=== PATIENT | male | born 1970 | race African-American/Black ===

== ENCOUNTER 2023-12-12 11:08 | Inpatient (IN) | payer MEDICARE, MEDICAID, SELFPAY ==
[2023-12-12] VITALS (7 sets, daily range): BP systolic 147–177; BP diastolic 71–81; PULSE 83–98; RESP 16–22; TEMP 36.3–36.8; O2SAT 97–100
--- NOTE | ~2023-12-12 | CT_ITS ---
EXAMINATION: CT chest abdomen pelvis w con DATE: 12/12/2023 16:31 INDICATION: Malignancy. Pelvic lymphadenopathy and bone lesions. TECHNIQUE: Computed tomography (CT) of the chest, abdomen, and pelvis was performed with 100 mL Omnip aque 350 intravenous contrast. Automated exposure control and iterative reconstruction technique were employed. The dose-length product was 895.68 mGy-cm. COMPARISON: CT lumbar spine 12/12/23 FINDINGS: CHEST CT: There is no pneumonia or pleural effusion. There is a multinodular goiter extending into the right me diastinum. The heart size is normal. There is a trace pericardial effusion. There is bilateral gyneco mastia. There are no pathologically enlarged lymph nodes. There are numerous scattered sclerotic lesi ons of bone. There is a mixed lytic and sclerotic lesion in T9 vertebral body. There is mild chronic anterior wedging of T8, T10, T11, and T12 vertebral bodies. ABDOMEN/PELVIS CT: The liver and spleen are normal. The gallbladder is distended, likely secondary to fasting. The gallb ladder, adrenal glands, and kidneys are normal. There are no dilated loops of bowel. The appendix is normal. There is left para-aortic, bilateral common iliac, bilateral external iliac, right internal i liac, and perirectal lymphadenopathy. For example, a left external iliac node measures 7.5 x 4.1 cm. There is no free intraperitoneal fluid. There are numerous scattered sclerotic lesions of bone. IMPRESSION: 1. Bone lesions and pelvic and retroperitoneal lymphadenopathy, consistent with metastatic disease ve rsus lymphoma. CT-guided biopsy of a pelvic lymph node is recommended. Reviewed, dictated and finalized at location A. IMPRESSION: 1. Bone lesions and pelvic and retroperitoneal lymphadenopathy, consistent with metastatic disease versus lymphoma. CT-guided biopsy of a pelvic lymph node is recommended.
--- NOTE | ~2023-12-12 | CT_ITS ---
EXAMINATION: CT biopsy lymph node DATE: 12/13/2023 13:37 INDICATION: Pelvic lymphadenopathy TECHNIQUE: The procedure including the risks and benefits was discussed with the patient. Risks discu ssed included bleeding and infection. The patient understood the risks and agreed to proceed. The sk in overlying the left groin was prepped and draped in usual sterile fashion. Anesthetic was administ ered with 1% lidocaine subcutaneously. A 16 gauge outer needle was advanced under CT guidance to the enlarged left external iliac chain lymph node of interest. An 18 gauge core biopsy needle was then a dvanced into the lesion. 9 core biopsy specimens were obtained, 6 placed in RPMI media and 3 in forma axel. The outer needle was removed and the entry site was cleaned and dressed. There were no immediat e complications. The dose-length product was 406.26 mGy-cm. FINDINGS: CT images demonstrate the outer needle tip at the periphery of a 7.8 x 4.5 cm left external iliac chain lymph node. IMPRESSION: 1. Successful CT-guided biopsy of an enlarged left external iliac chain lymph node. Reviewed, dictated and finalized at location A. IMPRESSION: 1. Successful CT-guided biopsy of an enlarged left external iliac chain lymph n ode.
--- NOTE | ~2023-12-12 | MR_ITS ---
MRI of the lumbar spine Clinical History: Back pain radiating to right lower extremity Technique: Axial T2-weighted images, and sagittal T1-weighted, T2-weighted, and and T2 fat-sat images were acquired. Following intravenous administration of 19 cc MultiHance gadolinium, T1-weighted fat- sat imaging was performed in the axial and sagittal planes. Findings: No fracture or subluxation seen in the lumbar spine. There is sclerotic metastatic disease extensively involving the L2 and L3 vertebral bodies. At L1-L2, there is no disc bulge or herniation. There is moderate facet arthropathy. No gianna central canal stenosis or definite neural foraminal narrowing. At L2-L3, there is no disc bulge with advanced facet arthropathy. There is probable moderate to sever e spinal canal stenosis/thecal sac compression. There is mild left neural foraminal narrowing. Right neural foramen preserved. At the L3 level, there is epidural extension of disease, best seen on axial postcontrast sequences an d sagittal T2 sequences. There is severe canal stenosis at the L3 level. At L3-L4, disc bulge and severe facet arthropathy result in severe spinal canal stenosis/thecal sac c ompression. There is severe right neural foraminal narrowing, and moderate left neural foraminal narr owing. At L4-L5, there is minimal disc bulge with severe facet arthropathy. No central canal stenosis. There is severe right neural foraminal narrowing. Left neural foramen preserved. At L5-S1, there is no disc bulge or herniation. No spinal canal stenosis or neural foraminal narrowin g. Paravertebral soft tissues otherwise appear unremarkable. Impression: Suboptimal exam due to extensive motion artifact on axial T2-weighted sequence. Sclerotic metastatic disease extensively involving the L2-L3 vertebral bodies. Epidural extension of metastatic disease into the spinal canal at the L3 level resulting in severe sp inal canal stenosis and thecal sac compression. Severe degenerative spondylosis at L3-L4, as detailed above. Moderate to severe degenerative spondylo sis at L2-L3, as above. Reviewed, dictated and finalized at [facility]. Impression: Suboptimal exam due to extensive motion artifact on axial T2-weighted sequence. Sclerotic metastatic disease extensively involving the L2-L3 vertebral bodies. Epidural extension of metastatic disease into the spinal canal at the L3 level resulting in severe spinal canal stenosis and thecal sac compression. Severe degenerative spondylosis at L3-L4, as detailed above. Moderate to severe degenerative spondylosis at L2-L3, as above.
--- NOTE | ~2023-12-12 | CT_ITS ---
EXAMINATION: CT lumbar spine wo con DATE: 12/12/2023 11:39 INDICATION: Low back pain radiating down the legs TECHNIQUE: Computed tomography (CT) of the lumbar spine was performed without intravenous contrast. A utomated exposure control and iterative reconstruction technique were employed. The dose-length produ ct was 837.46 mGy-cm. COMPARISON: None FINDINGS: 304 mm retrolisthesis L4 on the bilaterally sacralized L5 segment. There are multiple sclerotic bone lesions, the largest involving majority of the L2 and L3 vertebral bodies with smaller lesions involv ing the L1 and T11 vertebral bodies which is concerning for metastatic disease. Vertebral body height s are normal. Mild disc height loss at T10-T11, T11-T12 and L3-L4. There is bulky lymphadenopathy vijay ng the bilateral iliac chains prominent on the left where there is a 5.4 x 3.8 cm mass which is also suspicious for metastatic disease or lymphoma. The following disc levels are specifically discussed: T11-T12: Disc is mildly bulging. There is moderate bilateral facet joint osteoarthritis. There is mil d bilateral neural foraminal stenosis. There is no central canal stenosis. T12-L1: Small left foraminal zone disc protrusion. There is moderate bilateral facet joint osteoarthr itis. There is mild left neural foraminal stenosis. There is no central canal stenosis. L1-L2: Disc is mildly bulging. There is mild bilateral facet joint osteoarthritis. There is no neural foraminal stenosis. There is minimal central canal stenosis. L2-L3: Disc is bulging. There is moderate bilateral facet joint osteoarthritis. There is mild bilater al neural foraminal stenosis. There is moderate central canal stenosis. L3-L4: Disc is bulging. There is severe bilateral facet joint osteoarthritis. There is mild to modera te bilateral neural foraminal stenosis. There is moderate to severe central canal stenosis. L4-L5: Disc is bulging. There is moderate left and moderate to severe right facet joint osteoarthriti s. There is moderate right and mild to moderate left neural foraminal stenosis. There is mild central canal stenosis. L5-S1: The disc does not extend beyond the endplate margin. There is moderate bilateral facet joint o steoarthritis. There is mild bilateral neural foraminal stenosis. There is no central canal stenosis. IMPRESSION: 1. Bulky pelvic lymphadenopathy and several sclerotic bone lesions in the lumbar and lower thoracic s pine consistent with metastatic disease or lymphoma. Would recommend further evaluation with CT of th e chest, abdomen and pelvis to assess for any primary malignancy, extent of metastatic disease and id entified most suitable site for biopsy. 2. Mild lumbar and lower thoracic spondylosis. Reviewed, dictated and finalized at location A. IMPRESSION: 1. Bulky pelvic lymphadenopathy and several sclerotic bone lesions in the lumba r and lower thoracic spine consistent with metastatic disease or lymphoma. Woul d recommend further evaluation with CT of the chest, abdomen and pelvis to asse ss for any primary malignancy, extent of metastatic disease and identified most suitable site for biopsy. 2. Mild lumbar and lower thoracic spondylosis.
--- NOTE | 2023-12-12 11:21 | ED.BACK ---
HPI - Back Pain/Injury General Chief Complaint: Back Pain/Injury Stated Complaint: bilateral leg pain/back pain Time Seen by Provider: 12/12/23 11:21 Focused HPI: This is a 53-year-old male that presents to the emergency department for low back pain. Ongoing over the last several weeks. Pain is worse with movement and relieved with rest. No recent injuries or trauma. Reports the pain radiates into both of his legs. Denies saddle anesthesia, bowel/bladder incontinence. GENERAL: Well-appearing, well-nourished, and in no acute distress. HEAD: Normocephalic, atraumatic. CHEST: Clear to auscultation. ?No respiratory distress. HEART: Regular rate and rhythm.? NEURO: ?Alert and oriented x3. Patient screened in triage and initial orders placed.? ?Additional care and disposition to be based upon?diagnostic testing and treatment. Related Data Home Medications Medication Instructions Recorded Confirmed amlodipine 10 mg tablet 10 mg PO DAILY 12/12/23 12/12/23 cyclobenzaprine 10 mg tablet 10 mg PO Q8H PRN Muscle Pain 12/12/23 12/12/23 naproxen 500 mg tablet 500 mg PO BID 12/12/23 12/12/23 paroxetine HCl 20 mg tablet 20 mg PO DAILY 12/12/23 12/12/23 pregabalin 50 mg capsule 50 mg PO TID 12/12/23 12/12/23 Allergies Allergy/AdvReac Type Severity Reaction Status Date / Time amitriptyline Allergy Intermediate ABNORMAL Verified 12/12/23 19:26 THOUGHTS PMFSH Past Medical History Medical History Drug abuse Lymphadenopathy, abdominal Smoking Surgical History Surgical History (Updated 12/13/23 @ 10:03 by Kamlesh Ferris MD) History of transmetatarsal amputation of left foot Family History Family History (Updated 12/12/23 @ 21:41 by Alis Gary RN) Other Unknown family medical history Social History Social History Years smoked: 14 Smoking status: Current every day smoker Tobacco type: cigarettes Alcohol intake: current Substance use type: marijuana and other Other substance usage details: fentanyl Last use: 12/12/23 Do You Feel Safe in your Home?: Yes Lack of Transportation: No Lack of Food: Never True Current Housing: I Have Housing Concerned About Future Housing: No Difficulty Paying Gas/Electric Bills: No Difficulty Paying for Meds: No Currently Unemployed: No Education: High School Diploma/GED Difficulty w/ Childcare or Family Care: No Spiritual care concerns: No Course Vital Signs Vital signs: Vital Signs Temperature 98.1 F 12/12/23 11:18 Pulse Rate 98 12/12/23 11:18 Respiratory Rate 22 H 12/12/23 11:18 Blood Pressure 177/77 H 12/12/23 11:18 Pulse Oximetry 98 12/12/23 11:18 Temperature 98.9 F 12/14/23 08:00 Pulse Rate 94 12/14/23 12:00 Respiratory Rate 17 12/14/23 08:00 Blood Pressure 167/80 H 12/14/23 08:00 Pulse Oximetry 99 12/14/23 08:00 Oxygen Delivery Room Air 12/14/23 08:00 Fraction of Inspired Oxygen 21 12/13/23 09:09 MDM - Back Pain/Injury Lab Data 12/14/23 04:25 12/14/23 04:25 Labs: Lab Results 12/12/23 Range/Units 15:50 WBC 11.8 H (4.5-10.0) K/mm3 RBC 4.66 (4.6-6.20) M/mm3 Hgb 13.1 L (14.0-18.0) g/dL Hct 40.2 L (42.0-52.0) % MCV 86.3 (80-100) fl MCH 28.1 (26-34) pg MCHC 32.6 (32-36) g/dl RDW 15.7 H (11.5-14.5) % Plt Count 411 H (150-375) k/mm3 MPV 9.9 (7.4-10.4) fl Immature Gran % (Auto) 0.3 (0-0.5) % Neut % (Auto) 78.8 H (45.5-73.1) % Lymph % (Auto) 10.1 L (18.3-44.2) % Ponce % (Auto) 10.4 H (2.6-8.5) % Eos % (Auto) 0.1 (0-4.4) % Baso % (Auto) 0.3 (0.2-1.2) % Lymph # (Auto) 1.19 (0.9-3.2) K/mm3 Ponce # (Auto) 1.2 H (0.1-0.6) K/mm3 Eos # (Auto) 0.0 (0-0.3) K/mm3 Baso # (Auto) 0.0 (0.0-0.1) K/mm3 Abs Immat Gran (auto) 0.03 (0.00-0.031) K/mm3 Absolute Neuts (auto) 9.4 H (1.3-6.7) K/mm3 Absolute Nucleated RBC 0.000 (0.0-0
[2023-12-12] MEDS: KETOROLAC 30 MG/ML VIAL (*BKC) IM (11:28)
[2023-12-12 15:56] LABS: Basophils Percent Auto 0.3 % (0.2-1.2); Eosinophils Percent Auto 0.1 % (0-4.4); Hematocrit 40.2 % (42.0-52.0); Hemoglobin 13.1 g/dL (14.0-18.0); Immature Granulocyte Absolute 0.03 K/mm3 (0.00-0.031); Immature Granulocyte Percent A 0.3 % (0-0.5); Lymphocytes Absolute Auto 1.19 K/mm3 (0.9-3.2); Lymphocytes Percent Auto 10.1 % (18.3-44.2); Mean Corpuscular HGB Conc 32.6 g/dl (32-36); Mean Corpuscular Hemoglobin 28.1 pg (26-34); Mean Corpuscular Volume 86.3 fl (80-100); Mean Platelet Volume 9.9 fl (7.4-10.4); Monocytes Absolute Auto 1.2 K/mm3 (0.1-0.6); Monocytes Percent Auto 10.4 % (2.6-8.5); Neutrophils Absolute Auto 9.4 K/mm3 (1.3-6.7); Neutrophils Percent Auto 78.8 % (45.5-73.1); Platelet Count Result 411 k/mm3 (150-375); Red Blood Count 4.66 M/mm3 (4.6-6.20); Red Cell Distribution Width 15.7 % (11.5-14.5); White Blood Count 11.8 K/mm3 (4.5-10.0)
--- NOTE | 2023-12-12 15:56 | ED.BACK ---
HPI - Back Pain/Injury General Chief Complaint: Back Pain/Injury Stated Complaint: bilateral leg pain/back pain Time Seen by Provider: 12/12/23 11:21 History of Present Illness HPI Narrative: This is a 53-year-old male with a past medical history significant for opiate use disorder, hypertension, previous traumatic transmetatarsal left-sided amputation. Today patient presents to the ED for evaluation of his low back pain and thigh pain. Patient states he was previously seen by another provider at a different emergency department who stated that he likely had a pinched nerve. Patient denies any trauma or recent injuries. He was otherwise in his normal state of health but does report a 70 lb weight loss unintentionally over the past year. He states he gets night sweats occasionally. Incidentally he states that he is also going through fentanyl withdrawal. His last use was sometime yesterday and states that he is feeling anxious, jittery, nauseous, feeling similar to his prior withdrawal. Has never been on buprenorphine or naltrexone therapy. Endorses a half pack per day smoking history for 40 years. Denies any other illicit substances or alcohol use. No history of cancer. Denies any chest pain, shortness a breath, headache, vision changes, neuropathy, weakness, incontinence. Related Data Allergies Allergy/AdvReac Type Severity Reaction Status Date / Time amitriptyline Allergy Intermediate ABNORMAL Verified 12/12/23 11:23 THOUGHTS Review of Systems Review of Systems: As reviewed above in HPI Exam Narrative: GENERAL: Anxious appearing but not in any acute distress HEAD: [Normocephalic, atraumatic.] EYES: [PERRLA and EOMI.] ENT: Nares clear, no rhinorrhea or epistaxis. Mucous membranes moist. NECK: Supple. CHEST: [Clear to auscultation. No respiratory distress.] HEART: [Regular rate and rhythm]. No murmur heard. [Normal peripheral pulses.] ABDOMEN: [Soft, nondistended], [nontender], [No rigidity or guarding] EXTREMITIES: Normal range of motion. [No edema.] Transmetatarsal amputation of the left lower extremity, chronic, no acute injury. No tenderness to the medial compartments of the muscles in his calf or thigh. No tenderness to the C, T, L-spine. Full range of motion ambulating unassisted. SKIN: Warm, dry, no rash. NEURO: [No focal deficits]. Alert and oriented [x3.] PSYCH: Anxious Course Vital Signs Vital signs: Vital Signs Temperature 36.7 C 12/12/23 11:18 Pulse Rate 98 12/12/23 11:18 Respiratory Rate 22 H 12/12/23 11:18 Blood Pressure 177/77 H 12/12/23 11:18 Pulse Oximetry 98 12/12/23 11:18 Temperature 36.7 C 12/12/23 11:18 Pulse Rate 98 12/12/23 11:18 Respiratory Rate 22 H 12/12/23 11:18 Blood Pressure 177/77 H 12/12/23 11:18 Pulse Oximetry 98 12/12/23 11:18 MDM - Back Pain/Injury MDM Narrative Medical decision making narrative: This is a 53-year-old male with a history of opiate use disorder, hypertension. He presents today with concerns of bilateral thigh pain and back pain in his lower lumbar region. He also feels like he is going through fentanyl withdrawal. His last use was over 24 hours prior. Has had withdrawal symptoms before but has not had any treatments with bupropion, Suboxone or naltrexone. Endorses feeling significant anxious, shaky, nauseous with vague abdominal pain. He has no associated neuropathy or any neurological complaints associated with his back pain. There was no trauma and he is able to ambulate unassisted with full neurological strength and sensation. He does endorse a 70 lb weight loss and is a 40 pack-year smoker. Clinically given his weight loss and significant smoking history as well as the vague complaints of back pain without any associated trauma I am suspicious for potential malignancy versus infectious pathology. No suspicion for spinal cord or cord compression come pathology given the lack of neurological complaints
[2023-12-12 16:06] LABS: Alanine Aminotransferase 15 U/L (6-50); Albumin Level 4.6 g/dL (3.5-5.1); Alkaline Phosphatase 94 U/L (38-126); Anion Gap 11 mmol/L (4-12); Aspartate Amino Transferase 24 U/L (17-59); Bilirubin,Total 0.6 mg/dL (0.2-1.3); Blood Urea Nitrogen 12 mg/dL (9-20); Calcium 9.7 mg/dL (8.4-10.2); Carbon Dioxide 29 mmol/L (22-30); Chloride 94 mmol/L (98-107); Estimated CRCL calculation 125 ml/min; Estimated Glomerular Filt Rate > 60; Glucose 118 mg/dL (65-110); Magnesium 2.1 mg/dL (1.6-2.3); Potassium 3.9 mmol/L (3.4-5.0); Sodium 134 mmol/L (137-145)
[2023-12-12] MEDS: LACTATED RINGERS 1,000 ML 999 ML IV CONT (16:12)
[2023-12-12] MEDS: KETOROLAC 30 MG/ML VIAL (*BKC) IV PUSH (16:12)
[2023-12-12] MEDS: BUPRENORPHINE HCL (*CRX) 2 MG SUBLINGUAL TABLET 8 MG PO (16:13)
[2023-12-12 16:15] LABS: Creatine Kinase 99 U/L (55-170)
[2023-12-12 16:19] LABS: Prothrombin Time 14.1 Seconds (11.1-14.7)
[2023-12-12 16:20] LABS: Partial Thromboplastin Time 31.2 Seconds (22.3-36.8)
[2023-12-12] MEDS: HYDROmorphone HCL INJ (*CRX) 1 MG/ML SYR 0.5 MG IV PUSH ×2 (19:12→19:13)
--- NOTE | 2023-12-12 19:40 | PM.IMHP ---
H&P: HPI History of Present Illness Date/Time: 12/12/23 19:40 Chief Complaint: generalized pain Narrative: This is a 53-year-old male with past medical history significant for fentanyl use, traumatic left transmetatarsal amputation. patient presents to the emergency room with generalized muscle aches spasm pins and needles sensation pain. Patient was not able to provide much history due to distress most of the history was obtained from sister who is at bedside and daughter. Preliminary workup was significant for CT of spine chest abdomen and pelvis with metastatic lesions to the bones. Patient is been admitted for further evaluation management and treatment. EXAMINATION: CT lumbar spine wo con DATE: 12/12/2023 11:39 INDICATION: Low back pain radiating down the legs TECHNIQUE: Computed tomography (CT) of the lumbar spine was performed without intravenous contrast. Automated exposure control and iterative reconstruction technique were employed. The dose-length product was 837.46 mGy-cm. COMPARISON: None FINDINGS: 304 mm retrolisthesis L4 on the bilaterally sacralized L5 segment. There are multiple sclerotic bone lesions, the largest involving majority of the L2 and L3 vertebral bodies with smaller lesions involving the L1 and T11 vertebral bodies which is concerning for metastatic disease. Vertebral body heights are normal. Mild disc height loss at T10-T11, T11-T12 and L3-L4. There is bulky lymphadenopathy along the bilateral iliac chains prominent on the left where there is a 5.4 x 3.8 cm mass which is also suspicious for metastatic disease or lymphoma. The following disc levels are specifically discussed: T11-T12: Disc is mildly bulging. There is moderate bilateral facet joint osteoarthritis. There is mild bilateral neural foraminal stenosis. There is no central canal stenosis. T12-L1: Small left foraminal zone disc protrusion. There is moderate bilateral facet joint osteoarthritis. There is mild left neural foraminal stenosis. There is no central canal stenosis. L1-L2: Disc is mildly bulging. There is mild bilateral facet joint osteoarthritis. There is no neural foraminal stenosis. There is minimal central canal stenosis. L2-L3: Disc is bulging. There is moderate bilateral facet joint osteoarthritis. There is mild bilateral neural foraminal stenosis. There is moderate central canal stenosis. L3-L4: Disc is bulging. There is severe bilateral facet joint osteoarthritis. There is mild to moderate bilateral neural foraminal stenosis. There is moderate to severe central canal stenosis. L4-L5: Disc is bulging. There is moderate left and moderate to severe right facet joint osteoarthritis. There is moderate right and mild to moderate left neural foraminal stenosis. There is mild central canal stenosis. L5-S1: The disc does not extend beyond the endplate margin. There is moderate bilateral facet joint osteoarthritis. There is mild bilateral neural foraminal stenosis. There is no central canal stenosis. IMPRESSION: 1. Bulky pelvic lymphadenopathy and several sclerotic bone lesions in the lumbar and lower thoracic spine consistent with metastatic disease or lymphoma. Would recommend further evaluation with CT of the chest, abdomen and pelvis to assess for any primary malignancy, extent of metastatic disease and identified most suitable site for biopsy. 2. Mild lumbar and lower thoracic spondylosis. EXAMINATION: CT chest abdomen pelvis w con DATE: 12/12/2023 16:31 INDICATION: Malignancy. Pelvic lymphadenopathy and bone lesions. TECHNIQUE: Computed tomography (CT) of the chest, abdomen, and pelvis was performed with 100 mL Omnipaque 350 intravenous contrast. Automated exposure control and iterative reconstruction technique were employed. The dose-length product was 895.68 mGy-cm. COMPARISON: CT lumbar spine 12/12/23 FINDINGS: CHEST CT: There is no pneumonia or pleural effusion. There is a multinodular goiter extending into the right medi
[2023-12-12] MEDS: fentaNYL CITRATE INJ (*CRX) 100 MCG/2 ML VIAL 150 MCG IV PUSH (21:12)
--- NOTE | 2023-12-12 21:34 | ADMGEN ---
This patient, Leopoldo Edgar III, was admitted to [address] [place] [address] Room 314-02. Patient/family oriented to hospital policies and general routines including ID bracelet, bed and alarms, visiting hours, pain management, procedures, bathroom and other care routines, personal items, smoking policy, room service/diet, and visiting hours. Information on how to activate the Rapid Response Team has been discussed. Patient/Family are encouraged to report perceived risks to care and to ask questions if they do not understand what they are told or what they should do.
[2023-12-12] MEDS: diphenhydrAMINE HCl INJ 50 MG/ML VIAL IV PUSH (22:44)
[2023-12-12] MEDS: LORazepam INJ (*CRX) 2 MG/ML VIAL IV PUSH (22:44)
[2023-12-13] VITALS (19 sets, daily range): BP systolic 136–200; BP diastolic 70–141; PULSE 74–120; RESP 14–29; TEMP 36.8–36.9; O2SAT 98–100; BMI 30.7
[2023-12-13] MEDS: diphenhydrAMINE HCl INJ 50 MG/ML VIAL IV PUSH (00:39)
[2023-12-13] MEDS: LORazepam INJ (*CRX) 2 MG/ML VIAL IV PUSH (00:40)
[2023-12-13] MEDS: dexmedeTOMIDine 400 MCG/100 ML 400 MCG/100 ML BAG 7.5 MCG IV CONT ×2 (04:08→08:55)
[2023-12-13] MEDS: LABETALOL HCL INJ 100 MG/20 ML VIAL 10 MG IV PUSH (04:12)
--- NOTE | 2023-12-13 04:14 | PC.NURSE ---
Pt transferred to ICU 9 on this date, after a rapid response was called for pt. Report given to MECCA Friedman
--- NOTE | 2023-12-13 06:11 | PC.NURSE ---
This patient, Leopoldo Edgar III, was received from [[id number] ] on 12/13/23 at [id number]. Patient/family oriented to unit policies and routines
[2023-12-13] MEDS: fentaNYL CITRATE INJ (*CRX) 100 MCG/2 ML VIAL 150 MCG IV PUSH (07:26)
[2023-12-13 08:31] LABS: Glucose Point of Care 127 mg/dl (65-105)
[2023-12-13] MEDS: PARoxetine 20 MG TABLET PO (08:35)
[2023-12-13] MEDS: amLODIPine BESYLATE 10 MG TABLET PO (08:35)
[2023-12-13] MEDS: PREGABALIN (*CRX) 50 MG CAPSULE PO ×3 (08:35→17:04)
[2023-12-13] MEDS: oxyCODONE HCL (*CRX) 5 MG TAB IR PO ×6 (09:02→23:48)
--- NOTE | 2023-12-13 09:58 | WPDCNINT ---
Assessment and Plan Assessment and plan (1) Agitation: Code(s): R45.1 - Restlessness and agitation Status: Acute Assessment and Plan: patient was transferred overnight secondary to agitation although patient claims that it was because of his uncontrolled pain and he was not combative or uncooperative with the staff. Patient is currently on Precedex infusion which I will try to wean it off Will adjust and a chest X to provide better pain control. Monitor (2) Back pain: Code(s): M54.9 - Dorsalgia, unspecified Status: Acute Assessment and Plan: CT scan shows bilateral pelvic lymphadenopathy and several sclerotic bone lesions in the lumbar and thoracic spine consistent with metastatic disease which could explain the pain will start p.o. and IV p.r.n. opioids for better blood control will obtain MRI of the back (3) Lymphadenopathy, abdominal: Code(s): R59.0 - Localized enlarged lymph nodes Status: Acute Assessment and Plan: Lumbar Spine CT 12/12/23 12:02 IMPRESSION: 1. Bulky pelvic lymphadenopathy and several sclerotic bone lesions in the lumbar and lower thoracic spine consistent with metastatic disease or lymphoma. Would recommend further evaluation with CT of the chest, abdomen and pelvis to assess for any primary malignancy, extent of metastatic disease and identified most suitable site for biopsy. 2. Mild lumbar and lower thoracic spondylosis. Chest/Abdomen/Pelvis CT 12/12/23 16:35 IMPRESSION: 1. Bone lesions and pelvic and retroperitoneal lymphadenopathy, consistent with metastatic disease versus lymphoma. CT-guided biopsy of a pelvic lymph node is recommended. CT-guided biopsy has been ordered and is pending consult oncology obtain MRI of the back Plan DVT prophylaxis - SCD Nutrition - npo Code Status - Full Code C Software Engineer Consult Note Consult date: 12/13/23 Reason for consult: agitation HPI: Leopoldo Edgar III is a 53 year old male with past medical history significant for drug abuse, smoking and traumatic left transmetatarsal amputation in 2003 presented to ER yesterday with chief complaint of back pain and pain in the legs. patient states that he has been having back pain and pain in his legs for last few months which has been gradually getting worse. He denies any trauma accident fall or injury. He states the pain came on spontaneously over time and has been gradually getting worse. He rated at 10/10 sharp and achy. No radiation no relieving or aggravating factors. . He states he is able to walk without any difficulty and states that he has not lost control of his bowel or bladder. He does not feel weak in his arms or legs. Workup in the ER showed bulky pelvic lymphadenopathy and sclerotic bone lesions suggestive of metastatic his. Patient was admitted to step-down unit for management. Overnight patient became agitated as per nursing staff and was combative. He was transferred to ICU and started on Precedex infusion. This morning patient is drowsy but easily arousable and able to provide some history and states that he was just in pain and his pain was not adequately controlled and staff would not believe that he was having pain 10/10. He did receive several doses of fentanyl which were not helpful. Patient also told ER physician and admitting physician he felt that he was withdrawing from fentanyl. Patient has been buying drugs from the street which he believed to be fentanyl and has been using it for last 6 months. He is not sure whether it was fentanyl but he was told by the person who was selling it. He did not feel any pain relief from the medication which questions whether a it had any fentanyl at all. he states that he started the drug to get high but over time he was not getting any benefit from it. He does smoke 6 cigarettes a day. But denies any drug use. He does smoke marijuana but denies any other drug use like heroin
--- NOTE | 2023-12-13 13:56 | P.CDI_ITS ---
CDI Query Clarification Request BMI 30.7 Nutritional Diagnostic Statement: Please refer to the comprehensive nutrition assessment for further information. If you agree with diagnosis of Moderate Protein Calorie Malnutrition to increased protein needs in the setting of chronic disease as evidenced by poor po intake < 75% for > 7 days/weight loss of 6% (15 ibs) 2 months/moderate subcutaneous fat loss (orbital fat pads). Please specify severity if known: * Mild * Moderate * Severe * Other/Unknown
--- NOTE | 2023-12-13 17:00 | PM.IMPN ---
Progress Note: A&P Assessment and Plan (1) Agitation: Code(s): R45.1 - Restlessness and agitation Status: Acute Assessment and Plan: On 12/12 patient was transferred overnight secondary to agitation although patient claims that it was because of his uncontrolled pain and he was not combative or uncooperative with the staff. Patient received Precedex infusion in ICU . Currently the Precedex has been stopped . Currently patient is calm and awaiting transfer to floor (2) Back pain: Code(s): M54.9 - Dorsalgia, unspecified Status: Acute Assessment and Plan: - CT scan shows bilateral pelvic lymphadenopathy and several sclerotic bone lesions in the lumbar and thoracic spine consistent with metastatic disease which could explain the pain -will start p.o. and IV p.r.n. opioids for better blood control -will obtain MRI of the back - Underwent CT guided biopsy -oncology is consulted (3) Lymphadenopathy, abdominal: Code(s): R59.0 - Localized enlarged lymph nodes Status: Acute Assessment and Plan: Lumbar Spine CT 12/12/23 12:02 IMPRESSION: 1. Bulky pelvic lymphadenopathy and several sclerotic bone lesions in the lumbar and lower thoracic spine consistent with metastatic disease or lymphoma. Would recommend further evaluation with CT of the chest, abdomen and pelvis to assess for any primary malignancy, extent of metastatic disease and identified most suitable site for biopsy. 2. Mild lumbar and lower thoracic spondylosis. Chest/Abdomen/Pelvis CT 12/12/23 16:35 IMPRESSION: 1. Bone lesions and pelvic and retroperitoneal lymphadenopathy, consistent with metastatic disease versus lymphoma. CT-guided biopsy of a pelvic lymph node is recommended. CT-guided biopsy has been ordered and is pending consult oncology obtain MRI of the back Plan DVT prophylaxis - SCD Nutrition - npo Code Status - Full Code Subjective Date/time seen: 12/13/23 17:00 Interval history: Patient is calm collected. Patient reports the pain is better than yesterday. Patient underwent a biopsy. Oncology consult is still pending Review of Systems Review of Systems: generalized pain, muscle spasm All systems reviewed & are unremarkable except as noted in HPI and below ( HPI) Exam Narrative: General: Pt is alert awake and in NAD Lungs/Chest: Trachea central Clear BS B/L, No crackles or wheezing. Cardiac: RRR. Normal S1 S2. No murmurs Circulation: Pedal pulses are intact and symmetrical. Abdomen: Normal bowel sounds.. Soft. NT. ND. Extremities: No clubbing, cyanosis or edema. 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 : Florence in place Neurologic: Follows commands. Moves all 4 extremities AO x3 PERRL Muscle strength 5/5 in all 4 extremities sensation to touch intact Skin: No Rash Const: General: comfortable, well developed, alert, awake, acute distress mild (pain), ill appearing chronically and average body habitus Nutritional Appearance: average body habitus Orientation/consciousness: patient oriented x3 Other: looks older than stated age HENMT: Head: normal to inspection, normocephalic and atraumatic Ears: hearing grossly normal bilaterally Face/Nose/Sinus: normal facial exam Face and sinus: normal facial exam Eyes: General: appearance normal, both eyes and all related structures Pupils: Equal, round and reactive pupils present EOM: EOMs intact bilaterally Neck: Neck: full ROM, no lymphadenopathy and no JVD Thyroid: thyroid normal Lymphatic: no lymphadenopathy noted Resp: Effort & Inspection: normal respiratory effort and able to speak in complete sentences Auscultation: clear to auscultation bilaterally Cardio: Jugular venous distension: no JVD Rate: regular rate Rhythm: regular rhythm Heart sounds: S1 normal heart sound present and S2 normal heart sound present : General: Yes deferred Skin: Rashes:
[2023-12-13] MEDS: HYDROmorphone HCL INJ (*CRX) 1 MG/ML SYR 0.5 MG IV PUSH (21:45)
[2023-12-14] VITALS (8 sets, daily range): BP systolic 143–167; BP diastolic 78–86; PULSE 93–119; RESP 14–22; TEMP 36.2–37.2; O2SAT 98–100
[2023-12-14] MEDS: LORazepam INJ (*CRX) 2 MG/ML VIAL 1 MG IV PUSH ×2 (01:47→08:51)
[2023-12-14] MEDS: oxyCODONE HCL (*CRX) 5 MG TAB IR PO ×7 (01:48→20:42)
--- NOTE | 2023-12-14 03:25 | PC.NURSE ---
Patient extremely restless at this time and c/o right thigh pain. Radha ORTIZ notified with a new order for Librium 50mg x 1 dose.
[2023-12-14] MEDS: chlordiazePOXIDE (*CRX) 25 MG CAPSULE 50 MG PO (03:36)
[2023-12-14 04:39] LABS: Hematocrit 41.6 % (42.0-52.0); Hemoglobin 13.8 g/dL (14.0-18.0); Mean Corpuscular HGB Conc 33.2 g/dl (32-36); Mean Corpuscular Volume 84.6 fl (80-100); Mean Platelet Volume 10.3 fl (7.4-10.4); Platelet Count Result 387 k/mm3 (150-375); Red Blood Count 4.92 M/mm3 (4.6-6.20); Red Cell Distribution Width 15.1 % (11.5-14.5); White Blood Count 10.1 K/mm3 (4.5-10.0)
[2023-12-14 04:55] LABS: Alanine Aminotransferase 14 U/L (6-50); Albumin Level 4.5 g/dL (3.5-5.1); Alkaline Phosphatase 90 U/L (38-126); Anion Gap 11 mmol/L (4-12); Aspartate Amino Transferase 27 U/L (17-59); Bilirubin,Total 0.5 mg/dL (0.2-1.3); Blood Urea Nitrogen 16 mg/dL (9-20); Calcium 9.7 mg/dL (8.4-10.2); Carbon Dioxide 27 mmol/L (22-30); Chloride 98 mmol/L (98-107); Estimated CRCL calculation 144 ml/min; Estimated Glomerular Filt Rate > 60; Glucose 152 mg/dL (65-110); Potassium 3.8 mmol/L (3.4-5.0); Sodium 136 mmol/L (137-145)
[2023-12-14] MEDS: PREGABALIN (*CRX) 50 MG CAPSULE PO ×3 (08:48→16:27)
[2023-12-14] MEDS: amLODIPine BESYLATE 10 MG TABLET PO (08:48)
[2023-12-14] MEDS: PARoxetine 20 MG TABLET PO (08:48)
[2023-12-14] MEDS: ENOXAPARIN 40 MG/0.4 ML SYRINGE SUB-Q (08:49)
[2023-12-14] MEDS: HYDROmorphone HCL INJ (*CRX) 1 MG/ML SYR 0.5 MG IV PUSH ×2 (08:51→11:57)
[2023-12-14] MEDS: CYCLOBENZAPRINE HCL 10 MG TABLET PO (08:52)
[2023-12-14] MEDS: METOPROLOL TARTRATE INJ 5 MG/5 ML VIAL IV PUSH (11:18)
--- NOTE | 2023-12-14 12:21 | PC.NURSE ---
This patient, Leopoldo Edgar III, was transferred to [facility] on 12/14/23 at 1205. Personal belongings sent with patient. Report given to Guillermina WING. Appropriate documentation sent with patient.
--- NOTE | 2023-12-14 13:52 | PC.NURSE ---
This patient, Leopoldo Edgar III, was received from ICU/9 on 12/14/23 at 1215. Patient/family oriented to unit policies and routines.
--- NOTE | 2023-12-14 15:45 | PM.IMPN ---
Progress Note: A&P Assessment and Plan (1) Agitation: Code(s): R45.1 - Restlessness and agitation Status: Acute Assessment and Plan: -On 12/12 patient was transferred overnight secondary to agitation although patient claims that it was because of his uncontrolled pain and he was not combative or uncooperative with the staff. Patient received Precedex infusion in ICU . Currently the Precedex has been stopped . Currently patient is calm and awaiting transfer to floor (2) Back pain: Code(s): M54.9 - Dorsalgia, unspecified Status: Acute Assessment and Plan: - CT scan shows bilateral pelvic lymphadenopathy and several sclerotic bone lesions in the lumbar and thoracic spine consistent with metastatic disease which could explain the pain -will start p.o. and IV p.r.n. opioids for better blood control -will obtain MRI of the back - Underwent CT guided biopsy -oncology is consulted (3) Lymphadenopathy, abdominal: Code(s): R59.0 - Localized enlarged lymph nodes Status: Acute Assessment and Plan: Lumbar Spine CT 12/12/23 12:02 IMPRESSION: 1. Bulky pelvic lymphadenopathy and several sclerotic bone lesions in the lumbar and lower thoracic spine consistent with metastatic disease or lymphoma. Would recommend further evaluation with CT of the chest, abdomen and pelvis to assess for any primary malignancy, extent of metastatic disease and identified most suitable site for biopsy. 2. Mild lumbar and lower thoracic spondylosis. Chest/Abdomen/Pelvis CT 12/12/23 16:35 IMPRESSION: 1. Bone lesions and pelvic and retroperitoneal lymphadenopathy, consistent with metastatic disease versus lymphoma. CT-guided biopsy of a pelvic lymph node is recommended. CT-guided biopsy has been ordered and is pending consult oncology obtain MRI of the back Plan DVT prophylaxis - SCD Nutrition - npo Code Status - Full Code Subjective Date/time seen: 12/14/23 15:45 Interval history: Patient was examined at the bedside. Patient reports of soreness of the muscles. Still awaiting on Oncology recommendations. The biopsy results are pending. Review of Systems Review of Systems: generalized pain, muscle spasm All systems reviewed & are unremarkable except as noted in HPI and below ( HPI) Exam Narrative: General: Pt is alert awake and in NAD Lungs/Chest: Trachea central Clear BS B/L, No crackles or wheezing. Cardiac: RRR. Normal S1 S2. No murmurs Circulation: Pedal pulses are intact and symmetrical. Abdomen: Normal bowel sounds.. Soft. NT. ND. Extremities: No clubbing, cyanosis or edema. 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 : Florence in place Neurologic: Follows commands. Moves all 4 extremities AO x3 PERRL Muscle strength 5/5 in all 4 extremities sensation to touch intact Skin: No Rash Const: General: comfortable, well developed, alert, awake, acute distress mild (pain), ill appearing chronically and average body habitus Nutritional Appearance: average body habitus Orientation/consciousness: patient oriented x3 Other: looks older than stated age HENMT: Head: normal to inspection, normocephalic and atraumatic Ears: hearing grossly normal bilaterally Face/Nose/Sinus: normal facial exam Face and sinus: normal facial exam Eyes: General: appearance normal, both eyes and all related structures Pupils: Equal, round and reactive pupils present EOM: EOMs intact bilaterally Neck: Neck: full ROM, no lymphadenopathy and no JVD Thyroid: thyroid normal Lymphatic: no lymphadenopathy noted Resp: Effort & Inspection: normal respiratory effort and able to speak in complete sentences Auscultation: clear to auscultation bilaterally Cardio: Jugular venous distension: no JVD Rate: regular rate Rhythm: regular rhythm Heart sounds: S1 normal heart sound present and S2 normal heart sound present : General: Yes deferred
--- NOTE | 2023-12-14 18:00 | PDONCCN ---
HPI - Date of Consult Date/Time: 12/14/23 18:00 Requesting Physician: Davian Avalos MD Primary Care Provider: UNKNOWN,DOCTOR - Consult Narrative Reason for consult: Generalized lymphadenopathy Narrative: Leopoldo Edgar III is a 53 year old male without any history of malignancy history of previous fentanyl use and traumatic left transmetatarsal amputation came into the ER with generalized musculoskeletal discomfort specially in the lower extremities. Patient has lost more than 50 lb weight in 1 year duration. He has been some fever chills and night sweats on intermittent basis. CTs chest abdomen and pelvis was performed that showed bulky pelvic lymphadenopathy, sclerotic bone lesions in lumbar and thoracic spine consistent with metastatic disease or lymphoma. Liver and spleen was normal. Patient underwent CT-guided left in lymph node biopsy pending. Labs showed mild anemia and slight leukocytosis and thrombocytosis. Review of Systems - Review of Systems All systems reviewed & are unremarkable except as noted in HPI and [facility] Medical History: Medical History (Last Updated 12/13/23 @ 10:05 by Kamlesh Ferris MD) Drug abuse Lymphadenopathy, abdominal Smoking Surgical History: Surgical History (Last Updated 12/13/23 @ 10:03 by Kamlesh Ferris MD) History of transmetatarsal amputation of left foot Family History: Family History (Last Updated 12/12/23 @ 21:41 by Alis Gary RN) Other Unknown family medical history - Social History Social History: Social History (Last Reviewed 12/12/23 @ 15:59 by Ted Petersen MD) Alcohol Use: Alcohol intake: current Substance Use: Substance use type: marijuana Substance use type: other Other substance usage details: fentanyl Last use: 12/12/23 Others: Spiritual care concerns: No Smoking Status: Smoking status: Current every day smoker Tobacco type: cigarettes Smoking Pack-years: Smoking cigarettes per day: 5 Years smoked: 14 Smoking pack-years: 3.50 Social Determinants of Health: Do You Feel Safe in your Home?: Yes Has the Lack of Transportation Kept You From Medical Appointments or From Getting Medications?: No Within the Past 12 Months, Were You Worried Whether Your Food Would Run Out Before You Got Money to Buy More?: Never True What is Your Housing Situation Today?: I Have Housing Are You Worried That in the Next 2 Months, You May Not Have Your Own Housing to Live In?: No Do You Have Trouble Paying Your Heating Or Electricity Bill?: No Do You Have Trouble Paying For Medicines?: No Are You Currently Unemployed and Looking for Work?: No Highest Level of Education Completed: High School Diploma/GED Do You Have Trouble With Childcare or the Care of a Family Member?: No Exam - Vital Signs Vital Signs - 24 hr 12/13/23 20:00 12/13/23 20:00 12/14/23 00:00 Temperature Pulse Rate 93 107 H Respiratory Rate Blood Pressure Pulse Oximetry 99 Oxygen Delivery Room Air 12/14/23 00:00 12/14/23 04:00 12/14/23 08:00 Temperature Pulse Rate 107 H 103 H 101 H Respiratory Rate 22 H Blood Pressure 163/86 H Pulse Oximetry 98 Oxygen Delivery 12/14/23 08:00 12/14/23 08:00 12/14/23 11:18 Temperature 37.2 C Pulse Rate 101 H 119 H Respiratory Rate 17 Blood Pressure 167/80 H Pulse Oximetry 99 Oxygen Delivery Room Air 12/14/23 12:00 12/14/23 16:00 Temperature 36.2 C L Pulse Rate 94 110 H Respiratory Rate 14 Blood Pressure 157/78 H Pulse Oximetry 100 Oxygen Delivery - Exam HEENT: PERRLA Neck: supple Lungs: clear to auscultation, normal air movement Heart: no murmurs, gallops, or rubs, regular rhythm Abdomen: abdomen soft, non-distended, normal bowel sounds Extremities: normal pulses Integumentary: no abnormalities Psychological: mental status NL, mood NL - Lab Results Lab
[2023-12-15] VITALS (8 sets, daily range): BP systolic 154–164; BP diastolic 90–106; PULSE 95–128; RESP 14–18; TEMP 36.3–36.6; O2SAT 100
[2023-12-15] MEDS: oxyCODONE HCL (*CRX) 5 MG TAB IR PO ×6 (00:30→20:14)
[2023-12-15] MEDS: HYDROmorphone HCL INJ (*CRX) 1 MG/ML SYR 0.5 MG IV PUSH ×4 (04:46→19:20)
[2023-12-15] MEDS: ENOXAPARIN 40 MG/0.4 ML SYRINGE SUB-Q (08:13)
[2023-12-15] MEDS: PREGABALIN (*CRX) 50 MG CAPSULE PO ×3 (08:14→16:53)
[2023-12-15] MEDS: PARoxetine 20 MG TABLET PO (08:14)
[2023-12-15] MEDS: amLODIPine BESYLATE 10 MG TABLET PO (08:14)
[2023-12-15] MEDS: LORazepam INJ (*CRX) 2 MG/ML VIAL 1 MG IV PUSH ×2 (10:44→21:40)
--- NOTE | 2023-12-15 14:42 | PM.IMPN ---
Progress Note: A&P Assessment and Plan (1) Agitation: Code(s): R45.1 - Restlessness and agitation Status: Acute Assessment and Plan: -On 12/12 patient was transferred overnight secondary to agitation although patient claims that it was because of his uncontrolled pain and he was not combative or uncooperative with the staff. Patient received Precedex infusion in ICU . Currently the Precedex has been stopped . Currently patient is calm and in floor (2) Back pain: Code(s): M54.9 - Dorsalgia, unspecified Status: Acute Assessment and Plan: - CT scan shows bilateral pelvic lymphadenopathy and several sclerotic bone lesions in the lumbar and thoracic spine consistent with metastatic disease which could explain the pain -will start p.o. and IV p.r.n. 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 -oncology is consulted (3) Lymphadenopathy, abdominal: Code(s): R59.0 - Localized enlarged lymph nodes Status: Acute Assessment and Plan: Lumbar Spine CT 12/12/23 12:02 IMPRESSION: 1. Bulky pelvic lymphadenopathy and several sclerotic bone lesions in the lumbar and lower thoracic spine consistent with metastatic disease or lymphoma. Would recommend further evaluation with CT of the chest, abdomen and pelvis to assess for any primary malignancy, extent of metastatic disease and identified most suitable site for biopsy. 2. Mild lumbar and lower thoracic spondylosis. Chest/Abdomen/Pelvis CT 12/12/23 16:35 IMPRESSION: 1. Bone lesions and pelvic and retroperitoneal lymphadenopathy, consistent with metastatic disease versus lymphoma. CT-guided biopsy of a pelvic lymph node is recommended. CT-guided biopsy has been ordered and is pending consult oncology obtain MRI of the back Plan DVT prophylaxis - SCD Nutrition - npo Code Status - Full Code Subjective Date/time seen: 12/15/23 14:42 Interval history: Patient was examined at the bedside and currently doing well patient will undergo MRI of the spine today. 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 Review of Systems Review of Systems: generalized pain, muscle spasm All systems reviewed & are unremarkable except as noted in HPI and below ( HPI) Exam Narrative: General: Pt is alert awake and in NAD Lungs/Chest: Trachea central Clear BS B/L, No crackles or wheezing. Cardiac: RRR. Normal S1 S2. No murmurs Circulation: Pedal pulses are intact and symmetrical. Abdomen: Normal bowel sounds.. Soft. NT. ND. Extremities: No clubbing, cyanosis or edema. 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 : [place] in place Neurologic: Follows commands. Moves all 4 extremities AO x3 PERRL Muscle strength 5/5 in all 4 extremities sensation to touch intact Skin: No Rash Const: General: comfortable, well developed, alert, awake, acute distress mild (pain), ill appearing chronically and average body habitus Nutritional Appearance: average body habitus Orientation/consciousness: patient oriented x3 Other: looks older than stated age HENMT: Head: normal to inspection, normocephalic and atraumatic Ears: hearing grossly normal bilaterally Face/Nose/Sinus: normal facial exam Face and sinus: normal facial exam Eyes: General: appearance normal, both eyes and all related structures Pupils: Equal, round and reactive pupils present EOM: EOMs intact bilaterally Neck: Neck: full ROM, no lymphadenopathy and no JVD Thyroid: thyroid normal Lymphatic: no lymphadenopathy noted Resp: Effort & Inspection: normal respiratory effort and able to speak in complete sentences Auscultation: clear to auscultation bilaterally Cardio: Jugular venous distens
[2023-12-15] MEDS: CYCLOBENZAPRINE HCL 10 MG TABLET PO ×2 (14:49→23:04)
[2023-12-15] MEDS: LIDOCAINE 5% PATCH 1 PATCH TRANSDERM (15:31)
[2023-12-15] MEDS: MORPHINE SULFATE (*CRX) 2 MG/ML INJ IV PUSH (20:13)
--- NOTE | 2023-12-15 21:36 | P.PNCROSS_ITS ---
Event Note Event Note Event Note: I received a call from the patient's nurse with concerns that his pain is poorly controlled. Chart was reviewed. Recent CT scan showed bone lesions and pelvic and retroperitoneal lymphadenopathy consistent with metastatic disease and CT- guided biopsy of pelvic lymph node is consistent with metastatic adenocarcinoma, prostatic primary. He has been getting oxycodone 5 mg with hydromorphone for breakthrough pain without much benefit. Over the past 24 hours he has received 70 morphine mg equivalent. These do not seem to be giving him much pain relief. Discontinue IR oxycodone. Start OxyContin extended release 10 mg q.12 hours and fentanyl patch 25 mcg. One time dose dexamethasone ordered to see if that helps as he does have quite a bit of lower back and possible radiculopathy. Dilaudid ordered for breakthrough pain.
[2023-12-15] MEDS: oxyCODONE HCL (*CRX) 10 MG TAB SR 12HR PO (21:40)
[2023-12-15] MEDS: dexAMETHasone SOD PHOS INJ 10 MG/ML 1 ML VIAL IV PUSH (21:41)
[2023-12-15] MEDS: fentaNYL (*CRX) 25 MCG PATCH TRANSDERM (22:20)
[2023-12-15] MEDS: HYDROmorphone HCL INJ (*CRX) 1 MG/ML SYR IV PUSH (23:04)
[2023-12-16] VITALS (9 sets, daily range): BP systolic 158–172; BP diastolic 59–98; PULSE 78–129; RESP 16–30; TEMP 36.9–37.1; O2SAT 98–100
[2023-12-16] MEDS: HYDROmorphone HCL INJ (*CRX) 1 MG/ML SYR IV PUSH ×7 (01:50→22:42)
[2023-12-16 06:36] LABS: Hematocrit 42.5 % (42.0-52.0); Hemoglobin 13.9 g/dL (14.0-18.0); Mean Corpuscular HGB Conc 32.7 g/dl (32-36); Mean Corpuscular Hemoglobin 27.9 pg (26-34); Mean Corpuscular Volume 85.3 fl (80-100); Mean Platelet Volume 10.5 fl (7.4-10.4); Platelet Count Result 377 k/mm3 (150-375); Red Blood Count 4.98 M/mm3 (4.6-6.20); Red Cell Distribution Width 14.8 % (11.5-14.5)
[2023-12-16 06:57] LABS: Alanine Aminotransferase 19 U/L (6-50); Albumin Level 4.6 g/dL (3.5-5.1); Alkaline Phosphatase 84 U/L (38-126); Anion Gap 9 mmol/L (4-12); Aspartate Amino Transferase 24 U/L (17-59); Bilirubin,Total 0.4 mg/dL (0.2-1.3); Blood Urea Nitrogen 19 mg/dL (9-20); Calcium 10.1 mg/dL (8.4-10.2); Carbon Dioxide 28 mmol/L (22-30); Chloride 98 mmol/L (98-107); Estimated CRCL calculation 125 ml/min; Estimated Glomerular Filt Rate > 60; Glucose 150 mg/dL (65-110); Potassium 4.5 mmol/L (3.4-5.0); Sodium 135 mmol/L (137-145)
[2023-12-16] MEDS: PREGABALIN (*CRX) 50 MG CAPSULE PO ×3 (08:31→17:30)
[2023-12-16] MEDS: amLODIPine BESYLATE 10 MG TABLET PO (08:31)
[2023-12-16] MEDS: LIDOCAINE 5% PATCH 1 PATCH TRANSDERM (08:31)
[2023-12-16] MEDS: PARoxetine 20 MG TABLET PO (08:31)
[2023-12-16] MEDS: oxyCODONE HCL (*CRX) 10 MG TAB SR 12HR PO ×2 (08:31→20:47)
[2023-12-16] MEDS: ENOXAPARIN 40 MG/0.4 ML SYRINGE SUB-Q (08:33)
--- NOTE | 2023-12-16 10:38 | PM.IMPN ---
Progress Note: A&P Assessment and Plan (1) Agitation: Code(s): R45.1 - Restlessness and agitation Status: Acute Assessment and Plan: -On 12/12 patient was transferred overnight secondary to agitation although patient claims that it was because of his uncontrolled pain and he was not combative or uncooperative with the staff. Patient received Precedex infusion in ICU . Currently the Precedex has been stopped . (2) Back pain: Code(s): M54.9 - Dorsalgia, unspecified Status: Acute Assessment and Plan: - CT scan shows bilateral pelvic lymphadenopathy and several sclerotic bone lesions in the lumbar and thoracic spine consistent with metastatic disease which could explain the pain -will start p.o. and IV p.r.n. 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 -oncology is consulted (3) Lymphadenopathy, abdominal: Code(s): R59.0 - Localized enlarged lymph nodes Status: Acute Assessment and Plan: Lumbar Spine CT 12/12/23 12:02 IMPRESSION: 1. Bulky pelvic lymphadenopathy and several sclerotic bone lesions in the lumbar and lower thoracic spine consistent with metastatic disease or lymphoma. Would recommend further evaluation with CT of the chest, abdomen and pelvis to assess for any primary malignancy, extent of metastatic disease and identified most suitable site for biopsy. 2. Mild lumbar and lower thoracic spondylosis. Chest/Abdomen/Pelvis CT 12/12/23 16:35 IMPRESSION: 1. Bone lesions and pelvic and retroperitoneal lymphadenopathy, consistent with metastatic disease versus lymphoma. CT-guided biopsy of a pelvic lymph node is recommended. CT-guided biopsy has been ordered and is pending consult oncology obtain MRI of the back Plan DVT prophylaxis - SCD Nutrition - npo Code Status - Full Code Subjective Date/time seen: 12/16/23 10:38 Interval history: Patient was unable to perform MRI of the Thoracic and Lumbar spine yesterday due to claustrophobic. Nursing team reports due to weekend MRI will not be performed. 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 Review of Systems Review of Systems: generalized pain, muscle spasm All systems reviewed & are unremarkable except as noted in HPI and below ( HPI) Exam Narrative: General: Pt is alert awake and in NAD Lungs/Chest: Trachea central Clear BS B/L, No crackles or wheezing. Cardiac: RRR. Normal S1 S2. No murmurs Circulation: Pedal pulses are intact and symmetrical. Abdomen: Normal bowel sounds.. Soft. NT. ND. Extremities: No clubbing, cyanosis or edema. 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 : [place] in place Neurologic: Follows commands. Moves all 4 extremities AO x3 PERRL Muscle strength 5/5 in all 4 extremities sensation to touch intact Skin: No Rash Const: General: comfortable, well developed, alert, awake, acute distress mild (pain), ill appearing chronically and average body habitus Nutritional Appearance: average body habitus Orientation/consciousness: patient oriented x3 Other: looks older than stated age HENMT: Head: normal to inspection, normocephalic and atraumatic Ears: hearing grossly normal bilaterally Face/Nose/Sinus: normal facial exam Face and sinus: normal facial exam Eyes: General: appearance normal, both eyes and all related structures Pupils: Equal, round and reactive pupils p
--- NOTE | 2023-12-16 17:29 | PC.NURSE ---
On 12/16/23, the SENIOR FOREMAN, Anuja Ruiz, provided care and completed [employer] documentation on this patient. I have reviewed the SENIOR FOREMAN's documentation and agree with the findings.
[2023-12-16] MEDS: CYCLOBENZAPRINE HCL 10 MG TABLET PO (22:37)
[2023-12-16] MEDS: LORazepam INJ (*CRX) 2 MG/ML VIAL 1 MG IV PUSH (22:41)
[2023-12-17] VITALS (8 sets, daily range): BP systolic 118–146; BP diastolic 77–91; PULSE 93–114; RESP 16–18; TEMP 36.6–37.2; O2SAT 97–100
[2023-12-17] MEDS: HYDROmorphone HCL INJ (*CRX) 1 MG/ML SYR IV PUSH ×7 (02:27→23:44)
[2023-12-17] MEDS: LORazepam INJ (*CRX) 2 MG/ML VIAL 1 MG IV PUSH ×2 (05:33→11:11)
[2023-12-17 07:08] LABS: Hematocrit 41.3 % (42.0-52.0); Hemoglobin 13.3 g/dL (14.0-18.0); Mean Corpuscular HGB Conc 32.2 g/dl (32-36); Mean Corpuscular Hemoglobin 27.9 pg (26-34); Mean Corpuscular Volume 86.8 fl (80-100); Mean Platelet Volume 10.6 fl (7.4-10.4); Platelet Count Result 350 k/mm3 (150-375); Red Blood Count 4.76 M/mm3 (4.6-6.20); Red Cell Distribution Width 14.7 % (11.5-14.5)
[2023-12-17 07:36] LABS: Alanine Aminotransferase 20 U/L (6-50); Albumin Level 4.4 g/dL (3.5-5.1); Alkaline Phosphatase 82 U/L (38-126); Anion Gap 8 mmol/L (4-12); Aspartate Amino Transferase 30 U/L (17-59); Bilirubin,Total 0.4 mg/dL (0.2-1.3); Blood Urea Nitrogen 22 mg/dL (9-20); Calcium 9.5 mg/dL (8.4-10.2); Carbon Dioxide 28 mmol/L (22-30); Chloride 98 mmol/L (98-107); Estimated CRCL calculation 125 ml/min; Estimated Glomerular Filt Rate > 60; Glucose 101 mg/dL (65-110); Potassium 3.8 mmol/L (3.4-5.0); Sodium 134 mmol/L (137-145)
[2023-12-17] MEDS: CYCLOBENZAPRINE HCL 10 MG TABLET PO ×3 (07:52→23:43)
[2023-12-17] MEDS: PREGABALIN (*CRX) 50 MG CAPSULE PO ×3 (07:53→15:50)
[2023-12-17] MEDS: PARoxetine 20 MG TABLET PO (07:53)
[2023-12-17] MEDS: amLODIPine BESYLATE 10 MG TABLET PO (07:53)
[2023-12-17] MEDS: LIDOCAINE 5% PATCH 1 PATCH TRANSDERM (07:54)
[2023-12-17] MEDS: ENOXAPARIN 40 MG/0.4 ML SYRINGE SUB-Q (07:54)
[2023-12-17] MEDS: oxyCODONE HCL (*CRX) 10 MG TAB SR 12HR PO ×2 (08:02→20:03)
--- NOTE | 2023-12-17 08:43 | PM.IMPN ---
Progress Note: A&P Assessment and Plan (1) Back pain: Code(s): M54.9 - Dorsalgia, unspecified Status: Acute (2) Agitation: Code(s): R45.1 - Restlessness and agitation Status: Acute (3) Lymphadenopathy, abdominal: Code(s): R59.0 - Localized enlarged lymph nodes Status: Acute Assessment and Plan: (1) Agitation: Code(s): R45.1 - Restlessness and agitation Status: Acute Assessment and Plan: -On 12/12 patient was transferred overnight secondary to agitation although patient claims that it was because of his uncontrolled pain and he was not combative or uncooperative with the staff. Patient received Precedex infusion in ICU . Currently the Precedex has been stopped . Possible delirium Resolved Prostate cancer metastatic disease to bones and lymph nodes Patient complained back pain - CT scan shows bilateral pelvic lymphadenopathy and several sclerotic bone lesions in the lumbar and thoracic spine consistent with metastatic disease which could explain the pain -will start p.o. and IV p.r.n. 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 -oncology is consulted [facility] pain management Continue fentanyl 25 mg Q 72 hour, add MS Contin p.o. Lymphadenopathy, abdominal: Code(s): R59.0 - Localized enlarged lymph nodes Status: Acute Assessment and Plan: Lumbar Spine CT 12/12/23 12:02 IMPRESSION: 1. Bulky pelvic lymphadenopathy and several sclerotic bone lesions in the lumbar and lower thoracic spine consistent with metastatic disease or lymphoma. Would recommend further evaluation with CT of the chest, abdomen and pelvis to assess for any primary malignancy, extent of metastatic disease and identified most suitable site for biopsy. 2. Mild lumbar and lower thoracic spondylosis. Chest/Abdomen/Pelvis CT 12/12/23 16:35 IMPRESSION: 1. Bone lesions and pelvic and retroperitoneal lymphadenopathy, consistent with metastatic disease versus lymphoma. CT-guided biopsy of a pelvic lymph node is recommended. CT-guided biopsy has been ordered and is pending consult oncology obtain MRI of the back Plan DVT prophylaxis - SCD Nutrition - npo Code Status - Full Code Subjective Date/time seen: 12/17/23 08:43 Interval history: Patient is afebrile, blood pressure stable call pulse ox 100% on room air. Patient has uncontrolled back pain and right leg pain. Patient denies urinary fecal incontinence Exam Narrative: GENERAL: Pleasant, in no acute distress. Well-nourished. - EYES: EOMI. Anicteric. - HENT: Moist mucous membranes. - LUNGS: Clear to auscultation bilaterally, no wheezing, rhonchi, or rales. - CARDIOVASCULAR: Regular rate and rhythm. No murmur. No JVD. - ABDOMEN: Soft, non-tender and non-distended. No palpable masses. - EXTREMITIES: No edema. Peripheral pulses 2+. Non-tender. Lower back pain, right leg pain - NEUROLOGIC: No focal neurological deficits. CN II-XII grossly intact. - PSYCHIATRIC: Awake, Alert and oriented x 3. Appropriate mood and affect. - SKIN: No rashes or lesions. Warm. - LYMPH: No cervical lymphadenopathy. Objective Data Vital Signs Vital Signs: Vital Signs - 24 hr 12/16/23 14:00 12/16/23 14:55 12/16/23 16:00 Temperature 98.6 F 98.4 F Pulse Rate 96 78 129 H Respiratory Rate 20 30 H Blood Pressure 172/91 H 164/59 H Pulse Oximetry 100 98 12/16/23 13:33 12/16/23 21:17 12/17/23 00:00 Temperature 98.6 F Pulse Rate 103 H 107 H 105 H Respiratory Rate 18 Blood Pressure 158/98 H Pulse Oximetry 100 12/17/23 04:00 12/17/23 05:58 Temperature
[2023-12-17] MEDS: MORPHINE SULFATE (*CRX) 30 MG TABCR PO ×2 (15:50→20:03)
[2023-12-18] VITALS: PULSE 106
[2023-12-18] MEDS: HYDROmorphone HCL INJ (*CRX) 1 MG/ML SYR IV PUSH ×8 (02:54→23:36)
[2023-12-18 04:00] VITALS: PULSE 94
[2023-12-18] MEDS: LORazepam INJ (*CRX) 2 MG/ML VIAL 1 MG IV PUSH ×3 (05:01→16:28)
[2023-12-18 05:43] VITALS: BP 121/59; PULSE 100; RESP 20; TEMP 37.1; O2SAT 100
[2023-12-18] MEDS: PARoxetine 20 MG TABLET PO (07:39)
[2023-12-18] MEDS: PREGABALIN (*CRX) 50 MG CAPSULE PO ×3 (07:39→15:23)
[2023-12-18] MEDS: oxyCODONE HCL (*CRX) 10 MG TAB SR 12HR PO ×2 (07:39→21:19)
[2023-12-18] MEDS: CYCLOBENZAPRINE HCL 10 MG TABLET PO ×3 (07:39→21:19)
[2023-12-18] MEDS: MORPHINE SULFATE (*CRX) 30 MG TABCR PO ×2 (07:39→21:19)
[2023-12-18] MEDS: LIDOCAINE 5% PATCH 1 PATCH TRANSDERM (07:43)
[2023-12-18] MEDS: fentaNYL (*CRX) 25 MCG PATCH TRANSDERM (07:44)
[2023-12-18] MEDS: ENOXAPARIN 40 MG/0.4 ML SYRINGE SUB-Q (07:44)
--- NOTE | 2023-12-18 08:36 | PM.IMPN ---
Progress Note: A&P Assessment and Plan (1) Back pain: Code(s): M54.9 - Dorsalgia, unspecified Status: Acute (2) Agitation: Code(s): R45.1 - Restlessness and agitation Status: Acute (3) Lymphadenopathy, abdominal: Code(s): R59.0 - Localized enlarged lymph nodes Status: Acute Assessment and Plan: (1) Agitation: Code(s): R45.1 - Restlessness and agitation Status: Acute Assessment and Plan: -On 12/12 patient was transferred overnight secondary to agitation although patient claims that it was because of his uncontrolled pain and he was not combative or uncooperative with the staff. Patient received Precedex infusion in ICU . Currently the Precedex has been stopped . Possible delirium Resolved Prostate cancer metastatic disease to bones and lymph nodes Patient complained back pain CT scan shows bilateral pelvic lymphadenopathy and several sclerotic bone lesions in the lumbar and thoracic spine consistent with metastatic disease which could explain the pain C/W p.o. and IV p.r.n. 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 oncology is consulted [facility] pain management Continue fentanyl 25 mg Q 72 hour, add MS Contin p.o. Lymphadenopathy, abdominal: Code(s): R59.0 - Localized enlarged lymph nodes Status: Acute Assessment and Plan: Lumbar Spine CT 12/12/23 12:02 IMPRESSION: 1. Bulky pelvic lymphadenopathy and several sclerotic bone lesions in the lumbar and lower thoracic spine consistent with metastatic disease or lymphoma. Would recommend further evaluation with CT of the chest, abdomen and pelvis to assess for any primary malignancy, extent of metastatic disease and identified most suitable site for biopsy. 2. Mild lumbar and lower thoracic spondylosis. Chest/Abdomen/Pelvis CT 12/12/23 16:35 IMPRESSION: 1. Bone lesions and pelvic and retroperitoneal lymphadenopathy, consistent with metastatic disease versus lymphoma. CT-guided biopsy of a pelvic lymph node is recommended. CT-guided biopsy has been ordered and is pending consult oncology obtain MRI of the back Plan DVT prophylaxis - SCD Nutrition - npo Code Status - Full Code Consult PT OT and small animal caretaker for evaluation and assisting placement. Pending MRI of the lower back, if no risk of spinal cord compression, patient can be discharged and followed up by heme oncology in office Subjective Date/time seen: 12/18/23 08:36 Interval history: Patient is afebrile, blood pressure stable call pulse ox 100% on room air. Patient has uncontrolled back pain and right leg pain. Pain is better controlled today. Patient is able to moving extremities. Patient denies urinary fecal incontinence Exam Narrative: GENERAL: Pleasant, in no acute distress. Well-nourished. - EYES: EOMI. Anicteric. - HENT: Moist mucous membranes. - LUNGS: Clear to auscultation bilaterally, no wheezing, rhonchi, or rales. - CARDIOVASCULAR: Regular rate and rhythm. No murmur. No JVD. - ABDOMEN: Soft, non-tender and non-distended. No palpable masses. - EXTREMITIES: No edema. Peripheral pulses 2+. Non-tender. Lower back pain, right leg pain - NEUROLOGIC: No focal neurological deficits. CN II-XII grossly intact. - PSYCHIATRIC: Awake, Alert and oriented x 3. Appropriate mood and affect. - SKIN: No rashes or lesions. Warm. - LYMPH: No cervical lymphadenopathy. Objective Data Vital Signs Vital Signs: Vital Signs - 24 hr 12/17/23 12:00
[2023-12-18] MEDS: amLODIPine BESYLATE 10 MG TABLET PO (10:54)
[2023-12-18 13:59] VITALS: BP 154/78; PULSE 107; RESP 22; TEMP 36.7; O2SAT 100
[2023-12-18 20:00] VITALS: PULSE 111
[2023-12-18 20:57] VITALS: BP 144/75; PULSE 110; RESP 16; TEMP 37.3; O2SAT 100
[2023-12-19] VITALS (8 sets, daily range): BP systolic 133–149; BP diastolic 69–78; PULSE 108–117; RESP 16–17; TEMP 36.5–37; O2SAT 97–100
[2023-12-19] MEDS: HYDROmorphone HCL INJ (*CRX) 1 MG/ML SYR IV PUSH ×3 (06:01→22:56)
[2023-12-19] MEDS: CYCLOBENZAPRINE HCL 10 MG TABLET PO ×2 (06:02→20:46)
[2023-12-19] MEDS: LORazepam INJ (*CRX) 2 MG/ML VIAL 0.5 MG IV PUSH (06:40)
[2023-12-19] MEDS: oxyCODONE HCL (*CRX) 10 MG TAB SR 12HR PO ×2 (09:03→20:46)
[2023-12-19] MEDS: MORPHINE SULFATE (*CRX) 30 MG TABCR PO ×2 (09:03→20:46)
[2023-12-19] MEDS: amLODIPine BESYLATE 10 MG TABLET PO (09:03)
[2023-12-19] MEDS: PREGABALIN (*CRX) 50 MG CAPSULE PO ×3 (09:03→16:55)
[2023-12-19] MEDS: ENOXAPARIN 40 MG/0.4 ML SYRINGE SUB-Q (09:03)
[2023-12-19] MEDS: LIDOCAINE 5% PATCH 1 PATCH TRANSDERM (09:03)
[2023-12-19] MEDS: PARoxetine 20 MG TABLET PO (09:10)
--- NOTE | 2023-12-19 10:10 | PCNFU ---
Nutrition Follow-Up Complete: Moderate Protein Calorie Malnutrition to increased protein needs in the setting of chronic disease as evidenced by poor po intake < 75% for > 7 days/weight loss of 6% (15 ibs) 2 months/moderate subcutaneous fat loss (orbital fat pads). Goal:Adequate Intake of at least 75% of meals/supplements Pt meeting goal. Continue with same goal. Pt current nutrition is Regular, Ensure compact BID. Nutrition recommendation: continue with current plan of care Last recorded weight is 100 kg. Bowel Motility: +BM 12/16 Labs Reviewed: Hgb:13.3, HCT:41.3, NA:134, BUN:22 Meds Noted: lovenox Skin: WNL Additional Notes: Pt continues on a regular diet, intake 100% of meals. Ensure compact BID in place. Agree with orders. Will monitor weight, labs, skin, oral intake, meds, every 7 days.
[2023-12-19] MEDS: HYDROcodone/acetaminophen (*CRX) 10-325 MG TABLET 1 TAB PO ×2 (12:02→17:33)
--- NOTE | 2023-12-19 16:12 | PM.IMPN ---
Progress Note: A&P Assessment and Plan (1) Back pain: Code(s): M54.9 - Dorsalgia, unspecified Status: Acute (2) Agitation: Code(s): R45.1 - Restlessness and agitation Status: Acute (3) Lymphadenopathy, abdominal: Code(s): R59.0 - Localized enlarged lymph nodes Status: Acute Assessment and Plan: (1) Agitation: Code(s): R45.1 - Restlessness and agitation Status: Acute Assessment and Plan: -On 12/12 patient was transferred overnight secondary to agitation although patient claims that it was because of his uncontrolled pain and he was not combative or uncooperative with the staff. Patient received Precedex infusion in ICU . Currently the Precedex has been stopped . Possible delirium Resolved Prostate cancer metastatic disease to bones and lymph nodes Patient complained back pain CT scan shows bilateral pelvic lymphadenopathy and several sclerotic bone lesions in the lumbar and thoracic spine consistent with metastatic disease which could explain the pain C/W p.o. and IV p.r.n. 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 oncology is consulted [facility] pain management Continue fentanyl 25 mg Q 72 hour, add MS Contin p.o. Severe spinal stenosis and thecal compression from prostate ca MRI lumbar reviewed continue PRN pain control [facility] for possible transfer Lymphadenopathy, abdominal: Code(s): R59.0 - Localized enlarged lymph nodes Status: Acute Assessment and Plan: Lumbar Spine CT 12/12/23 12:02 IMPRESSION: 1. Bulky pelvic lymphadenopathy and several sclerotic bone lesions in the lumbar and lower thoracic spine consistent with metastatic disease or lymphoma. Would recommend further evaluation with CT of the chest, abdomen and pelvis to assess for any primary malignancy, extent of metastatic disease and identified most suitable site for biopsy. 2. Mild lumbar and lower thoracic spondylosis. Chest/Abdomen/Pelvis CT 12/12/23 16:35 IMPRESSION: 1. Bone lesions and pelvic and retroperitoneal lymphadenopathy, consistent with metastatic disease versus lymphoma. CT-guided biopsy of a pelvic lymph node is recommended. CT-guided biopsy has been ordered and is pending consult oncology obtain MRI of the back Plan DVT prophylaxis - SCD Nutrition - npo Code Status - Full Code Consult PT OT and dog day care attendant for evaluation and assisting placement. Pending MRI of the lower back, if no risk of spinal cord compression, patient can be discharged and followed up by heme oncology in office Subjective Date/time seen: 12/19/23 16:12 Interval history: Patient comfortable at bedside this morning still having significant pain requiring IV Dilaudid despire being on Extended release Morphine and Oxycodone MRi Lumbar s showed epidural extension of the metastatic disease into the spinal canal at L3 level resulting in severe spinal canal stenosis and thecal sac compression Will transfer patient Review of Systems Review of Systems: generalized pain, muscle spasm All systems reviewed & are unremarkable except as noted in HPI and below ( HPI) Exam Narrative: GENERAL: Pleasant, in no acute distress. Well-nourished. - EYES: EOMI. Anicteric. - HENT: Moist mucous membranes. - LUNGS: Clear to auscultation bilaterally, no wheezing, rhonchi, or rales. - CARDIOVASCULAR: Regular rate and rhythm. No murmur. No JVD. - ABDOMEN: Soft, non-tender and non-distended. No palpable m
--- NOTE | 2023-12-19 18:27 | WPDONCPN ---
Progress Note: A/P - Additional Plan Metastatic prostate cancer status post CT-guided biopsy of the pelvic lymph node. CT scan chest abdomen pelvis showed bone lesions and pelvic and retroperitoneal lymphadenopathy. There was mixed lytic and sclerotic lesion of the T9 vertebral body. I have discussed the diagnosis of metastatic prostate cancer with patient and the family. I will check PSA. I will check free and total testosterone. Will order the bone scan. Patient will be referred for radiation oncology consultation as an outpatient for palliative radiation therapy for bone pain. My plan is to start hormonal therapy with Casodex and will start Lupron as an outpatient. Patient will start Zytiga and prednisone 5 mg twice a day along with chemotherapy with Taxotere. I will consult surgery for port placement. He will follow-up in the office for continuation of treatment. - Time Spent With Patient Total time spent is greater than 50% in coordination of care (as documented) at patient's floor/unit and/or counseling patient: 25 - 35 minutes Subjective Interval history: Metastatic prostate cancer Review of Systems - Review of Systems Patient is awake and alert. He is complaining of back pain. Denies any other new complaints. Exam Vital signs: Temp Pulse Resp BP Pulse Ox O2 Del Method FiO2 36.5 C 116 H 16 133/69 98 Room Air 21 12/19/23 14:00 12/19/23 14:00 12/19/23 14:00 12/19/23 14:00 12/19/23 14:00 12/19/23 09:05 12/13/23 09:09 Narrative: Lungs are clear to auscultation bilaterally Cardiovascular regular rate rhythm no murmurs Abdomen soft nontender nondistended bowel sounds are positive Extremities no edema PN: Objective Data - Labs CBC & Chem 7: 12/17/23 06:36 12/17/23 06:36
[2023-12-20] VITALS: PULSE 112
[2023-12-20] MEDS: HYDROcodone/acetaminophen (*CRX) 10-325 MG TABLET 1 TAB PO (01:32)
[2023-12-20 04:00] VITALS: PULSE 112
[2023-12-20] MEDS: HYDROmorphone HCL INJ (*CRX) 1 MG/ML SYR IV PUSH (05:00)
--- NOTE | 2023-12-20 05:23 | PC.NURSE ---
Pt has been transferred to [facility] per [facility] ambulance. Pt's discharge time from this facility was 0520. Report given to Christopher the receiving nurse and EMS. Tele box removed.
--- NOTE | 2023-12-20 11:44 | PM.DS ---
DS: Admitting Diagnosis Discharge Date 12/20/23 Admitting Diagnosis generalized muscle aches spasm pins and needles sensation pain DS: Discharge Diagnosis Discharge Diagnosis (1) Spinal stenosis: Code(s): M48.00 - Spinal stenosis, site unspecified Status: Acute (2) Prostate CA: Code(s): C61 - Malignant neoplasm of prostate Status: Acute DS: Summary Hospital Course Hospital Course: This is a 53-year-old male with past medical history significant for fentanyl use, traumatic left transmetatarsal amputation. patient presents to the emergency room with generalized muscle aches spasm pins and needles sensation pain. Patient was not able to provide much history due to distress most of the history was obtained from sister who is at bedside and daughter. Preliminary workup was significant for CT of spine chest abdomen and pelvis with metastatic lesions to the bones. Biopsy showed prostate cancer. However patient continued to have intractable pain requiring IV pain control. MRI lumbar spine showed encroachment of the prostate cancer causing severe spinal stenosis and compression of the thecal sac. Neurosurgery at [facility] was consulted yesterday, patient was accepted and was transferred this morning for higher level of care. 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 and IV p.r.n. 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 oncology is consulted [facility] pain management Continue fentanyl 25 mg Q 72 hour, add MS Contin p.o. and oxycodone ER, still requiring IV dialuadid MRI lumbar spine showed encroachment of tumor on spinal canal as noted below Severe spinal stenosis and thecal compression from prostate ca MRI lumbar reviewed continue PRN pain control Consulted with Neurosurgeon at [facility] and patient was accepted for higher level of care He was transferred this morning for higher level of care Patient will continue with oncology and neurosurgery care over there Oncology followed inpatietn while here Time Spent with Patient Time attestation: Total time spent providing and/or coordinating discharge services: DS: Data Data Completed and Pending Labs on day of discharge: Labs from last 24 hours 12/19/23 18:54 Prostate Specific Ag 438.0 H Total Testosterone Pending Free Testosterone Pending Discharge Plan Discharge Attending physician on discharge: Citlaly Hendrickson Consulting providers: Tien Eubanks; Kamlesh Ferris; Reginaldo Costello Discharging Clinician: Citlaly Hendrickson Anticipated Discharge Date/Time: 12/20/23 04:53 Patient Disposition: Acute Care Hospital Activity: as tolerated Diet: as tolerated Patient Instructions: How to Stop Smoking (DC) Discharge Medications: Continued cyclobenzaprine 10 mg tablet 10 mg PO Q8H PRN (Reason: Muscle Pain)
--- NOTE | 2023-12-20 14:11 | PM.TDS ---
Transfer Discharge Sum: Prov Provider Date of admission: 12/12/23 18:48 Primary care physician: UNKNOWN,DOCTOR Admitting clinician: Davian Avalos MD Consults: 12/13/23 Consult to Physician Routine Comment: Consulting Provider: Tien Eubanks reuse technician/MD group to consult: Oncology Reason for consultation: Metastatic Lesions Has provider been notified: Yes Consult to Physician Routine Comment: Consulting Provider: Kamlesh Ferris Reason for consultation: ICU management Has provider been notified: Yes 12/19/23 Consult to Physician Routine Comment: Spoke to after hours at 1839 (-) Consulting Provider: Reginaldo Costello reuse technician/MD group to consult: Dr. Aragon et al Reason for consultation: Port placement Has provider been notified: Yes DS: Admitting Diagnosis Discharge Date 12/20/23 Admitting Diagnosis generalized muscle aches spasm pins and needles sensation pain DS: Discharge Diagnosis Discharge Diagnosis (1) Spinal stenosis: Code(s): M48.00 - Spinal stenosis, site unspecified Status: Acute (2) Prostate CA: Code(s): C61 - Malignant neoplasm of prostate Status: Acute Transfer Discharge Sum: Med Medications Active and Home Medications: Home Medications amlodipine 10 mg tablet 10 mg PO DAILY 12/12/23 [History Confirmed 12/12/23] cyclobenzaprine 10 mg tablet 10 mg PO Q8H PRN Muscle Pain 12/12/23 [History Confirmed 12/12/23] naproxen 500 mg tablet 500 mg PO BID 12/12/23 [History Confirmed 12/12/23] paroxetine HCl 20 mg tablet 20 mg PO DAILY 12/12/23 [History Confirmed 12/12/23] pregabalin 50 mg capsule 50 mg PO TID 12/12/23 [History Confirmed 12/12/23] Transfer Discharge Sum: Hosp Hospital Course Hospital course: This is a 53-year-old male with past medical history significant for fentanyl use, traumatic left transmetatarsal amputation. patient presents to the emergency room with generalized muscle aches spasm pins and needles sensation pain. Patient was not able to provide much history due to distress most of the history was obtained from sister who is at bedside and daughter. Preliminary workup was significant for CT of spine chest abdomen and pelvis with metastatic lesions to the bones. Biopsy showed prostate cancer. However patient continued to have intractable pain requiring IV pain control. MRI lumbar spine showed encroachment of the prostate cancer causing severe spinal stenosis and compression of the thecal sac. Neurosurgery at [facility] was consulted yesterday, patient was accepted and was transferred this morning for higher level of care. 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 and IV p.r.n. 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 oncology is consulted [facility] pain management Continue fentanyl 25 mg Q 72 hour, add MS Contin p.o.
[2023-12-24 11:23] LABS: Testosterone Free 7.8 pg/mL (35.0-155.0); Testosterone Total 33 ng/dL (250-1100)
== END 2023-12-20 05:20 | disposition short-term general hospital (02) | DRG 824 ==
LOC: ANHED 18:47 → ANH3MEDSUR 20:58 → ANHICU 12-13 03:48 → ANH3MEDSUR 12-14 12:32
PROVIDERS: General Practice; Internal Medicine Hematology & Oncology; Admitting Provider Internal Medicine; Emergency Provider Student in an Organized Health Care Education/Training Program; Visit Provider Internal Medicine
DX: C77.5 Secondary and unspecified malignant neoplasm of intrapelvic lymph nodes (principal); C79.49 Secondary malignant neoplasm of other parts of nervous system; C79.51 Secondary malignant neoplasm of bone; F11.23 Opioid dependence with withdrawal; G95.29 Other cord compression; C61 Malignant neoplasm of prostate; C77.2 Secondary and unspecified malignant neoplasm of intra-abdominal lymph nodes; M48.061 Spinal stenosis, lumbar region without neurogenic claudication; F17.210 Nicotine dependence, cigarettes, uncomplicated; F12.10 Cannabis abuse, uncomplicated; Z89.432 Acquired absence of left foot
CPT/HCPCS: 36415; 38505; 71260; 72131; 72158; 74177; 77012; 80053; 82550; 82948; 83735; 84153; 84402; 84403; 85025; 85027; 85610; 85730; 88184; 88305; 88342; 96372; 96374; 99285; A9270; A9577; J1100; J1170; J1200; J1650; J1885; J2060; J2270; J3010; J7120; Q9967

== ENCOUNTER 2024-11-28 11:06 | Inpatient (IN) | payer MEDICARE, MEDICAID, SELFPAY ==
[2024-11-28] VITALS (9 sets, daily range): BP systolic 107–160; BP diastolic 53–76; PULSE 100–113; RESP 16–19; TEMP 36.6–37.6; O2SAT 95–100; BMI 34.8
--- NOTE | ~2024-11-28 | CT_ITS ---
EXAMINATION: CT knee RT wo con DATE: 11/29/2024 16:43 INDICATION: Septic joint TECHNIQUE: High resolution computed tomography (CT) of the right knee was performed without intraveno us contrast. Additional sagittal and coronal reconstructions were performed. Automated exposure contr ol and iterative reconstruction technique were employed. The dose-length product was 594.81 mGy-cm. COMPARISON: None FINDINGS: There is a left total knee arthroplasty without patellar resurfacing which appears well seated in leonela r-anatomic alignment without evident periprosthetic lucency to suggest loosening or infection. There is an antegrade intramedullary shon which extends distally to near the level of the femoral component of the arthroplasty with 4 interlocking screws. There is asymmetric increased lucency with curvilinea r sclerotic margins along the cephalad aspect of a couple of the screws which suggests some subsidenc e and chronic distal displacement of the screws. There is an oblique fracture extending across the distal metaphyseal region of the femur with 6 mm po sterior displacement and 10 degrees posterior angulation. The medullary margins of the fracture appea rs smoothly curved with some developing sclerosis suggesting the fracture is subacute. There is a cor responding fracture across intramedullary shon slightly more distally at the level of the metaphysis w hich extends through the hole for the cephalad-most of the 4 interlocking screws. There is an additio nal interlocking screw extending through the shon 2.5 cm proximal to the level of the fracture. There is calcified calcification developing along the distal diaphysis again suggesting a subacute chronici ty. There are no regions of aggressive appearing osteolysis to elevate suspicion for superimposed ost eomyelitis. There appears be a small knee joint effusion at the suprapatellar pouch which appears rel atively dense with increasing dependent gradient favoring a hemarthrosis. IMPRESSION: 1. Developing callus formation about a mildly displaced and mildly angulated subacute distal metaphys eal fracture of the right femur with associated fracture of the underlying intramedullary shon from pr ior fixation. 2. Gradient of increasing density within a small effusion at the suprapatellar pouch of the right kne e most likely related to secondary hemarthrosis. Cannot exclude septic arthritis prostate mild sulcal there is no evident aggressive appearing osteolysis to elevate suspicion. 3. Right total knee arthroplasty which appears to remain well seated with no periprosthetic lucency t o suggest loosening or infection. Reviewed, dictated and finalized at location A. IMPRESSION: 1. Developing callus formation about a mildly displaced and mildly angulated garcía bacute distal metaphyseal fracture of the right femur with associated fracture of the underlying intramedullary shon from prior fixation. 2. Gradient of increasing density within a small effusion at the suprapatellar pouch of the right knee most likely related to secondary hemarthrosis. Cannot e xclude septic arthritis prostate mild sulcal there is no evident aggressive rosa earing osteolysis to elevate suspicion. 3. Right total knee arthroplasty which appears to remain well seated with no pe riprosthetic lucency to suggest loosening or infection.
--- NOTE | ~2024-11-28 | XR_ITS ---
EXAMINATION: XR femur RT min 2V DATE: 11/30/2024 11:31 INDICATION: Femur fracture TECHNIQUE: Overlapping proximal and distal, AP and lateral views of the right femur were obtained. COMPARISON: None FINDINGS: Right total knee arthroplasty which appears well seated with no periprosthetic lucency to suggest loo sening or infection. Right femoral intramedullary shon fixation with proximal and distal interlocking screws. There is a fracture of the distal aspect of the shon at the level of one of the interlocking s crews and associated oblique fracture couple subcentimeter more proximally at the distal right femora l metaphysis. There is mild posterior displacement and angulation. This has a subacute appearance wit h prominent surrounding nonbridging callus formation. Small knee joint effusion. Mild osteoarthritis at the right hip. Osteoarthritic changes with moderate size marginal osteophytes at the patella. Smal l metallic foreign body in the soft tissues posterior to the proximal femoral diaphysis. IMPRESSION: 1. Right femoral intramedullary shon fixation with fracture of the distal aspect of the shon with assoc iated subacute appearing mildly displaced and angulated fracture at the distal right femoral metaphys is. See separate CT report from one day prior for further detail. Reviewed, dictated and finalized at location A. IMPRESSION: 1. Right femoral intramedullary shon fixation with fracture of the distal aspect of the shon with associated subacute appearing mildly displaced and angulated f racture at the distal right femoral metaphysis. See separate CT report from one day prior for further detail.
--- NOTE | ~2024-11-28 | US_ITS ---
EXAMINATION:US venous doppler LE RT INDICATION:Right leg swelling/pain. Atraumatic. TECHNIQUE: Multiple grayscale, color flow and Doppler images of the right lower extremity deep venous systems were obtained and reviewed. COMPARISON:None available at this time FINDINGS: The common femoral, superficial femoral and popliteal veins demonstrate normal respiratory variation, augmentation and compressibility. Color flow is also seen within the posterior tibial, pe roneal, greater saphenous and profunda veins. IMPRESSION: 1: No lower extremity deep venous thrombosis. Reviewed, dictated and finalized at location A.
--- NOTE | ~2024-11-28 | CT_ITS ---
EXAMINATION: CTA chest PE protocol DATE: 11/28/2024 16:44 INDICATION: sob, r/o PE TECHNIQUE: Computed tomography angiography (CTA) of the chest was performed with 100 mL Omnipaque-350 intravenous contrast timed to evaluate the pulmonary arteries. Coronal maximum intensity projection 3D-reconstructions were created by the technologist. The dose-length product (DLP) was 1964.29 mGy-cm . Automated exposure control and iterative reconstruction technique were employed. COMPARISON: CTPA, same date; CT CAP September 11, 2023; CT lymph node biopsy 12/05/2023. FINDINGS: Lung parenchyma and airways: Mild motion artifact. Dependent and basilar atelectasis/scar. Pleura: Unremarkable. Thoracic inlet, axillae and chest wall: Large inferior right thyroid lobe mass, extending into the up per mediastinum measuring up to 6.1 cm, increased in size. 1.3 cm left thyroid nodule. Symmetric gyne comastia. Thoracic aorta: No significant dilation. No dissection. Mediastinum: Normal. Heart and pericardium: Cardiomegaly. Small pericardial effusion. Coronary artery calcifications: Absent. Upper abdomen: Cholelithiasis, without inflammatory changes. Bones: No acute osseous finding. Multiple sclerotic lesions in the thoracic spine, ribs, and right gl enoid, with interval progression. Pulmonary arteries: Study quality: Mild motion artifact. Inadequate contrast bolus (HUs in 150s at th e main pulmonary artery). Nondiagnostic evaluation of the segmental and subsegmental pulmonary arteri es. Limited evaluation of the central pulmonary arteries. No definite central pulmonary emboli detect ed. IMPRESSION: No definite CT evidence of large central acute pulmonary embolus. Study otherwise nondiagnostic with respect to evaluation of the pulmonary arteries despite repeat attempts. Mild cardiomegaly and small pericardial effusion. Cholelithiasis without inflammatory changes. 6.1 cm right inferior thyroid mass, extending into the superior mediastinum, increased in size since 2023. 1.3 cm left thyroid nodule, stable since 2023. Multiple sclerotic bone lesions concerning for m etastatic disease, with interval progression since 2023. Reviewed, dictated and finalized at location K. IMPRESSION: No definite CT evidence of large central acute pulmonary embolus. Study otherwi se nondiagnostic with respect to evaluation of the pulmonary arteries despite r epeat attempts. Mild cardiomegaly and small pericardial effusion. Cholelithiasis without inflammatory changes. 6.1 cm right inferior thyroid mass, extending into the superior mediastinum, in creased in size since 2023. 1.3 cm left thyroid nodule, stable since 2023. Mult iple sclerotic bone lesions concerning for metastatic disease, with interval pr ogression since 2023.
--- NOTE | ~2024-11-28 | XR_ITS ---
EXAMINATION: XR femur LT min 2V DATE: 11/30/2024 11:31 INDICATION: Femur fracture TECHNIQUE: Overlapping proximal and distal, AP and lateral views of the left femur were obtained. COMPARISON: None FINDINGS: Alignment is normal. No fracture. Moderate medial and patellofemoral compartment predominant tricomp artmental osteoarthritis at the left knee. No left knee joint effusion. Mild osteoarthritis at the le ft hip. Soft tissues are unremarkable. IMPRESSION: 1. Moderate medial and patellofemoral compartment predominant osteoarthritis at the left knee. No acu te osseous abnormality. Reviewed, dictated and finalized at location A. IMPRESSION: 1. Moderate medial and patellofemoral compartment predominant osteoarthritis at the left knee. No acute osseous abnormality.
--- NOTE | ~2024-11-28 | CT_ITS ---
EXAMINATION: CTA chest PE protocol DATE: 11/28/2024 15:07 INDICATION: hx of ca, poss dvt, tachycardia TECHNIQUE: Computed tomography angiography (CTA) of the chest was performed with 100 mL Omnipaque-350 intravenous contrast timed to evaluate the pulmonary arteries. Coronal maximum intensity projection 3D-reconstructions were created by the technologist. The dose-length product (DLP) was 969.96 mGy-cm. Automated exposure control and iterative reconstruction technique were employed. COMPARISON: CT cap 12/12/2023; CT lymph node biopsy 12/13/2023. FINDINGS: Lung parenchyma and airways: Mild motion artifact. Dependent and basilar atelectasis/scar. Pleura: Unremarkable. Thoracic inlet, axillae and chest wall: Large inferior right thyroid lobe mass, extending into the up per mediastinum measuring up to 6.1 cm, increased in size. 1.3 cm left thyroid nodule. Symmetric gyne comastia. Thoracic aorta: No significant dilation. No dissection. Mediastinum: Normal. Heart and pericardium: Cardiomegaly. Small pericardial effusion. Coronary artery calcifications: Absent. Upper abdomen: Cholelithiasis, without inflammatory changes. Bones: No acute osseous finding. Multiple sclerotic lesions in the thoracic spine and right glenoid, with interval progression. Pulmonary arteries: Study quality: Mild motion artifact. Inadequate contrast bolus (172 HU at the gil n pulmonary artery). Nondiagnostic evaluation of the segmental and subsegmental pulmonary arteries. L imited evaluation of the central pulmonary arteries. No definite central pulmonary emboli detected. IMPRESSION: No definite CT evidence of large central acute pulmonary embolus. Study otherwise nondiagnostic with respect to evaluation of the pulmonary arteries. Patient will be brought back to rescan, with improve d IV access and attempts to minimize respiratory motion artifact. 6.1 cm right inferior thyroid mass, extending into the superior mediastinum, increased in size. 1.3 cm left thyroid nodule. Multiple sclerotic bone lesions concerning for metastatic disease, with interval progression. Reviewed, dictated and finalized at location K. IMPRESSION: No definite CT evidence of large central acute pulmonary embolus. Study otherwi se nondiagnostic with respect to evaluation of the pulmonary arteries. Patient will be brought back to rescan, with improved IV access and attempts to minimiz e respiratory motion artifact. 6.1 cm right inferior thyroid mass, extending into the superior mediastinum, in creased in size. 1.3 cm left thyroid nodule. Multiple sclerotic bone lesions concerning for metastatic disease, with interva l progression.
--- OUTSIDE RECORDS SUMMARY | 2024-11-28 11:25 | XMS_ITS | Encounter Summary ---
Author Organization [facility] Address [address] [facility] [address] [place] [address] Phone Care Team Providers Care Music Producer Name Role Phone Sebas Paredes DO Unavailable Елена Thomas MD Primary Care Provider [phone] Elder Carranza MD Unavailable Encounter Details Date Type Department Care Team (Late st Contact Info) Description 11/26/2024 Orders Only [facility] Physicians [facility] Oncology [address] [facility] [address] [place] [address] Sebas Paredes, DO [address] [facility] [address] [place] [address] Adenocarcinoma of prostate (HCC) (Primary Dx); Prostate cancer metastatic to bone (HCC) Social History Tobacco Use Types Packs/Day Years Used Date Smoking Tobacco: Some Days Cigarettes 0.3 41.6 Started: 1983 Passive Smoke Exposure: Past Smokeless Tobacco: Never OASIS D0700: Social Isolation Answer Da te Recorded Frequency of experiencing loneliness or isolatio n Never 04/19/2024 OASIS A1250: Transportation Answer Date Recorded Lack of Transportation (Medical) No 04/19/2024 Lack of Transportation (Non-Medical) No 04/19/2024 Patient Unable or Declines to Respond No 04/19/2024 OASIS B1300: Health Literacy Answer Abiodun e Recorded Frequency of needing help to read materials from doctor or pharmacy Never 04/19/2024 [facility] Utilities Answer Date Recorded In the past 12 months has e electric, gas, oil, or water company threatened to shut off services in your home? No 09/21/2024 Social Connection and Isolation Panel Answer Date Recorded In a typical week, how many times do you talk on the phone with family, friends, or neighbors? More than three times a week 09/21/2024 How often do you get togethe r with friends or relatives? More than three times a week 09/21/2024 How often do you attend chur ch or roman catholic services? Never 09/21/2024 Do you belong to any clubs o r organizations such as rastafarian groups, unions, fraternal or athletic groups, or school groups? No 09/21/2024 How often do you attend meet ings of the clubs or organizations you belong to? Never 09/21/2024 Are you , , di vorced, , never , or living with a partner? Never 09/21/2024 AUDIT-C Answer Date Recorded Q1: How often do you have a drink containing alcohol? Never 09/20/2024 Q2: How many drinks containi ng alcohol do you have on a typical day when you are drinking? Patient does not drink Q3: How often do you have si x or more drinks on one occasion? Never 09/20/2024 Overall Financial Resource Strain (CARDIA) Answe r Date Recorded How hard is it for you to pa y for the very basics like food, housing, medical care, and heating? Not hard at all 09/21/2024 PHQ-2 Answer Date Recorded PHQ-2 Total Score 0 09/21/2024 Hunger Vital Sign Answer Date Recorded Within the past 12 months, y ou worried that your food would run out before you got the money to buy more. Never true 09/22/19 25 Within the past 12 months, t he food you bought just didn't last and you didn't have money to get more. Never true 09/21/2024 PRAPARE - Transportation Answer Date Re corded In the past 12 months, has l ack of transportation kept you from medical appointments or from getting medications? No 10/2024 In the past 12 months, has l ack of transportation kept you from meetings, work, or from getting things needed for daily living? No 09/21/2024 Housing Stability Vital Sign Answer Abiodun e Recorded In the last 12 months, was t here a time when you were not able to pay the mortgage or rent on time? No 09/21/2024 In the past 12 months, how m any times have you moved where you were living? 0 09/21/2024 At any time in the past 12 m [facility], were you homeless or living in a chcf (including now)? No 09/21/2024 Personal Safety Answer Date Recorded Have you ever been in or are you currently in a harmful physical or emotional relationship or is someone making you feel afraid or unsafe? 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 Gender Identity Not on file Sexual Orientation Not on file Occupation Industry Job Start Date Job End Date Disabled Not on file Not on file Not on file documented as of this encounter Plan of Treatment Scheduled Orders Name Type Priority Associated Diagnoses Orde r Schedule Phosphorus Lab Routine Adenocarcinoma of prostate (HCC) Prostate cancer metastatic to bone (HCC) Expected: 11/27/2024, Expires: 11/27/2025 documented as of this encounter Visit Diagnoses Diagnosis Adenocarcinoma of prostate (HCC)- Primary Malignant neoplasm of prostate Prostate cancer metastatic to bone (HCC) documented in this encounter Care Teams Music Producer Relationship Specialty Start Date End Date Елена Thomas MD [address] [address] PCP - General Internal Medicine 01/17/24 Sebas Paredes DO [address] [facility], [facility] [address] [place] [address] Medical Oncologist/Artisan Plasterer Hematology and Oncology 01/01/24 Elder Carranza MD [address] [facility] DE[facility] RADIATION ONCOLOGY, [place] [address] Radiation Oncologist Radiation Oncology 01/30/24 documented as of this encounter
--- OUTSIDE RECORDS SUMMARY | 2024-11-28 11:25 | XMS_ITS | Clinical Summary ---
Author Organization [facility] Address [address] [place] [address] Care Team Providers Care Board Writer Name Role Phone Sebas Paredes DO Unavailable Елена Thomas MD Primary Care Provider [phone] Elder Carranza MD Unavailable [phone] Allergies No known active allergies Medications senna (SENOKOT) 8.6 mg tabletIndicati ons:Cancer associated pain Take 1 tablet by mouth 2 (two) times a day 180 tablet 3 01/17/20 24 025 Active amLODIPine (NORVASC) 10 mg tabletIndicati ons:Hypertensi on, essential Take 1 tablet (10 mg total) by mouth daily 90 tablet 3 03/12/20 24 025 Active baclofen (LIORESAL) 20 mg tabletIndicati ons:Cancer associated pain,Adenocarc inoma of prostate (HCC) Take 1 tablet (20 mg total) by mouth 3 (three) times a day with meals 270 tablet 3 03/12/20 24 025 Active naloxone (NARCAN) 4 mg/actuation spray,non-aero solIndications :Opiate use Administer 1 spray into affected nostril(s) as needed for opioid reversal Call 911. Administer a single spray in one nostril. Repeat every 3 minutes as needed if no or minimal response. 2 each 03/12/20 24 Active docusate sodium (COLACE) 100 mg capsuleIndicat ions:Cancer associated pain Take 1 capsule (100 mg total) by mouth 2 (two) times a day 180 capsule 3 04/19/19 25 026 Active diclofenac sodium (VOLTAREN) 1 % gelIndications :Chronic left shoulder pain Apply 4 g topically 4 (four) times a day 450 g 05/08/19 25 Active pregabalin (LYRICA) 200 mg capsuleIndicat ions:Cancer associated pain,Adenocarc inoma of prostate (HCC) Take 1 capsule (200 mg total) by mouth 3 (three) times a day 05/30/19 25 026 Active bicalutamide (CASODEX) 50 mg tablet Take 1 tablet (50 mg total) by mouth daily 30 tablet 1 06/25/19 25 026 Active lisinopriL (PRINIVIL,ZEST RIL) 40 mg tabletIndicati ons:Hypertensi on, essential Take 1 tablet (40 mg total) by mouth daily 90 tablet 3 06/25/[address] (CYMBALTA) 30 mg capsule Take 2 capsules (60 mg total) by mouth daily 07/04/19 25 Active ondansetron (ZOFRAN) 4 mg tablet Take 1 tablet (4 mg total) by mouth every 6 (six) hours as needed for nausea or vomiting 30 tablet 2 08/29/19 25 Active dexAMETHasone (DECADRON) 4 mg tabletIndicati ons:Adenocarci noma of prostate (HCC) Take 2 tablets (8 mg total) by mouth 2 (two) times a day the day before and the day after chemotherapy. Starting the day before chemotherapy 8 tablet 4 09/11/19 25 Active acetaminophen 500 mg capsule Take 2 capsules (1,000 mg total) by mouth every 6 (six) hours as needed for pain 09/24/19 25 Active senna-docusate (PERICOLACE) 8.6-50 mg Take 2 tablets by mouth 2 (two) times a day 120 tablet 1 09/24/19 25 Active cholecalcifero l (VITAMIN D-3) 2000 unit capsule Take 1 capsule (2,000 Units total) by mouth daily 30 capsule 11 10/02/19 25 Active apixaban (Eliquis) 5 mg tabletIndicati ons:Other acute pulmonary embolism, unspecified whether acute cor pulmonale present (HCC) Take 1 tablet (5 mg total) by mouth 2 (two) times a day 180 tablet 3 10/16/19 25 026 Active traMADol ER (ULTRAM-ER) 200 mg 24 hr tablet Take 1 tablet (200 mg total) by mouth daily 30 tablet 11/07/19 25 025 Active traMADol ER (ULTRAM-ER) 200 mg 24 hr tablet Take 1 tablet (200 mg total) by mouth daily 30 tablet 10/10/19 25 025 Discontinued Active Problems Problem Noted Date Diagnosed Date 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 Closed fracture of right femur 09/19/2024 Assessment & Plan (09/23/2024 3:25 PM CDT): #R periprosthetic distal femur fracture - Ortho Trauma consulted - Planning operative management - s/p 09/20 IMN R femur - WBAT RLE - Suture removal in 3 weeks -PT/OT recommending home with family. - Pain control -resume home Eliquis at discharge -Follow up with Geovany HELTON 6A [id number]. Fall 09/19/2024 Assessment & Plan (09/19/2024 2:31 PM CDT): - Unwitnessed fall at home - CXR, PXR, Left knee Xrays negative - CT head/C spine: negative for acute injury, known C spine metastatic osseous disease Positive urine drug screen 09/19/2024 Assessment & Plan (09/23/2024 2:48 PM CDT): - UDS (09/19): positive cocaine, fentanyl (received fentanyl in ED prior to UDS) - Chemical dependency consulted- not responsive to motivational techniques and not interested in treatment to abstain from drugs. Discharge planning issues 09/19/2024 Assessment & Plan (09/23/2024 3:25 PM CDT): - 09/19: ED pending OR - 09/20: OR - 09/22: Pending PT/OT -09/23 Discharging home with PT/nursing. Patient is medically stable for discharge, SW/CM updated. Discharge home with HH today. Periprosthetic fracture arou nd internal prosthetic right knee joint, initial encounter 09/19/2024 Assessment & Plan (09/27/2024 11:35 AM CDT): Recent admission from 09/19/24 to 09/23/24 after presentation for an unwitnessed fall with a new R periprostehteic femur fracture. Went to OR on 09/20 for Intramedullary Nailing of R femur. Currently is weight bearing as tolerated. Has follow up with Dr. Armenta at [facility] on 10/10. Ortho to remove sutures 3 week post op. -provided with 16 tablets of oxycodone 5 mg for pain, discussed with patient that this is a one time fill and further opioids need to be through his Oncologist (who is prescribing tramadol). [place] PDMP reviewed, shows no fills in [facility] since 2023. Per dispense report, filled the oxycodone 5 mg at time of discharge in [place], where patient resides. Unable to view [place] PDMP -ortho follow up -ordering home health -provided with some wound care supplies Orders: oxyCODONE (ROXICODONE) 5 mg immediate release tablet; Take 1 tablet (5 mg total) by mouth every 6 (six) hours as needed for pain Ambulatory referral to Home Health; Future Delirium 05/31/2024 Hypernatremia 05/30/2024 Assessment & Plan (05/30/2024 10:58 AM SALES AND SERVICE TECHNICIAN): Suspect free water deficit over diabetes insipidus. Encourage PO hydration. Will offer D5 bolus prior to disposition Hypophosphatemia 05/29/2024 Assessment & Plan (09/27/2024 11:35 AM CDT): Low phos <2 despite repletion, started on po sodium phosphate TID, given 5 days at time of discharge, However he did not pick this up Has not been worked up but suspect etiology related to diffuse bony metastatic disease -discontinued pantoprazole, unclear why patient was on this, had been ordered by Onc possibly as GI ppx given pt is on steroids when getting chemotherapy? Will message onc to let them know of this change -obtaining further lab workup including vitamin d, PTH, urine phos, as well as repeat CMP/Mg/phos, as below -potassium phosphate with BID repletion for 1 month -at next visit, recheck phos, evaluate need for continued repletion Orders: potassium phosphate, monobasic, (K-PHOS) 500 mg (3.6 mmol of phosphorus) tablet; Take 1 tablet (500 mg total) by mouth 2 (two) times a day Comprehensive metabolic panel; Future Magnesium; Future Phosphorus; Future PTH; Future Vitamin D 25 hydroxy; Future Phosphorus, urine, random; Future Assessment & Plan (09/23/2024 3:29 PM CDT): Hypophosphatemia noted 09/20 with level 1.7 -levels remains < 2.0 despite repletion -started on PO sodium phosphate TID -09/23 At discharge phos level 1.2, given prescription for 5 more days of sodium phosphate and instructed to follow up with his PCP for evaluation and to determine if medication still needed. Assessment & Plan (05/30/2024 10:56 AM SALES AND SERVICE TECHNICIAN): Suspect low Phos represents low intake (e.g. dehydration) as opposed to consumptive process (e.g. gout, hungry-bone). Value on admission likely abnormal in setting of SHIRIN (poor renal clearance). Phos ~2, stable - provide tid phosphate packets at discharge. Leg pain 05/29/2024 Assessment & Plan (05/30/2024 10:57 AM SALES AND SERVICE TECHNICIAN): No noticeable leg erythema/edema. Possibly cramps (electrolyte abnormality) vs neuropathic pain vs nonspecific MSK or gout. - voltaren gel PRN - pt previously on lyrica 200 tid for post-op acute pain, lyrica 100 tid for possible neuropathic pain while inpatient, ok to resume lyrica 200 tid at discharge Elevated CK 05/27/2024 Assessment & Plan (05/28/2024 3:13 PM SALES AND SERVICE TECHNICIAN): Suspect prerenal SHIRIN with possible provoked seizure in setting of cocaine use. Similar presentation 02/2024, cvEEG without seizure, multiple PEs, HIV/RPR/hep neg, CTA HN without basilar thrombus, no keppra. - CK downtrending Chronic left shoulder pain 05/08/2024 Assessment & Plan (05/08/2024 8:08 PM SALES AND SERVICE TECHNICIAN): Describes chronic left shoulder pain with no clear inciting event. Prior imaging with evidence of degenerative changes at the joint. Exam significant for tenderness without erythema, edema, or effusion/swelling. ROM intact without crepitus. Strength 5/5 in bilateral upper extremities. Pain is most likely related to degenerative changes in the joint. - Voltaren gel for non-sedating pain relief option - PT/OT for left shoulder Anemia 02/23/2024 Assessment & Plan (02/23/2024 10:25 PM SALES AND SERVICE TECHNICIAN): - H/H-8.09/09 Monitor CBC closely Pulmonary embolism 02/22/2024 Assessment & Plan (05/28/2024 3:11 PM SALES AND SERVICE TECHNICIAN): Favor provoked, resumed home eliquis Assessment & Plan (03/12/2024 11:19 AM SALES AND SERVICE TECHNICIAN): - continue eliquis BID - f/u with pulm Assessment & Plan (02/24/2024 3:14 PM SALES AND SERVICE TECHNICIAN): Bilateral PE found on CTCAP. PERT activated in ED, considered int-low risk and recommended medical management with AC. Treated with hep gtt in ICU - [place] check eliquis $0 with insurance - LED neg - S/p heparin drip - Started eliquis starter pack (02/21-) - Suspect with malignancy may need indefinite treatment but duration to outpatient - Plan for Pulm f/u post DC - Desat evalve pending Assessment & Plan (02/23/2024 6:57 AM SALES AND SERVICE TECHNICIAN): Patient presenting with altered mental status and subsequently found to have multiple bilateral pulmonary emboli. His CT PE did not show findings concerning for right heart strain, but POCUS with RV dilation and flattening of the interventricular septum. PERT team was activated in ED and he was not a candidate for suction thrombectomy. The patient ultimately required intubation for airway protection in the setting of altered mental status. He was started on a heparin gtt. TTE demonstrated normal RV size and function. LEDs negative for DVT. Risk factors for PE include history of malignancy. - Continue DOAC. - Patient should get a walking O2 assessment prior to discharge. - Will arrange follow-up in the post-PE clinic. Shock 02/22/2024 Assessment & Plan (02/22/2024 6:00 PM SALES AND SERVICE TECHNICIAN): Undifferentiated hypovolemic vs distributive. S/p empiric antibiotics with negative infectious workup. Received IVF and pressor support during hospitalization. - Resolved SHIRIN (acute kidney injury) 02/22/2024 Assessment & Plan (09/23/2024 3:25 PM CDT): - Cr 6.18 on admission, AG 19, K 5.2, phos 6.0 - baseline Cr 1.00 on 08/28/24 - responding to fluids, Cr down to 2.64 - 09/22: Cr 1.07 (1.39) - Renally dose medications, avoid nephrotoxins - Monitor BMP -09/23 sCr trending down to 0.95, UOP 2024. [place] removed- voiding without difficulty. Assessment & Plan (05/28/2024 3:07 PM SALES AND SERVICE TECHNICIAN): Favor prerenal vs ATN (rhabdo) in setting of cocaine use, with rapid improvement after fluids. - renal US (05/28): no hydronephrosis Assessment & Plan (02/26/2024 5:47 PM SALES AND SERVICE TECHNICIAN): Admit BUN/Cr 45/3.7 (b/l 0.6's). Suspect multifactorial due to rhabdomyolysis with CK 18k, 3+ blood with only 3-5 RBC, prerenal, hypotension. S/p IVF support - Cr returned to baseline, CK downtrended previously - On 02/25 at baseline - monitor strict I/O's, avoid nephrotoxic medications, renally dose medications Elevated LFTs 02/22/2024 Assessment & Plan (02/22/2024 6:07 PM SALES AND SERVICE TECHNICIAN): Likely in setting of rhabdomyolysis and possibly contribution from hypotension. Hep panel negative - Downtrending Acute respiratory failure 02/20/2024 Assessment & Plan (02/22/2024 5:54 PM SALES AND SERVICE TECHNICIAN): Intubated for airway protection 02/17. Extubated 02/20. - Resolved. Room air Seizure 02/20/2024 Assessment & Plan (05/28/2024 3:14 PM SALES AND SERVICE TECHNICIAN): Reportedly patient had seizure-like event at home when family found the patient on floor. After reaching the floor 11 800, patient had another seizure-like event which lasted for about 1 minute involving bilateral upper extremities, patient had upward gaze. Likely provoked in setting of cocaine use. - per neurology, no further workup necessary, ok without keppra - UDS (05/27): +cocaine, +oxycodone Altered mental status, unspe cified altered mental status type 02/19/2024 Assessment & Plan (02/23/2024 10:24 PM SALES AND SERVICE TECHNICIAN): Presented with AMS after family found him lethargic, nearly unresponsive, at most moaning to painful stimuli. Workup notable for hypotension, low normal SpO2, SHIRIN to Cr 3.7 in setting of CK 18k. HIV RPR infectious workup unremarkable. CTCAP with bilateral pulmonary embolism. CTH NAIA, initial CTA H/N with possible infarct favored artifact after brain MRI. cvEEG unremarkable for seizure. - Resolved back to baseline. Unclear cause but possibly multifactorial related to TME from uremia/SHIRIN, sedating home pain meds with decreased renal clearance, and bilateral pulmonary embolisms rather than seizures - Neurology signed off, no further neuro care needed, can stop keppra - Stop Keppra per Neurology - mentation back to baseline Prostate cancer metastatic to bone 01/19/2024 Overview (03/12/2024): Diagnosed in 12/2023. S/p tumor debulking and lumbar spinal fusion (12/25/2023). Follows with med onc, last seen 03/01/24. Recently completed RT. 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 Diagnosed in 12/2023. S/p tumor debulking and lumbar spinal fusion (12/25/2023). Intolerant to enzalutamide and casodex. Currently on androgen deprivation therapy with Lupron 7.5 mg IM every 28 days and Xgeva 120 mg subcutaneous injection qmonth for spinal mets. S/p palliative radiation to the right hip. - resume MSContin 60 bid + oxycodone-acetaminophen 10-325 q4 PRN. Hold baclofen. - PSA (05/27): 11.9 Assessment & Plan (02/25/2024 6:24 PM SALES AND SERVICE TECHNICIAN): Follows with oncology. Recently diagnosed 12/2023. S/p L2-l4 Posterior Spinal Fusion, Tumor Debulking, L3 Decompression And Right Foraminotomy, Facetectomy with NSGY. CT C/A/P with improved psoas hematoma, and stable bone mets. Home pain regimen includes: Pregabalin, percocet, morphine, Duloxetine, flexeril, clonazepam, baclofen. Cancer regimen: bicalutamide (ADT), Lupron, and enzalutamide. - With improved renal function and mental status, can continue Home morphine 60mg BID, continue pregabalin 100mg TID, continue baclofen 10mg TID. percocet 10mg q4hr PRN1 - Monitor for lethargy and whether sedating medications need to be downtitrated Med/Onc following, recommended to continue to hold Enzalutamide post discharge given concern for low seizure threshold. Counseled regarding avoiding operating heavy machinery or driving post discharge until seen by medical oncology as outpatient as recommended Cancer associated pain 01/18/2024 Overview (03/12/2024): Diagnosed in 12/2023. S/p tumor debulking and lumbar spinal fusion (12/25/2023). His current pain regimen is MSContin 30mg BID and oxycodone 10-325 q4h prn. Pain is well-controlled today. - continue current regimen Assessment & Plan (01/18/2024 7:25 AM CDT): Multimodal pain regimen on hospital discharge includes pregabalin 200 mg TID, baclofen 20 mg TID, duloxetine 30 mg daily, oxycodone IR 30 mg Q4H PRN, APAP 1g Q6H PRN. Patient reports taking all PRNs on scheduled basis with poor pain control and specifically complains of bone pain. Total 270 MMEs on current opiate regimen. - Favor conversion to long-acting opiate formulation for improved pain control and safety. Will discontinue current oxy 30 mg prescription and start MS contin 60 mg BID with Percocet (acetaminophen-oxycodone) 10-325 mg Q4H PRN for total 210 MMEs. - Referral to Palliative Care for further assistance with management of cancer pain - Pain contract completed today, 01/17/2024 - UDS - Prescribe Narcan for >50 MME - Discontinue APAP with initiation of Percocet - Continue pregabalin 200 mg TID, baclofen 20 mg TID, duloxetine 30 mg daily - Continue bowel regimen Anxiety/Depression 01/18/2024 Assessment & Plan (05/29/2024 2:30 PM SALES AND SERVICE TECHNICIAN): No home meds but previously on klonopin. - ativan 1mg qhs PRN - Patient interested in [facility] Counseling resources, phone number provided at discharge. Assessment & Plan (01/18/2024 7:31 AM CDT): History of anxiety previously treated with clonazepam PRN, which was restarted while inpatient. Patient reports typically taking 1 tablet daily, usually at bedtime. Patient is also prescribed duloxetine as part of multimodal pain regimen. Limited options for non-benzodiazepine anxiolytics due to prescription of multiple serotonergic agents and increased risk of developing serotonin syndrome. - Cautious continuation of current regimen - Discuss possible alternatives with Pharmacists Hypertension, essential 01/18/2024 Overview (03/12/2024): BP elevated in clinic today, prior appts normotensive. - continue amlo 10mg, lisinopril 40mg daily - BP log for next visit Assessment & Plan (05/28/2024 3:08 PM SALES AND SERVICE TECHNICIAN): Hold home amlo 10, lisinopril 40, resume as able Assessment & Plan (05/08/2024 8:09 PM SALES AND SERVICE TECHNICIAN): BP mildly elevated in clinic in the setting of not having taken his AM medications yet today. - Continue amlodipine 10 mg daily, lisinopril 40 mg daily Assessment & Plan (02/24/2024 3:11 PM SALES AND SERVICE TECHNICIAN): C/w Amlodipine 10mg, BP elevated C/w Lisinopril 40 mg po every day Assessment & Plan (01/18/2024 7:41 AM CDT): Currently prescribed amlodipine 10 mg daily with above goal blood pressure in the office today. - Start lisinopril 20 mg daily - Recheck BMP in approximately 2 weeks Tobacco use 01/18/2024 Assessment & Plan (01/18/2024 7:34 AM CDT): 20 pack-year smoking history. Reports that he has quit as a result of recent hospital admissions. No plans or craving to continue smoking. Pneumonia of right upper lobe due to infectious organism 01/13/2024 Assessment & Plan (01/16/2024 10:50 AM CDT): Patient presenting with AHRF, shortness of breath, productive cough and fevers. CT chest with new multifocal aspiration pneumonia in both lungs with likely reactive LAD. RPP + parainfluenza. New oxygen requirement up to 4L nc. Viral infection w/ likely super imposed bacterial pneumonia and c/f aspiration though patient denies any dysphagia, choking while swallowing, or recent emesis. Pneumonia PCR/MRSA negative for any bacterial targets. - Previously started on Vanc/Cefe/Flagyl due to c/f aspiration, discontinued all and started on Unasyn on 01/14. - s/p 4L NC and now on room air; continue to monitor for desaturation - IS q2, prn antitussives - supportive care for parainfluenza Adenocarcinoma of prostate 12/21/2023 Assessment & Plan (09/23/2024 2:53 PM CDT): - 08/28/24 1st cycle docetaxel chemotherapy, next cycle in 3 weeks - Follows with Dr. Paredes -09/22: Informed the med onc team that patient is admitted. Will reschedule chemo and make Dr. Paredes aware. -Med/Onc does not wish to admit patient after ready for discharge from Trauma standpoint. -Will discharge home and follow up as an outpatient. Assessment & Plan (01/18/2024 7:36 AM CDT): Recently diagnosed with metastatic prostate cancer following workup for back pain and weakness. S/p tumor debulking and lumbar spinal fusion (12/25/2023). - Med Onc follow-up 01/19/24 - Neurosurgery follow-up 02/12/24 Assessment & Plan (01/16/2024 10:52 AM CDT): Recently diagnosed, presenting with cancer related pain. Patient due to follow up with Med Onc and Rad Onc outpatient on 01/19/24. - continue oxycodone IR 30 mg q4 prn, prn tylenol 1g q6, and toradol IV prn - continue lyrica 200 mg TID, baclofen 20 mg TID - bowel regimen PRN with above - patient receiving PT/OT in home Resolved Problems Problem Noted Date Diagnosed Date Resolved Date Elevated CK 02/24/2024 05/29/2024 Assessment & Plan (02/24/2024 3:13 PM SALES AND SERVICE TECHNICIAN): Noted elevated CK during this admission Trend, 05854--->4000--->1200 on 02/23 Could potentially be secondary to chemotherapy? Plan to monitor closely Parainfluenza 01/15/2024 01/18/2024 Assessment & Plan (01/15/2024 4:21 PM CDT): See plan above Sepsis 01/15/2024 01/18/2024 Assessment & Plan (01/16/2024 10:47 AM CDT): Patient presenting with fever, tachycardia, hypoxia with new oxygen requirement up to 4L by nasal canula. Imaging concern for multifocal aspiration PNA. Patient also s/p L2-L4 fusion with hardward, however surgical site CDI without erythema, increased pain or drainage. CT imaging with post operative findings, did note small left psoas hematoma. Low concern infection related to recent lumbar fusion. - started on broad spectrum abx with Vanc/Cefe/Flagyl, transitioned to Unasyn on 01/14 - treatment of pneumonia/AHRF as below - patient weaned to room air Encounters Date Type Department Care Team Description 11/26/2024 Orders Only [facility] Oncology [address] [place] [address] [address] [place] [address] Sebas Paredes, Adenocarcinoma of prostate (HCC) (Primary Dx); Prostate cancer metastatic to bone (HCC) 11/14/2024 Nurse Triage [facility] [address] [place] [phone] Jo Ann Alexis, MECCA 11/13/2024 Telephone [facility] Oncology [address] [place] [address] [address] [place] [address] Em Vazquez CMA 11/13/2024 Telephone [facility] Oncology [address] [place] [address] [address] [place] [address] Karolyn Gould RN 10/23/2024 8:30 AM CDT Infusion [facility] at [address] [place] [address] Adenocarcinoma of prostate (HCC) (Primary Dx) 10/23/2024 8:00 AM CDT Lab [facility] at [address] [address] Adenocarcinoma of prostate (HCC) 10/22/2024 Orders Only [facility] Oncology [address] [place] [address] [address] [place] [address] Sebas Paredes DO 10/10/2024 1:20 PM CDT Office Visit [facility] Orthopaedic Surgery [address] [place] [address] [address] [place] [address] [place] [address] Alli Armenta MD Closed fracture of right femur with routine healing, unspecified fracture morphology, unspecified portion of femur, subsequent encounter (Primary Dx) 10/09/2024 8:50 AM CDT Infusion [facility] at [address] [phone] Prostate cancer metastatic to bone (HCC) (Primary Dx); Adenocarcinoma of prostate (HCC) 10/09/2024 8:30 AM CDT Office Visit [facility] Oncology [address] [place] [phone] Sebas Paredes DO Adenocarcinoma of prostate (HCC) (Primary Dx); Prostate cancer metastatic to bone (HCC); Secondary and unspecified malignant neoplasm of lymph nodes of multiple regions (HCC); Unspecified cord compression (HCC); Chronic respiratory failure, unspecified whether with hypoxia or hypercapnia (HCC) 10/09/2024 8:00 AM CDT Lab [facility] at [address] [address] Adenocarcinoma of prostate (HCC) 10/09/2024 Orders Only [facility] Oncology [address] [place] [phone] Sebsa Paredes DO 10/02/2024 Telephone [facility] [facility] [place] [address] Breezy Arredondo, MECCA 10/01/2024 Telephone [facility] [address] [place] [address] [address] [place] [address] Lazara Hernandez MD 10/01/2024 Telephone [facility] Oncology [address] [place] [address] [address] [place] [phone] Karolyn Gould RN 09/27/2024 11:42 AM CDT - 09/27/2024 11:59 PM CDT Hospital Encounter [facility] [address] [place] [address] Hypophosphatemia Discharge Disposition: Discharge to home or self care 09/27/2024 10:00 AM CDT Lab [facility] Health [address] [place] [address] Hypophosphatemia 09/27/2024 9:58 AM CDT - 09/27/2024 11:59 PM CDT Hospital Encounter [facility] Radiology [address] [place] [address] Lumbosacral radiculopathy at L3 Discharge Disposition: Discharge to home or self care 09/27/2024 8:45 AM CDT Office Visit [facility] [address] [place] [address] [address] [place] [address] Lazara Hernandez MD Hypophosphatemia (Primary Dx); Periprosthetic fracture around internal prosthetic right knee joint, initial encounter 09/27/2024 Telephone [facility] [address] [place] [address] [address] [place] [address] Елена Thomas MD Follow-up 09/26/2024 Telephone [address] [address] [address] [place] [address] Nisha Hamm, MECCA 09/25/2024 Telephone [facility] - [address] [place] [address] Nisha Hamm, MECCA 09/24/2024 [facility] Transitional Care Outreach [facility] Care Coordination [address] [place] [phone] Diana Thomas RN 09/20/2024 8:00 AM CDT - 09/20/2024 10:45 AM CDT Surgery [facility] Operating Room 1 [place] [phone] lAli Armenta MD INTRAMEDULLARY NAILING FEMUR - RETROGRADE 09/20/2024 7:47 AM CDT Anesthesia Event [facility] Operating Room 1 [place] [phone] Brandt Thakkar MD Saltz, Dolores ECONOMIC DEVELOPER 09/20/2024 Orders Only [facility] Orthopaedic Surgery [address] [facility] 6th [place] [address] [place] [phone] Alli Armenta MD Periprosthetic fracture around internal prosthetic right knee joint, initial encounter (Primary Dx) 09/20/2024 [facility] Eligibility Review [facility] Community Health Worker [address] [facility] [address] [place] [address] Kane Fernandes 09/19/2024 12:50 PM CDT Anesthesia Event [facility] Emergency Department 1 [place] [phone] Jaylene Garcia NP 09/19/2024 9:07 AM CDT - 09/23/2024 4:22 PM CDT Hospital Encounter [address] [phone] Jaylene Rodriguez MD Thomas, MD Maíra Elena Luna, Thoi MD Alfredo Webster Lindsay [place], MD Diagnosis unknown (Primary Dx); Periprosthetic fracture around internal prosthetic right knee joint, initial encounter; Closed fracture of right femur, unspecified fracture morphology, unspecified portion of femur, initial encounter (HCC); SHIRIN (acute kidney injury); Uremia; Prostate cancer (HCC) Discharge Disposition: Discharge to home or self care 09/19/2024 Orders Only [facility] Oncology [address] [place] [address] [address] [place] [address] Sebas Paredes DO 09/10/2024 Telephone [facility] Oncology [address] [place] [address] [address] [place] [address] Karolyn Gould, MECCA 09/04/2024 Orders Only [facility] Oncology [address] [place] [address] [address] [place] [address] Karolyn Gould, MECCA 08/30/2024 Telephone [facility] Oncology [address] [place] [address] [address] [place] [address] Hiral Winkler CMA 08/28/2024 4:30 PM CDT Infusion [facility] at [address] [address] Prostate cancer metastatic to bone (HCC); Adenocarcinoma of prostate (HCC) 08/28/2024 9:30 AM CDT Infusion [facility] at [address] [address] Adenocarcinoma of prostate (HCC) (Primary Dx) 08/28/2024 9:00 AM CDT Office Visit [facility] Oncology [address] [place] [phone] Sebas Paredes DO Prostate cancer metastatic to bone (HCC) (Primary Dx); Adenocarcinoma of prostate (HCC) 08/28/2024 8:30 AM CDT Lab [facility] at [address] [address] Adenocarcinoma of prostate (HCC) from Last 3 Months Immunizations Immunization Administration Dates Next Due COVID-19 mRNA (Rezolve) 0.3 m L (30 mcg) vaccine (12 years and up) 03/12/2024 Surgical History Surgery Date Site/Laterality Comments FOOT SURGERY Left x5 related to crush injury in 2004-pt has had toes amputated. REPLACEMENT TOTAL KNEE 04/17/2015 - 04/16/2016 Right LUMBAR FUSION 12/25/2023 N/A IM NAILING FEMORAL SHAFT FRACTURE 09/20/2024 Right FEMUR FRACTURE SURGERY 09/20/2024 Right Medical History Medical History Date Comments Hypertension Prostate cancer (HCC) Acute respiratory failure 02/20/2024 Delirium 05/31/2024 Pulmonary embolism Anxiety Depression Family History Medical History Relation Name Comments Diabetes Father No Known Problems Maternal Grandfather No Known Problems Maternal Grandmother No Known Problems Mother No Known Problems Paternal Grandfather No Known Problems Paternal Grandmother Diabetes Sister Anesthesia problems Neg Hx Relation Name Status Comments Father Maternal Grandfather Maternal Grandmother Mother Alive Paternal Grandfather Paternal Grandmother Sister Social History Tobacco Use Types Packs/Day Years Used Date Smoking Tobacco: Some Days Cigarettes 0.3 41.6 Started: 1983 Passive Smoke Exposure: Past Smokeless Tobacco: Never Tobacco Cessation:Ready to Q uit: Not Asked; Counseling Given: Not Answered OASIS D0700: Social Isolation Answer Da te [...] materials from doctor or pharmacy Never 04/19/2024 [facility] Utilities Answer Date Recorded In the past 12 months has th e Lat[employer], gas, oil, or water company threatened to [...] often do you attend chur ch or amish services? Never 09/21/2024 Do you belong to any clubs o r organizations such as cheondoism groups, unions, fraternal or athletic groups, or [...] any time in the past 12 m [facility], were you homeless or living in a senior living (including now)? No 09/21/2024 Personal Safety Answer Date Recorded Have you ever been in or are you currently in a harmful physical or emotional relationship or is someone making you feel afraid or unsafe? 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 Gender Identity Not on file Sexual Orientation Not on file Occupation Industry Job Start Date Job End Date Disabled Not on file Not on file Not on file Obstetrics History Last Filed Vital Signs Vital Sign Reading Time Taken Comments Blood Pressure 149/93 10/23/2024 8:19 AM CDT Pulse 99 10/23/2024 8:19 AM CDT Temperature 36.3 C (97.4 F) 10/23/2024 8:19 AM CDT Respiratory Rate 16 10/23/2024 8:19 AM CDT Oxygen Saturation 98% 10/23/2024 8:19 AM CDT Inhaled Oxygen Concentration - - Weight 123.1 kg (271 lb 6.4 oz) 10/23/2024 8:19 AM CDT w/ shoes Height 177.8 cm (5' 10) 09/27/2024 8:48 AM CDT Body Mass Index 38.94 09/27/2024 8:48 AM CDT Plan of Treatment Health Maintenance Due Date Last Done Comments Colon Cancer Screening-Colonoscopy 1969 DTaP/Tdap/Td Vaccine (1 - Tdap) 1980 Hepatitis B Screening 09/15/1987 Regular Well Visit/Exam 18-64 09/15/1987 Pneumococcal vaccine <65 (1 of 2 - PCV) 1988 Zoster Vaccine (1 of 2) 1988 Influenza Vaccine (#1) 2024 Depression Screening 09/19/2025 09/19/2024 Prostate Cancer Screening-PSA 10/09/2026, 08/28/2024, 07/25/2024, Additional history exists Hepatitis C Screening Completed 02/20/2024 Medical Devices Implanted Type Area Substation Operator Transforming Device Identifier Shelf Expiration Date Model / Serial / Lot Bullet Adjacent To Rt Femur Other - see comments Right: Femur Synthes Screw Bone Locking Cannulated Femoral Proximal Full Thread Light Green 5.0x36mm Titanium 04.045.036 - S0 - [id number] Implanted:Qty: 2 on 09/20/2024 by Alli Armenta MD at [facility] Screw Right: Femur Synthes 04.045.036 / 0 / Synthes Screw Bone Locking Cannulated Femoral Proximal Full Thread Light Green 5.0x34mm Titanium 04.045.034 - S0 - [id number] Implanted:Qty: 1 on 09/20/2024 by Alli Armenta MD at [facility] Screw Right: Femur Synthes 04.045.034 / 0 / Total Joint Right: Knee [employer] Graft Bone Magnetos 10cc 1-2mm Granules In Moldable Putty 703-038-Us - [id number] Implanted:Qty: 1 on 12/25/2023 by Chika Caceres MD at [facility] N/A: Spine Lumbar [employer] 703-038-US / / Allosource Crushed Chip Frozen Graft 30ml Bone Cancellous [id number] - [id number] Implanted:Qty: 1 on 12/25/2023 by Chika Caceres MD at [facility] N/A: Spine Lumbar Allosource 07/24/2028 [id number] / / [id number] Depuy Synthes Spine 6mm 50mm Fix Spine Cortical Screw Bone Titanium 5.5mm Liu [id number] - [id number] Implanted:Qty: 1 on 12/25/2023 by Chika Caceres MD at [facility] N/A: Spine Lumbar Depuy Synthes Spine [id number] / / Depuy Synthes Spine Expedium 6.5mm 50mm Polyaxial Spine Screw Bone Titanium 5.5mm Liu [id number] - [id number] Implanted:Qty: 1 on 12/25/2023 by Chika Caceres MD at [facility] N/A: Spine Lumbar Depuy Synthes Spine [id number] / / Depuy Synthes Spine Expedium 7mm 50mm Fix Spine Cortical Screw Bone Titanium 5.5mm [id number] - [id number] Implanted:Qty: 1 on 12/25/2023 by Chika Caceres MD at [facility] N/A: Spine Lumbar Depuy Synthes Spine [id number] / / Depuy Synthes Spine Expedium 1 Inner Monoaxial Spine Screw Set Titanium [id number] - [id number] Implanted:Qty: 4 on 12/25/2023 by Chika Caceres MD at [facility] N/A: Spine Lumbar Depuy Synthes Spine [id number] / / Depuy Synthes Spine Expedium 5.5mm 80mm Line Prebent Liu Spinal Titanium Nonsterile [id number] - [id number] Implanted:Qty: 1 on 12/25/2023 by Chika Caceres MD at [facility] N/A: Spine Lumbar Depuy Synthes Spine [id number] / / Depuy Synthes Spine Expedium 5.5mm 85mm Line Prebent Liu Spinal Titanium Nonsterile [id number] - [id number] Implanted:Qty: 1 on 12/25/2023 by Chika Caceres MD at [facility] N/A: Spine Lumbar Depuy Synthes Spine [id number] / / Depuy Synthes Spine Expedium 7.5mm 50mm 1 Innie Polyaxial Spine Screw Bone Titanium [id number] - [id number] Implanted:Qty: 1 on 12/25/2023 by Chika Caceres MD at [facility] N/A: Spine Lumbar Depuy Synthes Spine [id number] / / Synthes Nail Intramedullary 5 Degree Femoral Retrograde Rfn Advanced [id number] Titanium 04.233.240s - [id number] Implanted:Qty: 1 on 09/20/2024 by Alli Armenta MD at [facility] Right: Femur Synthes [id number] 04/16/2028 04.233.240 S / / [id number] Synthes Screw Bone Locking Cannulated Femoral Proximal Full Thread Light Green 5.0x70mm Titanium 04.045.070 - [id number] Implanted:Qty: 1 on 09/20/2024 by Alli Armenta MD at [facility] Right: Femur Synthes I 04.045.070 / / Synthes Screw Locking Im Nail 5mm 88mm 04.045.088 - [id number] Implanted:Qty: 1 on 09/20/2024 by Alli Armenta MD at [facility] Right: Femur Synthes I 04.045.088 / / Synthes Screw Bone Locking Cannulated Femoral Proximal Full Thread Light Green 5.0x90mm Titanium - [id number] Implanted:Qty: 2 on 09/20/2024 by Alli Armenta MD at [facility] Right: Femur Synthes I / / Procedures Procedure Name Priority Date/Time Associated Diagnosis Comments EGFR STAT 10/23/2024 7:45 AM CDT Adenocarcinoma of prostate (HCC) DIFFERENTIAL AUTO Routine 10/23/2024 7:4 5 AM CDT Adenocarcinoma of prostate (HCC) CBC WITH AUTO DIFFERENTIAL Routine 10/23/2024 7:45 AM CDT Adenocarcinoma of prostate (HCC) COMPREHENSIVE METABOLIC PANEL STAT 10/23/2024 7:45 AM CDT Adenocarcinoma of prostate (HCC) EGFR STAT 10/09/2024 8:00 AM CDT Adenocarcinoma of prostate (HCC) DIFFERENTIAL AUTO Routine 10/09/2024 8:0 0 AM CDT Adenocarcinoma of prostate (HCC) PSA DIAGNOSTIC Routine 10/09/2024 8:00 AM CDT Adenocarcinoma of prostate (HCC) CBC WITH AUTO DIFFERENTIAL Routine 10/09/2024 8:00 AM CDT Adenocarcinoma of prostate (HCC) COMPREHENSIVE METABOLIC PANEL STAT 10/09/2024 8:00 AM CDT Adenocarcinoma of prostate (HCC) PHOSPHORUS, URINE, RANDOM Routine 09/27/2024 10:34 AM CDT Hypophosphatemia XR SPINE LUMBAR 2 OR 3 VIEWS Schedule Routine, Read Routine (OP Routine) 09/27/2024 10:15 AM CDT Lumbosacral radiculopathy at L3 EGFR Routine 09/27/2024 10:02 AM CDT Hypophosphatemia COMPREHENSIVE METABOLIC PANEL Routine 09/27/2024 10:02 AM CDT Hypophosphatemia MAGNESIUM Routine 09/27/2024 10:02 AM CDT Hypophosphatemia PHOSPHORUS Routine 09/27/2024 10:02 AM CDT Hypophosphatemia PTH Routine 09/27/2024 10:02 AM CDT Hypophosphatemia VITAMIN D 25 HYDROXY Routine 09/27/2024 10:02 AM CDT Hypophosphatemia ALBUMIN STAT 09/23/2024 1:07 AM CDT EGFR STAT 09/23/2024 1:07 AM CDT MAGNESIUM STAT 09/23/2024 1:07 AM CDT PHOSPHORUS STAT 09/23/2024 1:07 AM CDT BASIC METABOLIC PANEL STAT 09/23/2024 1:07 AM CDT EGFR Routine 09/22/2024 11:21 PM CDT CRITICAL RESULT CALLBACK CHEMISTRY Routine 09/22/2024 11:21 PM CDT BASIC METABOLIC PANEL Routine 09/22/2024 11:21 PM CDT CBC WITHOUT DIFFERENTIAL Routine 09/22/2024 11:21 PM CDT MAGNESIUM Routine 09/22/2024 11:21 PM CDT PHOSPHORUS Routine 09/22/2024 11:21 PM CDT EGFR Routine 09/21/2024 11:04 PM CDT BASIC METABOLIC PANEL Routine 09/21/2024 11:04 PM CDT CBC WITHOUT DIFFERENTIAL Routine 09/21/2024 11:04 PM CDT MAGNESIUM Routine 09/21/2024 11:04 PM CDT PHOSPHORUS Routine 09/21/2024 11:04 PM CDT EGFR Routine 09/20/2024 9:05 PM CDT BASIC METABOLIC PANEL Routine 09/20/2024 9:05 PM CDT CBC WITHOUT DIFFERENTIAL Routine 09/20/2024 9:05 PM CDT MAGNESIUM Routine 09/20/2024 9:05 PM CDT PHOSPHORUS Routine 09/20/2024 9:05 PM CDT EGFR STAT 09/20/2024 4:34 PM CDT CBC WITHOUT DIFFERENTIAL STAT 09/20/2024 4:34 PM CDT MAGNESIUM STAT 09/20/2024 4:34 PM CDT PHOSPHORUS STAT 09/20/2024 4:34 PM CDT BASIC METABOLIC PANEL STAT 09/20/2024 4:34 PM CDT XR FEMUR RIGHT 2 OR MORE VIEWS IP Routine 09/20/2024 10:15 AM CDT FL FLUOROSCOPY < 1 HOUR IP Routine 09/20/2024 9:36 AM CDT IN AN PROCEDURE PLACEHOLDER Routine 09/20/2024 8:23 AM CDT IN AN PROCEDURE PLACEHOLDER Routine 09/20/2024 8:22 AM CDT IN AN ELECTIVE ENDOTRACHEAL AIRWAY Routine 09/20/2024 8:22 AM CDT IN AN PROCEDURE PLACEHOLDER Routine 09/20/2024 7:54 AM CDT INTRAMEDULLARY NAILING FEMUR - RETROGRADE 09/20/2024 7:51 AM CDT Periprosthetic fracture around internal prosthetic right knee joint, initial encounter Case Notes Rich [phone] booked @ 1839 EGFR Routine 09/19/2024 8:30 PM CDT BASIC METABOLIC PANEL Routine 09/19/2024 8:30 PM CDT CBC WITHOUT DIFFERENTIAL Routine 09/19/2024 8:30 PM CDT MAGNESIUM Routine 09/19/2024 8:30 PM CDT PHOSPHORUS Routine 09/19/2024 8:30 PM CDT POTASSIUM, WHOLE BLOOD STAT 09/19/2024 5:[address] ABDOMEN PELVIS WO CONTRAST ED Urgent/IP Urgent 09/19/2024 3:36 PM CDT IN INJECTION AA&/STRD OTHER PERIPHERAL NERVE/BRANCH Routine 09/19/2024 2:40 PM CDT POCUS GUIDED NEEDLE PLACEMENT 09/19/2024 2:36 PM CDT EGFR Timed 09/19/2024 1:57 PM CDT BASIC METABOLIC PANEL Timed 09/19/2024 1:57 PM CDT TROPONIN I HIGH-SENSITIVITY 4-HOUR Timed 09/19/2024 1:57 PM CDT XR TIBIA FIBULA RIGHT2 VIEWS ED Urgent/IP Urgent 09/19/2024 12:19 PM CDT XR FEMUR RIGHT 2 OR MORE VIEWS ED Urgent/IP Urgent 09/19/2024 12:19 PM CDT XR HIP RIGHT W PELVIS 2 OR 3 VIEWS ED Urgent/IP Urgent 09/19/2024 12:19 PM CDT XR CHEST 1 VIEW ED Urgent/IP Urgent 09/19/2024 12:19 PM CDT XR KNEE LEFT 3 VIEWS ED Urgent/IP Urgent 09/19/2024 12:18 PM CDT XR FOOT RIGHT 3 OR MORE VIEWS ED Urgent/IP Urgent 09/19/2024 12:18 PM CDT ECG 12-LEAD Routine 09/19/2024 11:40 AM CDT IN CRITICAL CARE ILL/INJURED PATIENT INIT 30-74 MIN Routine 09/19/2024 11:34 AM CDT TROPONIN I HIGH-SENSITIVITY 2-HOUR Timed 09/19/2024 11:08 AM CDT URINALYSIS, MICROSCOPIC ONLY STAT 09/19/2024 10:36 AM CDT DRUGS OF ABUSE SCREEN, URINE WITHOUT CONFIRMATION STAT 09/19/2024 10:36 AM CDT URINALYSIS AND REFLEX TO MICROSCOPIC AND CULTURE STAT 09/19/2024 10:36 AM CDT POCUS RETROPERITONEAL (AAA OR RENAL) 09/19/2024 10:[address] OUTSIDE CONSULT Routine 09/19/2024 10:[address] OUTSIDE CONSULT Routine 09/19/2024 10:00 AM CDT XR TRANSFER OF OUTSIDE FILMS Routine 09/19/2024 9:59 AM CDT XR TRANSFER OF OUTSIDE FILMS Routine 09/19/2024 9:[address] OUTSIDE CONSULT Routine 09/19/2024 9:46 AM CDT Diagnosis unknown CREATINE KINASE (CK), TOTAL STAT 09/19/2024 9:36 AM CDT URIC ACID STAT 09/19/2024 9:36 AM CDT EGFR STAT 09/19/2024 9:36 AM CDT MAGNESIUM STAT 09/19/2024 9:36 AM CDT PHOSPHORUS STAT 09/19/2024 9:36 AM CDT BASIC METABOLIC PANEL STAT 09/19/2024 9:36 AM CDT DIFFERENTIAL AUTO STAT 09/19/2024 9:2 3 AM CDT TROPONIN I HIGH-SENSITIVITY SERIES (BASELINE, 2HR, 4HR, 6HR) STAT 09/19/2024 9:23 AM CDT TYPE AND SCREEN STAT 09/19/2024 9:23 AM CDT APTT STAT 09/19/2024 9:23 AM CDT PROTIME-INR STAT 09/19/2024 9:23 AM CDT CBC WITH AUTO DIFFERENTIAL STAT 09/19/2024 9:23 AM CDT EGFR STAT 08/28/2024 8:26 AM CDT Adenocarcinoma of prostate (HCC) DIFFERENTIAL AUTO Routine 08/28/2024 8:2 6 AM CDT Adenocarcinoma of prostate (HCC) CBC WITH AUTO DIFFERENTIAL Routine 08/28/2024 8:26 AM CDT Adenocarcinoma of prostate (HCC) COMPREHENSIVE METABOLIC PANEL STAT 08/28/2024 8:26 AM CDT Adenocarcinoma of prostate (HCC) PSA DIAGNOSTIC Routine 08/28/2024 8:26 AM CDT Adenocarcinoma of prostate (HCC) PHOSPHORUS Routine 08/28/2024 8:26 AM CDT Adenocarcinoma of prostate (HCC) HEPATITIS PANEL, ACUTE Routine 02/20/2024 4:55 AM SALES AND SERVICE TECHNICIAN from Last 3 Months or Most Recently Relevant to Health Maintenance Results * eGFR (10/23/2024 7:45 AM CDT) eGFR 65 >=60 mL/min/1. 73 m2 Comment: Interpretive Data Reference Interval Normal >/= 90 mL/min/1.73m2 Mildly decreased* 60 - 89 mL/min/1.73m2 Mildly to moderately decreased 45 - 59 mL/min/1.73m2 Moderately to severely decreased 30 - 44 mL/min/1.73m2 Severely decreased 15 - 29 mL/min/1.73m2 Kidney Failure < 15 mL/min/1.73m2 *Relative to young adult level Estimated glomerular filtration rate is determined by the 2020 CKD-EPI equation recommended by the National Kidney Foundation (A Unifying Approach to GFR Estimation: Recommendations of the NKF-ASK Task Force on Reassessing the Inclusion of Race in Diagnosing Kidney Disease, JASN 202). The CKD-EPI equation should not be used for patients with unstable renal function and has not been validated in children and those over 70. Current interpretive data was last reviewed 2021. Testing performed by: [facility], [address] [place] [address]., [id number] Blood 10/23/2024 7:45 AM CDT 10/23/2024 7:48 AM CDT us Sebas Paredes DO LAB BLOOD ORDERABLES Final R esult NEIL [address] [facility] Department [place] [address] * (ABNORMAL) Differential, auto (10/23/2024 7:45 AM CDT) Neutrophil abs 12.06(H) 1.50 - 6.50 K/cumm Comment:Testing performed by : [address] [address] Imm gran abs 0.06 0.00 - 0.10 K/cumm NEIL Comment:Testing performed by : [address] [address] Lymphocyte abs 1.24 0.80 - 3.30 K/cumm [facility] Comment:Testing performed by : [address] [address] Monocyte abs 0.47 0.20 - 0.80 K/cumm [facility] Comment:Testing performed by : [address] [address] Eosinophil abs 0.02 0.00 - 0.50 K/cumm [facility] Comment:Testing performed by : [address] [address] Basophil abs 0.04 0.00 - 0.10 K/cumm [facility] Comment:Testing performed by : [address] [address] Neutrophil pct 86.9 % [facility] Comment: Interpretive Data Percent cell count reference ranges are not reported, since discordance with absolute values may lead to misinterpretation of CBC data. Current Interpretive Data was last revised on 2017. Testing performed by: [address] [address] Imm gran pct 0.4 % [facility] Comment: Interpretive Data Percent cell count reference ranges are not reported, since discordance with absolute values may lead to misinterpretation of CBC data. Current Interpretive Data was last revised on 2017. Testing performed by: [address] [address] Lymphocyte pct 8.9 % [facility] Comment: Interpretive Data Percent cell count reference ranges are not reported, since discordance with absolute values may lead to misinterpretation of CBC data. Current Interpretive Data was last revised on 2017. Testing performed by: [address] [address] Monocyte pct 3.4 % NE[facility] Comment: Interpretive Data Percent cell count reference ranges are not reported, since discordance with absolute values may lead to misinterpretation of CBC data. Current Interpretive Data was last revised on 2017. Testing performed by: [address] [address] Eosinophil pct 0.1 % [facility] Comment: Interpretive Data Percent cell count reference ranges are not reported, since discordance with absolute values may lead to misinterpretation of CBC data. Current Interpretive Data was last revised on 2017. Testing performed by: [address] [address] Basophil pct 0.3 % [facility] Comment: Interpretive Data Percent cell count reference ranges are not reported, since discordance with absolute values may lead to misinterpretation of CBC data. Current Interpretive Data was last revised on 2017. Testing performed by: [address] [address] Blood 10/23/2024 7:45 AM CDT 10/23/2024 7:48 AM CDT Sebas Paredes DO LAB BLOOD ORDERABLES Final R esult [facility] [address] [facility] Department [place] [address] * (ABNORMAL) CBC with auto differential (10/23/2024 7:45 AM CDT) [facility] WBC 13.89(H) 3.80 - 9.90 K/cumm Comment:Testing performed by : [address] [address] Hgb 10.7(L) 13.0 - 17.5 g/dL [facility] Comment:Testing performed by : [address] [address] Hct 32.9(L) 38.9 - 50.3 % [facility] Comment:Testing performed by : [address] [address] Plt 360 150 - 400 K/cumm [facility] Comment:Testing performed by : [address] [address] MPV 10.3 9.1 - 12.3 fL NE[facility] Comment:Testing performed by : [address] [address] RBC 3.96(L) 4.30 - 5.80 M/cumm NE[facility] Comment:Testing performed by : [address] [address] MCV 83.1 81.3 - 96.4 fL [facility] Comment:Testing performed by : [address] [address] MCH 27.0(L) 27.1 - 33.3 pg NEIL Comment:Testing performed by : [address] [address] MCHC 32.5 32.3 - 35.7 g/dL NE[facility] Comment:Testing performed by : [address] [address] RDW CV 17.0(H) 11.1 - 14.9 % NE[facility] Comment:Testing performed by : [address] [address] RDW SD 51.3(H) 35.7 - 48.1 fL [facility] Comment:Testing performed by : [address] [address] NRBC abs 0.00 0.00 - 0.01 K/cumm NEIL Comment:Testing performed by : [address] [address] ANC Prelim 12.06(H) 1.50 - 6.50 K/cumm NEIL Comment: Interpretive Data The rapid ANC is a preliminary automated count and may vary from the final ANC (Neut Abs) reported in the WBC differential that follows. Current interpretive data was last revised 2024. Testing performed by: [address], [address] Blood 10/23/2024 7:45 AM CDT 10/23/2024 7:48 AM CDT Sebas Paredes DO LAB BLOOD ORDERABLES Final R esult [facility] [address] [facility] Department [place] [address] * (ABNORMAL) Comprehensive metabolic panel (10/23/2024 7:45 AM CDT) Sodium 141 135 - 145 mmol/L Comment:Testing performed by : [address] [address] Potassium, pl 4.1 3.3 - 4.9 mmol/L NEIL Comment:Testing performed by : [address] [address] Chloride 106 97 - 110 mmol/L NEIL Comment:Testing performed by : [address] [address] CO2 19(L) 22 - 32 mmol/L NEIL Comment:Testing performed by : [address] [address] Anion gap 16(H) 2 - 15 mmol/L NEIL Comment:Testing performed by : [address] [address] BUN 16 6 - 25 mg/dL NEIL Comment:Testing performed by : [address] [address] Creatinine 1.30 0.80 - 1.30 mg/dL NEIL Comment:Testing performed by : [address] [address] Glucose 150 70 - 199 mg/dL NEIL Comment: Interpretive Data Fasting glucose >/= 126 mg/dl is diagnostic for diabetes. Fasting is defined as no caloric intake for at least 8 hours. Fasting glucose between 100 mg/dl to 125 mg/dl is diagnostic of prediabetes. In a patient with classic symptoms of hyperglycemia or hyperglycemic crisis, a random glucose >/= 200 mg/dl is diagnostic for diabetes. In the absence of unequivocal hyperglycemia, results should be confirmed by repeat testing. The classification and Diagnosis of Diabetes Diabetes Care 202; 46: S19-S40. Current interpretive data was last revised 2022. Testing performed by: [address] [address] Calcium 9.1 8.5 - 10.3 mg/dL NEIL Comment:Testing performed by : [address] [address] Bilirubin, total 0.2 0.1 - 1.2 mg/dL NEIL Comment:Testing performed by : [address] [address] Protein, pl 7.7 6.5 - 8.5 g/dL NEIL Comment:Testing performed by : [address] [address] Albumin 4.2 3.5 - 5.0 g/dL NEIL Comment:Testing performed by : [address] [address] Alk phos 135(H) 40 - 130 Units/L NEIL Comment:Testing performed by : [address] [address] ALT 9 7 - 55 Units/L NEIL Comment:Testing performed by : [address] [address] AST 13 10 - 50 Units/L NEIL Comment:Testing performed by : [address] [address] Blood 10/23/2024 7:45 AM CDT 10/23/2024 7:48 AM CDT us Sebas Paredes DO LAB BLOOD ORDERABLES Final R esult NEIL PUCKETT [address] [facility] Department [place] [address] * eGFR (10/09/2024 8:00 AM CDT) eGFR 71 >=60 mL/min/1. 73 m2 Comment: Interpretive Data Reference Interval Normal >/= 90 mL/min/1.73m2 Mildly decreased* 60 - 89 mL/min/1.73m2 Mildly to moderately decreased 45 - 59 mL/min/1.73m2 Moderately to severely decreased 30 - 44 mL/min/1.73m2 Severely decreased 15 - 29 mL/min/1.73m2 Kidney Failure < 15 mL/min/1.73m2 *Relative to young adult level Estimated glomerular filtration rate is determined by the 2020 CKD-EPI equation recommended by the National Kidney Foundation (A Unifying Approach to GFR Estimation: Recommendations of the NKF-ASK Task Force on Reassessing the Inclusion of Race in Diagnosing Kidney Disease, JASN 2020). The CKD-EPI equation should not be used for patients with unstable renal function and has not been validated in children and those over 70. Current interpretive data was last reviewed 2021. Testing performed by: [address] [address] Blood 10/09/2024 8:00 AM CDT 10/09/2024 8:02 AM CDT us Sebas Paredes DO LAB BLOOD ORDERABLES Final R esult NEIL [address] [facility] Department [place] [address] * (ABNORMAL) Differential, auto (10/09/2024 8:00 AM CDT) Neutrophil abs 4.95 1.50 - 6.50 K/cumm Comment:Testing performed by : [address] [address] Imm gran abs 0.03 0.00 - 0.10 K/cumm NEIL Comment:Testing performed by : [address] [address] Lymphocyte abs 2.10 0.80 - 3.30 K/cumm NEIL Comment:Testing performed by : [address] [address] Monocyte abs 1.11(H) 0.20 - 0.80 K/cumm NEIL Comment:Testing performed by : [address] [address] Eosinophil abs 0.10 0.00 - 0.50 K/cumm [facility] Comment:Testing performed by : [address] [address] Basophil abs 0.04 0.00 - 0.10 K/cumm NEIL Comment:Testing performed by : [address] [address] Neutrophil pct 59.4 % [facility] Comment: Interpretive Data Percent cell count reference ranges are not reported, since discordance with absolute values may lead to misinterpretation of CBC data. Current Interpretive Data was last revised on 2017. Testing performed by: [address] [address] Imm gran pct 0.4 % [facility] Comment: Interpretive Data Percent cell count reference ranges are not reported, since discordance with absolute values may lead to misinterpretation of CBC data. Current Interpretive Data was last revised on 2017. Testing performed by: [address] [address] Lymphocyte pct 25.2 % [facility] Comment: Interpretive Data Percent cell count reference ranges are not reported, since discordance with absolute values may lead to misinterpretation of CBC data. Current Interpretive Data was last revised on 2017. Testing performed by: [address] [address] Monocyte pct 13.3 % [facility] Comment: Interpretive Data Percent cell count reference ranges are not reported, since discordance with absolute values may lead to misinterpretation of CBC data. Current Interpretive Data was last revised on 2017. Testing performed by: [address] [address] Eosinophil pct 1.2 % [facility] Comment: Interpretive Data Percent cell count reference ranges are not reported, since discordance with absolute values may lead to misinterpretation of CBC data. Current Interpretive Data was last revised on 2017. Testing performed by: [address] [address] Basophil pct 0.5 % [facility] Comment: Interpretive Data Percent cell count reference ranges are not reported, since discordance with absolute values may lead to misinterpretation of CBC data. Current Interpretive Data was last revised on 2017. Testing performed by: [address] [address] Blood 10/09/2024 8:00 AM CDT 10/09/2024 8:02 AM CDT Sebas Paredes DO LAB BLOOD ORDERABLES Final R esult NEIL [address] [facility] Department [place] [address] * (ABNORMAL) CBC with auto differential (10/09/2024 8:00 AM CDT) WBC 8.33 3.80 - 9.90 K/cumm Comment:Testing performed by : [address] [address] Hgb 9.8(L) 13.0 - 17.5 g/dL NEIL Comment:Testing performed by : [address] [address] Hct 30.8(L) 38.9 - 50.3 % NEIL Comment:Testing performed by : [address] [address] Plt 453(H) 150 - 400 K/cumm NEIL Comment:Testing performed by : [address] [address] MPV 10.2 9.1 - 12.3 fL NEIL Comment:Testing performed by : [address] [address] RBC 3.63(L) 4.30 - 5.80 M/cumm NEIL Comment:Testing performed by : [address] [address] MCV 84.8 81.3 - 96.4 fL NEIL Comment:Testing performed by : [address] [address] MCH 27.0(L) 27.1 - 33.3 pg NEIL Comment:Testing performed by : [address] [address] MCHC 31.8(L) 32.3 - 35.7 g/dL NEIL Comment:Testing performed by : [address] [address] RDW CV 17.6(H) 11.1 - 14.9 % NEIL Comment:Testing performed by : [address] [address] RDW SD 53.6(H) 35.7 - 48.1 fL NEIL Comment:Testing performed by : [address] [address] NRBC abs 0.00 0.00 - 0.01 K/cumm NEIL Comment:Testing performed by : [address] [address] ANC Prelim 4.95 1.50 - 6.50 K/cumm NEIL Comment: Interpretive Data The rapid ANC is a preliminary automated count and may vary from the final ANC (Neut Abs) reported in the WBC differential that follows. Current interpretive data was last revised 2024. Testing performed by: [address] [address] Blood 10/09/2024 8:00 AM CDT 10/09/2024 8:02 AM CDT Sebas Paredes DO LAB BLOOD ORDERABLES Final R esult NEIL [address] [facility] Department of Laboratories [place], [place] [id number] * (ABNORMAL) PSA diagnostic (10/09/2024 8:00 AM CDT) PSA-Total 8.91(H) <=3.90 ng/mL Comment: Interpretive Data AGE SEX REFERENCE INTERVAL 0 minutes-150 years Female None 0 minutes-49 years Male None 50-59 years Male 0-3.90 60-69 years Male 0-5.40 70-79 years Male 0-6.20 80-150 years Male 0-6.20 The [employer] PSA Total assay procedure was used. Results from different manufacturers or methods may not be comparable. Serial testing should be performed using the same method. Current interpretive data last revised 21. Testing performed by: [address] [address] Blood 10/09/2024 8:00 AM CDT 10/09/2024 9:51 AM CDT Sebas Paredes DO LAB BLOOD ORDERABLES Final R esult [facility] [address] [facility] Department [place] [address] * (ABNORMAL) Comprehensive metabolic panel (10/09/2024 8:00 AM CDT) Sodium 143 135 - 145 mmol/L Comment:Testing performed by : [address] [address] Potassium, pl 4.1 3.3 - 4.9 mmol/L NEIL Comment:Testing performed by : [address] [address] Chloride 106 97 - 110 mmol/L NEIL Comment:Testing performed by : [address] [address] CO2 27 22 - 32 mmol/L NEIL Comment:Testing performed by : [address] [address] Anion gap 10 2 - 15 mmol/L NEIL Comment:Testing performed by : [address] [address] BUN 14 6 - 25 mg/dL NEIL Comment:Testing performed by : [address] [address] Creatinine 1.20 0.80 - 1.30 mg/dL NEIL Comment:Testing performed by : [address] [address] Glucose 125 70 - 199 mg/dL NEIL Comment: Interpretive Data Fasting glucose >/= 126 mg/dl is diagnostic for diabetes. Fasting is defined as no caloric intake for at least 8 hours. Fasting glucose between 100 mg/dl to 125 mg/dl is diagnostic of prediabetes. In a patient with classic symptoms of hyperglycemia or hyperglycemic crisis, a random glucose >/= 200 mg/dl is diagnostic for diabetes. In the absence of unequivocal hyperglycemia, results should be confirmed by repeat testing. The classification and Diagnosis of Diabetes Diabetes Care 2021; 46: S19-S40. Current interpretive data was last revised 2022. Testing performed by: [address] [address] Calcium 9.2 8.5 - 10.3 mg/dL NEIL Comment:Testing performed by : [address] [address] Bilirubin, total 0.2 0.1 - 1.2 mg/dL NEIL Comment:Testing performed by : [address] [address] Protein, pl 7.6 6.5 - 8.5 g/dL NEIL Comment:Testing performed by : [address] [address] Albumin 4.1 3.5 - 5.0 g/dL NEIL Comment:Testing performed by : [address] [address] Alk phos 137(H) 40 - 130 Units/L NEIL Comment:Testing performed by : [address] [address] ALT 10 7 - 55 Units/L NEIL Comment:Testing performed by : [address] [address] AST 13 10 - 50 Units/L NEIL Comment:Testing performed by : [address] [address] Blood 10/09/2024 8:00 AM CDT 10/09/2024 8:02 AM CDT us Sebas Paredes DO LAB BLOOD ORDERABLES Final R esult NEIL [address] [facility] Department [place] [address] * Phosphorus, urine, random (09/27/2024 10:34 AM CDT) Phosphorus, ur 98.3 mg/dL Comment: Interpretive Data No reference range established. Current interpretive data was last revised 2018. Urine 09/27/2024 10:3 4 AM CDT 09/27/2024 12:09 PM CDT Lazara Hernandez MD LAB URINE ORDERABLES Final Result NEIL [facility] Department [place] [address] * XR Spine Lumbar 2 or 3 Views (09/27/2024 10:15 AM CDT) Anatomical Region Laterality Modality Spine N/A Computed Radiogr aphy 09/27/2024 11:5 5 AM CDT Impressions 09/27/2024 12:11 PM CDT 1. Posterior instrumented fusion from L2 to L4. 2. Sclerotic appearance of multiple vertebral bodies, in keeping with metastatic disease. No acute compression deformity. Dictated by: Kranthi Vitale M.D. The radiology attending physician has personally reviewed this study, and had reviewed and/or edited this written report and agrees with it. Electronically signed by: Osmani Garrido M.D. Narrative 09/27/2024 12:11 PM CDT EXAMINATION: XR SPINE LUMBAR 2 OR 3 VIEWS HISTORY: Postop spine fusion FINDINGS: 2 radiographs of the lumbar spine are submitted with comparison to 07/15/[address] Posterior instrumented fusion from L2 to L4 with decompression. Hardware appears intact. Mild dextrocurvature of the lumbar spine. No significant listhesis in the lumbar spine. Sclerotic appearance of predominantly L2 and L3 vertebral bodies, secondary to metastatic disease. No acute compression deformity. Procedure Note Osmani Garrido MD - 09/27/2024 EXAMINATION: XR SPINE LUMBAR 2 OR 3 VIEWS HISTORY: Postop spine fusion FINDINGS: 2 radiographs of the lumbar spine are submitted with comparison to 07/15/[address] Posterior instrumented fusion from L2 to L4 with decompression. Hardware appears intact. Mild dextrocurvature of the lumbar spine. No significant listhesis in the lumbar spine. Sclerotic appearance of predominantly L2 and L3 vertebral bodies, secondary to metastatic disease. No acute compression deformity. IMPRESSION: 1. Posterior instrumented fusion from L2 to L4. 2. Sclerotic appearance of multiple vertebral bodies, in keeping with metastatic disease. No acute compression deformity. Dictated by: Kranthi Vitale M.D. The radiology attending physician has personally reviewed this study, and had reviewed and/or edited this written report and agrees with it. Electronically signed by: Osmani Garrido M.D. Chika Caceres MD IMG XR PROCEDURES Final Resul t * eGFR (09/27/2024 10:02 AM CDT) eGFR >90 >=60 mL/min/1. 73 m2 Comment: Interpretive Data Reference Interval Normal >/= 90 mL/min/1.73m2 Mildly decreased* 60 - 89 mL/min/1.73m2 Mildly to moderately decreased 45 - 59 mL/min/1.73m2 Moderately to severely decreased 30 - 44 mL/min/1.73m2 Severely decreased 15 - 29 mL/min/1.73m2 Kidney Failure < 15 mL/min/1.73m2 *Relative to young adult level Estimated glomerular filtration rate is determined by the 2020 CKD-EPI equation recommended by the National Kidney Foundation (A Unifying Approach to GFR Estimation: Recommendations of the NKF-ASK Task Force on Reassessing the Inclusion of Race in Diagnosing Kidney Disease, JASN 202). The CKD-EPI equation should not be used for patients with unstable renal function and has not been validated in children and those over 70. Current interpretive data was last reviewed 2021. Blood 09/27/2024 10:0 2 AM CDT 09/27/2024 10:36 AM CDT Lazara Hernandez MD LAB BLOOD ORDERABLES Final Result [facility] [place] [address] * (ABNORMAL) Vitamin D 25 hydroxy (09/27/2024 10:02 AM CDT) Vitamin D 25-OH 18(L) 30 - 80 ng/mL Blood 09/27/2024 10:0 2 AM CDT 09/27/2024 10:36 AM CDT Lazara Hernandez MD LAB BLOOD ORDERABLES Final Result Performing Organization Address [facility] [place] [address] * Phosphorus (09/27/2024 10:02 AM CDT) Phosphorus, pl 2.3 2.3 - 4.5 mg/dL Blood 09/27/2024 10:0 2 AM CDT 09/27/2024 10:36 AM CDT Lazara Hernandez MD LAB BLOOD ORDERABLES Final Result Performing Organization Address [facility] Co de Phone Number [facility] [place] [address] * (ABNORMAL) PTH (09/27/2024 10:02 AM CDT) PTH 146(H) 15 - 65 pg/mL Blood 09/27/2024 10:0 2 AM CDT 09/27/2024 10:36 AM CDT Lazara Hernandez MD LAB BLOOD ORDERABLES Final Result Performing Organization Address [facility] Co de Phone Number [facility] [place] [address] * Magnesium (09/27/2024 10:02 AM CDT) Pathologist [facility] [place] Magnesium 1.7 1.4 - 2.5 mg/dL Blood 09/27/2024 10:0 2 AM CDT 09/27/2024 10:36 AM CDT Lazara Hernandez MD LAB BLOOD ORDERABLES Final Result [facility] Department [place] [address] * Comprehensive metabolic panel (09/27/2024 10:02 AM CDT) Pathologist [facility] [place] Sodium 142 135 - 145 mmol/L Potassium, pl 4.5 3.3 - 4.9 mmol/L [facility] Chloride 105 97 - 110 mmol/L [facility] CO2 25 22 - 32 mmol/L [facility] Anion gap 12 2 - 15 mmol/L [facility] BUN 11 6 - 25 mg/dL [facility] Creatinine 0.92 0.80 - 1.30 mg/dL [facility] Glucose 108 70 - 199 mg/dL [facility] Comment: Interpretive Data Fasting glucose >/= 126 mg/dl is diagnostic for diabetes. Fasting is defined as no caloric intake for at least 8 hours. Fasting glucose between 100 mg/dl to 125 mg/dl is diagnostic of prediabetes. In a patient with classic symptoms of hyperglycemia or hyperglycemic crisis, a random glucose >/= 200 mg/dl is diagnostic for diabetes. In the absence of unequivocal hyperglycemia, results should be confirmed by repeat testing. The classification and Diagnosis of Diabetes Diabetes Care 2021; 46: S19-S40. Current interpretive data was last revised 2022. Calcium 9.1 8.5 - 10.3 mg/dL [facility] Bilirubin, total 0.2 0.1 - 1.2 mg/dL [facility] Protein, pl 7.7 6.5 - 8.5 g/dL [facility] Albumin 3.8 3.5 - 5.0 g/dL [facility] Alk phos 87 40 - 130 Units/L [facility] ALT 51 7 - 55 Units/L [facility] AST 36 10 - 50 Units/L [facility] Blood 09/27/2024 10:0 2 AM CDT 09/27/2024 10:36 AM CDT Lazara Hernandez MD LAB BLOOD ORDERABLES Final Result Performing Organization Address [facility] Co de Phone Number [facility] Department [place] [address] * eGFR (09/23/2024 1:07 AM CDT) eGFR >90 >=60 mL/min/1. 73 m2 Comment: Interpretive Data Reference Interval Normal >/= 90 mL/min/1.73m2 Mildly decreased* 60 - 89 mL/min/1.73m2 Mildly to moderately decreased 45 - 59 mL/min/1.73m2 Moderately to severely decreased 30 - 44 mL/min/1.73m2 Severely decreased 15 - 29 mL/min/1.73m2 Kidney Failure < 15 mL/min/1.73m2 *Relative to young adult level Estimated glomerular filtration rate is determined by the 2020 CKD-EPI equation recommended by the National Kidney Foundation (A Unifying Approach to GFR Estimation: Recommendations of the NKF-ASK Task Force on Reassessing the Inclusion of Race in Diagnosing Kidney Disease, JASN 2020). The CKD-EPI equation should not be used for patients with unstable renal function and has not been validated in children and those over 70. Current interpretive data was last reviewed 2021. Blood 09/23/2024 1:07 AM CDT 09/23/2024 1:21 AM CDT Saige Fuentes MD LAB BLOOD ORDERABLES F inal Result Performing Organization Address City/[facility]/ZIP Co de Phone Number [facility] Department [place] [address] * (ABNORMAL) Phosphorus (09/23/2024 1:07 AM CDT) Phosphorus, pl 1.2(L) 2.3 - 4.5 mg/dL Blood 09/23/2024 1:07 AM CDT 09/23/2024 1:21 AM CDT Saige Fuentes MD LAB BLOOD ORDERABLES F inal Result Performing Organization Address [facility] de Phone Number [facility] [place] [address] * Magnesium (09/23/2024 1:07 AM CDT) [facility] Magnesium 2.0 1.4 - 2.5 mg/dL Blood 09/23/2024 1:07 AM CDT 09/23/2024 1:21 AM CDT Saige Fuentes MD LAB BLOOD ORDERABLES F inal Result Performing Organization Address [facility] de Phone Number [facility] [place] [address] * (ABNORMAL) Albumin (09/23/2024 1:07 AM CDT) [facility] Albumin 3.4(L) 3.5 - 5.0 g/dL Blood 09/23/2024 1:07 AM CDT 09/23/2024 1:21 AM CDT Jasper Guerrier MD LAB BLOOD ORDERABLES Izabela l Result Performing Organization Address [facility] [place] [address] * (ABNORMAL) Basic metabolic panel (09/23/2024 1:07 AM CDT) [facility] Sodium 136 135 - 145 mmol/L Potassium, pl 4.0 3.3 - 4.9 mmol/L [facility] Comment:Repeated and Verifie d Chloride 101 97 - 110 mmol/L [facility] CO2 25 22 - 32 mmol/L [facility] Anion gap 10 2 - 15 mmol/L [facility] BUN 13 6 - 25 mg/dL [facility] Creatinine 0.95 0.80 - 1.30 mg/dL [facility] Glucose 138 70 - 199 mg/dL [facility] Comment: Interpretive Data Fasting glucose >/= 126 mg/dl is diagnostic for diabetes. Fasting is defined as no caloric intake for at least 8 hours. Fasting glucose between 100 mg/dl to 125 mg/dl is diagnostic of prediabetes. In a patient with classic symptoms of hyperglycemia or hyperglycemic crisis, a random glucose >/= 200 mg/dl is diagnostic for diabetes. In the absence of unequivocal hyperglycemia, results should be confirmed by repeat testing. The classification and Diagnosis of Diabetes Diabetes Care 2021; 46: S19-S40. Current interpretive data was last revised 2022. Calcium 7.6(L) 8.5 - 10.3 mg/dL [facility] Blood 09/23/2024 1:07 AM CDT 09/23/2024 1:21 AM CDT us Saige Fuentes MD LAB BLOOD ORDERABLES F inal Result [facility] Department [place] [address] * eGFR (09/22/2024 11:21 PM CDT) eGFR See Comment >=60 Comment: Credited: Sample investigated and is suggestive of an improper collection (e.g., IV fluid contamination, improper tube type). Deleted at the Request of Tory Chen RN on 09/23/2024 00:33:51 CDT by . Interpretive Data Reference Interval Normal >/= 90 mL/min/1.73m2 Mildly decreased* 60 - 89 mL/min/1.73m2 Mildly to moderately decreased 45 - 59 mL/min/1.73m2 Moderately to severely decreased 30 - 44 mL/min/1.73m2 Severely decreased 15 - 29 mL/min/1.73m2 Kidney Failure < 15 mL/min/1.73m2 *Relative to young adult level Estimated glomerular filtration rate is determined by the 2020 CKD-EPI equation recommended by the National Kidney Foundation (A Unifying Approach to GFR Estimation: Recommendations of the NKF-ASK Task Force on Reassessing the Inclusion of Race in Diagnosing Kidney Disease, JASN 2020). The CKD-EPI equation should not be used for patients with unstable renal function and has not been validated in children and those over 70. Current interpretive data was last reviewed 2021. Blood 09/22/2024 11:2 1 PM CDT 09/22/2024 11:51 PM CDT Yair Ring MD LAB BLOOD ORDERABLES Edited Res ult - Final Performing Organization Address City/[facility]/ZIP Co de Phone Number [facility] [place] [address] * Critical Result Callback Chemistry (09/22/2024 11:21 PM CDT) Date Notified [id number] Time Notified 32 NEIL JACKSON TestName POTASSIUM, MAGNESIUM, CALCIUM NEIL HEAD Called/Read Back TORY JACKSON Credentials RN NEIL HEAD Called By CHAZ HEAD Blood 09/22/2024 11:2 1 PM CDT 09/22/2024 11:51 PM CDT Yair Ring MD LAB BLOOD ORDERABLES Final Resu lt Performing Organization Address City/[facility]/ZIP Co de Phone Number NEIL [facility] Department [place] [address] * (ABNORMAL) CBC without differential (09/22/2024 11:21 PM CDT) WBC 8.34 3.80 - 9.90 K/cumm Hgb 9.6(L) 13.0 - 17.5 g/dL NEIL JACKSON Hct 29.6(L) 38.9 - 50.3 % NEIL HEAD Plt 202 150 - 400 K/cumm [facility] MPV 11.9 9.1 - 12.[address] [facility] RBC 3.51(L) 4.30 - 5.80 M/cumm [facility] MCV 84.3 81.3 - 96.[address] [facility] MCH 27.4 27.1 - 33.[address] [facility] MCHC 32.4 32.3 - 35.7 g/dL [facility] RDW CV 17.2(H) 11.1 - 14.9 % [facility] RDW SD 52.5(H) 35.7 - 48.[address] [facility] NRBC abs 0.00 0.00 - 0.01 K/cumm [facility] Blood 09/22/2024 11:2 1 PM CDT 09/22/2024 11:52 PM CDT Yair Ring MD LAB BLOOD ORDERABLES Final Resu lt Performing Organization Address City/[facility] Co de Phone Number [facility] [place] [address] * Phosphorus (09/22/2024 11:21 PM CDT) Pathologist [facility] [place] Phosphorus, pl See Comment 2.3 - 4.5 mg/dL Comment:Credited: Sample inv estigated and is suggestive of an improper collection (e.g., IV fluid contamination, improper tube type). Deleted at the Request of Tory Chen RN on 09/23/2024 00:33:51 CDT by CHAZ . Blood 09/22/2024 11:2 1 PM CDT 09/22/2024 11:51 PM CDT Yair Ring MD LAB BLOOD ORDERABLES Edited Res ult - Final Performing Organization Address [facility]/ZIP Co de Phone Number [facility] [place] [address] * Magnesium (09/22/2024 11:21 PM CDT) Magnesium See Comment 1.4 - 2.5 mg/dL Comment:Credited: Sample inv estigated and is suggestive of an improper collection (e.g., IV fluid contamination, improper tube type). Deleted at the Request of Tory Chen RN on 09/23/2024 00:33:51 CDT by ML . Blood 09/22/2024 11:2 1 PM CDT 09/22/2024 11:51 PM CDT us Zulay Darin Ring MD LAB BLOOD ORDERABLES Edited Res ult - Final [facility] Department [place] [address] * Basic metabolic panel (09/22/2024 11:21 PM CDT) Pathologist [facility] [place] Sodium See Comment 135 - 145 mmol/L Comment:Credited: Sample inv estigated and is suggestive of an improper collection (e.g., IV fluid contamination, improper tube type). Deleted at the Request of Tory Chen RN on 09/23/2024 00:33:51 CDT by ML . Potassium, pl See Comment 3.3 - 4.9 mmol/L [facility] Comment:Credited: Sample inv estigated and is suggestive of an improper collection (e.g., IV fluid contamination, improper tube type). Deleted at the Request of Tory Chen RN on 09/23/2024 00:33:51 CDT by ML . Chloride See Comment 97 - 110 mmol/L [facility] Comment:Credited: Sample inv estigated and is suggestive of an improper collection (e.g., IV fluid contamination, improper tube type). Deleted at the Request of Tory Chen RN on 09/23/2024 00:33:51 CDT by ML . CO2 See Comment 22 - 32 mmol/L [facility] Comment:Credited: Sample inv estigated and is suggestive of an improper collection (e.g., IV fluid contamination, improper tube type). Deleted at the Request of Tory Chen RN on 09/23/2024 00:33:51 CDT by ML . Anion gap See Comment 2 - 15 mmol/L [facility] Comment:Credited: Sample inv estigated and is suggestive of an improper collection (e.g., IV fluid contamination, improper tube type). Deleted at the Request of Tory Chen RN on 09/23/2024 00:33:51 CDT by ML . BUN See Comment 6 - 25 mg/dL [facility] Comment:Credited: Sample inv estigated and is suggestive of an improper collection (e.g., IV fluid contamination, improper tube type). Deleted at the Request of Tory Chen RN on 09/23/2024 00:33:51 CDT by ML . Creatinine See Comment 0.80 - 1.30 mg/dL [facility] Comment:Credited: Sample inv estigated and is suggestive of an improper collection (e.g., IV fluid contamination, improper tube type). Deleted at the Request of Tory Chen RN on 09/23/2024 00:33:51 CDT by ML . Glucose See Comment 70 - 199 mg/dL [facility] Comment: Credited: Sample investigated and is suggestive of an improper collection (e.g., IV fluid contamination, improper tube type). Deleted at the Request of Tory Chen RN on 09/23/2024 00:33:51 CDT by ML . Interpretive Data Fasting glucose >/= 126 mg/dl is diagnostic for diabetes. Fasting is defined as no caloric intake for at least 8 hours. Fasting glucose between 100 mg/dl to 125 mg/dl is diagnostic of prediabetes. In a patient with classic symptoms of hyperglycemia or hyperglycemic crisis, a random glucose >/= 200 mg/dl is diagnostic for diabetes. In the absence of unequivocal hyperglycemia, results should be confirmed by repeat testing. The classification and Diagnosis of Diabetes Diabetes Care 2021; 46: S19-S40. Current interpretive data was last revised 2022. Calcium See Comment 8.5 - 10.3 mg/dL [facility] Comment:Credited: Sample inv estigated and is suggestive of an improper collection (e.g., IV fluid contamination, improper tube type). Deleted at the Request of Tory Chen RN on 09/23/2024 00:33:51 CDT by ML . Blood 09/22/2024 11:2 1 PM CDT 09/22/2024 11:51 PM CDT Yair Ring MD LAB BLOOD ORDERABLES Edited Res ult - Final Performing Organization Address City/[facility]/ZIP Co de Phone Number [facility] [place] [address] * eGFR (09/21/2024 11:04 PM CDT) eGFR 82 >=60 mL/min/1. 73 m2 Comment: Interpretive Data Reference Interval Normal >/= 90 mL/min/1.73m2 Mildly decreased* 60 - 89 mL/min/1.73m2 Mildly to moderately decreased 45 - 59 mL/min/1.73m2 Moderately to severely decreased 30 - 44 mL/min/1.73m2 Severely decreased 15 - 29 mL/min/1.73m2 Kidney Failure < 15 mL/min/1.73m2 *Relative to young adult level Estimated glomerular filtration rate is determined by the 2020 CKD-EPI equation recommended by the National Kidney Foundation (A Unifying Approach to GFR Estimation: Recommendations of the NKF-ASK Task Force on Reassessing the Inclusion of Race in Diagnosing Kidney Disease, JASN 2020). The CKD-EPI equation should not be used for patients with unstable renal function and has not been validated in children and those over 70. Current interpretive data was last reviewed 2021. Blood 09/21/2024 11:0 4 PM CDT 09/21/2024 11:46 PM CDT Yair Ring MD LAB BLOOD ORDERABLES Final Resu lt Performing Organization Address City/[facility]/ZIP Co de Phone Number [facility] Department [place] [address] * (ABNORMAL) CBC without differential (09/21/2024 11:04 PM CDT) WBC 9.28 3.80 - 9.90 K/cumm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 administered. The protocol was adequate to address the clinical question. The outside final report was not available at the time of this second opinion interpretation. TYPE OF CONSULTATION: Consult on outside imaging study with images submitted through Outside Image Sharing Service DATE OF CONSULTATION: 09/19/2024 9:59 AM HISTORY: Fall COMPARISON: Right knee radiographs 05/27/2024. FINDINGS: Unchanged 2 component right knee arthroplasty in near-anatomic position. There is a new transversely oriented posteriorly displaced supracondylar periprosthetic fracture with one shaft width of posterior displacement of the distal fracture fragment. The patella, proximal tibia and proximal fibula are intact. No osteolysis or component migration. Small joint effusion. There is surrounding soft tissue swelling and hematoma. Mild fatty atrophy of the surrounding musculature. Scattered atherosclerotic vascular calcifications. IMPRESSION: 1. 2 component right knee arthroplasty in near-anatomic position with posteriorly displaced supracondylar femoral periprosthetic fracture. The findings, conclusions and recommendations within this report do not replace the initial findings, conclusions and recommendations made at the facility where the study was performed based upon the imaging and clinical condition at that time. Comparison with the prior report and clinical history is necessary. The provided images may or may not represent the douglas source data set and thus may contain changes that may lower the accuracy of this second-opinion interpretation. Dictated by: Cameron Wang M.D. The radiology attending physician has personally reviewed this study, and had reviewed and/or edited this written report and agrees with it. Electronically signed by: Tip Hudson M.D. us Carlos Matos MD PhD IMG CT PROCEDURES F inal Result * (ABNORMAL) eGFR (09/19/2024 9:36 AM CDT) eGFR 10(L) >=60 mL/min/1. 73 m2 Comment: Interpretive Data Reference Interval Normal >/= 90 mL/min/1.73m2 Mildly decreased* 60 - 89 mL/min/1.73m2 Mildly to moderately decreased 45 - 59 mL/min/1.73m2 Moderately to severely decreased 30 - 44 mL/min/1.73m2 Severely decreased 15 - 29 mL/min/1.73m2 Kidney Failure < 15 mL/min/1.73m2 *Relative to young adult level Estimated glomerular filtration rate is determined by the 2020 CKD-EPI equation recommended by the National Kidney Foundation (A Unifying Approach to GFR Estimation: Recommendations of the NKF-ASK Task Force on Reassessing the Inclusion of Race in Diagnosing Kidney Disease, JASN 2020). The CKD-EPI equation should not be used for patients with unstable renal function and has not been validated in children and those over 70. Current interpretive data was last reviewed 2021. Blood 09/19/2024 9:36 AM CDT 09/19/2024 9:48 AM CDT us Ivan Santiago MD LAB BLOOD ORDERABLES F inal Result [facility] [place] [address] * (ABNORMAL) Uric acid (09/19/2024 9:36 AM CDT) Uric acid 9.8(H) 3.0 - 8.0 mg/dL Blood 09/19/2024 9:36 AM CDT 09/19/2024 9:48 AM CDT Julio Younger MD LAB BLOOD [place]AB[place] [address] * (ABNORMAL) Phosphorus (09/19/2024 9:36 AM CDT) Phosphorus, pl 6.0(H) 2.3 - 4.5 mg/dL Blood 09/19/2024 9:36 AM CDT 09/19/2024 9:48 AM CDT Julio Younger MD LAB BLOOD ORDERABLES Izabela l Result Performing Organization Address City/[facility] [place] [address] * (ABNORMAL) Magnesium (09/19/2024 9:36 AM CDT) Pathologist [facility] [place] Magnesium 3.1(H) 1.4 - 2.5 mg/dL Blood 09/19/2024 9:36 AM CDT 09/19/2024 9:48 AM CDT Julio Younger MD LAB BLOOD ORDERABLES Izabela l Result Performing Organization Address City/[facility]/ZIP Co de Phone Number [facility] [place] [address] * (ABNORMAL) Creatine kinase (CK), total (09/19/2024 9:36 AM CDT) CK 1,380(H) 40 - 300 Units/L Blood 09/19/2024 9:36 AM CDT 09/19/2024 9:48 AM CDT us Julio Younger MD LAB BLOOD ORDERABLES Izabela l Result [facility] Department [place] [address] * (ABNORMAL) Basic metabolic panel (09/19/2024 9:36 AM CDT) Pathologist [facility] [place] Sodium 145 135 - 145 mmol/L Potassium, pl 5.2(H) 3.3 - 4.9 mmol/L [facility] Chloride 103 97 - 110 mmol/L [facility] CO2 23 22 - 32 mmol/L [facility] Anion gap 19(H) 2 - 15 mmol/L [facility] BUN 65(H) 6 - 25 mg/dL [facility] Creatinine 6.18(H) 0.80 - 1.30 mg/dL [facility] Glucose 125 70 - 199 mg/dL [facility] Comment: Interpretive Data Fasting glucose >/= 126 mg/dl is diagnostic for diabetes. Fasting is defined as no caloric intake for at least 8 hours. Fasting glucose between 100 mg/dl to 125 mg/dl is diagnostic of prediabetes. In a patient with classic symptoms of hyperglycemia or hyperglycemic crisis, a random glucose >/= 200 mg/dl is diagnostic for diabetes. In the absence of unequivocal hyperglycemia, results should be confirmed by repeat testing. The classification and Diagnosis of Diabetes Diabetes Care 2021; 46: S19-S40. Current interpretive data was last revised 2022. Calcium 9.3 8.5 - 10.3 mg/dL [facility] Blood 09/19/2024 9:36 AM CDT 09/19/2024 9:48 AM CDT us Ivan Santiago MD LAB BLOOD ORDERABLES F inal Result Performing Organization Address [facility] Co de Phone Number [facility] Department [place] [address] * Troponin I high-sensitivity series (baseline, 2hr, 4hr, 6hr) (09/19/2024 9:23 AM CDT) [facility] Trop I hs 9 <=35 ng/L Comment: Interpretive Data For further hscTnI resources including the diagnostic algorithm and an aid in interpretation, copy and paste this link: [email or web address]/[email or web address] Current Interpretive Data last revised 2019. Blood 09/19/2024 9:23 AM CDT 09/19/2024 9:48 AM CDT [facility] Patricio Santiago MD LAB BLOOD ORDERABLES F inal Result Performing Organization Address [facility] de Phone Number [facility] Department [place] [address] * (ABNORMAL) Differential, auto (09/19/2024 9:23 AM CDT) [facility] Neutrophil abs 9.01(H) 1.50 - 6.50 K/cumm Imm gran abs 0.08 0.00 - 0.10 K/cumm [facility] Lymphocyte abs 1.58 0.80 - 3.30 K/cumm [facility] Monocyte abs 1.33(H) 0.20 - 0.80 K/cumm [facility] Eosinophil abs 0.00 0.00 - 0.50 K/cumm [facility] Basophil abs 0.02 0.00 - 0.10 K/cumm [facility] Neutrophil pct 74.9 % [facility] Comment: Interpretive Data Percent cell count reference ranges are not reported, since discordance with absolute values may lead to misinterpretation of CBC data. Current Interpretive Data was last revised on 2017. Imm gran pct 0.7 % [facility] Comment: Interpretive Data Percent cell count reference ranges are not reported, since discordance with absolute values may lead to misinterpretation of CBC data. Current Interpretive Data was last revised on 2017. Lymphocyte pct 13.1 % [facility] Comment: Interpretive Data Percent cell count reference ranges are not reported, since discordance with absolute values may lead to misinterpretation of CBC data. Current Interpretive Data was last revised on 2017. Monocyte pct 11.1 % [facility] Comment: Interpretive Data Percent cell count reference ranges are not reported, since discordance with absolute values may lead to misinterpretation of CBC data. Current Interpretive Data was last revised on 2017. Eosinophil pct 0.0 % [facility] Comment: Interpretive Data Percent cell count reference ranges are not reported, since discordance with absolute values may lead to misinterpretation of CBC data. Current Interpretive Data was last revised on 2017. Basophil pct 0.2 % [facility] Comment: Interpretive Data Percent cell count reference ranges are not reported, since discordance with absolute values may lead to misinterpretation of CBC data. Current Interpretive Data was last revised on 2017. Blood 09/19/2024 9:23 AM CDT 09/19/2024 9:48 AM CDT Ivan Santiago MD LAB BLOOD ORDERABLES F inal Result [facility] Department [place] [address] * (ABNORMAL) CBC with auto differential (09/19/2024 9:23 AM CDT) WBC 12.02(H) 3.80 - 9.90 K/cumm Hgb 12.1(L) 13.0 - 17.5 g/dL [facility] Hct 36.0(L) 38.9 - 50.3 % [facility] Plt 226 150 - 400 K/cumm [facility] MPV 10.9 9.1 - 12.[address] [facility] RBC 4.29(L) 4.30 - 5.80 M/cumm [facility] MCV 83.9 81.3 - 96.[address] [facility] MCH 28.2 27.1 - 33.[address] [facility] MCHC 33.6 32.3 - 35.7 g/dL [facility] RDW CV 18.7(H) 11.1 - 14.9 % [facility] RDW SD 55.2(H) 35.7 - 48.[address] [facility] NRBC abs 0.00 0.00 - 0.01 K/cumm [facility] Blood 09/19/2024 9:23 AM CDT 09/19/2024 9:48 AM CDT Ivan Santiago MD LAB BLOOD ORDERABLES F inal Result Performing Organization Address [facility] de Phone Number [facility] [place] [address] * aPTT (09/19/2024 9:23 AM CDT) Pathologist [facility] [place] aPTT 37 28 - 38 sec Comment: Interpretive Data Heparin therapeutic range: 66.0 - 100.0 seconds. Range based on correlation with therapeutic heparin activity range of 0.3 - 0.7 Units/mL. Current interpretive data was last revised on 2023. Blood 09/19/2024 9:23 AM CDT 09/19/2024 9:42 AM CDT Ivan Santiago MD LAB BLOOD ORDERABLES F inal Result Performing Organization Address [facility] de Phone Number [facility] [place] [address] * Protime-INR (09/19/2024 9:23 AM CDT) PT 10.9 9.7 - 13.0 sec INR 1.01 0.90 - 1.[address] [facility] Comment: Interpretive data Oral anticoagulant therapeutic ranges: Venous thromboembolism prophylaxis or treatment: 2.0-3.0 CARDIOLOGY Standard range: 2.0-3.0 High-intensity range: 2.5-3.5 Refer to indication-specific guidelines for appropriate target ranges for prosthetic heart valve replacement. Current interpretive data was last revised on 2019. Blood 09/19/2024 9:23 AM CDT 09/19/2024 9:42 AM CDT Ivan Santiago MD LAB BLOOD ORDERABLES F inal Result Performing Organization Address City/[facility] Co de Phone Number [facility] Department [place] [address] * Type and screen (09/19/2024 9:23 AM CDT) Cris, indirect Negative ABO Rh O Positive [facility] Blood 09/19/2024 9:23 AM CDT 09/19/2024 9:43 AM CDT Narrative [facility] - 09/19/2024 10:43 AM CDT Has the patient had Daratumumab or Isatuximab in the past 6 months?->Unknown Ivan Santiago MD LAB BLOOD BANK TEST OR DERABLES Final Result Performing Organization Address City/[facility] Co de Phone Number [facility] Department [place] [address] * eGFR (08/28/2024 8:26 AM CDT) eGFR 89 >=60 mL/min/1. 73 m2 Comment: Interpretive Data Reference Interval Normal >/= 90 mL/min/1.73m2 Mildly decreased* 60 - 89 mL/min/1.73m2 Mildly to moderately decreased 45 - 59 mL/min/1.73m2 Moderately to severely decreased 30 - 44 mL/min/1.73m2 Severely decreased 15 - 29 mL/min/1.73m2 Kidney Failure < 15 mL/min/1.73m2 *Relative to young adult level Estimated glomerular filtration rate is determined by the 2020 CKD-EPI equation recommended by the National Kidney Foundation (A Unifying Approach to GFR Estimation: Recommendations of the NKF-ASK Task Force on Reassessing the Inclusion of Race in Diagnosing Kidney Disease, JASN 2020). The CKD-EPI equation should not be used for patients with unstable renal function and has not been validated in children and those over 70. Current interpretive data was last reviewed 2021. Testing performed by: [address] [address] Blood 08/28/2024 8:26 AM CDT 08/28/2024 8:28 AM CDT us Sebas Paredes DO LAB BLOOD ORDERABLES Final R esult [facility] [address] [facility] Department [place] [address] * (ABNORMAL) Differential, auto (08/28/2024 8:26 AM CDT) Neutrophil abs 8.26(H) 1.50 - 6.50 K/cumm Comment:Testing performed by : [address] [address] Imm gran abs 0.05 0.00 - 0.10 K/cumm NEIL Comment:Testing performed by : [address] [address] Lymphocyte abs 0.70(L) 0.80 - 3.30 K/cumm NE[facility] Comment:Testing performed by : [address] [address] Monocyte abs 0.28 0.20 - 0.80 K/cumm NEIL Comment:Testing performed by : [address] [address] Eosinophil abs 0.00 0.00 - 0.50 K/cumm NEIL Comment:Testing performed by : [address] [address] Basophil abs 0.01 0.00 - 0.10 K/cumm NEIL Comment:Testing performed by : [address] [address] Neutrophil pct 88.9 % [facility] Comment: Interpretive Data Percent cell count reference ranges are not reported, since discordance with absolute values may lead to misinterpretation of CBC data. Current Interpretive Data was last revised on 2017. Testing performed by: [address] [address] Imm gran pct 0.5 % [facility] Comment: Interpretive Data Percent cell count reference ranges are not reported, since discordance with absolute values may lead to misinterpretation of CBC data. Current Interpretive Data was last revised on 2017. Testing performed by: [address] [address] Lymphocyte pct 7.5 % [facility] Comment: Interpretive Data Percent cell count reference ranges are not reported, since discordance with absolute values may lead to misinterpretation of CBC data. Current Interpretive Data was last revised on 2017. Testing performed by: [address] [address] Monocyte pct 3.0 % [facility] Comment: Interpretive Data Percent cell count reference ranges are not reported, since discordance with absolute values may lead to misinterpretation of CBC data. Current Interpretive Data was last revised on 2017. Testing performed by: [address] [address] Eosinophil pct 0.0 % [facility] Comment: Interpretive Data Percent cell count reference ranges are not reported, since discordance with absolute values may lead to misinterpretation of CBC data. Current Interpretive Data was last revised on 2017. Testing performed by: [address] [address] Basophil pct 0.1 % [facility] Comment: Interpretive Data Percent cell count reference ranges are not reported, since discordance with absolute values may lead to misinterpretation of CBC data. Current Interpretive Data was last revised on 2017. Testing performed by: [address] [address] Blood 08/28/2024 8:26 AM CDT 08/28/2024 8:28 AM CDT Sebas Paredes DO LAB BLOOD ORDERABLES Final R esult NEIL [address] [facility] Department [place] [address] * (ABNORMAL) CBC with auto differential (08/28/2024 8:26 AM CDT) [facility] WBC 9.30 3.80 - 9.90 K/cumm Comment:Testing performed by : [address] [address] Hgb 12.6(L) 13.0 - 17.5 g/dL NEIL Comment:Testing performed by : [address] [address] Hct 37.8(L) 38.9 - 50.3 % NEIL Comment:Testing performed by : [address] [address] Plt 316 150 - 400 K/cumm NEIL Comment:Testing performed by : [address] [address] MPV 10.6 9.1 - 12.3 fL NEIL Comment:Testing performed by : [address] [address] RBC 4.63 4.30 - 5.80 M/cumm NEIL Comment:Testing performed by : [address] [address] MCV 81.6 81.3 - 96.4 fL NEIL Comment:Testing performed by : [address] [address] MCH 27.2 27.1 - 33.3 pg NEIL Comment:Testing performed by : [address] [address] MCHC 33.3 32.3 - 35.7 g/dL NEIL Comment:Testing performed by : [address] [address] RDW CV 15.5(H) 11.1 - 14.9 % NEIL Comment:Testing performed by : [address] [address] RDW SD 45.5 35.7 - 48.1 fL CERNER Comment:Testing performed by : [address] [address] NRBC abs 0.00 0.00 - 0.01 K/cumm NEIL Comment:Testing performed by : [address] [address] ANC Prelim 8.26(H) 1.50 - 6.50 K/cumm NEIL Comment: Interpretive Data The rapid ANC is a preliminary automated count and may vary from the final ANC (Neut Abs) reported in the WBC differential that follows. Current interpretive data was last revised 2024. Testing performed by: [address] [address] Blood 08/28/2024 8:26 AM CDT 08/28/2024 8:28 AM CDT Sebas Paredes DO LAB BLOOD ORDERABLES Final R esult [facility] [address] [facility] Department [place] [address] * (ABNORMAL) PSA diagnostic (08/28/2024 8:26 AM CDT) PSA-Total 11.70(H) <=3.90 ng/mL Comment: Interpretive Data AGE SEX REFERENCE INTERVAL 0 minutes-150 years Female None 0 minutes-49 years Male None 50-59 years Male 0-3.90 60-69 years Male 0-5.40 70-79 years Male 0-6.20 80-150 years Male 0-6.20 The [employer] PSA Total assay procedure was used. Results from different manufacturers or methods may not be comparable. Serial testing should be performed using the same method. Current interpretive data last revised 21. Testing performed by: [address] [address] Blood 08/28/2024 8:26 AM CDT 08/28/2024 9:39 AM CDT Sebas Paredes LAB BLOOD ORDERABLES Final R esult Performing Organization Address [facility] [place]/[facility] de Phone Number NEIL [address] [place] [address] * (ABNORMAL) Phosphorus (08/28/2024 8:26 AM CDT) Pathologist [facility] Phosphorus, pl 1.3(C) 2.3 - 4.5 mg/dL Comment: Critical Result called to and read back by Karolyn Myrick RN [employer], DATE: 2024-08-28 09:03:05 BY: [id number] Testing performed by: [address] [address] Blood 08/28/2024 8:26 AM CDT 08/28/2024 8:28 AM CDT Sebas Renaenti LAB BLOOD ORDERABLES Final R esult Performing Organization Address [facility] [place]/[facility] de Phone Number NEIL [facility] [place] [address] * (ABNORMAL) Comprehensive metabolic panel (08/28/2024 8:26 AM CDT) [facility] Sodium 142 135 - 145 mmol/L Comment:Testing performed by : [address] [address] Potassium, pl 4.4 3.3 - 4.9 mmol/L NEIL Comment:Testing performed by : [address] [address] Chloride 106 97 - 110 mmol/L NEIL Comment:Testing performed by : [address] [address] CO2 23 22 - 32 mmol/L NEIL Comment:Testing performed by : [address] [address] Anion gap 13 2 - 15 mmol/L NEIL Comment:Testing performed by : [address] [address] BUN 23 6 - 25 mg/dL NEIL Comment:Testing performed by : [address] [address] Creatinine 1.00 0.80 - 1.30 mg/dL NEIL Comment:Testing performed by : [address] [address] Glucose 139 70 - 199 mg/dL NEIL Comment: Interpretive Data Fasting glucose >/= 126 mg/dl is diagnostic for diabetes. Fasting is defined as no caloric intake for at least 8 hours. Fasting glucose between 100 mg/dl to 125 mg/dl is diagnostic of prediabetes. In a patient with classic symptoms of hyperglycemia or hyperglycemic crisis, a random glucose >/= 200 mg/dl is diagnostic for diabetes. In the absence of unequivocal hyperglycemia, results should be confirmed by repeat testing. The classification and Diagnosis of Diabetes Diabetes Care 2021; 46: S19-S40. Current interpretive data was last revised 2022. Testing performed by: [address] [address] Calcium 10.5(H) 8.5 - 10.3 mg/dL NEIL Comment:Testing performed by : [address] [address] Bilirubin, total <0.2 0.1 - 1.2 mg/dL NEIL Comment:Testing performed by : [address] [address] Protein, pl 8.8(H) 6.5 - 8.5 g/dL NEIL Comment:Testing performed by : [address] [address] Albumin 4.7 3.5 - 5.0 g/dL NEIL Comment:Testing performed by : [address] [address] Alk phos 78 40 - 130 Units/L NEIL Comment:Testing performed by : [address] [address] ALT 16 7 - 55 Units/L NEIL Comment:Testing performed by : [address] [address] AST 17 10 - 50 Units/L NEIL Comment:Testing performed by : [address] [address] Blood 08/28/2024 8:26 AM CDT 08/28/2024 8:28 AM CDT us Sebas Paredes DO LAB BLOOD ORDERABLES Final R esult NEIL [address] [facility] Department [place] [address] * Hepatitis panel, acute Blood (02/20/2024 4:55 AM SALES AND SERVICE TECHNICIAN) Hep A IgM Nonreactive Nonreactive Hep B core IgM Nonreactive Nonreactive [facility] Hep C Ab Nonreactive Nonreactive [facility] Comment:Antibodies to HCV no t detected. Does NOT exclude the possibility of recent exposure to HCV. Current interpretive data was last revised on 21 HepBsAg Nonreactive Nonreactive [facility] Blood 02/20/2024 4:55 AM SALES AND SERVICE TECHNICIAN 02/20/2024 5:15 AM SALES AND SERVICE TECHNICIAN us Glen Fischer MD LAB MICROBIOLOGY - GENERAL OR DERABLES Final Result Performing Organization Address City/[facility] [place]/ZIP Co de Phone Number NEIL [facility] Department [place] [address] from Last 3 Months or Most Recently Relevant to Health Maintenance Insurance MEDICARE ADVANTAGE IDOH MEDICARE ADVANTAGE IDPA Advance Directives For more information, please contact: [phone] * Full Code (Latest Code Status on File) Date Activated Date Inactivated Comments 09/20/2024 12:47 PM 09/23/2024 8:28 PM * Full Code Date Activated Date Inactivated Comments 09/19/2024 7:02 PM 09/20/2024 12:47 PM * Full Code Date Activated Date Inactivated Comments 05/27/2024 3:31 AM 05/30/2024 8:39 PM * Full Code Date Activated Date Inactivated Comments 02/19/2024 9:18 PM 02/26/2024 9:39 PM * Full Code Date Activated Date Inactivated Comments 01/14/2024 11:48 AM 01/16/2024 5:55 PM Healthcare Agents on File Name Relationship Healthcare Agent Relationshi p Communication Madison Edgar Sister Health Care Agent Care Teams Board Writer Relationship Specialty Start Date End Date Елена Thomas MD [address] [facility] [address] [place] [address] PCP - General Internal Medicine 01/17/24 Sebas Paredes DO [address] [place] [address] MEDICAL ONCOLOGY, [facility] [address] [place] [address] Medical Oncologist/Rubber Turner Hematology and Oncology 01/01/24 [place] [address] [place] [address] [place] [address] Radiation Oncologist Radiation Oncology 01/30/24
--- OUTSIDE RECORDS SUMMARY | 2024-11-28 11:25 | XMS_ITS | Encounter Summary ---
Author Organization [facility] Address [address] [facility] [place] [address] Care Team Providers Care Senior Java Data Architect Name Role Phone Vee Kohli PA-C Primary Care Provider [phone] Encounter Details Date Type Department Care Team (Late st Contact Info) Description 12/15/2023 Lab Requisition [facility] - Pathology Lab [address] [place] [address] Geoff Arriaga MD [address] [facility] [address] [place] [address] Disorder of bone, unspecified Social History Tobacco Use Types Packs/Day Years Used Date Smoking Tobacco: Never Assessed Sex and Gender Information Value Date Recorded Sex Assigned at Not on file Legal Sex Male 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 Gender Identity Not on file Sexual Orientation Not on file documented as of this encounter Plan of Treatment Not on file documented as of this encounter Procedures Procedure Name Priority Date/Time Associated Diagnosis Comments FLOW CYTOMETRY TISSUE PANEL Routine 12/13/2023 11:57 AM CDT Disorder of bone, unspecified documented in this encounter Results * FLOW CYTOMETRY TISSUE PANEL (12/13/2023 11:57 AM CDT) Case Report Flow Cytometry Case: [id number] Authorizing Provider: Geoff Arriaga Collected: 12/13/2023 11:57 AM MD Aakash Ordering Location: [facility] - Received: 12/15/2023 09:13 AM Pathology Lab Pathologist: Avila Sims MD Specimen: Lymph Node, PELVIC, LEFT 12/15/2023 10:01 AM T [facility] Final Diagnosis Lymph node, pelvis. Flow cytometry: - Too few viable hematopoietic cells for flow cytometry 12/15/2023 10:01 AM [facility] at 1000 CDT Flow Cytometry Interpretation A cytospin prepared from the flow cytometry specimen has been reviewed for quality inspector purposes. 12/15/2023 10:01 AM [facility] Flow Cytometry Results To few viable hematopoetic cells for flow cytometric analysis. 12/15/2023 10:01 AM [facility] Reason for test Disorder of bone, unspecified 12/15/2023 10:01 AM [facility] Client Specimen ID # [id number] 12/15/2023 10:01 AM [facility] Pathologist Location at [facility] 12/15/2023 10:01 AM [facility] Disclaimer Test performed at [facility], [address] [place] [address], [address]. *The established laboratory minimum viability is 70%. Values below the minimum may result in the failure to find an abnormal population of cells. This test was developed and its performance characteristics determined by the Flow Cytometry Laboratory. It has not been cleared by the [place] Food and Drug Administration (FDA). The FDA has determined that such clearance or approval is not necessary. This test is used for clinical purposes. It should not be regarded as investigational or for research. This laboratory is regulated under the Clinical Laboratory Improvement Amendments of 1998 (CLIA) as a qualified to perform high complexity clinical testing. 12/15/2023 10:01 AM T [facility] Embedded Images 10:01 AM [facility] Pathology/Cytolo gy ENTIRE LYMPH NODE / Unknown 12/13/2023 11:57 AM CDT 12/15/2023 9:13 AM CDT us Geoff Arriaga MD LAB - PATHOLOGY/CYT OLOGY ORDERABLES Final Result [facility] [address] [facility] [place] [address], [facility] [phone] documented in this encounter Visit Diagnoses Diagnosis Disorder of bone, unspecified documented in this encounter Care Teams Senior Java Data Architect Relationship Specialty Start Date End Date Vee Kohli PA-C [address] [place] [address] PCP - General 01/01/21 documented as of this encounter
--- OUTSIDE RECORDS SUMMARY | 2024-11-28 11:25 | XMS_ITS | Clinical Summary ---
Author Organization [facility] Address [address] [facility] [place] [address] Care Team Providers Care Smt Technician Name Role Phone Vee Kohli PA-C Primary Care Provider [phone] Source Comments [facility],non-owned Affiliates and Associated Physician Practices is amultiple site organization consisting of ambulatory clinics and hospital sitesin [place], [place], [place]. This disclosure is being madepursuant to the Care Everywhere program and may not contain all information available regarding this patient. 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 Gender Identity Not on file Sexual Orientation Not on file Plan of Treatment Health Maintenance Due Date Last Done Comments COLOGUARD (AGES 45-75) - COL ON CA SCREENING 1969 COLON MONITORING 1969 COLONOSCOPY - COLON CA SCREENING 1969 CT COLONOGRAPHY - COLON CA SCREENING 1969 Colorectal Cancer Screening 1969 FIT - COLON CA SCREENING 1969 FLEX SIG - COLON CA SCREENING 1969 LIPID TESTING 1969 HIV SCREENING 1984 HEPATITIS C SCREENING 09/10/1987 DTAP/TDAP/TD VACCINES (1 - Tdap) 1988 HEPATITIS B VACCINE (1 of 3 - 19+ 3-dose series) 1988 PNEUMOCOCCAL VACCINE 50+ (1 of 1 - PCV) 09/15/2019 ZOSTER VACCINE (1 of 2) 09/15/2019 COVID-19 VACCINE (1 - 2023-2 5 season) 2023 DEPRESSION SCREENING 04/17/2024 MEDICARE AWV CALENDAR YEAR 2024 INFLUENZA VACCINE (#1) 2024 HIB VACCINE Aged Out No longer eligi ble based on patient's age to complete this topic HPV VACCINE Aged Out No longer eligi ble based on patient's age to complete this topic MENINGOCOCCAL (Group B) VACC INE SHARED DECISION-MAKING Aged Out No longer eligibl e based on patient's age to complete this topic MENINGOCOCCAL GROUPS A/C/Y/W VACCINE Aged Out No longer eligible b ased on patient's age to complete this topic Insurance [employer] MANAGED MEDICARE ADV MEDICAID - [place] SELF PAY NO INSURANCE Member Subscriber Plan / Payer (Ef fective for All Dates) Name:Noble Edgar SHANON Member ID:Not on file Relation to Subscriber:Not on file Name:NOBLE EDGAR III Subscriber ID:Not on file (Home) Address: [address] [place] [address] [place] [id number] Payer ID:Not on file Group ID:Not on file Type:Self Pay Address: [facility] MANAGED MEDICARE ADV Care Teams Smt Technician Relationship Specialty Start Date End Date Vee Kohli PA-C [address] [place] [address] PCP - General 01/01/21
--- OUTSIDE RECORDS SUMMARY | 2024-11-28 11:25 | XMS_ITS | Clinical Summary ---
Author Organization [facility] Address [address] [place] [address] Care Team Providers Care Blueprinting Machine Operator Name Role Phone Unavailable Primary Care Provider Unavailabl e Social History Tobacco Use Types Packs/Day Years Used Date Smoking Tobacco: Never Assessed Sex and Gender Information Value Date Recorded Sex Assigned at Not on file Legal Sex Male 10:52 PM CDT Gender Identity Not on file Sexual Orientation Not on file Plan of Treatment Health Maintenance Due Date Last Done Comments Hepatitis C Virus (HCV) Screening 1969 TdaP Immunization 1969 Hepatitis B Immunization (1 of 3 - 19+ 3-dose series) 1988 Cologuard 2014 Colonoscopy 2014 Colorectal Cancer Screening 2014 Immunochemical Fecal Occult Blood 2014 Pneumococcal Immunization (5 0+ years) (1 of 1 - PCV) 09/15/2019 Zoster Immunization (1 of 2) 09/15/2019 PSA Discussion 2024 Influenza Immunization (#1) 2024 Respiratory Syncytial Virus (RSV) Immunization (Adult) (1 - 1-dose 75+ series) 2044 SARS-COV-2 Immunization Completed 03/12/2024 Human Papillomavirus (HPV) Immunization Aged Out No longer eligible b ased on patient's age to complete this topic Meningococcal Immunization (ACWY) Aged Out No longer eligible based on patient's age to complete this topic Rotavirus Immunization Aged Out No lo nger eligible based on patient's age to complete this topic Insurance MEDICARE C [facility] MEDICAID [place]
--- OUTSIDE RECORDS SUMMARY | 2024-11-28 11:25 | XMS_ITS | Encounter Summary ---
Author Organization [facility] Healthcare Address [address] [place] [address] Care Team Providers Care Clinical Trials Systems Administrator Name Role Phone Luc Freeman DO Primary Care Provide r Sebas Paredes DO Unavailable Genevieve Gold SAFETY SEALER Unavailable [phone] Tonya Murphy RN Unavailable Елена Thomas MD Primary Care Provider [phone] Elder Carranza MD Unavailable Encounter Details Date Type Department Care Team (Latest Contact Info) Description 12/20/2023 Documentation Oncology Carroll Prescott MD [address] [place] [address] Social History Tobacco Use Types Packs/Day Years Used Date Smoking Tobacco: Every Day Cigarettes Personal Safety Answer Date Recorded Getting School Help Needed Not on file 06/30 Sex and Gender Information Value Date Recorded Sex Assigned at Not on file Legal Sex Male 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 Gender Identity Not on file Sexual Orientation Not on file documented as of this encounter Plan of Treatment Not on file documented as of this encounter Visit Diagnoses Not on filedocumented in this encounter Additional Health Concerns Infection Onset Date Last Indicated Resolved Time COVID: Suspected 01/13/2024 01/13/2024 01/13/2024 12:45 PM CDT Parainfluenza, droplet 01/13/2024 01/14/202401/20 3:07 AM CDT COVID: Suspected 02/19/2024 02/19/2024 02/20/2024 12:19 AM BOARD CERTIFIED ARTS THERAPIST Ring Surveillance Comment:02/23/2024- Transferred from unit undergoing ring surveillance, 02/22/24. Negative swab 02/19. Windy Zuñiga 02/20/2024- C. [facility] ring surveillance. Windy Zuñiga 02/20/2024 02/20/2024 02/23/2024 11:10 AM BOARD CERTIFIED ARTS THERAPIST COVID: Suspected 05/26/2024 05/26/2024 05/27/2024 1:05 AM BOARD CERTIFIED ARTS THERAPIST Ring Surveillance Comment:C auris - [id number] 05/28/2024 05/28/2024 06/04/2024 3:07 AM BOARD CERTIFIED ARTS THERAPIST documented as of this encounter Care Teams Clinical Trials Systems Administrator Relationship Specialty Start Date End Date Luc Freeman DO [address] [place] [address] PCP - General Family Medicine 12/20/23 01/16/24 Елена Thomas MD [address] [facility] [address] [place] [address] PCP - General Internal Medicine 01/17/24 Sebas Paredes DO [address] [place] [address] MEDICAL ONCOLOGY, [facility] [address] [place] [address] Medical Oncologist/Dividend Clerk Hematology and Oncology 01/01/24 Genevieve Gold LCSW [address] [phone] [place] [address] SHOP Outpatient Community Support Professional 01/04/24 01/04/24 Tonya Murphy, RN [address] [facility] [address] [place] [address] SHOP Outpatient Community Support Professional 01/17/24 05/09/24 Elder Carranza MD [address] [facility] DEPT RADIATION ONCOLOGY, [place] [address] Radiation Oncologist Radiation Oncology 01/30/24 documented as of this encounter
--- OUTSIDE RECORDS SUMMARY | 2024-11-28 11:25 | XMS_ITS ---
Author Organization [facility] Address [address] [place] [address] Care Team Providers Care Track Service Worker Name Role Phone Sebas Paredes DO Unavailable [phone] Елена Thomas MD Primary Care Provider [phone] Elder Carranza MD Unavailable [phone] Active Problems Problem Noted Date Diagnosed Date [...] Has follow up with Dr. Armenta at [facility] on 10/10. Ortho to remove sutures 3 week post op. -provided with 16 tablets of oxycodone 5 mg for pain, discussed with patient that this is a one time fill and further opioids need to be through his Oncologist (who is prescribing tramadol). [place] PDMP reviewed, shows no fills in state [facility] since 2023. Per dispense report, filled the oxycodone 5 mg at time of discharge in [place], where patient resides. Unable to view [place] PDMP -ortho follow up -ordering home health -provided with some wound care supplies Orders: oxyCODONE (ROXICODONE) 5 mg immediate release tablet; Take 1 tablet (5 mg total) by mouth every 6 (six) hours as needed for pain Ambulatory referral to Home Health; Future Delirium 05/31/2024 Hypernatremia 05/30/2024 Assessment & Plan (05/30/2024 10:58 AM MEDICARE SALES REPRESENTATIVE): Suspect free water deficit over diabetes insipidus. [...] needed. Assessment & Plan (05/30/2024 10:56 AM MEDICARE SALES REPRESENTATIVE): Suspect low Phos represents low intake (e.g. dehydration) as opposed to consumptive process (e.g. gout, hungry-bone). Value on admission likely abnormal in setting of SHIRIN (poor renal clearance). Phos ~2, stable - provide tid phosphate packets at discharge. Leg pain 05/29/2024 Assessment & Plan (05/30/2024 10:57 AM MEDICARE SALES REPRESENTATIVE): No noticeable leg erythema/edema. Possibly cramps (electrolyte abnormality) vs neuropathic pain vs nonspecific MSK or gout. - voltaren gel PRN - pt previously on lyrica 200 tid for post-op acute pain, lyrica 100 tid for possible neuropathic pain while inpatient, ok to resume lyrica 200 tid at discharge Elevated CK 05/27/2024 Assessment & Plan (05/28/2024 3:13 PM MEDICARE SALES REPRESENTATIVE): Suspect prerenal SHIRIN with possible provoked seizure in setting of cocaine use. Similar presentation 02/2024, cvEEG without seizure, multiple PEs, HIV/RPR/hep neg, CTA HN without basilar thrombus, no keppra. - CK downtrending Chronic left shoulder pain 05/08/2024 Assessment & Plan (05/08/2024 8:08 PM MEDICARE SALES REPRESENTATIVE): Describes chronic left shoulder pain with no [...] 02/23/2024 Assessment & Plan (02/23/2024 10:25 PM MEDICARE SALES REPRESENTATIVE): - H/H-8.5 Monitor CBC closely Pulmonary embolism 02/22/2024 Assessment & Plan (05/28/2024 3:11 PM MEDICARE SALES REPRESENTATIVE): Favor provoked, resumed home eliquis Assessment & Plan (03/12/2024 11:19 AM MEDICARE SALES REPRESENTATIVE): - continue eliquis BID - f/u with pulm Assessment & Plan (02/24/2024 3:14 PM MEDICARE SALES REPRESENTATIVE): Bilateral PE found on CTCAP. PERT activated [...] pending Assessment & Plan (02/23/2024 6:57 AM MEDICARE SALES REPRESENTATIVE): Patient presenting with altered mental status and [...] 02/22/2024 Assessment & Plan (02/22/2024 6:00 PM MEDICARE SALES REPRESENTATIVE): Undifferentiated hypovolemic vs distributive. S/p empiric antibiotics [...] difficulty. Assessment & Plan (05/28/2024 3:07 PM MEDICARE SALES REPRESENTATIVE): Favor prerenal vs ATN (rhabdo) in setting of cocaine use, with rapid improvement after fluids. - renal US (05/28): no hydronephrosis Assessment & Plan (02/26/2024 5:47 PM MEDICARE SALES REPRESENTATIVE): Admit BUN/Cr 45/3.7 (b/l 0.6's). Suspect multifactorial due to rhabdomyolysis with CK 18k, 3+ blood with only 3-5 RBC, prerenal, hypotension. S/p IVF support - Cr returned to baseline, CK downtrended previously - On 02/25 at baseline - monitor strict I/O's, avoid nephrotoxic medications, renally dose medications Elevated LFTs 02/22/2024 Assessment & Plan (02/22/2024 6:07 PM MEDICARE SALES REPRESENTATIVE): Likely in setting of rhabdomyolysis and possibly contribution from hypotension. Hep panel negative - Downtrending Acute respiratory failure 02/20/2024 Assessment & Plan (02/22/2024 5:54 PM MEDICARE SALES REPRESENTATIVE): Intubated for airway protection 02/17. Extubated 02/20. - Resolved. Room air Seizure 02/20/2024 Assessment & Plan (05/28/2024 3:14 PM MEDICARE SALES REPRESENTATIVE): Reportedly patient had seizure-like event at home [...] 02/19/2024 Assessment & Plan (02/23/2024 10:24 PM MEDICARE SALES REPRESENTATIVE): Presented with AMS after family found him [...] onc Assessment & Plan (05/29/2024 2:30 PM MEDICARE SALES REPRESENTATIVE): Stage IV castrate naive prostate cancer with [...] 11.9 Assessment & Plan (02/25/2024 6:24 PM MEDICARE SALES REPRESENTATIVE): Follows with oncology. Recently diagnosed 12/2023. S/p [...] 01/18/2024 Assessment & Plan (05/29/2024 2:30 PM MEDICARE SALES REPRESENTATIVE): No home meds but previously on klonopin. - ativan 1mg qhs PRN - Patient interested in [facility] Counseling resources, phone number provided at discharge. [...] visit Assessment & Plan (05/28/2024 3:08 PM MEDICARE SALES REPRESENTATIVE): Hold home amlo 10, lisinopril 40, resume as able Assessment & Plan (05/08/2024 8:09 PM MEDICARE SALES REPRESENTATIVE): BP mildly elevated in clinic in the setting of not having taken his AM medications yet today. 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 No medications schedul ed. No medications scheduled. DOCEtaxel / 21 day Cycles - Prostate* Plan Start Date:08/23/2024 Plan Provider:Sebas Paredes DO Linked Problems Adenocarcinoma of prostate ( HCC) Treatment Medications Current Day (Day 1 , Cycle 3 - Planned for 11/27/2024) Next Day (Day 1, Cycle 4 - Planned for 12/18/2024) DOCEtaxel (TAXOTERE)DOCEtaxe l (TAXOTERE) IVPB in 250 mL (vial 20mg/mL)DOCEtaxel (TAXOTERE) IVPB in 500 mL (vial 20mg/mL) DOCEtaxeL (TAXOTERE) 186 mg in sodium chloride 0.9% (PVC-FREE) 500 mL IVPB DOCEtaxeL (TAXOTERE) 186 mg in sodium chloride 0.9% (PVC-FREE) 500 mL IVPB Leuprolide Every 3 Months - Prostate* Plan Start Date:10/09/2024 Plan Provider:Sebas Paredes DO Linked Problems Adenocarcinoma of prostate ( HCC)Prostate cancer metastatic to bone (HCC) Treatment Medications Current Day (Day 1 , Cycle 2 - Planned for 01/01/2025) Next Day (Day 1, Cycle 3 - Planned for 03/26/2025) leuprolide (3 month) (LUPRON) leuprolide (3 month) (LUPRON) injection 22.5 mg leuprolide (3 month) (LUPRON) injection 22.5 mg Past Treatment and Therapy Plans Oncology Chemotherapy Treatment Plan Name Start Date Discontinue Date Treatment Medications Discontinue Reason Plan Provider Cycles Leuprolide 28 Day Cycles - Prostate 02/02/20 24 09/04/2024 leuprolide (LUPRON)leupro lide (monthly) (LUPRON) Provider Discretion Sebas Paredes, 7 of 7 cycles started Oncology Treatment (2) Plan Name Start Date Discontinue Date Treatment Medications Discontinue Reason Plan Provider Cycles Enzalutamide PO 28 Day Cycles - Prostate 03/01/2024 enzalutamide (XTANDI) Provider Discretion Sebas Paredes, DO 1 of 2 cycles started Radiation Treatments * Course [id number] - 03/11/2024 Treatment Period Energy Fraction Dose Fractions Total Dose Plans Planned L1-L4 Spine 02/27/2024 - 03/11/2024 300 10 / 3,000 T9 Spine 02/27/2024 - 03/11/2024 300 10 / 3,000 Reference Points Delivered L1-4 SPINE 02/27/2024 - 03/11/2024 3,000 T9 SPINE 02/27/2024 - 03/11/2024 3,000 Lifetime Dose Tracking * Chemical Lifetime Dose Automatic Entry Manual Entr y Fluoro Time 2.46 minutes 2.46 minutes 0 minutes Air kerma at the reference point (Ka,r) 35.64 mGy 3 5.64 mGy 0 mGy DLP 13,193 mGycm 13,193 mGycm 0 mGycm Resolved Problems Problem Noted Date Diagnosed Date Resolved Date Elevated CK 02/24/2024 05/29/2024 Assessment & Plan (02/24/2024 3:13 PM MEDICARE SALES REPRESENTATIVE): Noted elevated CK during this admission Trend, 88877--->4000--->1200 on 02/23 Could potentially be secondary to [...]
--- NOTE | 2024-11-28 12:51 | ED_ITS ---
HPI - Extremity Problem General Chief complaint: Extremity Problem,Nontraumatic Stated complaint: bilateral leg swelling, right leg pain Time Seen by Provider: 11/28/24 12:41 History of Present Illness HPI Narrative: This is a 54-year-old male with history of stage IV pancreatic cancer, prediabetes, paresis he is on Eliquis who presents ED for right leg swelling. Patient states that for the past few days, he has been having worsening leg swelling and warmth. Denies fevers, chills, chest pain, shortness of breath. He has been taking his Eliquis as prescribed. Patient notes that he recently completed treatment for herpes zoster to his right shoulder. He was supposed to get chemotherapy yesterday but was told he was unable to due to his wounds. Related Data Home Medications ?Medication ?Instructions ?Recorded ?Confirmed ?Last Taken ?Type amlodipine 10 mg tablet 10 mg PO DAILY 12/12/23 12/12/23 Unknown History cyclobenzaprine 10 mg tablet 10 mg PO Q8H PRN Muscle Pain 12/12/23 12/12/23 Unknown History naproxen 500 mg tablet 500 mg PO BID 12/12/23 12/12/23 Unknown History paroxetine HCl 20 mg tablet 20 mg PO DAILY 12/12/23 12/12/23 Unknown History pregabalin 50 mg capsule 50 mg PO TID 12/12/23 12/12/23 Unknown History Allergies Allergy/AdvReac Type Severity Reaction Status Date / Time amitriptyline Allergy Intermediate ABNORMAL Verified 11/28/24 12:24 THOUGHTS Review of Systems 2 Review of Systems: Gen.: Denies fevers or chills Eyes: Denies eye pain or visual change ENT: Denies congestion Respiratory: Denies shortness of breath or cough CV: Denies chest pain or palpitations GI: Denies abdominal pain nausea, emesis or diarrhea denies burning, urgency, frequency or hematuria Musculoskeletal: Right leg pain/swelling Neuro: Denies numbness, tingling, weakness or focal weakness Skin: Lesions to right shoulder and left ear Except as documented, all other systems reviewed and negative PMFSH Past Medical History Medical History Smoking Drug abuse Lymphadenopathy, abdominal Surgical History Surgical History History of transmetatarsal amputation of left foot Family History Family History Other Unknown family medical history Social History Social History Years smoked: 14 Smoking status: Current every day smoker Tobacco type: cigarettes Alcohol intake: current Substance use type: marijuana and other Other substance usage details: fentanyl Last use: 12/12/23 Do You Feel Safe in your Home?: Yes Lack of Transportation: No Lack of Food: Never True Current Housing: I Have Housing Concerned About Future Housing: No Difficulty Paying Gas/Electric Bills: No Difficulty Paying for Meds: No Currently Unemployed: No Education: High School Diploma/GED Difficulty w/ Childcare or Family Care: No Spiritual care concerns: No Exam 2 Narrative: APPEARANCE: No acute distress, nontoxic, resting in bed EYES: EOMI HEENT: Normocephalic, atraumatic, OMM RESPIRATORY: No respiratory distress. Clear to auscultation bilaterally with no rhonchi wheezing or rales. CARDIOVASCULAR: Regular rate and rhythm without murmurs rubs or gallops. ABDOMINAL: Soft, nontender, nondistended, no rebound or guarding MUSCULOSKELETAl: S/p left TMA. 2+ pitting edema to the RLE. Trace edema to the LLE NEURO: Awake and alert. Following commands, speech normal, no focal deficits SKIN: Open wounds measuring .5-2cm to the right shoulder. Small crusted lesions to the bilateral ears. PSYCHIATRIC: Normal affect/mood, Course Vital Signs Vital signs: Vital Signs Temperature 97.9 F 11/28/24 11:20 Pulse Rate 109 H 11/28/24 11:20 Respiratory Rate 18 11/28/24 11:20 Blood Pressure 128/66 11/28/24 11:20 Pulse Oximetry 96 11/28/24 11:20 Oxygen Delivery Room Air 11/28/24 11:20 Temperature 98.8 F 11/28/24 18:46 Pulse Rate 113 H 11/28/24 18:46 Respiratory Rate 16 11/28/24 18:46 Blood Pressure 121/67 11/28/24 18:46 Pulse Oximetry 95 11/28/24 18:46 Oxygen Delivery Room Air 11/28/24 12:24 MDM - Extremity (Nontraumatic) MDM Narrative Medical decision making narrative: 54-year-old male who presents the ED for right leg pain and swelling. He was slightly tachycardic on initial evaluation. He did have 2+ pitting edema right lower extremity with trace edema to the left lower extremity. Leg was somewhat warm to palpation but was similar to his left leg. There is definite concerns for DVT and possible PE given his active metastatic prostate cancer. Ultrasound right lower extremity showed no evidence of DVT. CTA chest showed no evidence PE. I did attempt to ambulate the patient after are fine x2 but he was having significant pain was unable to bear weight to the extremity. Patient will require admission for intractable leg pain due to a likely cellulitis. Patient given doxycycline. Discussed case with hospitalist who will admit the patient. Differential Diagnosis Differential diagnosis: Likely lower extremity edema, deep vein thrombosis of lower extremity and other (CHF) Lab Data Attestation: I reviewed the patient's lab results. 11/28/24 13:45 11/28/24 13:45 Labs: Lab Results 11/28/24 Range/Units 13:45 WBC 9.9 (4.5-10.0) K/mm3 RBC 3.35 L (4.6-6.20) M/mm3 Hgb 9.0 L D (14.0-18.0) g/dL Hct 28.7 L (42.0-52.0) % MCV 85.7 (80-100) fl MCH 26.9 (26-34) pg MCHC 31.4 L (32-36) g/dl RDW 17.5 H (11.5-14.5) % Plt Count 349 (150-375) k/mm3 MPV 10.2 (7.4-10.4) fl Immature Gran % (Auto) 0.4 (0-0.5) % Neut % (Auto) 70.4 (45.5-73.1) % Lymph % (Auto) 14.6 L (18.3-44.2) % Chester % (Auto) 13.1 H (2.6-8.5) % Eos % (Auto) 1.2 (0-4.4) % Baso % (Auto) 0.3 (0.2-1.2) % Lymph # (Auto) 1.45 (0.9-3.2) K/mm3 Chester # (Auto) 1.3 H (0.1-0.6) K/mm3 Eos # (Auto) 0.1 (0-0.3) K/mm3 Baso # (Auto) 0.0 (0.0-0.1) K/mm3 Abs Immat Gran (auto) 0.04 H (0.00-0.031) K/mm3 Absolute Neuts (auto) 7.0 H (1.3-6.7) K/mm3 Absolute Nucleated RBC 0.000 (0.0-0.012) K/mm3 Nucleated RBC % 0.0 (0.0-0.2) % PT 15.0 H (11.1-14.7) Seconds INR 1.2 APTT 38.6 H (22.3-36.8) Seconds Sodium 134 L (137-145) mmol/L Potassium 4.2 (3.4-5.0) mmol/L Chloride 101 (98-107) mmol/L Carbon Dioxide 27 (22-30) mmol/L Anion Gap 6 (4-12) mmol/L BUN 6 L D (9-20) mg/dL Creatinine 0.72 (0.7-1.3) mg/dL Estim Creat Clear Calc 128 ml/min Estimated GFR > 60 (59 - ) Glucose 108 (65-110) mg/dL Calcium 8.7 (8.4-10.2) mg/dL NT-Pro-B Natriuret Pep < 20 (19.9-100) pg/mL Imaging Data Radiologist's impression: Impressions Venous Doppler Study 11/28/24 13:42 IMPRESSION: 1: No lower extremity deep venous thrombosis. Chest CTA 11/28/24 15:15 IMPRESSION: No definite CT evidence of large central acute pulmonary embolus. Study otherwise nondiagnostic with respect to evaluation of the pulmonary arteries. Patient will be brought back to rescan, with improved IV access and attempts to minimize respiratory motion artifact. 6.1 cm right inferior thyroid mass, extending into the superior mediastinum, increased in size. 1.3 cm left thyroid nodule. Multiple sclerotic bone lesions concerning for metastatic disease, with interval progression. Chest CTA 11/28/24 16:53 IMPRESSION: No definite CT evidence of large central acute pulmonary embolus. Study otherwise nondiagnostic with respect to evaluation of the pulmonary arteries despite repeat attempts. Mild cardiomegaly and small pericardial effusion. Cholelithiasis without inflammatory changes. 6.1 cm right inferior thyroid mass, extending into the superior mediastinum, increased in size since 2023. 1.3 cm left thyroid nodule, stable since 2023. Multiple sclerotic bone lesions concerning for metastatic disease, with interval progression since 2023. Discharge Plan Discharge Clinical Impression: Prostate CA, History of transmetatarsal amputation of left foot, Intractable neuropathic pain of lower extremity Cellulitis Qualifiers: Site of cellulitis: extremity Site of cellulitis of extremity: lower extremity Laterality: right Qualified Code(s): L03.115 - Cellulitis of right lower limb Patient Disposition: Still a Patient Condition: Stable Patient Language: Hungarian Prescriptions: No Action cyclobenzaprine 10 mg tablet 10 mg PO Q8H PRN (Reason: Muscle Pain) amlodipine 10 mg tablet 10 mg PO DAILY paroxetine HCl 20 mg tablet 20 mg PO DAILY naproxen 500 mg tablet 500 mg PO BID pregabalin 50 mg capsule 50 mg PO TID Follow-up/Referrals: PHYSICIAN NOT ON STAFF,NONSTAFF [Primary Care Provider] -
--- OUTSIDE RECORDS SUMMARY | 2024-11-28 12:57 | XMS_ITS | Encounter Summary ---
Author Organization [facility] Address [address] [facility] [address] [place] [address] Phone Care Team Providers Care Electronic Video Games Servicer Name Role Phone Sebas Paredes DO Unavailable Елена Thomas MD Primary Care Provider [phone] Elder Carranza MD Unavailable [phone] Encounter Details Date Type Department Care Team (Late st Contact Info) Description 11/26/2024 Orders Only [facility] Physicians [facility] Oncology [address] [place] [address] Sebas Paredes, DO [address] [facility] [address] [place] [address] Adenocarcinoma of prostate (HCC) (Primary [...] materials from doctor or pharmacy Never 04/19/2024 [facility] Utilities Answer Date Recorded In the past [...] often do you attend chur ch or samaritan services? Never 09/21/2024 Do you belong to [...] any time in the past 12 m [facility], were you homeless or living in a chcf (including now)? No 09/21/2024 Personal Safety Answer Date Recorded Have you ever been in or are you currently in a harmful physical or emotional relationship or is someone making you feel afraid or unsafe? 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 Gender Identity Not on file Sexual Orientation [...] (HCC) documented in this encounter Care Teams Electronic Video Games Servicer Relationship Specialty Start Date End Date Елена Thomas MD [address] [address] PCP - General Internal Medicine 01/17/24 Sebas Paredes DO [address] [facility] MEDICAL ONCOLOGY, [facility] [address] [place] [address] Medical Oncologist/Laundry Or Dry Cleaners Counter Clerk Hematology and Oncology 01/01/24 Elder Carranza MD [address] [facility] DEPT RADIATION ONCOLOGY, [place] [address] Radiation Oncologist Radiation Oncology 01/30/24 documented as of this encounter
--- OUTSIDE RECORDS SUMMARY | 2024-11-28 12:57 | XMS_ITS | Encounter Summary ---
Author Organization [facility] Address [address] [facility] [address] [place] [address] Phone Care Team Providers Care Edger Saw Operator Name Role Phone Sebas Paredes DO Unavailable [phone] Елена Thomas MD Primary Care Provider [phone] Elder Carranza MD Unavailable [phone] Encounter Details Date Type Department Care Team (Late st Contact Info) Description 11/28/2024 Telephone [facility] Oncology [address] [facility] [address] [place] [address] Em Vazquez, BEN Social History Tobacco Use Types Packs/Day Years [...] materials from doctor or pharmacy Never 04/19/2024 [facility] Utilities Answer Date Recorded In the past 12 months has th e electric, gas, oil, or water company [...] often do you attend chur ch or jehovah's witness services? Never 09/21/2024 Do you belong to any clubs o r organizations such as episcopal groups, unions, fraternal or athletic groups, or [...] any time in the past 12 m [facility], were you homeless or living in a nursing home (including now)? No 09/21/2024 Personal Safety Answer Date Recorded Have you ever been in or are you currently in a harmful physical or emotional relationship or is someone making you feel afraid or unsafe? 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 He still is dealing with open sore shingles and his legsand feet are painful and swollen. Pt is concerned with the virus interfering with his treatment. I advised Leopoldo on how to download and reset his [employer] login to send the videos and pictures he wants uploaded to the chart. Pt states he will notify team when he is discharged to reschedule his treatment. documented in this encounter Plan of Treatment Not on file documented as of this encounter Visit Diagnoses Not on filedocumented in this encounter Care Teams Edger Saw Operator Relationship Specialty Start Date End Date Елена Thomas MD [address] [facility] [address] [place] [address] PCP - General Internal Medicine 01/17/24 Sebas Paredes DO [address] [facility] MEDICAL ONCOLOGY, [facility] [address] [place] [address] Medical Oncologist/Loan Workout Officer Hematology and Oncology 01/01/24 Elder Carranza MD [address] [facility] DEPT RADIATION ONCOLOGY, [place] [address] Radiation Oncologist Radiation Oncology 01/30/24 documented as of this encounter
--- OUTSIDE RECORDS SUMMARY | 2024-11-28 12:57 | XMS_ITS | Clinical Summary ---
Author Organization [facility] Address [address] [place] [address] Care Team Providers Care Shoe Stock Associate Name Role Phone Unavailable Primary Care Provider [...] to complete this topic Insurance MEDICARE C [facility] [place]ID [place]
--- OUTSIDE RECORDS SUMMARY | 2024-11-28 12:57 | XMS_ITS | Encounter Summary ---
Author Organization [facility] Healthcare Address [address] [place] [address] Care Team Providers Care Garden Center Manager Name Role Phone Luc Freeman DO Primary Care Provide r Sebas Paredes DO Unavailable [phone] Genevieve Gold SUPERVISOR STAGE CARPENTRY Unavailable Tonya Murphy RN Unavailable [phone] Елена Thomas MD Primary Care Provider [phone] Elder Carranza MD Unavailable Encounter Details Date Type Department Care Team (Latest Contact Info) Description 12/20/2023 Documentation Oncology Carroll Prescott MD [address] [place] [address] Social History Tobacco Use Types Packs/Day Years Used Date Smoking Tobacco: Every Day Cigarettes Personal Safety Answer Date Recorded Getting School Help Needed Not on file 06/30 Sex and Gender Information Value Date Recorded Sex Assigned at Not on file Legal Sex Male 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 Negative swab 02/19. Windy Zuñiga 02/20/2024- C. Auris ring surveillance. Windy Zuñiga 02/20/2024 02/20/2024 02/23/2024 11:10 AM SECURITY FLEX OFFICER COVID: Suspected 05/26/2024 05/26/2024 05/27/2024 1:05 AM SECURITY FLEX OFFICER Ring Surveillance Comment:C auris - [id number] 05/28/2024 05/28/2024 06/04/2024 3:07 AM SECURITY FLEX OFFICER documented as of this encounter Care Teams Garden Center Manager Relationship Specialty Start Date End Date Luc Freeman DO [address] [place] [id number] PCP - General Family Medicine 12/20/23 01/16/24 Елена Thomas MD [address] [facility] [address] [place] [address] PCP - General Internal Medicine 01/17/24 Sebas Paredes DO [address] [place] [address] MEDICAL ONCOLOGY, [facility] [address] [place] [address] Medical Oncologist/Speeder Worker Hematology and Oncology 01/01/24 Genevieve Gold LCSW [address] [facility] ([facility] [id number] [place] [address] SHOP Outpatient Process Lead 01/04/24 01/04/24 Tonya Murphy, RN [address] [facility] [address] [place] [address] SHOP Outpatient Process Lead 01/17/24 05/09/24 Elder Carranza MD [address] [facility] DEPT RADIATION ONCOLOGY, [place] [address] Radiation Oncologist Radiation Oncology 01/30/24 documented as of this encounter
--- OUTSIDE RECORDS SUMMARY | 2024-11-28 12:57 | XMS_ITS | Clinical Summary ---
Author Organization [facility] Address [address] [place] [place] [address] Care Team Providers Care Curing Room Worker Name Role Phone Vee Kohli PA-C Primary Care Provider Source Comments [facility],non-owned Affiliates and Associated Physician Practices is amultiple site organization consisting of ambulatory clinics and hospital sitesin [place], [place], [place] and [place]. This disclosure is being madepursuant to the Care Everywhere program and may not contain all information available regarding this patient. Last updated 18.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
--- OUTSIDE RECORDS SUMMARY | 2024-11-28 12:57 | XMS_ITS | Encounter Summary ---
Author Organization [facility] Address [address] [facility] [place] [address] Care Team Providers Care Diabetes Manager Name Role Phone Vee Kohli PA-C Primary Care Provider [phone] Encounter Details Date Type Department Care Team (Late st Contact Info) Description 12/15/2023 Lab Requisition [facility] - Pathology Lab [address] [place] [address] Geoff Arriaga MD [address] [facility] [address] [place] [id number] Disorder of bone, unspecified Social History Tobacco Use Types Packs/Day Years Used Date Smoking Tobacco: Never Assessed Sex and Gender Information Value Date Recorded Sex Assigned at Not on file Legal Sex Male 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 Flow cytometry: - Too few viable hematopoietic cells for flow cytometry 12/15/2023 10:01 AM [facility] at 1000 CDT Flow Cytometry Interpretation A cytospin prepared from the flow cytometry specimen has been reviewed for vice president quality purposes. 12/15/2023 10:01 AM [facility] Flow Cytometry Results To few viable hematopoetic cells for flow cytometric analysis. 12/15/2023 10:01 AM [facility] Reason for test Disorder of bone, unspecified 12/15/2023 10:01 AM [facility] Client Specimen ID # [id number] 12/15/2023 10:01 AM [facility] Pathologist Location at [facility] 12/15/2023 10:01 AM [facility] Disclaimer Test performed at [facility], [address] [place] [address], [phone]. *The established laboratory minimum viability is 70%. [...] complexity clinical testing. 12/15/2023 10:01 AM [facility] Embedded Images 10:01 AM [facility] Pathology/Cytolo gy ENTIRE LYMPH NODE / Unknown 12/13/2023 11:57 AM CDT 12/15/2023 9:13 AM CDT us Geoff Arriaga MD LAB - PATHOLOGY/CYT OLOGY ORDERABLES Final Result [facility] [address] [facility] [place] [address], [facility] [phone] documented in this encounter Visit Diagnoses Diagnosis Disorder of bone, unspecified documented in this encounter Care Teams Diabetes Manager Relationship Specialty Start Date End Date Vee Kohli PA-C [address] [place] [address] PCP - General 01/01/21 documented as of this encounter
--- OUTSIDE RECORDS SUMMARY | 2024-11-28 12:57 | XMS_ITS ---
Author Organization [facility] Address [address] [place] [address] Care Team Providers Care Auto Fleet Maintenance Manager Name Role Phone Sebas Paredes DO Unavailable [phone] Елена Thomas MD Primary Care Provider [phone] Elder Carranza MD Unavailable [phone] Active Problems Problem Noted Date Diagnosed Date [...] follow up with Dr. Armenta at [facility] on 10/10. Ortho to remove sutures 3 week post op. -provided with 16 tablets of oxycodone 5 mg for pain, discussed with patient that this is a one time fill and further opioids need to be through his Oncologist (who is prescribing tramadol). [place] PDMP reviewed, shows no fills in state [facility] since 2023. Per dispense report, filled the oxycodone 5 mg at time of discharge in [place], where patient resides. Unable to view [place] PDMP -ortho follow up -ordering home health -provided with some wound care supplies Orders: oxyCODONE (ROXICODONE) 5 mg immediate release tablet; Take 1 tablet (5 mg total) by mouth every 6 (six) hours as needed for pain Ambulatory referral to Home Health; Future Delirium 05/31/2024 Hypernatremia 05/30/2024 Assessment & Plan (05/30/2024 10:58 AM HEAD CHARGER): Suspect free water deficit over diabetes insipidus. [...] needed. Assessment & Plan (05/30/2024 10:56 AM HEAD CHARGER): Suspect low Phos represents low intake (e.g. dehydration) as opposed to consumptive process (e.g. gout, hungry-bone). Value on admission likely abnormal in setting of SHIRIN (poor renal clearance). Phos ~2, stable - provide tid phosphate packets at discharge. Leg pain 05/29/2024 Assessment & Plan (05/30/2024 10:57 AM HEAD CHARGER): No noticeable leg erythema/edema. Possibly cramps (electrolyte abnormality) vs neuropathic pain vs nonspecific MSK or gout. - voltaren gel PRN - pt previously on lyrica 200 tid for post-op acute pain, lyrica 100 tid for possible neuropathic pain while inpatient, ok to resume lyrica 200 tid at discharge Elevated CK 05/27/2024 Assessment & Plan (05/28/2024 3:13 PM HEAD CHARGER): Suspect prerenal SHIRIN with possible provoked seizure in setting of cocaine use. Similar presentation 02/2024, cvEEG without seizure, multiple PEs, HIV/RPR/hep neg, CTA HN without basilar thrombus, no keppra. - CK downtrending Chronic left shoulder pain 05/08/2024 Assessment & Plan (05/08/2024 8:08 PM HEAD CHARGER): Describes chronic left shoulder pain with no [...] 02/23/2024 Assessment & Plan (02/23/2024 10:25 PM HEAD CHARGER): - H/H-8.5 Monitor CBC closely Pulmonary embolism 02/22/2024 Assessment & Plan (05/28/2024 3:11 PM HEAD CHARGER): Favor provoked, resumed home eliquis Assessment & Plan (03/12/2024 11:19 AM HEAD CHARGER): - continue eliquis BID - f/u with pulm Assessment & Plan (02/24/2024 3:14 PM HEAD CHARGER): Bilateral PE found on CTCAP. PERT activated [...] pending Assessment & Plan (02/23/2024 6:57 AM HEAD CHARGER): Patient presenting with altered mental status and [...] 02/22/2024 Assessment & Plan (02/22/2024 6:00 PM HEAD CHARGER): Undifferentiated hypovolemic vs distributive. S/p empiric antibiotics [...] difficulty. Assessment & Plan (05/28/2024 3:07 PM HEAD CHARGER): Favor prerenal vs ATN (rhabdo) in setting of cocaine use, with rapid improvement after fluids. - renal US (05/28): no hydronephrosis Assessment & Plan (02/26/2024 5:47 PM HEAD CHARGER): Admit BUN/Cr 45/3.7 (b/l 0.6's). Suspect multifactorial due to rhabdomyolysis with CK 18k, 3+ blood with only 3-5 RBC, prerenal, hypotension. S/p IVF support - Cr returned to baseline, CK downtrended previously - On 02/25 at baseline - monitor strict I/O's, avoid nephrotoxic medications, renally dose medications Elevated LFTs 02/22/2024 Assessment & Plan (02/22/2024 6:07 PM HEAD CHARGER): Likely in setting of rhabdomyolysis and possibly contribution from hypotension. Hep panel negative - Downtrending Acute respiratory failure 02/20/2024 Assessment & Plan (02/22/2024 5:54 PM HEAD CHARGER): Intubated for airway protection 02/17. Extubated 02/20. - Resolved. Room air Seizure 02/20/2024 Assessment & Plan (05/28/2024 3:14 PM HEAD CHARGER): Reportedly patient had seizure-like event at home [...] 02/19/2024 Assessment & Plan (02/23/2024 10:24 PM HEAD CHARGER): Presented with AMS after family found him [...] onc Assessment & Plan (05/29/2024 2:30 PM HEAD CHARGER): Stage IV castrate naive prostate cancer with [...] 11.9 Assessment & Plan (02/25/2024 6:24 PM HEAD CHARGER): Follows with oncology. Recently diagnosed 12/2023. S/p [...] 01/18/2024 Assessment & Plan (05/29/2024 2:30 PM HEAD CHARGER): No home meds but previously on klonopin. - ativan 1mg qhs PRN - Patient interested in [facility] Counseling resources, phone number provided at [...] visit Assessment & Plan (05/28/2024 3:08 PM HEAD CHARGER): Hold home amlo 10, lisinopril 40, resume as able Assessment & Plan (05/08/2024 8:09 PM HEAD CHARGER): BP mildly elevated in clinic in the setting of not having taken his AM medications yet today. - Continue amlodipine 10 mg daily, lisinopril 40 mg daily Assessment & Plan (02/24/2024 3:11 PM HEAD CHARGER): C/w Amlodipine 10mg, BP elevated C/w Lisinopril [...] 05/29/2024 Assessment & Plan (02/24/2024 3:13 PM HEAD CHARGER): Noted elevated CK during this admission Trend, 00248--->4000--->1200 on 02/23 Could potentially be secondary to [...]
--- OUTSIDE RECORDS SUMMARY | 2024-11-28 12:58 | XMS_ITS ---
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, initial encounter 09/27/2024 Telephone [facility] [address] [place] [address] Елена Thomas MD Follow-up 09/26/[address] [place] [address] Nisha Hamm RN 09/25/[address] [place] [address] Nisha Hamm, MECCA 09/24/2024 [facility] Transitional Care Outreach [facility] Care Coordination [address] [place] [phone] Diana Thomas RN 09/20/2024 8:00 AM CDT - 09/20/2024 10:45 AM CDT Surgery [facility] Operating Room [address] [place] [address] Alli Armenta MD INTRAMEDULLARY NAILING FEMUR - RETROGRADE 09/20/2024 7:47 AM CDT Anesthesia Event [facility] Operating Room [address] [place] [address] Brandt Thakkar MD Saltz, Dolores, HUANG 09/20/2024 Orders Only [facility] Orthopaedic Surgery [address] [place] [address] 6th [place] [address] [place] [address] Alli Armenta MD 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, initial encounter; Closed fracture of right femur, unspecified fracture morphology, unspecified portion of femur, initial encounter (HCC); SHIRIN (acute kidney injury); Uremia; Prostate cancer (HCC) Discharge Disposition: Discharge to home or self care 09/19/2024 Orders Only [facility] [address] [place] [address] [address] [place] [address] Sebas Paredes DO 09/10/2024 Telephone [facility] [address] [place] [address] [address] [place] [address] Karolyn Gould, MECCA 09/04/2024 Orders Only [facility] [address] [place] [address] [address] [place] [address] Karolyn Gould, MECCA 08/30/2024 Telephone [facility] [address] [place] [address] [address] [place] [address] Hiral Winkler CMA 08/28/2024 4:30 PM CDT Infusion [address] [place] [address] Prostate cancer metastatic to bone (HCC); Adenocarcinoma of prostate (HCC) 08/28/2024 9:30 AM CDT Infusion [address] [place] [address] Adenocarcinoma of prostate (HCC) (Primary Dx) 08/28/2024 9:00 AM CDT Office Visit [facility] Physicians [facility] Oncology [facility] [place] [address] Sebas Paredes DO Prostate cancer metastatic to bone (HCC) (Primary Dx); Adenocarcinoma of prostate (HCC) 08/28/2024 8:30 AM CDT Lab [facility] [place] [address] [place] [address] Adenocarcinoma of prostate (HCC) from Last 3 Months Immunizations Immunization Administration Dates Next Due COVID-19 mRNA ([employer]) 0.3 m L (30 mcg) vaccine (12 years and up) 03/12/2024 Surgical History Surgery Date Site/Laterality Comments FOOT SURGERY Left x5 related to crush injury in 2003-pt has had toes amputated. REPLACEMENT TOTAL KNEE [...] materials from doctor or pharmacy Never 04/19/2024 [facility] Utilities Answer Date Recorded In the [...] often do you attend chur ch or mormonism services? Never 09/21/2024 Do you belong to any clubs o r organizations such as jew groups, unions, fraternal or athletic groups, or [...] medical appointments or from getting medications? 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 Screw Right: Femur Synthes 04.045.036 / 0 / Synthes Screw Bone Locking Cannulated Femoral Proximal Full Thread Light Green 5.0x34mm Titanium 04.045.034 - S0 - [id number] Implanted:Qty: 1 on 09/20/2024 by Alli Armenta MD at [facility] Screw Right: Femur Synthes 04.045.034 / 0 / Total Joint Right: Knee [employer] Graft Bone Magnetos 10cc 1-2mm Granules In Moldable Putty 703-038-Us - [id number] Implanted:Qty: 1 on 12/25/2023 by Chika Caceres MD at [facility] N/A: Spine Lumbar [employer] 703-038-[id number] / / Allosource Crushed Chip Frozen Graft 30ml Bone Cancellous [id number] - [id number] Implanted:Qty: 1 on 12/25/2023 by Chika Caceres MD at [facility] N/A: Spine Lumbar Allosource 07/24/2028 [id number] / / [id number] Depuy Synthes Spine 6mm 50mm Fix Spine Cortical Screw Bone Titanium 5.5mm Liu [id number] - [id number] Implanted:Qty: 1 on 12/25/2023 by Chika Caceres MD at [facility] N/A: Spine Lumbar Depuy Synthes Spine [id number] / / Depuy Synthes Spine Expedium 6.5mm 50mm Polyaxial Spine Screw Bone Titanium 5.5mm Liu [id number] - [id number] Implanted:Qty: 1 on 12/25/2023 by Chika Caceres MD at [facility] N/A: Spine Lumbar Depuy Synthes Spine [id number] / / Depuy Synthes Spine Expedium 7mm 50mm Fix Spine Cortical Screw Bone Titanium 5.5mm [id number] - [id number] Implanted:Qty: 1 on 12/25/2023 by Chika Caceres MD at [facility] N/A: Spine Lumbar Depuy Synthes Spine [id number] / / Depuy Synthes Spine Expedium 1 Inner Monoaxial Spine Screw Set Titanium [id number] - [id number] Implanted:Qty: 4 on 12/25/2023 by Chika Caceres MD at [facility] N/A: Spine Lumbar Depuy Synthes Spine [id number] / / Depuy Synthes Spine Expedium 5.5mm 80mm Line Prebent Liu Spinal Titanium Nonsterile [id number] - [id number] Implanted:Qty: 1 on 12/25/2023 by Chika Caceres MD at [facility] N/A: Spine Lumbar Depuy Synthes Spine [id number] / / Depuy Synthes Spine Expedium 5.5mm 85mm Line Prebent Liu Spinal Titanium Nonsterile [id number] - [id number] Implanted:Qty: 1 on 12/25/2023 by Chika Caceres MD at [facility] N/A: Spine Lumbar Depuy Synthes Spine [id number] / / Depuy Synthes Spine Expedium 7.5mm 50mm 1 Innie Polyaxial Spine Screw Bone Titanium [id number] - [id number] Implanted:Qty: 1 on 12/25/2023 by Chika Caceres MD at [facility] N/A: Spine Lumbar Depuy Synthes Spine [id number] / / Synthes Nail Intramedullary 5 Degree Femoral Retrograde Rfn Advanced [id number] Titanium 04.233.240s - [id number] Implanted:Qty: 1 on 09/20/2024 by Alli Armenta MD at [facility] Right: Femur Synthes [id number] 04/16/2028 04.233.240 S / / [id number] Synthes Screw Bone Locking Cannulated Femoral Proximal Full Thread Light Green 5.0x70mm Titanium 04.045.070 - [id number] Implanted:Qty: 1 on 09/20/2024 by Alli Armenta MD at [facility] Right: Femur Synthes I 04.045.070 / / Synthes Screw Locking Im Nail 5mm 88mm 088 - [id number] Implanted:Qty: 1 on 09/20/2024 by Alli Armenta MD at [facility] Right: Femur Synthes I .045.088 / / Synthes Screw Bone Locking Cannulated Femoral Proximal Full Thread Light Green 5.0x90mm Titanium 04..090 - [id number] Implanted:Qty: 2 on 09/20/2024 by Alli Armenta MD at 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, initial encounter Case Notes Rich [phone] booked @ 1839 EGFR Routine 09/19/2024 8:30 PM CDT BASIC METABOLIC PANEL Routine 09/19/2024 8:30 PM CDT CBC WITHOUT DIFFERENTIAL Routine 09/19/2024 8:30 PM CDT MAGNESIUM Routine 09/19/2024 8:30 PM CDT PHOSPHORUS Routine 09/19/2024 8:30 PM CDT POTASSIUM, WHOLE BLOOD STAT 09/19/2024 5:[address] ABDOMEN PELVIS WO CONTRAST ED Urgent/IP Urgent 09/19/2024 3:36 PM CDT [facility] INJECTION AA&/STRD OTHER PERIPHERAL NERVE/BRANCH Routine 09/19/2024 [...] ECG 12-LEAD Routine 09/19/2024 11:40 AM CDT VA CRITICAL CARE ILL/INJURED PATIENT INIT 30-74 MIN [...] HEPATITIS PANEL, ACUTE Routine 02/20/2024 4:55 AM DEPUTY ADMINISTRATOR from Last 3 Months or Most Recently [...] was last reviewed 2021. Testing performed by: [address] [address] Blood 10/23/2024 7:45 AM CDT 10/23/2024 7:48 AM CDT Sebas Paredes DO LAB BLOOD ORDERABLES Final R esult [facility] [address] [facility] [place] [address] * (ABNORMAL) Differential, auto (10/23/2024 7:45 AM CDT) Neutrophil abs 12.06(H) 1.50 - 6.50 K/cumm Comment:Testing performed by : [address] [address] Imm gran abs 0.06 0.00 - 0.10 K/cumm NEIL Comment:Testing performed by : [address] [address] Lymphocyte abs 1.24 0.80 - 3.30 K/cumm NEIL Comment:Testing performed by : [address] [address] Monocyte abs 0.47 0.20 - 0.80 K/cumm NEIL Comment:Testing performed by : [address] [address] Eosinophil abs 0.02 0.00 - 0.50 K/cumm NELI Comment:Testing performed by : [address] [address] Basophil abs 0.04 0.00 - 0.10 K/cumm NEIL Comment:Testing performed by : [address] [address] Neutrophil pct 86.9 % NEIL Comment: Interpretive Data Percent cell count reference ranges are not reported, since discordance with absolute values may lead to misinterpretation of CBC data. Current Interpretive Data was last revised on 2017. Testing performed by: [address] [address] Imm gran pct 0.4 % [facility] Comment: Interpretive Data Percent cell count reference ranges are not reported, since discordance with absolute values may lead to misinterpretation of CBC data. Current Interpretive Data was last revised on 2017. Testing performed by: [address] [address] Lymphocyte pct 8.9 % [facility] Comment: Interpretive Data Percent cell count reference ranges are not reported, since discordance with absolute values may lead to misinterpretation of CBC data. Current Interpretive Data was last revised on 2017. Testing performed by: [address] [address] Monocyte pct 3.4 % [facility] Comment: Interpretive Data Percent cell count reference ranges are not reported, since discordance with absolute values may lead to misinterpretation of CBC data. Current Interpretive Data was last revised on 2017. Testing performed by: [address] [address] Eosinophil pct 0.1 % [facility] Comment: Interpretive Data Percent cell count reference ranges are not reported, since discordance with absolute values may lead to misinterpretation of CBC data. Current Interpretive Data was last revised on 2017. Testing performed by: [address] [address] Basophil pct 0.3 % [facility] Comment: Interpretive Data Percent cell count reference ranges are not reported, since discordance with absolute values may lead to misinterpretation of CBC data. Current Interpretive Data was last revised on 2017. Testing performed by: [address] [address] Blood 10/23/2024 7:45 AM CDT 10/23/2024 7:48 AM CDT Sebas Paredes DO LAB BLOOD ORDERABLES Final R esult [facility] [address] [facility] [address] [place] [address] * (ABNORMAL) CBC with auto differential (10/23/2024 7:45 AM CDT) [facility] WBC 13.89(H) 3.80 - 9.90 K/cumm Comment:Testing performed by : [address], [address] Hgb 10.7(L) 13.0 - 17.5 g/dL NEIL Comment:Testing performed by : [address], [address] Hct 32.9(L) 38.9 - 50.3 % NEIL Comment:Testing performed by : [address], [address] Plt 360 150 - 400 K/cumm NEIL Comment:Testing performed by : [address], [address] MPV 10.3 9.1 - 12.3 fL NEIL Comment:Testing performed by : [address], [address] RBC 3.96(L) 4.30 - 5.80 M/cumm NEIL Comment:Testing performed by : [address], [address] MCV 83.1 81.3 - 96.4 fL NEIL Comment:Testing performed by : [address], [address] MCH 27.0(L) 27.1 - 33.3 pg NEIL Comment:Testing performed by : [address], [address] MCHC 32.5 32.3 - 35.7 g/dL NEIL Comment:Testing performed by : [address], [address] RDW CV 17.0(H) 11.1 - 14.9 % NEIL Comment:Testing performed by : [address], [address] RDW SD 51.3(H) 35.7 - 48.1 fL NEIL Comment:Testing performed by : [address], [address] NRBC abs 0.00 0.00 - 0.01 K/cumm [facility] Comment:Testing performed by : [address] [address] ANC Prelim 12.06(H) 1.50 - 6.50 K/cumm [facility] Comment: Interpretive Data The rapid ANC is a preliminary automated count and may vary from the final ANC (Neut Abs) reported in the WBC differential that follows. Current interpretive data was last revised 2024. Testing performed by: [address] [address] Blood 10/23/2024 7:45 AM CDT 10/23/2024 7:48 AM CDT Sebas Paredes DO LAB BLOOD ORDERABLES Final R esult [facility] [place] [address] * (ABNORMAL) Comprehensive metabolic panel (10/23/2024 7:45 AM CDT) Sodium 141 135 - 145 mmol/L Comment:Testing performed by : [address] [address] Potassium, pl 4.1 3.3 - 4.9 mmol/L NEIL Comment:Testing performed by : [address] [address] Chloride 106 97 - 110 mmol/L NEIL Comment:Testing performed by : [address] [address] CO2 19(L) 22 - 32 mmol/L NEIL Comment:Testing performed by : [address] [address] Anion gap 16(H) 2 - 15 mmol/L NEIL Comment:Testing performed by : [address] [address] BUN 16 6 - 25 mg/dL NEIL Comment:Testing performed by : [address] [address] Creatinine 1.30 0.80 - 1.30 mg/dL NEIL Comment:Testing performed by : [address] [address] Glucose 150 70 - 199 mg/dL NEIL [...] was last revised 2022. Testing performed by: [address] [address] Calcium 9.1 8.5 - 10.3 mg/dL NEIL Comment:Testing performed by : [address] [address] Bilirubin, total 0.2 0.1 - 1.2 mg/dL NEIL Comment:Testing performed by : [address] [address] Protein, pl 7.7 6.5 - 8.5 g/dL NEIL Comment:Testing performed by : [address] [address] Albumin 4.2 3.5 - 5.0 g/dL NEIL Comment:Testing performed by : [address] [address] Alk phos 135(H) 40 - 130 Units/L NEIL Comment:Testing performed by : [address] [address] ALT 9 7 - 55 Units/L NEIL Comment:Testing performed by : [address] [address] AST 13 10 - 50 Units/L NEIL Comment:Testing performed by : [address] [address] Blood 10/23/2024 7:45 AM CDT 10/23/2024 7:48 AM CDT Sebas Paredes DO LAB BLOOD ORDERABLES Final R esult Performing Organization Address [facility] Co de Phone Number NEIL [facility] [address] * eGFR (10/09/2024 8:00 AM CDT) eGFR [...] was last reviewed 2021. Testing performed by: [address] [address] Blood 10/09/2024 8:00 AM CDT 10/09/2024 8:02 AM CDT Sebas Renaenti DO LAB BLOOD ORDERABLES Final R esult Performing Organization Address City/[facility]/ZIP Co de Phone Number NEIL [address] [facility] [employer] [place], [place] [id number] * (ABNORMAL) Differential, auto (10/09/2024 8:00 AM CDT) Neutrophil abs 4.95 1.50 - 6.50 K/cumm Comment:Testing performed by : [address] [address] Imm gran abs 0.03 0.00 - 0.10 K/cumm [facility] Comment:Testing performed by : [address] [address] Lymphocyte abs 2.10 0.80 - 3.30 K/cumm [facility] Comment:Testing performed by : [address], [place]., [address] Monocyte abs 1.11(H) 0.20 - 0.80 K/cumm [facility] Comment:Testing performed by : [address], [place]., [address] Eosinophil abs 0.10 0.00 - 0.50 K/cumm [facility] Comment:Testing performed by : [address] [address] Basophil abs 0.04 0.00 - 0.10 K/cumm [facility] Comment:Testing performed by : [address] [address] Neutrophil pct 59.4 % [facility] Comment: Interpretive Data Percent cell count reference ranges are not reported, since discordance with absolute values may lead to misinterpretation of CBC data. Current Interpretive Data was last revised on 2017. Testing performed by: [address] [address] Imm gran pct 0.4 % [facility] Comment: Interpretive Data Percent cell count reference ranges are not reported, since discordance with absolute values may lead to misinterpretation of CBC data. Current Interpretive Data was last revised on 2017. Testing performed by: [address] [address] Lymphocyte pct 25.2 % [facility] Comment: Interpretive Data Percent cell count reference ranges are not reported, since discordance with absolute values may lead to misinterpretation of CBC data. Current Interpretive Data was last revised on 2017. Testing performed by: [address] [address] Monocyte pct 13.3 % [facility] Comment: Interpretive Data Percent cell count reference ranges are not reported, since discordance with absolute values may lead to misinterpretation of CBC data. Current Interpretive Data was last revised on 2017. Testing performed by: [address] [address] Eosinophil pct 1.2 % [facility] Comment: Interpretive Data Percent cell count reference ranges are not reported, since discordance with absolute values may lead to misinterpretation of CBC data. Current Interpretive Data was last revised on 2017. Testing performed by: [address] [address] Basophil pct 0.5 % [facility] Comment: Interpretive Data Percent cell count reference ranges are not reported, since discordance with absolute values may lead to misinterpretation of CBC data. Current Interpretive Data was last revised on 2017. Testing performed by: [address] [address] Blood 10/09/2024 8:00 AM CDT 10/09/2024 8:02 AM CDT Sebas Paredes DO LAB BLOOD ORDERABLES Final R esult [facility] Department of Laboratories [place], [place] [id number] * (ABNORMAL) CBC with auto differential (10/09/2024 8:00 AM CDT) WBC 8.33 3.80 - 9.90 K/cumm Comment:Testing performed by : [address] [address] Hgb 9.8(L) 13.0 - 17.5 g/dL [facility] Comment:Testing performed by : [address] [address] Hct 30.8(L) 38.9 - 50.3 % [facility] Comment:Testing performed by : [address] [address] Plt 453(H) 150 - 400 K/cumm [facility] Comment:Testing performed by : [address] [address] MPV 10.2 9.1 - 12.3 fL [facility] Comment:Testing performed by : [address] [address] RBC 3.63(L) 4.30 - 5.80 M/cumm NEIL Comment:Testing performed by : [address] [address] MCV 84.8 81.3 - 96.4 fL NEIL Comment:Testing performed by : [address] [address] MCH 27.0(L) 27.1 - 33.3 pg NEIL Comment:Testing performed by : [address] [address] MCHC 31.8(L) 32.3 - 35.7 g/dL [facility] Comment:Testing performed by : [address] [address] RDW CV 17.6(H) 11.1 - 14.9 % NEIL Comment:Testing performed by : [address] [address] RDW SD 53.6(H) 35.7 - 48.1 fL NEIL Comment:Testing performed by : [address] [address] NRBC abs 0.00 0.00 - 0.01 K/cumm NEIL Comment:Testing performed by : [address] [address] ANC Prelim 4.95 1.50 - 6.50 K/cumm NEIL Comment: Interpretive Data The rapid ANC is a preliminary automated count and may vary from the final ANC (Neut Abs) reported in the WBC differential that follows. Current interpretive data was last revised 2024. Testing performed by: [address] [address] Blood 10/09/2024 8:00 AM CDT 10/09/2024 8:02 AM CDT us eSbas Paredes DO LAB BLOOD ORDERABLES Final R esult [facility] [address] [facility] [place] [address] * (ABNORMAL) PSA diagnostic (10/09/2024 8:00 AM [...] data last revised 21. Testing performed by: [address] [address] Blood 10/09/2024 8:00 AM CDT 10/09/2024 9:51 AM CDT Sebas Paredes DO LAB BLOOD ORDERABLES Final R esult NEIL [address] [facility] [address] * (ABNORMAL) Comprehensive metabolic panel (10/09/2024 8:00 AM CDT) Pathologist [facility] Sodium 143 135 - 145 mmol/L Comment:Testing performed by : [address] [address] Potassium, pl 4.1 3.3 - 4.9 mmol/L NEIL Comment:Testing performed by : [address] [address] Chloride 106 97 - 110 mmol/L NEIL Comment:Testing performed by : [address] [address] CO2 27 22 - 32 mmol/L NEIL Comment:Testing performed by : [address] [address] Anion gap 10 2 - 15 mmol/L [facility] Comment:Testing performed by : [address] [address] BUN 14 6 - 25 mg/dL NEIL Comment:Testing performed by : [address] [address] Creatinine 1.20 0.80 - 1.30 mg/dL NEIL Comment:Testing performed by : [address] [address] Glucose 125 70 - 199 mg/dL NEIL [...] was last revised 2022. Testing performed by: [address] [address] Calcium 9.2 8.5 - 10.3 mg/dL NIEL Comment:Testing performed by : [address] [address] Bilirubin, total 0.2 0.1 - 1.2 mg/dL NEIL Comment:Testing performed by : [address] [address] Protein, pl 7.6 6.5 - 8.5 g/dL NEIL Comment:Testing performed by : [address] [address] Albumin 4.1 3.5 - 5.0 g/dL NEIL Comment:Testing performed by : [address] [address] Alk phos 137(H) 40 - 130 Units/L NEIL Comment:Testing performed by : [address] [address] ALT 10 7 - 55 Units/L NEIL Comment:Testing performed by : [address] [address] AST 13 10 - 50 Units/L NEIL Comment:Testing performed by : [facility], [address] [facility], [place]., [address] Blood 10/09/2024 8:00 AM CDT 10/09/2024 8:02 AM CDT us Sebas Paredes DO LAB BLOOD ORDERABLES Final R esult NEIL [address] [facility] [place] [address] * Phosphorus, urine, random (09/27/2024 10:34 AM CDT) Phosphorus, ur 98.3 mg/dL Comment: Interpretive Data No reference range established. Current interpretive data was last revised 2018. Urine 09/27/2024 10:3 4 AM CDT 09/27/2024 12:09 PM CDT us Lazara Hernandez MD LAB URINE ORDERABLES Final Result Performing Organization Address City/[facility] Co de Phone Number NEIL [facility] Department [place] [address] * XR Spine Lumbar 2 or 3 [...] BLOOD ORDERABLES Final Result Performing Organization Address City/[facility] Co de Phone Number [facility] [address] * (ABNORMAL) Vitamin D 25 hydroxy (09/27/2024 10:02 AM CDT) Vitamin D 25-OH 18(L) 30 - 80 ng/mL Blood 09/27/2024 10:0 2 AM CDT 09/27/2024 10:36 AM CDT Lazara Hernandez MD LAB BLOOD ORDERABLES Final Result Performing Organization Address [facility] [facility] Co de Phone Number [facility] [place] [address] * Phosphorus (09/27/2024 10:02 AM CDT) Phosphorus, pl 2.3 2.3 - 4.5 mg/dL Blood 09/27/2024 10:0 2 AM CDT 09/27/2024 10:36 AM CDT Lazara Hernandez MD LAB BLOOD ORDERABLES Final Result Performing Organization Address City/[facility] Co de Phone Number [facility] [address] [place] [address] * (ABNORMAL) PTH (09/27/2024 10:02 AM CDT) PTH 146(H) 15 - 65 pg/mL Blood 09/27/2024 10:0 2 AM CDT 09/27/2024 10:36 AM CDT Lazara Hernandez MD LAB BLOOD ORDERABLES Final Result Performing Organization Address City/[facility]/ZIP Co de Phone Number [facility] [place] [address] * Magnesium (09/27/2024 10:02 AM CDT) Pathologist [facility] Magnesium 1.7 1.4 - 2.5 mg/dL Blood 09/27/2024 10:0 2 AM CDT 09/27/2024 10:36 AM CDT Lazara Hernandez MD LAB BLOOD ORDERABLES Final Result Performing Organization Address [facility] de Phone Number [facility] [place] [address] * Comprehensive metabolic panel (09/27/2024 10:02 AM CDT) Sodium 142 135 - 145 mmol/L Potassium, pl 4.5 3.3 - 4.9 mmol/L [facility] Chloride 105 97 - 110 mmol/L [facility] CO2 25 22 - 32 mmol/L [facility] Anion gap 12 2 - 15 mmol/L [facility] BUN 11 6 - 25 mg/dL [facility] Creatinine 0.92 0.80 - 1.30 mg/dL [facility] Glucose 108 70 - 199 mg/dL [facility] Comment: Interpretive Data Fasting glucose >/= [...] 2022. Calcium 9.1 8.5 - 10.3 mg/dL [facility] Bilirubin, total 0.2 0.1 - 1.2 mg/dL [facility] Protein, pl 7.7 6.5 - 8.5 g/dL [facility] Albumin 3.8 3.5 - 5.0 g/dL [facility] Alk phos 87 40 - 130 Units/L [facility] ALT 51 7 - 55 Units/L [facility] AST 36 10 - 50 Units/L [facility] Blood 09/27/2024 10:0 2 AM CDT 09/27/2024 10:36 AM CDT Lazara Hernandez MD LAB BLOOD ORDERABLES Final Result [facility] One [facility] Department [place] [address] * eGFR (09/23/2024 1:07 AM CDT) eGFR [...] ORDERABLES F inal Result Performing Organization Address [facility] Co de Phone Number [facility] [place] [address] * (ABNORMAL) Phosphorus (09/23/2024 1:07 AM CDT) Phosphorus, pl 1.2(L) 2.3 - 4.5 mg/dL Blood 09/23/2024 1:07 AM CDT 09/23/2024 1:21 AM CDT Saige Fuentes MD LAB BLOOD ORDERABLES F inal Result Performing Organization Address [facility] de Phone Number [facility] [place] [address] * Magnesium (09/23/2024 1:07 AM CDT) Magnesium 2.0 1.4 - 2.5 mg/dL Blood 09/23/2024 1:07 AM CDT 09/23/2024 1:21 AM CDT Saige Fuentes MD LAB BLOOD ORDERABLES F inal Result Performing Organization Address [facility] de Phone Number [facility] [place] [address] * (ABNORMAL) Albumin (09/23/2024 1:07 AM CDT) Albumin 3.4(L) 3.5 - 5.0 g/dL Blood 09/23/2024 1:07 AM CDT 09/23/2024 1:21 AM CDT Jasper Guerrier MD LAB BLOOD ORDERABLES Izabela l Result Performing Organization Address City/[facility] Co de Phone Number NEIL [facility] [place] [address] * (ABNORMAL) Basic metabolic panel (09/23/2024 1:07 AM CDT) Sodium 136 135 - 145 mmol/L Potassium, pl 4.0 3.3 - 4.9 mmol/L [facility] Comment:Repeated and Verifie d Chloride 101 97 - 110 mmol/L [facility] CO2 25 22 - 32 mmol/L [facility] Anion gap 10 2 - 15 mmol/L [facility] BUN 13 6 - 25 mg/dL [facility] Creatinine 0.95 0.80 - 1.30 mg/dL [facility] Glucose 138 70 - 199 mg/dL [facility] Comment: Interpretive Data Fasting glucose >/= [...] 2022. Calcium 7.6(L) 8.5 - 10.3 mg/dL [facility] Blood 09/23/2024 1:07 AM CDT 09/23/2024 1:21 AM CDT us Saige Fuentes MD LAB BLOOD ORDERABLES F inal Result Performing Organization Address City/[facility]/ZIP Co de Phone Number [facility] [place] [address] * eGFR (09/22/2024 11:21 PM CDT) eGFR See Comment >=60 Comment: Credited: Sample investigated and is suggestive of an improper collection (e.g., IV fluid contamination, improper tube type). Deleted at the Request of Tory Chen RN on 09/23/2024 00:33:51 CDT by CHAZ . Interpretive Data Reference Interval Normal >/= [...] PM CDT 09/22/2024 11:51 PM CDT us Yair Ring MD LAB BLOOD ORDERABLES Edited Res ult - Final [facility] [place] [address] * Critical Result Callback Chemistry (09/22/2024 11:21 PM CDT) Date Notified [id number] Time Notified 32 [facility] TestName POTASSIUM, MAGNESIUM, CALCIUM NEIL HEAD Called/Read Back TORY HEAD Credentials MECCA HEAD Called By CHAZ HEAD Blood 09/22/2024 11:2 1 PM CDT 09/22/2024 11:51 PM CDT us Yair Ring MD LAB BLOOD ORDERABLES Final Resu lt [facility] Department [place] [address] * (ABNORMAL) CBC without differential (09/22/2024 11:21 PM CDT) [facility] WBC 8.34 3.80 - 9.90 K/cumm Hgb 9.6(L) 13.0 - 17.5 g/dL [facility] Hct 29.6(L) 38.9 - 50.3 % [facility] Plt 202 150 - 400 K/cumm [facility] MPV 11.9 9.1 - 12.3 fL [facility] RBC 3.51(L) 4.30 - 5.80 M/cumm [facility] MCV 84.3 81.3 - 96.4 fL [facility] MCH 27.4 27.1 - 33.3 pg [facility] MCHC 32.4 32.3 - 35.7 g/dL [facility] RDW CV 17.2(H) 11.1 - 14.9 % [facility] RDW SD 52.5(H) 35.7 - 48.1 fL [facility] NRBC abs 0.00 0.00 - 0.01 K/cumm [facility] Blood 09/22/2024 11:2 1 PM CDT 09/22/2024 11:52 PM CDT Yair Ring MD LAB BLOOD ORDERABLES Final Resu lt [facility] [place] [address] * Phosphorus (09/22/2024 11:21 PM CDT) [facility] Phosphorus, pl See Comment 2.3 - 4.5 mg/dL Comment:Credited: Sample inv estigated and is suggestive of an improper collection (e.g., IV fluid contamination, improper tube type). Deleted at the Request of Tory Chen RN on 09/23/2024 00:33:51 CDT by . Blood 09/22/2024 11:2 1 PM CDT 09/22/2024 11:51 PM CDT Yair Ring MD LAB BLOOD ORDERABLES Edited Res t - Final Performing Organization Address [facility] Co de Phone Number [facility] [place] [address] * Magnesium (09/22/2024 11:21 PM CDT) Magnesium [...] Ring MD LAB BLOOD ORDERABLES Edited Res t - Final Performing Organization Address [facility] Co de Phone Number [facility] [place] [address] * Basic metabolic panel (09/22/2024 11:21 PM CDT) Sodium See Comment 135 - 145 mmol/L Comment:Credited: Sample inv estigated and is suggestive of an improper collection (e.g., IV fluid contamination, improper tube type). Deleted at the Request of Tory Chen RN on 09/23/2024 00:33:51 CDT by ML . Potassium, pl See Comment 3.3 - 4.9 mmol/L [facility] Comment:Credited: Sample inv estigated and is suggestive of an improper collection (e.g., IV fluid contamination, improper tube type). Deleted at the Request of Tory Chen RN on 09/23/2024 00:33:51 CDT by ML . Chloride See Comment 97 - 110 mmol/L [facility] Comment:Credited: Sample inv estigated and is suggestive of an improper collection (e.g., IV fluid contamination, improper tube type). Deleted at the Request of Tory Chen RN on 09/23/2024 00:33:51 CDT by ML . CO2 See Comment 22 - 32 mmol/L [facility] Comment:Credited: Sample inv estigated and is suggestive of an improper collection (e.g., IV fluid contamination, improper tube type). Deleted at the Request of Tory Chen RN on 09/23/2024 00:33:51 CDT by ML . Anion gap See Comment 2 - 15 mmol/L [facility] Comment:Credited: Sample inv estigated and is suggestive of an improper collection (e.g., IV fluid contamination, improper tube type). Deleted at the Request of Tory Chen RN on 09/23/2024 00:33:51 CDT by ML . BUN See Comment 6 - 25 mg/dL [facility] Comment:Credited: Sample inv estigated and is suggestive of an improper collection (e.g., IV fluid contamination, improper tube type). Deleted at the Request of Tory Chen RN on 09/23/2024 00:33:51 CDT by ML . Creatinine See Comment 0.80 - 1.30 mg/dL [facility] Comment:Credited: Sample inv estigated and is suggestive of an improper collection (e.g., IV fluid contamination, improper tube type). Deleted at the Request of Tory Chen RN on 09/23/2024 00:33:51 CDT by ML . Glucose See Comment 70 - 199 mg/dL [facility] Comment: Credited: Sample investigated and is suggestive [...] Calcium See Comment 8.5 - 10.3 mg/dL [facility] Comment:Credited: Sample inv estigated and is suggestive of an improper collection (e.g., IV fluid contamination, improper tube type). Deleted at the Request of Tory Chen RN on 09/23/2024 00:33:51 CDT by . Blood 09/22/2024 11:2 1 PM CDT 09/22/2024 11:51 PM CDT us [facility] Darin Ring MD LAB BLOOD ORDERABLES Edited Res ult - Final [facility] [place] [address] * eGFR (09/21/2024 11:04 PM CDT) eGFR [...] ORDERABLES Final Resu lt Performing Organization Address City/[facility]/ZIP Co de Phone Number NEIL [facility] [place] [address] * (ABNORMAL) CBC without differential (09/21/2024 11:04 PM CDT) WBC 9.28 3.80 - 9.90 K/cumm Hgb 9.2(L) 13.0 - 17.5 g/dL [facility] Hct 28.3(L) 38.9 - 50.3 % [facility] Plt 169 150 - 400 K/cumm [facility] MPV 11.9 9.1 - 12.3 fL [facility] RBC 3.34(L) 4.30 - 5.80 M/cumm [facility] MCV 84.7 81.3 - 96.4 fL [facility] MCH 27.5 27.1 - 33.3 pg [facility] MCHC 32.5 32.3 - 35.7 g/dL [facility] RDW CV 17.4(H) 11.1 - 14.9 % [facility] RDW SD 53.3(H) 35.7 - 48.1 fL [facility] NRBC abs 0.00 0.00 - 0.01 K/cumm [facility] Blood 09/21/2024 11:0 4 PM CDT 09/21/2024 11:46 PM CDT Yair Ring MD LAB BLOOD ORDERABLES Final Resu lt [facility]IL [facility] [place] [address] * (ABNORMAL) Phosphorus (09/21/2024 11:04 PM CDT) Phosphorus, pl 1.5(L) 2.3 - 4.5 mg/dL Blood 09/21/2024 11:0 4 PM CDT 09/21/2024 11:46 PM CDT Yair Ring MD LAB BLOOD ORDERABLES Final Resu lt [facility] Department [place] [address] * Magnesium (09/21/2024 11:04 PM CDT) [facility] Magnesium 2.0 1.4 - 2.5 mg/dL Blood 09/21/2024 11:0 4 PM CDT 09/21/2024 11:46 PM CDT Yair Ring MD LAB BLOOD ORDERABLES Final Resu lt Performing Organization Address [facility] Co de Phone Number [facility] Department [place] [address] * (ABNORMAL) Basic metabolic panel (09/21/2024 11:04 PM CDT) [facility] Sodium 134(L) 135 - 145 mmol/L Potassium, pl 4.4 3.3 - 4.9 mmol/L [facility] Chloride 100 97 - 110 mmol/L [facility] CO2 25 22 - 32 mmol/L [facility] Anion gap 9 2 - 15 mmol/L [facility] BUN 12 6 - 25 mg/dL [facility] Creatinine 1.07 0.80 - 1.30 mg/dL [facility] Glucose 121 70 - 199 mg/dL [facility] Comment: Interpretive Data Fasting glucose >/= [...] classification and Diagnosis of Diabetes Diabetes Care 2022; 46: S19-S40. Current interpretive data was last revised 2022. Calcium 7.6(L) 8.5 - 10.3 mg/dL [facility] Blood 09/21/2024 11:0 4 PM CDT 09/21/2024 11:46 PM CDT Yair Ring MD LAB BLOOD ORDERABLES Final Resu lt Performing Organization Address City/[facility]/ZIP Co de Phone Number [facility] [place] [address] * eGFR (09/20/2024 9:05 PM CDT) eGFR 60 >=60 mL/min/1. 73 m2 Comment: [...] ORDERABLES Final Resu lt Performing Organization Address City/[facility]/ZIP [facility] de [facility] [place] [address] * (ABNORMAL) CBC without differential (09/20/2024 9:05 PM CDT) [facility] WBC 9.55 3.80 - 9.90 K/cumm Hgb 9.6(L) 13.0 - 17.5 g/dL [facility] Hct 29.2(L) 38.9 - 50.3 % [facility] Plt 178 150 - 400 K/cumm [facility] MPV 11.7 9.1 - 12.3 fL [facility] RBC 3.42(L) 4.30 - 5.80 M/cumm [facility] MCV 85.4 81.3 - 96.4 fL [facility] MCH 28.1 27.1 - 33.3 pg [facility] MCHC 32.9 32.3 - 35.7 g/dL [facility] RDW CV 17.9(H) 11.1 - 14.9 % [facility] RDW SD 55.0(H) 35.7 - 48.1 fL [facility] NRBC abs 0.00 0.00 - 0.01 K/cumm [facility] Blood 09/20/2024 9:05 PM CDT 09/20/2024 9:55 PM CDT Yair Ring MD LAB BLOOD ORDERABLES Final Resu lt [facility] [employer] [place] [address] * (ABNORMAL) Phosphorus (09/20/2024 9:05 PM CDT) [facility] Phosphorus, pl 1.6(L) 2.3 - 4.5 mg/dL Blood 09/20/2024 9:05 PM CDT 09/20/2024 9:50 PM CDT Yair Ring MD LAB BLOOD ORDERABLES Final Resu lt [facility] [place] [address] * Magnesium (09/20/2024 9:05 PM CDT) Pathologist [facility] Magnesium 2.0 1.4 - 2.5 mg/dL Blood 09/20/2024 9:05 PM CDT 09/20/2024 9:50 PM CDT Yair Ring MD LAB BLOOD ORDERABLES Final Resu lt [facility] One [facility] [place] [address] * (ABNORMAL) Basic metabolic panel (09/20/2024 9:05 PM CDT) Pathologist [facility] Sodium 139 135 - 145 mmol/L Potassium, pl 4.6 3.3 - 4.9 mmol/L [facility] Chloride 105 97 - 110 mmol/L [facility] CO2 26 22 - 32 mmol/L [facility] Anion gap 8 2 - 15 mmol/L [facility] BUN 20 6 - 25 mg/dL [facility] Creatinine 1.39(H) 0.80 - 1.30 mg/dL [facility] Glucose 124 70 - 199 mg/dL [facility] Comment: Interpretive Data Fasting glucose >/= [...] 2022. Calcium 8.1(L) 8.5 - 10.3 mg/dL [facility] Blood 09/20/2024 9:05 PM CDT 09/20/2024 9:50 PM CDT Yair Ring MD LAB BLOOD ORDERABLES Final Resu lt Performing Organization Address [facility] Co de Phone Number NEIL [facility] Department [place] [address] * eGFR (09/20/2024 4:34 PM CDT) eGFR 60 >=60 mL/min/1. 73 m2 Comment: [...] Rena Polanco NP LAB BLOOD ORDERABLES Izabela l Result Performing Organization Address [facility] Co de Phone Number NEIL [facility] Department [place] [address] * (ABNORMAL) CBC without differential (09/20/2024 4:34 PM CDT) WBC 12.03(H) 3.80 - 9.90 K/cumm Hgb 9.4(L) 13.0 - 17.5 g/dL [facility] Hct 28.3(L) 38.9 - 50.3 % [facility] Plt 188 150 - 400 K/cumm [facility] MPV 11.5 9.1 - 12.3 fL [facility] RBC 3.36(L) 4.30 - 5.80 M/cumm [facility] MCV 84.2 81.3 - 96.4 fL [facility] MCH 28.0 27.1 - 33.3 pg [facility] MCHC 33.2 32.3 - 35.7 g/dL [facility] RDW CV 18.1(H) 11.1 - 14.9 % [facility] RDW SD 54.7(H) 35.7 - 48.1 fL [facility] NRBC abs 0.00 0.00 - 0.01 K/cumm [facility] Blood 09/20/2024 4:34 PM CDT 09/20/2024 4:48 PM CDT Rena Polanco REVENUE ACCOUNTANT LAB BLOOD ORDERABLES Izabela l Result Performing Organization Address City/[facility]/ZIP Co de Phone Number [facility] Department [place] [address] * (ABNORMAL) Phosphorus (09/20/2024 4:34 PM CDT) Pathologist [facility] Phosphorus, pl 1.7(L) 2.3 - 4.5 mg/dL Blood 09/20/2024 4:34 PM CDT 09/20/2024 4:48 PM CDT Rena Polanco REVENUE ACCOUNTANT LAB BLOOD ORDERABLES Izabela l Result [facility] Department [place] [address] * Magnesium (09/20/2024 4:34 PM CDT) Pathologist [facility] Magnesium 2.2 1.4 - 2.5 mg/dL Blood 09/20/2024 4:34 PM CDT 09/20/2024 4:48 PM CDT Rena Polanco NP LAB BLOOD ORDERABLES Izabela l Result [facility] Department [place] [address] * (ABNORMAL) Basic metabolic panel (09/20/2024 4:34 PM CDT) Sodium 141 135 - 145 mmol/L Potassium, pl 4.7 3.3 - 4.9 mmol/L [facility] Chloride 105 97 - 110 mmol/L [facility] CO2 27 22 - 32 mmol/L [facility] Anion gap 9 2 - 15 mmol/L [facility] BUN 25 6 - 25 mg/dL [facility] Creatinine 1.39(H) 0.80 - 1.30 mg/dL [facility] Glucose 143 70 - 199 mg/dL [facility] Comment: Interpretive Data Fasting glucose >/= [...] 2022. Calcium 8.3(L) 8.5 - 10.3 mg/dL [facility] Blood 09/20/2024 4:34 PM CDT 09/20/2024 4:48 PM CDT Rena Polanco NP LAB BLOOD ORDERABLES Izabela l Result Performing Organization Address City/[facility]/ZIP Co de Phone Number [facility] [place] [address] * XR Femur Right 2 or More [...] fracture. Electronically signed by: Chinyere Arrington MD Alli Armenta MD IMG XR PROCEDURES Final Result * [place] Fluoroscopy < 1 Hour (09/20/2024 9:36 AM CDT) Narrative [facility] - 09/20/2024 9:37 AM CDT The images from this study are not interpreted by Radiology. Please refer to the physician's procedure / OR operative note. us Alli URIBEG FLUOROSCOPY VA OCEDURES Final Result [facility] * VA AN PROCEDURE PLACEHOLDER (09/20/2024 8:23 AM CDT) Andree Grover CRNA - 09/20/2024 8:23 AM CDT Andree Tripathi CRNA 09/20/2024 8:23 AM Peripheral IV Catheter Patient location: OR Staff: Placed by: LEAD PROGRAMMER ANALYST: Brandt Thakkar MD Preprocedure prep: Prep solution: chlorhexadine PPE: gloves and provider hat/mask PIV line: Laterality: left Site: wrist Catheter size: 18 g Technique: anatomical landmarks, direct visualization and palpatation Procedure details: good blood return and occlusive dressing applied Number of attempts: 1 Assessment: Events: patient tolerated procedure well with no complications Brandt Thakkar MD ANESTHESIA ORDERABLES Final Resu lt * VA AN ELECTIVE ENDOTRACHEAL AIRWAY, [place] AN PROCEDURE PLACEHOLDER (09/20/2024 8:22 AM CDT) Andree Grover CRNA - 09/20/2024 8:22 AM CDT Andree Tripathi CRNA 09/20/2024 8:22 AM Airway Patient location: OR Urgency: elective Indications for airway management: anesthesia Difficult airway: no Staff: Supervising provider: Brandt Thakkar MD Placed by: LEAD PROGRAMMER ANALYST: Andree Tripathi CRNA Emergent airway documentation: Risks [...] MD ANESTHESIA ORDERABLES Final Resu lt * [place] AN PROCEDURE PLACEHOLDER (09/20/2024 7:54 AM CDT) [...] Inclusion of Race in Diagnosing Kidney Disease, STEFANIEN 2020). The CKD-EPI equation should not be used for patients with unstable renal function and has not been validated in children and those over 70. Current interpretive data was last reviewed 2021. Blood 09/19/2024 8:30 PM CDT 09/19/2024 8:50 PM CDT Yair Ring MD LAB BLOOD ORDERABLES Final Resu lt Performing Organization Address City/[facility]/ZIP Co de Phone Number [facility] Department [place] [address] * (ABNORMAL) CBC without differential (09/19/2024 8:30 PM CDT) WBC 10.93(H) 3.80 - 9.90 K/cumm Hgb 11.2(L) 13.0 - 17.5 g/dL [facility] Hct 34.3(L) 38.9 - 50.3 % [facility] Plt 224 150 - 400 K/cumm [facility] MPV 11.3 9.1 - 12.3 fL [facility] RBC 4.11(L) 4.30 - 5.80 M/cumm [facility] MCV 83.5 81.3 - 96.4 fL [facility] MCH 27.3 27.1 - 33.3 pg [facility] MCHC 32.7 32.3 - 35.7 g/dL [facility] RDW CV 18.1(H) 11.1 - 14.9 % [facility] RDW SD 53.1(H) 35.7 - 48.1 fL [facility] NRBC abs 0.00 0.00 - 0.01 K/cumm [facility] Blood 09/19/2024 8:30 PM CDT 09/19/2024 8:50 PM CDT Yair Ring MD LAB BLOOD ORDERABLES Final Resu lt Performing Organization Address [facility]/ZIP Co de Phone Number [facility] [place] [address] * Phosphorus (09/19/2024 8:30 PM CDT) [facility] Phosphorus, pl 2.7 2.3 - 4.5 mg/dL Blood 09/19/2024 8:30 PM CDT 09/19/2024 8:50 PM CDT Yair Ring MD LAB BLOOD ORDERABLES Final Resu lt Performing Organization Address City/[facility]/[place]IP [place] [address] * (ABNORMAL) Magnesium (09/19/2024 8:30 PM CDT) [facility] Magnesium 2.6(H) 1.4 - 2.5 mg/dL Blood 09/19/2024 8:30 PM CDT 09/19/2024 8:50 PM CDT Yair Ring MD LAB BLOOD ORDERABLES Final Resu lt Performing Organization Address City/[facility] [place] [address] * (ABNORMAL) Basic metabolic panel (09/19/2024 8:30 PM CDT) [facility] Sodium 145 135 - 145 mmol/L Potassium, pl 4.6 3.3 - 4.9 mmol/L [facility] Chloride 109 97 - 110 mmol/L [facility] CO2 25 22 - 32 mmol/L [facility] Anion gap 11 2 - 15 mmol/L [facility] BUN 44(H) 6 - 25 mg/dL [facility] Creatinine 2.64(H) 0.80 - 1.30 mg/dL [facility] Glucose 122 70 - 199 mg/dL [facility] Comment: Interpretive Data Fasting glucose >/= [...] 2022. Calcium 8.8 8.5 - 10.3 mg/dL [facility] Blood 09/19/2024 8:30 PM CDT 09/19/2024 8:50 PM CDT us Yair Ring MD LAB BLOOD ORDERABLES Final Resu lt [facility] [place] [address] * Potassium, whole blood (09/19/2024 5:29 PM CDT) [facility] Potassium, bld 4.9 3.3 - 4.9 mmol/L Blood 09/19/2024 5:29 PM CDT 09/19/2024 5:36 PM CDT us Carlos Matos MD PhD LAB BLOOD ORDERABLE S Final Result Performing Organization Address City/[facility]/ZIP Co de Phone Number [facility] Department [place] [address] * CT Abdomen Pelvis WO Contrast (09/19/2024 [...] it. Electronically signed by: Lazaro Burrows M.D. [facility] 09/19/2024 4:01 PM CDT EXAMINATION: Computed tomography [...] The urinary bladder is decompressed with a Lforence. The prostate is small. The stomach and [...] IMG CT PROCEDURES Izabela l Result * [facility] INJECTION AA&/STRD OTHER PERIPHERAL NERVE/BRANCH (09/19/2024 2:40 PM CDT) Narrative Jaylene Rodriguez MD - 09/19/2024 2:40 PM CDT Jaylene Rodriguez MD 09/20/2024 10:16 AM Nerve Block Date/Time: 09/19/2024 2:40 PM Performed by: Ivan Santiago MD Authorized by: Jaylene Rodriguez MD Premier Protocol: Informed consent: Risks, benefits, alternatives discussed [...] and matched to patient identification: n/a Responsible alliance party for transporting specimen(s) to lab determined: n/a [...] Trop I hs delta 1 ng/L NEIL JACKSONH Trop I hs interp Insignificant CERKELLY BJ H Blood 09/19/2024 1:57 PM CDT 09/19/2024 2:05 PM CDT Ivan Santiago MD LAB BLOOD ORDERABLES F inal Result Performing Organization Address [facility] Co de Phone Number [facility] [place] [address] * (ABNORMAL) eGFR (09/19/2024 1:57 PM CDT) [...] ORDERABLES F inal Result Performing Organization Address City/[facility]/ZIP Co de Phone Number NEIL JACKSON [facility] Department [place] [address] * (ABNORMAL) Basic metabolic panel (09/19/2024 1:57 PM CDT) Sodium 144 135 - 145 mmol/L Potassium, pl 5.7(H) 3.3 - 4.9 mmol/L [facility] Comment:Hemolyzed; Potassium value may be falsely elevated by as much as 0.6-1.0 mmol/L. Suggest redraw and reanalysis. Chloride 107 97 - 110 mmol/L [facility] CO2 25 22 - 32 mmol/L [facility] Anion gap 12 2 - 15 mmol/L [facility] BUN 54(H) 6 - 25 mg/dL [facility] Creatinine 4.02(H) 0.80 - 1.30 mg/dL [facility] Glucose 122 70 - 199 mg/dL [facility] Comment: Interpretive Data Fasting glucose >/= [...] 2022. Calcium 8.7 8.5 - 10.3 mg/dL [facility] Blood 09/19/2024 1:57 PM CDT 09/19/2024 2:05 PM CDT Narrative [facility] - 09/19/2024 2:38 PM CDT 30 minutes after fluid bolus complete us Ivan Santiago MD LAB BLOOD ORDERABLES F inal Result [facility] Department [place] [address] * XR Tibia Fibula Right 2 Views [...] chest. Electronically signed by: Tavo Reyes M.D. [facility] Patricio Santiago MD IMG XR PROCEDURES Izabela [...] chest. Electronically signed by: Tavo Reyes M.D. [facility] Patricio Santiago MD IMG XR PROCEDURES Izabela [...] chest. Electronically signed by: Tavo Reyes M.D. [facility] Patricio Santiago MD IMG XR PROCEDURES Izabela [...] ECG 12-LEAD (09/19/2024 11:40 AM CDT) Narrative [facility] - 09/19/2024 11:40 AM CDT Jaylene Rodriguez [...] follow up: further workup in the ED us Ivan Santiago MD ECG ORDERABLES Final Result [facility] * [facility] ILL/INJURED PATIENT INIT 30-74 MIN [...] Trop I hs delta 0 ng/L NEIL JACKSON Trop I hs interp Insignificant CERNER BJ H Blood 09/19/2024 11:0 8 AM CDT 09/19/2024 11:24 AM CDT Ivan Santiago MD LAB BLOOD ORDERABLES F inal Result Performing Organization Address [facility]/ZIP Co de Phone Number NEIL [facility] Department [place] [address] * (ABNORMAL) Urinalysis reflex to microscopic and culture Urine (09/19/2024 10:36 AM CDT) Color, ur Straw Yellow Clarity, ur Clear Clear [facility] Specific gravity, ur 1.021 1.003 - 1.030 [facility] pH, urine 6.0 [facility] Comment: Interpretive Data U rine pH is affected by diet, medications, systemic acid-base disturbances, and renal tubular function. pH may affect urinary stone formation. For example, urine pH below 6.0 may help reduce the tendency for calcium phosphate stones and pH greater than 6.0 may reduce the tendency for uric acid stone formation. Source: [facility] Current Interpretive Data was last revised on 2017 Protein, ur ql 2+(A) Negative [facility] Glucose, ur ql 1+(A) Negative [facility] Ketones, ur Negative Negative [facility] Bilirubin, ur Negative Negative [facility] Blood, ur 3+(A) Negative [facility] Urobilinogen, ur <2.0 <2.0 mg/dL [facility] Nitrite, ur Negative Negative [facility] Leukocyte esterase, ur Negative Negative [facility] UA reflex comment Reflex to microscopic UA will be performed. [facility] Urine 09/19/2024 10:3 6 AM CDT 09/19/2024 10:45 AM CDT Ivan Santiago MD LAB MICROBIOLOGY - GEN ERAL ORDERABLES Final Result Performing Organization Address [facility]/ZIP Co de Phone Number [facility] Department [place] [address] * (ABNORMAL) Drugs of Abuse Screen, Urine without Confirmation (09/19/2024 10:36 AM CDT) [facility] Amphetamine, ur Not Detected [facility] 500ng/mL Comment: Interpretive Data - Amphetamines: Samples containing greater than 500 ng/mL d-methamphetamine or other cross-reacting amphetamine compounds are reported as positive. Amphetamine immunoassays are subject to significant false positive rates due to cross-reactivity of non-amphetamine drugs. Confirmatory testing required for definitive results. Current Interpretive Data was last reviewed 2022. Barbiturates, ur Not Detected CutOff 200ng/mL [facility] Comment: Interpretive Data - Barbiturates: Samples containing greater than 200 ng/mL secobarbital or other cross-reacting barbiturate compounds are reported as positive. False positive and false negative results are possible. Confirmatory testing required for definitive results. Current Interpretive Data was last reviewed 2022. Benzodiazepines, ur Not Detected CutOff 100ng/mL [facility] Comment: Interpretive Data - Benzodiazepines: Samples containing greater than 100 ng/mL nordiazepam or other cross-reacting compounds are reported as positive. False positive and false negative results are possible. Confirmatory testing required for definitive results. Current Interpretive Data was last reviewed 2022. Cannabinoids, ur Not Detected CutOff 50 ng/mL [facility] Comment: Interpretive Data - Cannabinoids: Samples containing greater than 50 ng/mL delta-9 THC -COOH or other cross- reacting compounds are reported as positive. False positive and false negative results are possible. Confirmatory testing required for definitive results. Current Interpretive Data was last reviewed 2022. Cocaine, ur Screen Positive, presumptive (A) CutOff 150ng/mL [facility] Comment: Interpretive Data - Cocaine: Samples containing greater than 150 ng/mL benzoylecgonine or other cross- reacting compounds are reported as positive. False positive and false negative results are possible. Confirmatory testing required for definitive results. Current Interpretive Data was last reviewed 2022. Fentanyl, Ur Screen Positive, presumptive (A) CutOff 5 ng/mL [facility] Comment: Interpretive Data - Fentanyl: Samples containing greater than 5 ng/mL norfentanyl, fentanyl, or other cross-reacting fentanyl compounds are reported as positive. False positive and false negative results are possible. Confirmatory testing required for definitive results. Current Interpretive Data was last reviewed 2023. Methadone, ur Not Detected CutOff 300ng/mL [facility] Comment: Interpretive Data - Methadone: Samples containing greater than 300 ng/mL d,l-methadone or other cross-reacting compounds are reported as positive. False positive and false negative results are possible. Confirmatory testing required for definitive results. Current Interpretive Data was last reviewed 2022. Opiates, ur Not Detected CutOff 300ng/mL [facility] Comment: Interpretive Data - Opiates: Samples containing greater than 300 ng/mL morphine or other cross-reacting compounds are reported as positive. False positive and false negative results are possible. Confirmatory testing required for definitive results. Current Interpretive Data was last reviewed 2022. Oxycodone, ur Not Detected CutOff 100ng/mL [facility] Comment: Interpretive Data - Oxycodone: Samples containing greater than 100 ng/mL oxycodone or other cross-reacting compounds are reported as positive. False positive and false negative results are possible. Confirmatory testing required for definitive results. Current Interpretive Data was last reviewed 2022. Phencyclidine, ur Not Detected CutOff 25 ng/mL [facility] Comment: Interpretive Data - Phencyclidine: Samples containing greater than 25 ng/mL phencyclidine or other cross-reacting compounds are reported as positive. False positive and false negative results are possible. Confirmatory testing required for definitive results. Current Interpretive Data was last reviewed 2022. Urine Creatinine 203 mg/dL [facility] Comment: Interpretive Data Urine Creatinine: < 10 mg/dL is extremely dilute = or > 10 but < 20 mg/dL is dilute = or > 20 mg/dL is normal Current Interpretive Data was last revised on 2017. Urine 09/19/2024 10:3 6 AM CDT 09/19/2024 10:53 AM CDT Narrative [facility] - 09/19/2024 11:44 AM CDT Drug of Abuse screening is performed by immunoassay for medical purposes only. This is not to be used for Pain Management purposes. Ivan Santiago MD LAB URINE ORDERABLES F inal Result [facility] [place] [address] * (ABNORMAL) Urinalysis, microscopic only (09/19/2024 10:36 AM CDT) WBC, ur 6-10(A) 0 - 5 /HPF RBC, ur 11-20(A) 0 - 2 /HPF [facility] Bacteria, ur Trace(A) [facility] Mucous, ur Present(A) [facility] Hyaline casts, ur 6-10 0 - 10 /LPF [facility] Culture Reflex Comment Reflex conditions for urine culture (WBC >10) not met. [facility] Urine 09/19/2024 10:3 6 AM CDT 09/19/2024 10:45 AM CDT Ivan Santiago MD LAB URINE ORDERABLES F inal Result Performing Organization Address [facility] de Phone Number [facility] Department [place] [address] * POCUS Retroperitoneal (AAA or Renal) (09/19/2024 [...] I agree withthe findings. Images on file. Jaylene Rodriguez MD POCUS ORDERABLES Izabela l [...] images may or may not represent the [place] source data set and thus may contain changes that may lower the accuracy of this second-opinion interpretation. Electronically signed by: Elvira Grier M.D. Narrative 09/19/2024 11:06 AM CDT EXAMINATION: RADIOLOGY CONSULTATION ON OUTSIDE IMAGING STUDY STUDY INITIALLY PERFORMED: 09/19/2024 at [facility]. TYPE OF STUDY: Multiple CT images of [...] IMAGING STUDY STUDY INITIALLY PERFORMED: 09/19/2024 at [facility]. TYPE OF STUDY: Multiple CT images of [...] images may or may not represent the [place] source data set and thus may contain [...] images may or may not represent the [place] source data set and thus may contain changes that may lower the accuracy of this second-opinion interpretation. Electronically signed by: Elvira Grier M.D. Narrative 09/19/2024 11:06 AM CDT EXAMINATION: RADIOLOGY CONSULTATION ON OUTSIDE IMAGING STUDY STUDY INITIALLY PERFORMED: 09/19/2024 at [facility]. TYPE OF STUDY: Multiple CT images of [...] IMAGING STUDY STUDY INITIALLY PERFORMED: 09/19/2024 at [facility]. TYPE OF STUDY: Multiple CT images of [...] images may or may not represent the [place] source data set and thus may contain changes that may lower the accuracy of this second-opinion interpretation. Electronically signed by: Elviramesha Grier M.D. Carlos Matos MD PhD IMG CT PROCEDURES F inal Result * XR Outside Reference (09/19/2024 9:59 AM CDT) Impressions [facility] - 09/19/2024 9:59 AM CDT These images are for Reference purposes only and have not been reviewed by [facility] Radiology. There will be no report generated by a [facility] Radiologist. Narrative [facility] - 09/19/2024 9:59 AM CDT EXAMINATION: Images For Reference Purposes Only Carlos Matos MD PhD IMG XR PROCEDURES F inal Result Performing Organization Address [facility] de Phone Number [email or web address] * XR Outside Reference (09/19/2024 9:57 AM CDT) Impressions [facility] - 09/19/2024 9:57 AM CDT These images are for Reference purposes only and have not been reviewed by [facility] Radiology. There will be no report generated by a [facility] Radiologist. Narrative [facility] - 09/19/2024 9:57 AM CDT EXAMINATION: Images For Reference Purposes Only Carlos Matos MD PhD IMG XR PROCEDURES F inal Result Performing Organization Address [facility] Co de Phone Number [email or web address] * MSK CT [...] images may or may not represent the [place] source data set and thus may contain [...] IMAGING STUDY STUDY INITIALLY PERFORMED: 09/19/2024 at [facility]. TYPE OF STUDY: Multiple CT images of [...] IMAGING STUDY STUDY INITIALLY PERFORMED: 09/19/2024 at [facility]. TYPE OF STUDY: Multiple CT images of [...] images may or may not represent the [place] source data set and thus may contain changes that may lower the accuracy of this second-opinion interpretation. Dictated by: Cameron Wang M.D. The radiology attending physician has personally reviewed this study, and had reviewed and/or edited this written report and agrees with it. Electronically signed by: Tip Hudson M.D. Carlos Matos MD PhD IMG CT PROCEDURES [...] 9:36 AM CDT 09/19/2024 9:48 AM CDT Ivan Santiago MD LAB BLOOD ORDERABLES F inal Result Performing Organization Address [facility] Co de Phone Number [facility] [address] * (ABNORMAL) Uric acid (09/19/2024 9:36 AM CDT) Uric acid 9.8(H) 3.0 - 8.0 mg/dL Blood 09/19/2024 9:36 AM CDT 09/19/2024 9:48 AM CDT Julio Younger MD LAB BLOOD ORDERABLES Izabela l Result Performing Organization Address [facility] de Phone Number [facility] [place] [address] * (ABNORMAL) Phosphorus (09/19/2024 9:36 AM CDT) Phosphorus, pl 6.0(H) 2.3 - 4.5 mg/dL Blood 09/19/2024 9:36 AM CDT 09/19/2024 9:48 AM CDT Julio Younger MD LAB BLOOD ORDERABLES Izabela l Result Performing Organization Address [facility] Co de Phone Number [facility] [address] [place], [place] [id number] * (ABNORMAL) Magnesium (09/19/2024 9:36 AM CDT) Magnesium 3.1(H) 1.4 - 2.5 mg/dL Blood 09/19/2024 9:36 AM CDT 09/19/2024 9:48 AM CDT us Julio Younger MD LAB BLOOD ORDERABLES Izabela l Result Performing Organization Address [facility] Co de Phone Number [facility] Department [place] [address] * (ABNORMAL) Creatine kinase (CK), total (09/19/2024 9:36 AM CDT) Pathologist [facility] CK 1,380(H) 40 - 300 Units/L Blood 09/19/2024 9:36 AM CDT 09/19/2024 9:48 AM CDT Julio Younger MD LAB BLOOD ORDERABLES Izabela l Result Performing Organization Address [facility] de Phone Number [facility] Department [place] [address] * (ABNORMAL) Basic metabolic panel (09/19/2024 9:36 AM CDT) [facility] Sodium 145 135 - 145 mmol/L Potassium, pl 5.2(H) 3.3 - 4.9 mmol/L [facility] Chloride 103 97 - 110 mmol/L [facility] CO2 23 22 - 32 mmol/L [facility] Anion gap 19(H) 2 - 15 mmol/L [facility] BUN 65(H) 6 - 25 mg/dL [facility] Creatinine 6.18(H) 0.80 - 1.30 mg/dL [facility] Glucose 125 70 - 199 mg/dL [facility] Comment: Interpretive Data Fasting glucose >/= [...] 2022. Calcium 9.3 8.5 - 10.3 mg/dL [facility] Blood 09/19/2024 9:36 AM CDT 09/19/2024 9:48 AM CDT Ivan Santiago MD LAB BLOOD ORDERABLES F inal Result Performing Organization Address [facility] de Phone Number [facility] [place] [address] * Troponin I high-sensitivity series (baseline, 2hr, 4hr, 6hr) (09/19/2024 9:23 AM CDT) Pathologist [facility] Trop I hs 9 <=35 ng/L Comment: Interpretive Data For further hscTnI resources including the diagnostic algorithm and an aid in interpretation, copy and paste this link: [email or web address].testcatalog.org/show/[email or web address] Current Interpretive Data last revised 2019. Blood 09/19/2024 9:23 AM CDT 09/19/2024 9:48 AM CDT Ivan Santiago MD LAB BLOOD ORDERABLES F inal Result Performing Organization Address [facility] de Phone Number [facility] Department [place] [address] * (ABNORMAL) Differential, auto (09/19/2024 9:23 AM CDT) Neutrophil abs 9.01(H) 1.50 - 6.50 K/cumm Imm gran abs 0.08 0.00 - 0.10 K/cumm [facility] Lymphocyte abs 1.58 0.80 - 3.30 K/cumm [facility] Monocyte abs 1.33(H) 0.20 - 0.80 K/cumm [facility] Eosinophil abs 0.00 0.00 - 0.50 K/cumm [facility] Basophil abs 0.02 0.00 - 0.10 K/cumm [facility] Neutrophil pct 74.9 % [facility] Comment: Interpretive Data Percent cell count reference ranges are not reported, since discordance with absolute values may lead to misinterpretation of CBC data. Current Interpretive Data was last revised on 2017. Imm gran pct 0.7 % [facility] Comment: Interpretive Data Percent cell count reference ranges are not reported, since discordance with absolute values may lead to misinterpretation of CBC data. Current Interpretive Data was last revised on 2017. Lymphocyte pct 13.1 % [facility] Comment: Interpretive Data Percent cell count reference ranges are not reported, since discordance with absolute values may lead to misinterpretation of CBC data. Current Interpretive Data was last revised on 2017. Monocyte pct 11.1 % [facility] Comment: Interpretive Data Percent cell count reference ranges are not reported, since discordance with absolute values may lead to misinterpretation of CBC data. Current Interpretive Data was last revised on 2017. Eosinophil pct 0.0 % [facility] Comment: Interpretive Data Percent cell count reference ranges are not reported, since discordance with absolute values may lead to misinterpretation of CBC data. Current Interpretive Data was last revised on 2017. Basophil pct 0.2 % [facility] Comment: Interpretive Data Percent cell count reference ranges are not reported, since discordance with absolute values may lead to misinterpretation of CBC data. Current Interpretive Data was last revised on 2017. Blood 09/19/2024 9:23 AM CDT 09/19/2024 9:48 AM CDT us Ivan Santiago MD LAB BLOOD ORDERABLES F inal Result [facility] Department [place] [address] * (ABNORMAL) CBC with auto differential (09/19/2024 9:23 AM CDT) WBC 12.02(H) 3.80 - 9.90 K/cumm Hgb 12.1(L) 13.0 - 17.5 g/dL [facility] Hct 36.0(L) 38.9 - 50.3 % [facility] Plt 226 150 - 400 K/cumm [facility] MPV 10.9 9.1 - 12.3 fL [facility] RBC 4.29(L) 4.30 - 5.80 M/cumm [facility] MCV 83.9 81.3 - 96.4 fL [facility] MCH 28.2 27.1 - 33.3 pg [facility] MCHC 33.6 32.3 - 35.7 g/dL [facility] RDW CV 18.7(H) 11.1 - 14.9 % [facility] RDW SD 55.2(H) 35.7 - 48.1 fL [facility] NRBC abs 0.00 0.00 - 0.01 K/cumm [facility] Blood 09/19/2024 9:23 AM CDT 09/19/2024 9:48 AM CDT Ivan Santiago MD LAB BLOOD ORDERABLES F inal Result Performing Organization Address City/[facility] Co de Phone Number [facility] [place] [address] * aPTT (09/19/2024 9:23 AM CDT) [facility] aPTT 37 28 - 38 sec Comment: Interpretive Data Heparin therapeutic range: 66.0 - 100.0 seconds. Range based on correlation with therapeutic heparin activity range of 0.3 - 0.7 Units/mL. Current interpretive data was last revised on 2023. Blood 09/19/2024 9:23 AM CDT 09/19/2024 9:42 AM CDT Ivan Santiago MD LAB BLOOD ORDERABLES F inal Result Performing Organization Address City/[facility] Co de Phone [place] [address] * Protime-INR (09/19/2024 9:23 AM CDT) Pathologist [facility] PT 10.9 9.7 - 13.0 sec INR 1.01 0.90 - 1.20 [facility] Comment: Interpretive data Oral anticoagulant therapeutic ranges: Venous thromboembolism prophylaxis or treatment: 2.0-3.0 CARDIOLOGY Standard range: 2.0-3.0 High-intensity range: 2.5-3.5 Refer to indication-specific guidelines for appropriate target ranges for prosthetic heart valve replacement. Current interpretive data was last revised on 2019. Blood 09/19/2024 9:23 AM CDT 09/19/2024 9:42 AM CDT Ivan Santiago MD LAB BLOOD ORDERABLES F inal Result Performing Organization Address City/[facility] [place] [address] * Type and screen (09/19/2024 9:23 AM CDT) Pathologist [facility] Cris, indirect Negative ABO Rh O Positive [facility] Blood 09/19/2024 9:23 AM CDT 09/19/2024 9:43 AM CDT Narrative [facility] - 09/19/2024 10:43 AM CDT Has the patient had Daratumumab or Isatuximab in the past 6 months?->Unknown Ivan Santiago MD LAB BLOOD BANK TEST OR DERABLES Final Result Performing Organization Address City/[facility]/[place]IP [place] [address] * eGFR (08/28/2024 8:26 AM CDT) [facility] eGFR 89 >=60 mL/min/1. 73 m2 Comment: [...] was last reviewed 2021. Testing performed by: [address] [address] Blood 08/28/2024 8:26 AM CDT 08/28/2024 8:28 AM CDT us Sebas Paredes DO LAB BLOOD ORDERABLES Final R esult [facility] [address] [facility] [place] [address] * (ABNORMAL) Differential, auto (08/28/2024 8:26 AM CDT) Neutrophil abs 8.26(H) 1.50 - 6.50 K/cumm Comment:Testing performed by : [address] [address] Imm gran abs 0.05 0.00 - 0.10 K/cumm [facility] Comment:Testing performed by : [address] [address] Lymphocyte abs 0.70(L) 0.80 - 3.30 K/cumm [facility] Comment:Testing performed by : [address] [address] Monocyte abs 0.28 0.20 - 0.80 K/cumm [facility] Comment:Testing performed by : [address] [address] Eosinophil abs 0.00 0.00 - 0.50 K/cumm [facility] Comment:Testing performed by : [address] [address] Basophil abs 0.01 0.00 - 0.10 K/cumm [facility] Comment:Testing performed by : [address] [address] Neutrophil pct 88.9 % [facility] Comment: Interpretive Data Percent cell count reference ranges are not reported, since discordance with absolute values may lead to misinterpretation of CBC data. Current Interpretive Data was last revised on 2017. Testing performed by: [address] [address] Imm gran pct 0.5 % NEIL Comment: Interpretive Data Percent cell count reference ranges are not reported, since discordance with absolute values may lead to misinterpretation of CBC data. Current Interpretive Data was last revised on 2017. Testing performed by: [address] [address] Lymphocyte pct 7.5 % NEIL Comment: Interpretive Data Percent cell count reference ranges are not reported, since discordance with absolute values may lead to misinterpretation of CBC data. Current Interpretive Data was last revised on 2017. Testing performed by: [address] [address] Monocyte pct 3.0 % NEIL Comment: Interpretive Data Percent cell count reference ranges are not reported, since discordance with absolute values may lead to misinterpretation of CBC data. Current Interpretive Data was last revised on 2017. Testing performed by: [address] [address] Eosinophil pct 0.0 % NEIL Comment: Interpretive Data Percent cell count reference ranges are not reported, since discordance with absolute values may lead to misinterpretation of CBC data. Current Interpretive Data was last revised on 2017. Testing performed by: [address] [address] Basophil pct 0.1 % NEIL Comment: Interpretive Data Percent cell count reference ranges are not reported, since discordance with absolute values may lead to misinterpretation of CBC data. Current Interpretive Data was last revised on 2017. Testing performed by: [address] [address] Blood 08/28/2024 8:26 AM CDT 08/28/2024 8:28 AM CDT Sebas Paredes DO LAB BLOOD ORDERABLES Final R esult [facility] [address] [facility] [place] [address] * (ABNORMAL) CBC with auto differential (08/28/2024 8:26 AM CDT) WBC 9.30 3.80 - 9.90 K/cumm Comment:Testing performed by : [address] [address] Hgb 12.6(L) 13.0 - 17.5 g/dL NEIL Comment:Testing performed by : [address] [address] Hct 37.8(L) 38.9 - 50.3 % NEIL Comment:Testing performed by : [address] [address] Plt 316 150 - 400 K/cumm NEIL Comment:Testing performed by : [address] [address] MPV 10.6 9.1 - 12.3 fL NEIL Comment:Testing performed by : [address] [address] RBC 4.63 4.30 - 5.80 M/cumm NEIL Comment:Testing performed by : [address] [address] MCV 81.6 81.3 - 96.4 fL NEIL Comment:Testing performed by : [address] [address] MCH 27.2 27.1 - 33.3 pg NEIL Comment:Testing performed by : [address] [address] MCHC 33.3 32.3 - 35.7 g/dL NEIL Comment:Testing performed by : [address] [address] RDW CV 15.5(H) 11.1 - 14.9 % NEIL Comment:Testing performed by : [address] [address] RDW SD 45.5 35.7 - 48.1 fL NEIL Comment:Testing performed by : [address] [address] NRBC abs 0.00 0.00 - 0.01 K/cumm NEIL Comment:Testing performed by : [address] [address] ANC Prelim 8.26(H) 1.50 - 6.50 K/cumm NEIL Comment: Interpretive Data The rapid ANC is a preliminary automated count and may vary from the final ANC (Neut Abs) reported in the WBC differential that follows. Current interpretive data was last revised 2024. Testing performed by: [address] [address] Blood 08/28/2024 8:26 AM CDT 08/28/2024 8:28 AM CDT Sebas Paredes DO LAB BLOOD ORDERABLES Final R esult NEIL [address] [facility] [place] [address] * (ABNORMAL) PSA diagnostic (08/28/2024 8:26 AM [...] data last revised 21. Testing performed by: [address] [address] Blood 08/28/2024 8:26 AM CDT 08/28/2024 9:39 AM CDT Sebas Paredes LAB BLOOD ORDERABLES Final R esult Performing Organization Address [facility] de Phone Number JAMES[address] [address] * (ABNORMAL) Phosphorus (08/28/2024 8:26 AM CDT) Phosphorus, pl 1.3(C) 2.3 - 4.5 mg/dL Comment: Critical Result called to and read back by Karolyn Myrick RN Epic Secure Chat, DATE: 2024-08-28 09:03:05 BY: [id number] Testing performed by: [address] [address] Blood 08/28/2024 8:26 AM CDT 08/28/2024 8:28 AM CDT Sebas Paredes LAB BLOOD ORDERABLES Final [facility] Performing Organization Address [facility] de Phone Number [facility] [address] [facility] [address] [address] * (ABNORMAL) Comprehensive metabolic panel (08/28/2024 8:26 AM CDT) Sodium 142 135 - 145 mmol/L Comment:Testing performed by : [address] [address] Potassium, pl 4.4 3.3 - 4.9 mmol/L NEIL Comment:Testing performed by : [address] [address] Chloride 106 97 - 110 mmol/L NEIL Comment:Testing performed by : [address] [address] CO2 23 22 - 32 mmol/L NEIL Comment:Testing performed by : [address] [address] Anion gap 13 2 - 15 mmol/L NEIL Comment:Testing performed by : [address] [address] BUN 23 6 - 25 mg/dL NEIL Comment:Testing performed by : [address], [place]., [address] Creatinine 1.00 0.80 - 1.30 mg/dL NEIL Comment:Testing performed by : [address] [address] Glucose 139 70 - 199 mg/dL NEIL [...] was last revised 2022. Testing performed by: [address] [address] Calcium 10.5(H) 8.5 - 10.3 mg/dL NEIL Comment:Testing performed by : [address] [address] Bilirubin, total <0.2 0.1 - 1.2 mg/dL NEIL Comment:Testing performed by : [address] [address] Protein, pl 8.8(H) 6.5 - 8.5 g/dL NEIL Comment:Testing performed by : [address] [address] Albumin 4.7 3.5 - 5.0 g/dL NEIL Comment:Testing performed by : [facility], [address] [place] [address]., [address] Alk phos 78 40 - 130 Units/L NEIL Comment:Testing performed by : [address] [address] ALT 16 7 - 55 Units/L NEIL Comment:Testing performed by : [address] [address] AST 17 10 - 50 Units/L NEIL Comment:Testing performed by : [address] [address] Blood 08/28/2024 8:26 AM CDT 08/28/2024 8:28 AM CDT us Sebas Paredes DO LAB BLOOD ORDERABLES Final R esult Performing Organization Address City/[facility]/ZIP Co de Phone Number [facility] [address] [facility] [place] [address] * Hepatitis panel, acute Blood (02/20/2024 4:55 AM DEPUTY ADMINISTRATOR) Hep A IgM Nonreactive Nonreactive Hep B core IgM Nonreactive Non[facility] Hep C Ab Nonreactive Nonreactive [facility] Comment:Antibodies to HCV no t detected. Does NOT exclude the possibility of recent exposure to HCV. Current interpretive data was last revised on 21 HepBsAg Nonreactive Nonreactive [facility] Blood 02/20/2024 4:55 AM DEPUTY ADMINISTRATOR 02/20/2024 5:15 AM DEPUTY ADMINISTRATOR us Glen Fischer MD LAB MICROBIOLOGY - GENERAL OR DERABLES Final Result [facility] Department [place] [address] from Last 3 Months or Most Recently Relevant to Health Maintenance Insurance [facility] Address: [address] [address] [place] [address] [facility] Address: [address] [address] [place] [address] [employer] Advance Directives For more information, please contact: [phone] * Full Code (Latest Code Status on [...] Edgar Sister Health Care Agent Care Teams Glue Size Machine Operator Relationship Specialty Start Date End Date Елена Thomas MD [address] [facility] [address] [place] [address] PCP - General Internal Medicine 01/17/24 Sebas Paredes DO [address] [place] [address] MEDICAL ONCOLOGY, [address] [address] Medical Oncologist/Stopping Builder Hematology and Oncology 01/01/24 Elder Carranza MD [address] [facility] RADIATION ONCOLOGY, [place] [address] Radiation Oncologist Radiation Oncology 01/30/24
[2024-11-28 13:58] LABS: Hematocrit 28.7 % (42.0-52.0); Hemoglobin 9.0 g/dL (14.0-18.0); Immature Granulocyte Percent A 0.4 % (0-0.5); Lymphocytes Absolute Auto 1.45 K/mm3 (0.9-3.2); Mean Corpuscular HGB Conc 31.4 g/dl (32-36); Mean Corpuscular Hemoglobin 26.9 pg (26-34); Mean Corpuscular Volume 85.7 fl (80-100); Nucleated Red Blood Cells Absolute Auto 0.000 K/mm3 (0.0-0.012); Nucleated Red Blood Cells Perc 0.0 % (0.0-0.2); Platelet Count Result 349 k/mm3 (150-375); Red Blood Count 3.35 M/mm3 (4.6-6.20); White Blood Count 9.9 K/mm3 (4.5-10.0)
[2024-11-28] MEDS: MORPHINE SULFATE (*CRX) 4 MG/ML INJ IV PUSH ×3 (14:05→20:36)
[2024-11-28 14:14] LABS: INR 1.2; Prothrombin Time 15.0 Seconds (11.1-14.7)
[2024-11-28 14:15] LABS: Partial Thromboplastin Time 38.6 Seconds (22.3-36.8)
[2024-11-28 14:23] LABS: Anion Gap 6 mmol/L (4-12); Blood Urea Nitrogen 6 mg/dL (9-20); Calcium 8.7 mg/dL (8.4-10.2); Carbon Dioxide 27 mmol/L (22-30); Chloride 101 mmol/L (98-107); Estimated CRCL calculation 128 ml/min; Estimated Glomerular Filt Rate > 60; Glucose 108 mg/dL (65-110); Potassium 4.2 mmol/L (3.4-5.0); Sodium 134 mmol/L (137-145)
[2024-11-28 14:53] LABS: NT Pro B Type Natriuretic Pept < 20 pg/mL (19.9-100)
[2024-11-28] MEDS: DOXYCYCLINE HYCLATE 100 MG TABLET PO (17:47)
--- NOTE | 2024-11-28 20:11 | ADMGEN ---
This patient, Leopoldo Edgar III, was admitted to Medical Room 259-. Patient/family oriented to hospital policies and general routines including ID bracelet, bed and alarms, visiting hours, pain management, procedures, bathroom and other care routines, personal items, smoking policy, room service/diet, and visiting hours. Information on how to activate the Rapid Response Team has been discussed. Patient/Family are encouraged to report perceived risks to care and to ask questions if they do not understand what they are told or what they should do.
--- NOTE | 2024-11-28 21:15 | PM.IMHP ---
H&P: HPI History of Present Illness Date/Time: 11/28/24 21:15 Chief Complaint: Swelling of both legs for 3 days Narrative: 54-year-old male with a past medical history of stage IV prostate cancer, essential hypertension, spinal stenosis due to metastatic disease with chronic pain who presented to the ER with bilateral lower extremity swelling for 3 days. Source of information is obtained from patient report although patient is alert orient x4 he is not the best historian in subsequently information was supplemented by review of past medical records and ER physician report as well as information obtained from patient's sister with the help of nursing staff. 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 The patient reports that 3 days ago is bilateral lower extremity started to swell right greater than left. The pain in his right lower extremity extended from the right lower extremity up through the thigh and into his buttock. The pain was so severe that he was apnea drag is leg behind him. He describes having Army crawl to the bathroom. He had a venous Doppler performed in the ER which was negative for DVT. Patient denies any increased shortness of breath, nausea or vomiting. He does have some chronic constipation due to his chronic pain medications. He denies a known history of obstructive sleep apnea. He states he does not know if he snores. He denies having any fevers or chills. He reports that a couple of weeks ago he developed shingles to his right shoulder and chest and in bilateral ear canals. He was treated with antiviral therapy at that time. He states that he fell a few weeks ago and had surgery to his left knee but it is unclear when he had the surgery as the scar appears extremely well healed and seems much older. He reports that he has had some areas of rash to his leg that he thought was also due to shingles. His areas of shingles on his chest an arm appear to be healing well and are dry. It looks like it patient has removed the scabs from the area of. He has a few scattered ulcerations to his area surrounding his knee and below his knee but no associated erythema or increased warmth. He denies any known injury to the leg for recently. He denies any chest pain, shortness breast or palpitations. He reports that he started on chemotherapy for prostate cancer in April but is only received 3 of the 5 doses of chemotherapy due to infections. He reports that he has been having brown stools without hematochezia or melena. He denies hematuria. Review of Systems Review of Systems: 12 systems were reviewed with pertinent positives and negatives per HPI. Except as documented in the HPI, all other systems were reviewed and are negative. PENDING SALE TO [facility] Past Medical History Medical History (Updated 11/28/24 @ 21:26 by Gabby Soto DO) Anxiety and depression Chronic hyponatremia Spinal stenosis Metastatic malignant neoplasm to prostate Completed radiation therapy February 2024 currently on chemotherapy Smoking Drug abuse Surgical History Surgical History (Updated 11/28/24 @ 21:22 by Gabby Soto DO) History of total right knee replacement (~2015) History of transmetatarsal amputation of left foot (~2003) Family History Family History (Updated 11/28/24 @ 20:26 by Genevieve Weiss RN) Mother Hypertension Social History Social History (Updated 11/29/24 @ 08:48 by Gabby Soto DO) Social History: The patient reports that he is single and has never . He had 5 children. He reports that he has smoked 3-4 cigarettes a day on average on off since he was a teenager. He denies history of alcohol use. He uses marijuana daily. Code status: Full code Surrogate decision maker: Madison Edgar Manolo (sister) Smoking status: Current every day smoker Tobacco type: cigarettes Alcohol intake: never Substance use: current Substance use type: marijuana Other substance usage details: daily Last use: 12/12/23 Do You Feel Safe in your Home?: Yes Lack of Transportation: No Lack of Food: Never True Current Housing: I Have Housing Concerned About Future Housing: No Difficulty Paying Gas/Electric Bills: No Difficulty Paying for Meds: No Currently Unemployed: No Education: High School Diploma/GED Difficulty w/ Childcare or Family Care: No Spiritual care concerns: No Meds Home Medications and Allergies Home Medications ?Medication ?Instructions ?Recorded ?Confirmed ?Type amlodipine 10 mg tablet 10 mg PO DAILY 12/12/23 11/28/24 History apixaban 5 mg (74 tabs) tablets in 5 mg PO Q12H 11/28/24 11/28/24 History a dose pack (EliquMEDL Mobile DVT-PE Treat 30D Start) baclofen 20 mg tablet 20 mg PO Q8H 11/28/24 11/28/24 History cholecalciferol (vitamin D3) 50 50 mcg PO DAILY 11/28/24 11/28/24 History mcg (2,000 unit) capsule clonazepam 0.5 mg tablet 0.5 mg PO Q12H PRN anxiety 11/28/24 11/28/24 History docusate sodium 100 mg capsule 100 mg PO BID 11/28/24 11/28/24 History duloxetine 30 mg capsule,delayed 30 mg PO DAILY 11/28/24 11/28/24 History release lisinopril 40 mg tablet 40 mg PO DAILY 11/28/24 11/28/24 History oxycodone 5 mg tablet 5 mg PO Q12H PRN pain (scale score 11/28/24 11/28/24 History 7-10) pregabalin 200 mg capsule 200 mg PO Q8H 11/28/24 11/28/24 History tramadol 200 mg tablet,extended 200 mg PO Q24H 11/28/24 11/28/24 History release 24 hr Allergies Allergy/AdvReac Type Severity Reaction Status Date / Time amitriptyline Allergy Intermediate ABNORMAL Verified 11/28/24 12:24 THOUGHTS Vital Signs Vital Signs - 24 hr 11/28/24 11:20 11/28/24 12:24 11/28/24 13:48 Temperature 97.9 F 98.1 F Pulse Rate 109 H 100 100 Respiratory Rate 18 18 18 Blood Pressure 128/66 122/73 116/53 L Pulse Oximetry 96 96 100 Oxygen Delivery Room Air Room Air 11/28/24 14:37 11/28/24 16:59 11/28/24 17:48 Temperature Pulse Rate 102 H 100 109 H Respiratory Rate 17 19 19 Blood Pressure 107/58 L 152/72 H 160/76 H Pulse Oximetry 99 98 98 Oxygen Delivery 11/28/24 18:46 11/28/24 20:00 11/28/24 20:21 Temperature 98.8 F 99.6 F Pulse Rate 113 H 104 H Respiratory Rate 16 16 Blood Pressure 121/67 139/59 L Pulse Oximetry 95 97 Oxygen Delivery Room Air 11/28/24 20:41 Temperature 99.6 F Pulse Rate 104 H Respiratory Rate 16 Blood Pressure 139/59 L Pulse Oximetry 97 Oxygen Delivery Exam Narrative: Weight 113.4 kg BMI 34.9 Const: Other: Obese, no acute distress, appears older than stated age HENMT: Other: Mucous membranes are dry, no oral pharyngeal erythema, crowded posterior oropharynx Eyes: Other: Pupils are equal and reactive, no scleral icterus, positive conjunctival pallor Neck: Other: No JVD, large neck circumference Resp: Other: Clear to auscultation bilaterally, no increased work of breathing Cardio: Other: Tachycardic, her regular rhythm, 2+ bilateral radial and pedal pulses GI: Other: Distended, nontender, normoactive bowel sounds, soft Skin: Other: No pallor, non jaundice, shallow ulcerations to the right anterior chest and upper arm no surrounding erythema, shallow ulcerations to the posterior right knee and going around the knee she from the 12 o'clock position to the 6 o'clock position along the medial aspect, no associated erythema or increased warmth, old scar to medial knee consistent with prior with history of total knee arthroplasty in the past Neuro: Other: Alert oriented x3, speech is clear, no facial asymmetry, no localizing neurologic deficits noted during the course of casual conversation Extrem: Other: 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 with well-healed scar, will alert scar over the right knee at site of prior knee arthroplasty, 2-3 + pitting edema right lower extremity up through the thigh, 1+ pitting edema left lower extremity Psych: Other: Anxious, restless H&P: Results Labs Labs: Laboratory Tests 11/28/24 13:45 11/28/24 13:45 11/28/24 13:45 WBC 9.9 RBC 3.35 L Hgb 9.0 L D Hct 28.7 L MCV 85.7 MCH 26.9 MCHC 31.4 L RDW 17.5 H Plt Count 349 MPV 10.2 Immature Gran % (Auto) 0.4 Neut % (Auto) 70.4 Lymph % (Auto) 14.6 L [place] % (Auto) 13.1 H Eos % (Auto) 1.2 Baso % (Auto) 0.3 Lymph # (Auto) 1.45 [place] # (Auto) 1.3 H Eos # (Auto) 0.1 Baso # (Auto) 0.0 Abs Immat Gran (auto) 0.04 H Absolute Neuts (auto) 7.0 H Absolute Nucleated RBC 0.000 Nucleated RBC % 0.0 PT 15.0 H INR 1.2 APTT 38.6 H Sodium 134 L Potassium 4.2 Chloride 101 Carbon Dioxide 27 Anion Gap 6 BUN 6 L D Creatinine 0.72 Estim Creat Clear Calc 128 Estimated GFR > 60 Glucose 108 Calcium 8.7 NT-Pro-B Natriuret Pep < 20 Impressions Venous Doppler Study 11/28/24 13:42 IMPRESSION: 1: No lower extremity deep venous thrombosis. Chest CTA 11/28/24 15:15 IMPRESSION: No definite CT evidence of large central acute pulmonary embolus. Study otherwise nondiagnostic with respect to evaluation of the pulmonary arteries. Patient will be brought back to rescan, with improved IV access and attempts to minimize respiratory motion artifact. 6.1 cm right inferior thyroid mass, extending into the superior mediastinum, increased in size. 1.3 cm left thyroid nodule. Multiple sclerotic bone lesions concerning for metastatic disease, with interval progression. Chest CTA 11/28/24 16:53 IMPRESSION: No definite CT evidence of large central acute pulmonary embolus. Study otherwise nondiagnostic with respect to evaluation of the pulmonary arteries despite repeat attempts. Mild cardiomegaly and small pericardial effusion. Cholelithiasis without inflammatory changes. 6.1 cm right inferior thyroid mass, extending into the superior mediastinum, increased in size since 2023. 1.3 cm left thyroid nodule, stable since 2023. Multiple sclerotic bone lesions concerning for metastatic disease, with interval progression since 2023. Assessment and Plan Assessment and plan (1) Cellulitis: Qualifiers: Laterality: right Site of cellulitis: extremity Site of cellulitis of extremity: lower extremity Qualified Code(s): L03.115 - Cellulitis of right lower limb Code(s): L03.90 - Cellulitis, unspecified Status: Acute (2) Bilateral lower extremity edema: Code(s): R60.0 - Localized edema Status: Acute (3) Anemia: Qualifiers: Anemia type: unspecified type Qualified Code(s): D64.9 - Anemia, unspecified Code(s): D64.9 - Anemia, unspecified Status: Acute (4) Metastatic malignant neoplasm to prostate: Code(s): C79.82 - Secondary malignant neoplasm of genital organs Status: Acute (5) Cardiomegaly: Code(s): I51.7 - Cardiomegaly Status: Acute (6) Chronic hyponatremia: Code(s): E87.1 - Hypo-osmolality and hyponatremia Status: Acute Plan Patient's extremity is not overtly erythematous but he does have some open wounds. They are not draining. He could have some cellulitis. Patient has right lower extremity cellulitis in patient with immune compromise state due to underlying malignancy. Patient was started on doxycycline in the ER. Will discontinue this and switch patient to Ancef. Will check MRSA screen if positive patient may benefit more from being on vancomycin pharmacy to dose. Will obtain blood cultures,, lactic acid, procalcitonin and CRP. Will repeat CBC in a.m.. Patient does have bilateral lower extremity swelling that is somewhat new and imaging suggest cardiomegaly. Will obtain echocardiogram to further evaluate cardiac structure and function. Will monitor strict I&O's and daily weights. However lower extremity edema could also be due to patient's malignancy and lymphadenopathy. Venous Doppler the right lower extremity were negative for DVT. Will resume home Eliquis. Patient does have chronic hyponatremia the sodium is stable. Will repeat electrolyte panel in a.m.. Patient has chronic opiate dependence with chronic pain. But we do not have long-acting tramadol subsequently, after discussion with pharmacy will proceed with scheduled tramadol 50 mg q.6 had been ordered will also continue the patient's home clear cough and baclofen dosing. Will continue p.r.n. oxycodone will increase frequency to q.6 hours for the short term p.r.n. pain 7-10. Will continue home bowel regimen. MEDICAL DECISION MAKING NARRATIVE -Spoke with the ED provider in detail regarding patient's evaluation, workup and management -Patient seen and examined at bedside -Collaborated with patient's nurse at the bedside in detail and addressed all concerns -Labs, electrolytes, radiology, investigations and test results reviewed -ED/Consult/Nursing/Ancilliary notes on the chart reviewed and appreciated -Spoke with patient/family at bedside and all questions were answered. Patient is in agreement with plan. Patient has been admitted as observation status. Quality VTE Prophylaxis VTE prophylaxis: pharmacologic ordered (Continue home Eliquis.) Hospitalist [facility] Advance Care Plan I have confirmed that the patient's Advanced Care Plan is present, code status is documented, or surrogate decision maker is listed in patient medical record.: Yes Medication Reconciliation I have utilized all available resources to obtain, update and review the patients current medications (includes all prescriptions, OTC, herbals, cannabis, and nutritional supplements).: Yes
[2024-11-28 23:27] LABS: Iron 20 ug/dL (49-181)
[2024-11-28 23:31] LABS: Alanine Aminotransferase 17 U/L (6-50); Albumin Level 3.6 g/dL (3.5-5.1); Alkaline Phosphatase 98 U/L (38-126); Aspartate Amino Transferase 25 U/L (17-59); Bilirubin,Total 0.3 mg/dL (0.2-1.3); Total Protein 7.0 g/dL (6.3-8.2)
[2024-11-28 23:37] LABS: Percent Iron Saturation 7 % (20-50)
[2024-11-28 23:37] LABS: NT Pro B Type Natriuretic Pept 21 pg/mL (19.9-100)
[2024-11-28 23:41] LABS: CRP 18.3 mg/dL (<1.0)
[2024-11-28 23:45] LABS: Procalcitonin 0.2 ng/mL
[2024-11-29] VITALS (8 sets, daily range): BP systolic 108–131; BP diastolic 40–58; PULSE 81–110; RESP 16–20; TEMP 36.7–37.9; O2SAT 90–96
--- NOTE | 2024-11-29 | ECHO_ITS ---
Patient Info Name: Leopoldo Edgar Age: 54 years : 1970 Gender: Male Ht: 71 in Wt: 250 lbs BSA: 2.42 m2 HR: 97 bpm BP: 111 / 40 mmHg Technical Quality: Good Exam Date: 11/29/2024 12:00 PM Patient Status: I Admit Date: 11/29/2024 Exam Type: CA echo doppler color flow Complete two-dimensional, color flow and Doppler transthoracic echocardiogram is performed. Staff Referring Physician: Jing Chen Clin Asst: Rena French Attending Provider: Maurilio Long Summary 1. Complete two-dimensional, color flow and Doppler transthoracic echocardiogram is performed. 2. Left ventricular chamber dimension is normal. 3. Left ventricular systolic function is normal, estimated at 60-65. 4. The left ventricular diastolic function is normal. 5. E/e' 8 is minimally elevated. 6. Left atrial chamber dimension is mildly enlarged. Left Ventricle E/e' 8 is minimally elevated. Left ventricular chamber dimension is normal. Left ventricular systolic function is normal, estimated at 60-65. The left ventricular diastolic function is normal. Right Ventricle Right ventricular chamber dimension is normal. Right ventricular systolic function is normal and with normal TAPSE 1.8 cm. Left Atria Left atrial chamber dimension is mildly enlarged. Right Atria Right atrial chamber dimension is normal. Aortic Valve The aortic valve is probable trileaflet. There is no aortic valve stenosis. There is no aortic valve regurgitation. Pulmonic Valve There is no pulmonic regurgitation. Mitral Valve There is no mitral valve stenosis. There is no mitral valve regurgitation. Tricuspid Valve There is no tricuspid valve regurgitation. Pericardium/Pleural There is no pericardial effusion. Inferior Vena Cava Normal inferior vena cava with >50% collapse upon inspiration consistent with normal right atrial pressure, 5 mmHg. Aorta The aortic root size at the sinus of Valsalva is normal. Left Ventricular Outflow Tract Name Value Normal LVOT 2D LVOT Diameter 2.0 cm LVOT Doppler LVOT Peak Velocity 138 cm/s LVOT Peak Gradient 7 mmHg LVOT Mean Gradient 4 mmHg LVOT VTI 27 cm LVOT VTI/AV VTI Ratio 0.8 LVOT Stroke Volume 87 ml LVOT CO 8.5 l/min LVOT CI 3.5 l/min/m2 Pulmonic Valve Name Value Normal RVOT Doppler RVOT Peak Velocity 80 cm/s RVOT Peak Gradient 3 mmHg PV Doppler PV Peak Velocity 146 cm/s PV Peak Gradient 9 mmHg Mitral Valve Name Value Normal MV Diastolic Function MV E Peak Velocity 100 cm/s MV A Peak Velocity 85 cm/s MV E/A 1.2 MV Decel Time (PW) 233 ms MV Annular TDI MV E/e' (Septal) 8.7 MV E/e' (Lateral) 9.1 MV E/e' (Average) 8.9 Tricuspid Valve Name Value Normal Estimated PAP/RSVP RA Pressure 5 mmHg <=5 Aortic Valve Name Value Normal AV Doppler AV Peak Velocity 215 cm/s AV Peak Gradient 15 mmHg AV Mean Gradient 6 mmHg AV VTI 34 cm AV Area (Cont Eq VTI) 2.5 cm2 >=3.0 AV Area (Cont Eq Alexander) 2.1 cm2 AV DI (Alexander) 0.64 AV Regurgitation 2D LVOT Area 3.2 cm2 Ventricles Name Value Normal LV Dimensions 2D/MM IVS Diastolic Thickness (2D) 1.1 cm 0.6-1.0 LVID Diastole (2D) 4.9 cm 4.2-5.8 LVIW Diastolic Thickness (2D) 1.3 cm 0.6-1.0 LVID Systole (2D) 3.4 cm 2.5-4.0 LVOT Diameter 2.0 cm LV Mass (2D Cubed) 233.12 g 88.00-224.00 LV Mass Index (2D Cubed) 96 g/m2 49-115 Relative Wall Thickness (2D) 0.53 <=0.42 LV Fractional Shortening/Ejection Fraction 2D/MM LV Fractional Shortening (2D) 30 % 25-43 LV EF (2D Teichanthonyz) 58 % LV Diastolic Volume (4C MOD) 157 ml LV EF (4C MOD) 65 % LV Diastolic Volume (2C MOD) 108 ml LV EF (2C MOD) 65 % LV Diastolic Volume (BP MOD) 130 ml 62-150 LV Diastolic Volume Index (BP MOD) 54 ml/m2 34-74 LV Systolic Volume (BP MOD) 47 ml 21-61 LV Systolic Volume Index (BP MOD) 20 ml/m2 11-31 LV EF (BP MOD) 64 % 52-72 LV Diastolic Length (4C) 9.7 cm LV Systolic Length (4C) 8.9 cm LV Stroke Volume (4C MOD) 101 ml Atria Name Value Normal LA Dimensions LA Volume (4C A-L) 76 ml LA Volume (BP A-L) 74 ml RA Dimensions RA Systolic Major [place] Length (4C) 5.2 cm 2.1-2.7 RA Area (4C) 14.1 cm2 <=18.0 Report Signatures
[2024-11-29 00:05] LABS: Ferritin 139.00 ng/mL (11.1-264)
[2024-11-29] MEDS: BACLOFEN 10 MG TABLET 20 MG PO ×4 (00:19→21:30)
[2024-11-29] MEDS: PREGABALIN (*CRX) 50 MG CAPSULE 200 MG PO ×4 (00:19→21:29)
[2024-11-29] MEDS: APIXABAN 5 MG TABLET PO ×3 (00:19→21:30)
[2024-11-29] MEDS: traMADol HCL (*CRX) 50 MG TABLET PO ×4 (00:20→17:49)
[2024-11-29] MEDS: ceFAZolin 1 GM in SODIUM CHLORIDE 0.9% IV 50 ML 100 ML IVPB ×4 (00:20→21:32)
[2024-11-29 00:21] LABS: MRSA (PCR) NOT DETECTED (NOT DETECTE)
[2024-11-29 00:35] LABS: Vitamin B12 270.0 pg/mL (239-931)
[2024-11-29] MEDS: MORPHINE SULFATE (*CRX) 4 MG/ML INJ IV PUSH ×2 (05:05→22:29)
[2024-11-29 05:55] LABS: Hematocrit 26.6 % (42.0-52.0); Hemoglobin 8.1 g/dL (14.0-18.0); Immature Granulocyte Percent A 0.4 % (0-0.5); Lymphocytes Absolute Auto 1.59 K/mm3 (0.9-3.2); Mean Corpuscular HGB Conc 30.5 g/dl (32-36); Mean Corpuscular Hemoglobin 26.8 pg (26-34); Mean Corpuscular Volume 88.1 fl (80-100); Nucleated Red Blood Cells Absolute Auto 0.000 K/mm3 (0.0-0.012); Nucleated Red Blood Cells Perc 0.0 % (0.0-0.2); Platelet Count Result 337 k/mm3 (150-375); Red Blood Count 3.02 M/mm3 (4.6-6.20); White Blood Count 8.2 K/mm3 (4.5-10.0)
[2024-11-29 07:05] LABS: Anion Gap 5 mmol/L (4-12); Blood Urea Nitrogen 5 mg/dL (9-20); Calcium 8.4 mg/dL (8.4-10.2); Carbon Dioxide 26 mmol/L (22-30); Chloride 101 mmol/L (98-107); Estimated CRCL calculation 125 ml/min; Estimated Glomerular Filt Rate > 60; Glucose 99 mg/dL (65-110); Potassium 4.1 mmol/L (3.4-5.0); Sodium 132 mmol/L (137-145)
[2024-11-29] MEDS: CHOLECALCIFEROL (VITAMIN D3) 25 MCG (1,000 UNITS) TABLET 50 MCG PO (08:55)
[2024-11-29] MEDS: FERROUS SULFATE 325 MG TABLET DR PO ×2 (08:56→17:49)
[2024-11-29] MEDS: DOCUSATE SODIUM 100 MG CAPSULE PO ×2 (08:56→17:49)
[2024-11-29] MEDS: oxyCODONE HCL (*CRX) 5 MG TAB IR PO ×2 (08:57→21:30)
--- NOTE | 2024-11-29 12:52 | P.PNIM_ITS ---
Progress Note: A&P Assessment and Plan (1) Localized swelling of both lower legs: Code(s): R22.43 - Localized swelling, mass and lump, lower limb, bilateral Status: Acute Assessment and Plan: Patient with bilateral lower extremity swelling right greater than the left venous Dopplers negative for DVT. Bilateral with to touch in [id number] pain plan to treat for possible cellulitis. Patient also reports he his right knee week or to earlier * CT right knee pending evaluate to ensure there is no infection has multiple open wounds to his upper extremity and torso in to evaluate make sure he does not a septic joint infection after fall with hardware in place. * Continue IV Ancef for now pending blood cultures * Echocardiogram pending CTA did to cardiomegaly evaluate heart failure * This could be secondary to his malignancy and myopathy * CRP elevated as expected Procal WNL (2) Cellulitis: Qualifiers: Laterality: right Site of cellulitis: extremity Site of cellulitis of extremity: lower extremity Qualified Code(s): L03.115 - Cellulitis of right lower limb Code(s): L03.90 - Cellulitis, unspecified Status: Acute Assessment and Plan: SEE ABOVE (3) Metastatic malignant neoplasm to prostate: Code(s): C79.82 - Secondary malignant neoplasm of genital organs Status: Acute Assessment and Plan: Patient with history metastatic prostate cancer has completed his radiation therapy in continues IV chemotherapy to skip his last chemotherapy due to shingles infection and open wounds * Continue patient's home pain medication adjusted to we have formulated tramadol Q 6 * Continue his Lyrica for nerve pain * Continue patient's baclofen (4) Anemia: Qualifiers: Anemia type: unspecified type Qualified Code(s): D64.9 - Anemia, unspecified Code(s): D64.9 - Anemia, unspecified Status: Acute Assessment and Plan: 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 * Wound care consulted * Continue with IV Ancef if blood cultures come back negative likely transition to oral antibiotics * Benadryl as needed Pruritus (6) Tachycardia: Code(s): R00.0 - Tachycardia, unspecified Status: Acute Assessment and Plan: Patient presented with tachycardia sustaining in the 110s to 120s * Echocardiogram pending * Started on carvedilol 6.25 b.i.d. (7) Hypertension: Code(s): I10 - Essential (primary) hypertension Status: Acute Assessment and Plan: * Continued amlodipine and lisinopril * Started low-dose carvedilol due to sustained tachycardia Plan Code status: Full code per patient DVT prophylaxis: Eliquis Stress ulcer prophylaxis: NA PT/OT notes: PT/OT pending Disposition: Patient continues admission to the medical unit for further evaluation and treatment of lower extremity swelling with mild to moderate pain with possible cellulitis and wound infections patient continue [place] with woun d consult and IV antibiotics pending blood cultures. Time Spent With Patient Time with patient: 15 - 25 minutes Subjective Date/time seen: 11/29/24 12:52 Interval history: Patient is a 54 year old admitted to the medical unit for further evaluation of bilateral lower extremity swelling right greater than left with some concern for cellulitis. Patient recently treated for shingles has multiple open wounds reported patient has extreme itching. Patient also stated he had fallen within the last couple weeks on to the right knee which he had had a previous replacement to. 11/29/2024: Patient still with mild to moderate BLE pain and swelling R>L. Patient denies any SOB, CP, Fever, chills but still has moderate itching. Review of Systems Review of Systems: All systems reviewed & are unremarkable except as noted in HPI and below Exam Const: General: comfortable and no acute distress HENMT: Mouth: Yes moist mucous membranes Eyes: General: appearance normal, both eyes and all related structures Neck: Neck: supple and no JVD Resp: Effort & Inspection: normal respiratory effort Cardio: Rate: tachycardic Rhythm: regular rhythm GI: GI Palp: Yes Soft to palpation Auscultation: normal bowel sounds Skin: Wounds: wounds noted (Multiple open wounds BUE, Neck, chest, and RT ear) Neuro: Speech: normal speech Extrem: General: edema (R>L ) bilateral Psych: Mental Status: mental status grossly normal Affect: normal affect Objective Data Vital Signs Vital Signs: Vital Signs - 24 hr 11/28/24 13:48 11/28/24 14:37 11/28/24 16:59 Temperature Pulse Rate 100 102 H 100 Respiratory Rate 18 17 19 Blood Pressure 116/53 L 107/58 L 152/72 H Pulse Oximetry 100 99 98 Oxygen Delivery 11/28/24 17:48 11/28/24 18:46 11/28/24 20:00 Temperature 98.8 F 99.6 F Pulse Rate 109 H 113 H 104 H Respiratory Rate 19 16 16 Blood Pressure 160/76 H 121/67 139/59 L Pulse Oximetry 98 95 97 Oxygen Delivery 11/28/24 20:21 11/28/24 20:41 11/29/24 00:00 Temperature 99.6 F 100.2 F H Pulse Rate 104 H 109 H Respiratory Rate 16 20 Blood Pressure 139/59 L 108/57 L Pulse Oximetry 97 93 Oxygen Delivery Room Air 11/29/24 04:00 11/29/24 05:45 11/29/24 07:45 Temperature 100.2 F H 100.2 F H 98.5 F Pulse Rate 110 H 110 H 103 H Respiratory Rate 20 20 20 Blood Pressure 111/40 L 111/40 L 119/52 L Pulse Oximetry 91 91 90 Oxygen Delivery Intake/Output Intake/Output: Intake & Output 11/26/24 11/27/24 11/28/24 11/29/24 23:59 23:59 23:59 23:59 Intake Total 522 Output Total 600 Balance -78 Meds/Results Medications: Active Medications Generic Name Dose Route Start Last Admin Trade Name Freq PRN Reason Stop Dose Admin Acetaminophen 650 mg 11/28/24 18:36 Acetaminophen 325 Mg Tablet PO Q4H PRN Mild Pain (1-3) or Fever Amlodipine Besylate 10 mg 11/29/24 09:00 11/29/24 08:55 Amlodipine Besylate 10 Mg Tablet PO 10 mg DAILY CHRISTINE Administration Apixaban 5 mg 11/28/24 21:45 11/29/24 08:55 Apixaban 5 Mg Tablet PO 5 mg Q12HR CHRISTINE Administration Baclofen 20 mg 11/28/24 22:00 11/29/24 05:10 Baclofen 10 Mg Tablet PO 20 mg Q8H CHRISTINE Administration Clonazepam 0.5 mg 11/28/24 21:34 Clonazepam (*Crx) 0.5 Mg Tablet PO Q12H PRN anxiety Docusate Sodium 100 mg 11/29/24 09:00 11/29/24 08:56 Docusate Sodium 100 Mg Capsule PO 100 mg BID CHRISTINE Administration Duloxetine HCl 30 mg 11/29/24 09:00 11/29/24 08:56 Duloxetine Hcl 30 Mg Capsule.Dr PO 30 mg DAILY CHRISTINE Administration Ferrous Sulfate 325 mg 11/29/24 09:00 11/29/24 08:56 Ferrous Sulfate [address] PO 325 mg BID CHRISTINE Administration Cefazolin Sodium 1 gm/ Sodium 50 mls @ 100 mls/hr 11/28/24 22:00 11/29/24 05:11 Chloride IVPB 100 mls/hr Q8H CHRISTINE Administration Lisinopril 40 mg 11/29/24 09:00 11/29/24 08:56 Lisinopril 20 Mg Tablet PO 40 mg DAILY CHRISTINE Administration Morphine Sulfate 4 mg 11/28/24 18:36 11/29/24 05:05 Morphine Sulfate (*Crx) 4 Mg/Ml Inj IV PUSH 4 mg Q2H PRN Administration Pain Rated 7-10 Oxycodone HCl 5 mg 11/28/24 21:34 11/29/24 08:57 Oxycodone Hcl (*Crx) 5 Mg Tab Ir PO 5 mg Q6H PRN Administration pain (scale score 7-10) Perflutren Lipid Microsphere 0 ml 11/28/24 21:39 Perflutren Lipid Microspheres 1.5 Ml Vial Diluted To 10 Ml Total Volume IV PUSH 12/01/24 21:39 ONCE PRN adequate visualization Protocol Pregabalin 200 mg 11/28/24 22:00 11/29/24 07:23 Pregabalin (*Crx) 50 Mg Capsule PO 200 mg Q8H CHRISTINE Administration Tramadol HCl 50 mg 11/28/24 21:50 11/29/24 12:28 Tramadol Hcl (*Crx) 50 Mg Tablet PO 50 mg Q6HR CHRISTINE Administration Vitamin D 50 mcg 11/29/24 09:00 11/29/24 08:55 Cholecalciferol (Vitamin D3) 25 Mcg (1,000 Units) Tablet PO 50 mcg DAILY CHRISTINE Administration Radiology Results: ITS Impressions Venous Doppler Study 11/28/24 13:42 IMPRESSION: 1: No lower extremity deep venous thrombosis. Chest CTA 11/28/24 16:53 IMPRESSION: No definite CT evidence of large central acute pulmonary embolus. Study otherwise nondiagnostic with respect to evaluation of the pulmonary arteries despite repeat attempts. Mild cardiomegaly and small pericardial effusion. Cholelithiasis without inflammatory changes. 6.1 cm right inferior thyroid mass, extending into the superior mediastinum, increased in size since 2023. 1.3 cm left thyroid nodule, stable since 2023. Multiple sclerotic bone lesions concerning for metastatic disease, with interval progression since 2023. Labs Labs: Laboratory Results - last 24 hr 11/28/24 11/28/24 11/28/24 13:45 22:35 23:09 WBC 9.9 RBC 3.35 L Hgb 9.0 L D Hct 28.7 L MCV 85.7 MCH 26.9 MCHC 31.4 L RDW 17.5 H Plt Count 349 MPV 10.2 Immature Gran % (Auto) 0.4 Neut % (Auto) 70.4 Lymph % (Auto) 14.6 L [place] % (Auto) 13.1 H Eos % (Auto) 1.2 Baso % (Auto) 0.3 Lymph # (Auto) 1.45 [place] # (Auto) 1.3 H Eos # (Auto) 0.1 Baso # (Auto) 0.0 Abs Immat Gran (auto) 0.04 H Absolute Neuts (auto) 7.0 H Absolute Nucleated RBC 0.000 Nucleated RBC % 0.0 PT 15.0 H INR 1.2 APTT 38.6 H Sodium 134 L Potassium 4.2 Chloride 101 Carbon Dioxide 27 Anion Gap 6 BUN 6 L D Creatinine 0.72 Estim Creat Clear Calc 128 Estimated GFR > 60 Glucose 108 Lactic Acid Calcium 8.7 Iron TIBC % Saturation Ferritin Total Bilirubin 0.3 Direct Bilirubin 0.0 AST 25 ALT 17 Alkaline Phosphatase 98 C-Reactive Protein 18.3 H NT-Pro-B Natriuret Pep < 20 21 Total Protein 7.0 Albumin 3.6 Vitamin B12 270.0 Folate 13.7 Procalcitonin 0.2 Nasal MRSA (PCR) Not detected 11/28/24 11/28/24 11/29/24 23:10 23:11 04:58 WBC 8.2 RBC 3.02 L Hgb 8.1 L Hct 26.6 L MCV 88.1 MCH 26.8 MCHC 30.5 L RDW 17.4 H Plt Count 337 MPV 11.1 H Immature Gran % (Auto) 0.4 Neut % (Auto) 62.2 Lymph % (Auto) 19.4 [place] % (Auto) 16.0 H Eos % (Auto) 1.8 Baso % (Auto) 0.2 Lymph # (Auto) 1.59 [place] # (Auto) 1.3 H Eos # (Auto) 0.2 Baso # (Auto) 0.0 Abs Immat Gran (auto) 0.03 Absolute Neuts (auto) 5.1 Absolute Nucleated RBC 0.000 Nucleated RBC % 0.0 PT INR APTT Sodium 132 L Potassium 4.1 Chloride 101 Carbon Dioxide 26 Anion Gap 5 BUN 5 L Creatinine 0.74 Estim Creat Clear Calc 125 Estimated GFR > 60 Glucose 99 Lactic Acid 1.2 Calcium 8.4 Iron 20 L TIBC 286 % Saturation 7 L Ferritin 139.00 Total Bilirubin Direct Bilirubin AST ALT Alkaline Phosphatase C-Reactive Protein NT-Pro-B Natriuret Pep Total Protein Albumin Vitamin B12 Folate Procalcitonin Nasal MRSA (PCR) Quality VTE Prophylaxis VTE prophylaxis: pharmacologic ordered -Patient's previous records reviewed on admission -ER notes reviewed in detail on admission -discussed all findings and current treatment plan with patient/Family/POA -Consultations reviewed for recommendations -Patient's disposition for safe discharge discussed with case resource manager Dictation performed by [employer] direct speech recognition software, therefore tinter photograph variants and typographical errors may occur. Hospitalist MIPS Advance Care Plan I have confirmed that the patient's Advanced Care Plan is present, code status is documented, or surrogate decision maker is listed in patient medical record.: Yes Medication Reconciliation I have utilized all available resources to obtain, update and review the patients current medications (includes all prescriptions, OTC, herbals, cannabis, and nutritional supplements).: Yes The patient is not eligible for med reconciliation; the patient is in a emergent medical situation where delaying treatment would jeopardize the patients health.: No
--- NOTE | 2024-11-29 13:25 | PCWOUND ---
WOCN NOTE Received consult for multiple areas to chest and legs. Patient was seen by Wound RN this morning and it was noted that patient had multiple dry scabs to the shoulder, face and ears with noted scars to chest and torso. Wounds are dry and tacky at this time, no wound care is needed. Notified RN for patient.
[2024-11-30] MEDS: traMADol HCL (*CRX) 50 MG TABLET PO ×4 (00:48→16:56)
[2024-11-30] MEDS: MORPHINE SULFATE (*CRX) 4 MG/ML INJ IV PUSH ×3 (00:48→21:33)
[2024-11-30 04:47] LABS: Hematocrit 26.4 % (42.0-52.0); Hemoglobin 8.1 g/dL (14.0-18.0); Mean Corpuscular HGB Conc 30.7 g/dl (32-36); Mean Corpuscular Hemoglobin 26.6 pg (26-34); Mean Corpuscular Volume 86.8 fl (80-100); Platelet Count Result 366 k/mm3 (150-375); Red Blood Count 3.04 M/mm3 (4.6-6.20); White Blood Count 7.4 K/mm3 (4.5-10.0)
[2024-11-30 05:11] LABS: Alanine Aminotransferase 18 U/L (6-50); Albumin Level 3.5 g/dL (3.5-5.1); Alkaline Phosphatase 92 U/L (38-126); Anion Gap 6 mmol/L (4-12); Aspartate Amino Transferase 27 U/L (17-59); Bilirubin,Total 0.3 mg/dL (0.2-1.3); Blood Urea Nitrogen 5 mg/dL (9-20); Calcium 8.4 mg/dL (8.4-10.2); Carbon Dioxide 26 mmol/L (22-30); Chloride 101 mmol/L (98-107); Estimated CRCL calculation 122 ml/min; Estimated Glomerular Filt Rate > 60; Glucose 103 mg/dL (65-110); Magnesium 2.4 mg/dL (1.6-2.3); Potassium 4.1 mmol/L (3.4-5.0); Sodium 133 mmol/L (137-145); Total Protein 6.9 g/dL (6.3-8.2)
[2024-11-30] MEDS: ceFAZolin 1 GM in SODIUM CHLORIDE 0.9% IV 50 ML 100 ML IVPB ×3 (05:36→21:31)
[2024-11-30] MEDS: PREGABALIN (*CRX) 50 MG CAPSULE 200 MG PO ×3 (05:36→21:35)
[2024-11-30] MEDS: BACLOFEN 10 MG TABLET 20 MG PO ×3 (05:36→21:35)
[2024-11-30 05:41] LABS: Thyroid Stimulating Hormone 0.835 uIU/mL (0.465-4.680)
[2024-11-30 06:01] VITALS: BP 127/60; PULSE 91; RESP 16; TEMP 36.5; O2SAT 97
--- NOTE | 2024-11-30 07:57 | P.PNIM_ITS ---
Progress Note: A&P Assessment and Plan (1) Localized swelling of both lower legs: Code(s): R22.43 - Localized swelling, mass and lump, lower limb, bilateral Status: Acute Assessment and Plan: Patient with bilateral lower extremity swelling right greater than the left venous Dopplers negative for DVT. Bilateral with to touch in [id number] pain plan to treat for possible cellulitis. Patient also reports he his right knee week or to earlier * CT right knee pending evaluate to ensure there is no infection has multiple open wounds to his upper extremity and torso in to evaluate make sure he does not a septic joint infection after fall with hardware in place. * Continue IV Ancef for now pending blood cultures * Echocardiogram pending CTA did to cardiomegaly evaluate heart failure * This could be secondary to his malignancy and myopathy * CRP elevated as expected Procal WNL * CT Knee showing: subacute distal metaphyseal fracture of the right femur with associated fracture of the underlying intramedullary shon from prior fixation. * WIll consult ortho for review and recommendations unsure if patient would be surgical candidate (2) Cellulitis: Qualifiers: Laterality: right Site of cellulitis: extremity Site of cellulitis of extremity: lower extremity Qualified Code(s): L03.115 - Cellulitis of right lower limb Code(s): L03.90 - Cellulitis, unspecified Status: Acute Assessment and Plan: SEE ABOVE (3) Metastatic malignant neoplasm to prostate: Code(s): C79.82 - Secondary malignant neoplasm of genital organs Status: Acute Assessment and Plan: Patient with history metastatic prostate cancer has completed his radiation therapy in continues IV chemotherapy to skip his last chemotherapy due to shingles infection and open wounds * Continue patient's home pain medication adjusted to we have formulated tramadol Q 6 * Continue his Lyrica for nerve pain * Continue patient's baclofen * CTA showin.1 cm right inferior thyroid mass, extending into the superior mediastinum * Follows with oncology Dr. Paredes will reach out about thyroid findings patient reported he was not aware of a thyroid mass * TSH WNL L (4) Anemia: Qualifiers: Anemia type: unspecified type Qualified Code(s): D64.9 - Anemia, unspecified Code(s): D64.9 - Anemia, unspecified Status: Acute Assessment and Plan: 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 * Wound care consulted * Continue with IV Ancef if blood cultures come back negative likely transition to oral antibiotics * Benadryl as needed Pruritus (6) Hypertension: Code(s): I10 - Essential (primary) hypertension Status: Acute Assessment and Plan: * Continued amlodipine and lisinopril * Started low-dose carvedilol due to sustained tachycardia (7) Tachycardia: Code(s): R00.0 - Tachycardia, unspecified Status: Resolved Assessment and Plan: Patient presented with tachycardia sustaining in the 110s to 120s * Echocardiogram LVEF 60-65 * Started on carvedilol 6.25 b.i.d. Plan Code status: Full code per patient DVT prophylaxis: Eliquis Stress ulcer prophylaxis: NA PT/OT notes: PT/OT pending Disposition: Patient continues admission to he medical unit will Ortho evaluate subacute fracture with PT/OT evaluation following to determine discharge planning needs patient will need follow-up with his oncologist Time Spent With Patient Time with patient: 15 - 25 minutes Subjective Date/time seen: 11/30/24 07:57 Interval history: Patient is a 54 year old admitted to the medical unit for further evaluation of bilateral lower extremity swelling right greater than left with some concern for cellulitis. Patient recently treated for shingles has multiple open wounds reported patient has extreme itching. Patient also stated he had fallen within the last couple weeks on to the right knee which he had had a previous replacement to. 11/30/2024: Patient still with moderate BLE pain, denied CP, SOB, and dizziness. CT knee with subacute femur fracture ortho consulted for further evaluation and recommendations Review of Systems Review of Systems: 12 systems were reviewed with pertinent positives and negatives per HPI. Except as documented in the HPI, all other systems were reviewed and are negative. All systems reviewed & are unremarkable except as noted in HPI and below Exam Const: General: comfortable and no acute distress Other: Obese, no acute distress, appears older than stated age HENMT: Mouth: Yes moist mucous membranes Other: Mucous membranes are dry, no oral pharyngeal erythema, crowded posterior oropharynx Eyes: General: appearance normal, both eyes and all related structures Other: Pupils are equal and reactive, no scleral icterus, positive conjunctival pallor Neck: Neck: supple and no JVD Other: No JVD, large neck circumference Resp: Effort & Inspection: normal respiratory effort Other: Clear to auscultation bilaterally, no increased work of breathing Cardio: Rate: tachycardic Rhythm: regular rhythm Other: Tachycardic, her regular rhythm, 2+ bilateral radial and pedal pulses GI: Auscultation: normal bowel sounds Other: Distended, nontender, normoactive bowel sounds, soft Skin: General skin exam: wounds noted (Multiple open wounds BUE, Neck, chest, and RT ear) Wounds: wounds noted (Multiple open wounds BUE, Neck, chest, and RT ear) Other: No pallor, non jaundice, shallow ulcerations to the right anterior chest and upper arm no surrounding erythema, shallow ulcerations to the posterior right knee and going around the knee she from the 12 o'clock position to the 6 o'clock position along the medial aspect, no associated erythema or increased warmth, old scar to medial knee consistent with prior with history of total knee arthroplasty in the past Neuro: Speech: normal speech Other: Alert oriented x3, speech is clear, no facial asymmetry, no localizing neurologic deficits noted during the course of casual conversation Extrem: General: edema (R>L ) bilateral Other: 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 with well-healed scar, will alert scar over the right knee at site of prior knee arthroplasty, 2-3 + pitting edema right lower extremity up through the thigh, 1+ pitting edema left lower extremity Psych: Mental Status: mental status grossly normal Affect: normal affect Other: Anxious, restless Objective Data Vital Signs Vital Signs: Vital Signs - 24 hr 11/29/24 12:56 11/29/24 14:08 11/29/24 20:00 Temperature Pulse Rate 101 H 101 H Respiratory Rate 20 Blood Pressure 131/53 L Pulse Oximetry 91 Oxygen Delivery Room Air 11/29/24 21:30 11/29/24 21:33 11/30/24 06:01 Temperature 98.0 F 97.7 F Pulse Rate 81 81 91 Respiratory Rate 16 16 Blood Pressure 115/58 L 127/60 Pulse Oximetry 96 97 Oxygen Delivery Intake/Output Intake/Output: Intake & Output 11/27/24 11/28/24 11/29/24 11/30/24 23:59 23:59 23:59 23:59 Intake Total 1622 450 Output Total 1350 1450 Balance 272 -1000 Meds/Results Medications: Active Medications Generic Name Dose Route Start Last Admin Trade Name Freq PRN Reason Stop Dose Admin Acetaminophen 650 mg 11/28/24 18:36 Acetaminophen 325 Mg Tablet PO Q4H PRN Mild Pain (1-3) or Fever Amlodipine Besylate 10 mg 11/29/24 09:00 11/29/24 08:55 Amlodipine Besylate 10 Mg Tablet PO 10 mg DAILY CHRISTINE Administration Apixaban 5 mg 11/28/24 21:45 11/29/24 21:30 Apixaban 5 Mg Tablet PO 5 mg Q12HR CHRISTINE Administration Baclofen 20 mg 11/28/24 22:00 11/30/24 05:36 Baclofen 10 Mg Tablet PO 20 mg Q8H CHRISTINE Administration Carvedilol 6.25 mg 11/29/24 13:00 11/29/24 21:30 Carvedilol 6.25 Mg Tablet PO 6.25 mg Q12HR CHRISTINE Administration Clonazepam 0.5 mg 11/28/24 21:34 Clonazepam (*Crx) 0.5 Mg Tablet PO Q12H PRN anxiety Diphenhydramine HCl 50 mg 11/29/24 12:53 Diphenhydramine Hcl Cap 25 Mg Capsule PO Q6H PRN Itching Docusate Sodium 100 mg 11/29/24 09:00 11/29/24 17:49 Docusate Sodium 100 Mg Capsule PO 100 mg BID CHRISTINE Administration Duloxetine HCl 30 mg 11/29/24 09:00 11/29/24 08:56 Duloxetine Hcl 30 Mg Capsule.Dr PO 30 mg DAILY CHRISTINE Administration Ferrous Sulfate 325 mg 11/29/24 09:00 11/29/24 17:49 Ferrous Sulfate [address] PO 325 mg BID CHRISTINE Administration Cefazolin Sodium 1 gm/ Sodium 50 mls @ 100 mls/hr 11/28/24 22:00 11/30/24 05:36 Chloride IVPB 100 mls/hr Q8H CHRISTINE Administration Lisinopril 40 mg 11/29/24 09:00 11/29/24 08:56 Lisinopril 20 Mg Tablet PO 40 mg DAILY CHRISTINE Administration Morphine Sulfate 4 mg 11/28/24 18:36 11/30/24 05:38 Morphine Sulfate (*Crx) 4 Mg/Ml Inj IV PUSH 4 mg Q2H PRN Administration Pain Rated 7-10 Oxycodone HCl 5 mg 11/28/24 21:34 11/29/24 21:30 Oxycodone Hcl (*Crx) 5 Mg Tab Ir PO 5 mg Q6H PRN Administration pain (scale score 7-10) Perflutren Lipid Microsphere 0 ml 11/28/24 21:39 Perflutren Lipid Microspheres 1.5 Ml Vial Diluted To 10 Ml Total Volume IV PUSH 12/01/24 21:39 ONCE PRN adequate visualization Protocol Pregabalin 200 mg 11/28/24 22:00 11/30/24 05:36 Pregabalin (*Crx) 50 Mg Capsule PO 200 mg Q8H CHRISTINE Administration Tramadol HCl 50 mg 11/28/24 21:50 11/30/24 05:36 Tramadol Hcl (*Crx) 50 Mg Tablet PO 50 mg Q6HR CHRISTINE Administration Vitamin D 50 mcg 11/29/24 09:00 11/29/24 08:55 Cholecalciferol (Vitamin D3) 25 Mcg (1,000 Units) Tablet PO 50 mcg DAILY CHRISTINE Administration Radiology Results: ITS Impressions Venous Doppler Study 11/28/24 13:42 IMPRESSION: 1: No lower extremity deep venous thrombosis. Chest CTA 11/28/24 16:53 IMPRESSION: No definite CT evidence of large central acute pulmonary embolus. Study ot herwise nondiagnostic with respect to evaluation of the pulmonary arteries despite repeat attempts. Mild cardiomegaly and small pericardial effusion. Cholelithiasis without inflammatory changes. 6.1 cm right inferior thyroid mass, extending into the superior mediastinum, increased in size since 2023. 1.3 cm left thyroid nodule, stable since 2023. Multiple sclerotic bone lesions concerning for metastatic disease, with interval progression since 2023. Knee CT 11/29/24 16:46 IMPRESSION: 1. Developing callus formation about a mildly displaced and mildly angulated subacute distal metaphyseal fracture of the right femur with associated fracture of the underlying intramedullary shon from prior fixation. 2. Gradient of increasing density within a small effusion at the suprapatellar pouch of the right knee most likely related to secondary hemarthrosis. Cannot exclude septic arthritis prostate mild sulcal there is no evident aggressive appearing osteolysis to elevate suspicion. 3. Right total knee arthroplasty which appears to remain well seated with no periprosthetic lucency to suggest loosening or infection. Labs Labs: Laboratory Results - last 24 hr 11/30/24 04:27 WBC 7.4 RBC 3.04 L Hgb 8.1 L Hct 26.4 L MCV 86.8 MCH 26.6 MCHC 30.7 L RDW 17.2 H Plt Count 366 MPV 10.6 H Sodium 133 L Potassium 4.1 Chloride 101 Carbon Dioxide 26 Anion Gap 6 BUN 5 L Creatinine 0.76 Estim Creat Clear Calc 122 Estimated GFR > 60 Glucose 103 Calcium 8.4 Magnesium 2.4 H Total Bilirubin 0.3 AST 27 ALT 18 Alkaline Phosphatase 92 Total Protein 6.9 Albumin 3.5 TSH 0.835 Quality VTE Prophylaxis VTE prophylaxis: pharmacologic ordered -Patient's previous records reviewed on admission -ER notes reviewed in detail on admission -discussed all findings and current treatment plan with patient/Family/POA -Consultations reviewed for recommendations -Patient's disposition for safe discharge discussed with onsite case manager Dictation performed by [employer] direct speech recognition software, therefore produce team lead variants and typographical errors may occur. Hospitalist MIPS Advance Care Plan I have confirmed that the patient's Advanced Care Plan is present, code status is documented, or surrogate decision maker is listed in patient medical record.: Yes Medication Reconciliation I have utilized all available resources to obtain, update and review the patients current medications (includes all prescriptions, OTC, herbals, cannabis, and nutritional supplements).: Yes The patient is not eligible for med reconciliation; the patient is in a emergent medical situation where delaying treatment would jeopardize the patients health.: No
[2024-11-30 08:29] VITALS: PULSE 95
[2024-11-30] MEDS: APIXABAN 5 MG TABLET PO ×2 (08:29→21:35)
[2024-11-30] MEDS: CHOLECALCIFEROL (VITAMIN D3) 25 MCG (1,000 UNITS) TABLET 50 MCG PO (08:29)
[2024-11-30] MEDS: DOCUSATE SODIUM 100 MG CAPSULE PO ×2 (08:29→16:51)
[2024-11-30] MEDS: FERROUS SULFATE 325 MG TABLET DR PO ×2 (08:29→16:51)
[2024-11-30] MEDS: oxyCODONE HCL (*CRX) 5 MG TAB IR PO ×2 (08:30→17:48)
[2024-11-30 08:32] VITALS: BP 132/52; PULSE 95; RESP 18; O2SAT 97
--- NOTE | 2024-11-30 09:57 | PCPTNOTE ---
CT results show small femur fx. Hospitalist note states to wait until after ortho consult. Physical therapy will assess patient as time allows.
[2024-11-30 14:00] VITALS: BP 112/54; PULSE 82; RESP 18; TEMP 36.8; O2SAT 95
--- NOTE | 2024-11-30 17:16 | P.CONOP_ITS ---
Assessment and Plan Assessment and plan (1) Pathological fracture, right femur, subsequent encounter for fracture with delayed healing: Code(s): M84.451G - Pathological fracture, right femur, subsequent encounter for fracture with delayed healing Status: Acute Assessment and Plan: 54-year-old with metastatic prostate cancer and nonunion of right distal femur fracture. Fracture may have been pathologic in nature given the cystic appearance on radiographs. Fracture of the hardware which was placed previously. Unsure how chronic this is as patient is poor historian. Treatment and care was done at [facility]. may have been reason for increased swelling although initially both legs were swollen by report. Recommend nonweightbearing restrictions at this point and follow-up with the primary surgical service. No further recommendations for orthopedic treatment here. History of Present Illness HPI Consult date: 11/30/24 Requesting physician: Jing Chen APRN Chief complaint: Cellulitis, intractable leg pain Narrative: 54-year-old with history of metastatic prostate cancer and right distal fibular fracture. Treated with intramedullary fixation several months ago at [facility]. prior to that had right knee replacement. Admitted to the hospital with bilateral lower leg swelling. This has largely improved per patient report. Minimal swelling of the left leg and no pain. Right leg swelling improved but still has pain at the knee. Review of Systems 2 Constitutional: Constitutional: Denies fever(s) Eyes: Eyes: Denies blurry vision ENT: Reports Normal hearing present Cardiovascular: Cardiovascular: Denies chest pain and Denies dyspnea Respiratory: Respiratory: Denies dyspnea and Denies wheezing Gastrointestinal: Gastrointestinal: Denies abdominal pain Musculoskeletal: Musculoskeletal: Reports as per HPI and Denies numbness Neurologic: Reports Normal hearing present, Denies behavioral changes, Denies confusion, Denies numbness and Denies convulsions Psychiatric: Psychiatric: Denies behavioral changes, Denies confusion and Denies hallucinations Endocrine: Endocrine: Denies heat intolerance Hematologic/Lymphatic: Hematologic/Lymphatic: Denies easy bleeding Allergic/Immunologic: Allergic/Immunologic: Denies wheezing PMFSH Past Medical History Medical History (Updated 11/30/24 @ 17:22 by Chacho Rodrgiuez MD) Pathological fracture, right femur, subsequent encounter for fracture with delayed healing Anxiety and depression Chronic hyponatremia Spinal stenosis Metastatic malignant neoplasm to prostate Completed radiation therapy February 2024 currently on chemotherapy Smoking Drug abuse Surgical History Surgical History History of total right knee replacement (~2015) History of transmetatarsal amputation of left foot (~2003) Family History Family History Mother Hypertension Social History Social History Social History: The patient reports that he is single and has never . He had 5 children. He reports that he has smoked 3-4 cigarettes a day on average on off since he was a teenager. He denies history of alcohol use. He uses marijuana daily. Code status: Full code Surrogate decision maker: Madison Edgar Manolo (sister) Smoking status: Current every day smoker Tobacco type: cigarettes Alcohol intake: never Substance use: current Substance use type: marijuana Other substance usage details: daily Last use: 12/12/23 Do You Feel Safe in your Home?: Yes Lack of Transportation: No Lack of Food: Never True Current Housing: I Have Housing Concerned About Future Housing: No Difficulty Paying Gas/Electric Bills: No Difficulty Paying for Meds: No Currently Unemployed: No Education: High School Diploma/GED Difficulty w/ Childcare or Family Care: No Spiritual care concerns: No Meds Home Medications and Allergies Home Medications ?Medication ?Instructions ?Recorded ?Confirmed ?Type amlodipine 10 mg tablet 10 mg PO DAILY 12/12/23 11/28/24 History apixaban 5 mg (74 tabs) tablets in 5 mg PO Q12H 11/28/24 11/28/24 History a dose pack (Eliquis DVT-PE Treat 30D Start) baclofen 20 mg tablet 20 mg PO Q8H 11/28/24 11/28/24 History cholecalciferol (vitamin D3) 50 50 mcg PO DAILY 11/28/24 11/28/24 History mcg (2,000 unit) capsule clonazepam 0.5 mg tablet 0.5 mg PO Q12H PRN anxiety 11/28/24 11/28/24 History docusate sodium 100 mg capsule 100 mg PO BID 11/28/24 11/28/24 History duloxetine 30 mg capsule,delayed 30 mg PO DAILY 11/28/24 11/28/24 History release lisinopril 40 mg tablet 40 mg PO DAILY 11/28/24 11/28/24 History oxycodone 5 mg tablet 5 mg PO Q12H PRN pain (scale score 11/28/24 11/28/24 History 7-10) pregabalin 200 mg capsule 200 mg PO Q8H 11/28/24 11/28/24 History tramadol 200 mg tablet,extended 200 mg PO Q24H 11/28/24 11/28/24 History release 24 hr Allergies Allergy/AdvReac Type Severity Reaction Status Date / Time amitriptyline Allergy Intermediate ABNORMAL Verified 11/28/24 12:24 THOUGHTS Vital Signs Vital Signs - 24 hr 11/29/24 20:00 11/29/24 21:30 11/29/24 21:33 Temperature 98.0 F Pulse Rate 81 81 Respiratory Rate 16 Blood Pressure 115/58 L Pulse Oximetry 96 Oxygen Delivery Room Air 11/30/24 06:01 11/30/24 08:00 11/30/24 08:29 Temperature 97.7 F Pulse Rate 91 95 Respiratory Rate 16 Blood Pressure 127/60 Pulse Oximetry 97 Oxygen Delivery Room Air 11/30/24 08:32 11/30/24 14:00 Temperature 98.2 F Pulse Rate 95 82 Respiratory Rate 18 18 Blood Pressure 132/52 L 112/54 L Pulse Oximetry 97 95 Oxygen Delivery Exam 2 Const: General: No in distress or confusion Orientation/consciousness: o riented to person and oriented to place HENMT: Head: normal to inspection, normocephalic and atraumatic Eyes: Conjunctivae: conjunctivae normal Sclera: sclerae normal Neck: Neck: supple and nontender Resp: Effort & Inspection: normal respiratory effort and no audible wheezes Cardio: Rate: regular rate Rhythm: regular rhythm Neuro: General: oriented to person and oriented to place Extrem: Right upper extremity: normal to inspection Left upper extremity: n ormal to inspection Right lower extremity: hip/thigh Details: normal ROM; no tenderness, knee Details: abnormal to inspection ( Surgical incisions anterior knee and proximal lower leg. Superficial opening of the more distal portion of the incision without drainage.), tenderness (anterior and medial joint line ) Location: of the medial joint line (moderate ) and of the pre-patellar area (moderate ), swelling (peripatellar and medial joint Moderate), abnormal ROM (active range of motion -10 degrees extension, 110 degrees flexion) Details: pain with active ROM during Details: in extension and in flexion, knee ligament exam normal Details: anterior drawer test normal, posterior drawer test normal, valgus stress test normal and Heather?s test normal, knee ligament exam abnormal Details: varus stress test normal (painful medial ) and other ( no erythema); no unusual warmth and foot Details: normal capillary refill, toes with normal ROM, vascular exam Details: dorsalis pedis pulse present and motor-sensory exam Details: light-touch normal; no tenderness; no edema Left lower extremity: n ormal to inspection, normal capillary refill and knee Details: normal ROM (Active extension 5, flexion 130) and knee ligament exam normal; no tenderness Results Labs 11/30/24 04:27 11/30/24 04:27 Labs: Abnormal lab results 11/30/24 Range/Units 04:27 RBC 3.04 L (4.6-6.20) M/mm3 Hgb 8.1 L (14.0-18.0) g/dL Hct 26.4 L (42.0-52.0) % MCHC 30.7 L (32-36) g/dl RDW 17.2 H (11.5-14.5) % MPV 10.6 H (7.4-10.4) fl Sodium 133 L (137-145) mmol/L BUN 5 L (9-20) mg/dL Magnesium 2.4 H (1.6-2.3) mg/dL H & H 11/28/24 11/29/24 11/30/24 Range/Units 13:45 04:58 04:27 Hgb 9.0 L D 8.1 L 8.1 L (14.0-18.0) g/dL Hct 28.7 L 26.6 L 26.4 L (42.0-52.0) % Coagulation 11/28/24 Range/Units 13:45 INR 1.2 Diagnostic results Knee x-ray: image reviewed ( right knee with previous total arthroplasty in good position. Previous distal femur fracture with intramedullary fixation. Fracture of the distal portion of the shon and incomplete healing of the fracture with mild angulation and displacement. Left femur fractures with moderate knee degenerative )
[2024-11-30 21:36] VITALS: PULSE 77
[2024-11-30 22:12] VITALS: BP 124/56; PULSE 76; RESP 14; TEMP 36.8; O2SAT 96
[2024-12-01] MEDS: oxyCODONE HCL (*CRX) 5 MG TAB IR PO ×3 (02:00→17:24)
[2024-12-01] MEDS: traMADol HCL (*CRX) 50 MG TABLET PO ×4 (02:00→17:25)
[2024-12-01 04:56] LABS: Hematocrit 27.5 % (42.0-52.0); Hemoglobin 8.3 g/dL (14.0-18.0); Mean Corpuscular HGB Conc 30.2 g/dl (32-36); Mean Corpuscular Hemoglobin 26.4 pg (26-34); Mean Corpuscular Volume 87.6 fl (80-100); Platelet Count Result 384 k/mm3 (150-375); Red Blood Count 3.14 M/mm3 (4.6-6.20); White Blood Count 6.9 K/mm3 (4.5-10.0)
[2024-12-01 05:19] LABS: Alanine Aminotransferase 19 U/L (6-50); Albumin Level 3.4 g/dL (3.5-5.1); Alkaline Phosphatase 90 U/L (38-126); Anion Gap 5 mmol/L (4-12); Aspartate Amino Transferase 27 U/L (17-59); Bilirubin,Total 0.2 mg/dL (0.2-1.3); Blood Urea Nitrogen 4 mg/dL (9-20); Calcium 8.5 mg/dL (8.4-10.2); Carbon Dioxide 30 mmol/L (22-30); Chloride 101 mmol/L (98-107); Estimated CRCL calculation 125 ml/min; Estimated Glomerular Filt Rate > 60; Glucose 118 mg/dL (65-110); Magnesium 2.5 mg/dL (1.6-2.3); Potassium 4.3 mmol/L (3.4-5.0); Sodium 136 mmol/L (137-145); Total Protein 6.8 g/dL (6.3-8.2)
[2024-12-01] MEDS: PREGABALIN (*CRX) 50 MG CAPSULE 200 MG PO ×3 (06:22→22:28)
[2024-12-01] MEDS: BACLOFEN 10 MG TABLET 20 MG PO ×3 (06:22→22:29)
[2024-12-01] MEDS: ceFAZolin 1 GM in SODIUM CHLORIDE 0.9% IV 50 ML 100 ML IVPB ×3 (06:22→23:06)
[2024-12-01 06:23] VITALS: BP 117/57; PULSE 75; RESP 14; TEMP 36.8; O2SAT 93
[2024-12-01] MEDS: CHOLECALCIFEROL (VITAMIN D3) 25 MCG (1,000 UNITS) TABLET 50 MCG PO (08:49)
[2024-12-01 08:50] VITALS: PULSE 78
[2024-12-01] MEDS: FERROUS SULFATE 325 MG TABLET DR PO ×2 (08:50→17:25)
[2024-12-01] MEDS: APIXABAN 5 MG TABLET PO ×2 (08:50→22:29)
[2024-12-01] MEDS: DOCUSATE SODIUM 100 MG CAPSULE PO ×2 (08:50→17:24)
--- NOTE | 2024-12-01 09:43 | P.PNIM_ITS ---
Progress Note: A&P Assessment and Plan (1) Pathological fracture, right femur, subsequent encounter for fracture with delayed healing: Code(s): M84.451G - Pathological fracture, right femur, subsequent encounter for fracture with delayed healing Status: Acute Assessment and Plan: * ortho consulted reviewed and evaluated CT scans further recommendations * non weight-bearing * will need to follow-up outpatient with his surgical team at [facility] from previous knee replacement * PT/OT eval for possible SNF placement * pain management (2) Localized swelling of both lower legs: Code(s): R22.43 - Localized swelling, mass and lump, lower limb, bilateral Status: Acute Assessment and Plan: Patient with bilateral lower extremity swelling right greater than the left venous Dopplers negative for DVT. Bilateral with to touch in [id number] pain plan to treat for possible cellulitis. Patient also reports he his right knee week or to earlier * CT right knee pending evaluate to ensure there is no infection has multiple open wounds to his upper extremity and torso in to evaluate make sure he does not a septic joint infection after fall with hardware in place. * IV Ancef Blood cultures NGTD Q48 hours, normal WBC and lower extremity swelling likely due to fracture and lymphadenopathy, cultures for wounds still pending if these do not grow will discontinue antibiotic therapy * This could be secondary to his malignancy and myopathy * CRP elevated as expected Procal WNL * CT Knee showing: subacute distal metaphyseal fracture of the right femur with associated fracture of the underlying intramedullary shon from prior fixation. * consulted ortho for review and recommendations nonweightbearing we will need to follow up with her surgical team at [facility] (3) Cellulitis: Qualifiers: Laterality: right Site of cellulitis: extremity Site of cellulitis of extremity: lower extremity Qualified Code(s): L03.115 - Cellulitis of right lower limb Code(s): L03.90 - Cellulitis, unspecified Status: Acute Assessment and Plan: SEE ABOVE (4) Metastatic malignant neoplasm to prostate: Code(s): C79.82 - Secondary malignant neoplasm of genital organs Status: Acute Assessment and Plan: Patient with history metastatic prostate cancer has completed his radiation therapy in continues IV chemotherapy to skip his last chemotherapy due to shingles infection and open wounds * Continue patient's home pain medication adjusted to we have formulated tramadol Q 6 * Continue his Lyrica for nerve pain * Continue patient's baclofen * CTA showin.1 cm right inferior thyroid mass, extending into the superior mediastinum * Follows with oncology Dr. Paredes will reach out about thyroid findings patient reported he was not aware of a thyroid mass * TSH WNL (5) Anemia: Qualifiers: Anemia type: unspecified type Qualified Code(s): D64.9 - Anemia, un specified Code(s): D64.9 - Anemia, unspecified Status: Acute Assessment and Plan: Anemia secondary to malignancy and iron deficiency * Hemoglobin stable evidence active bleed * Monitor H&H * Continued iron supplement * Transfuse if hgb <7.0 (6) Wounds, multiple open, shoulder/upper arm: Code(s): S41.009A - Unspecified open wound of unspecified shoulder, initial encounter; S41.109A - Unspecified open wound of unspecified upper arm, initial encounter Status: Acute Assessment and Plan: Patient with recent diagnosis of shingles completed antiviral therapy but has multiple open wounds throughout his upper extremities torso and neck secondary to patient itching areas. * Wound care consulted * Continue with IV Ancef if blood cultures come back negative likely transition to oral antibiotics * Benadryl as needed Pruritus (7) Hypertension: Code(s): I10 - Essential (primary) hypertension Status: Acute Assessment and Plan: * Continued amlodipine and lisinopril * Started low-dose carvedilol due to sustained tachycardia (8) Tachycardia: Code(s): R00.0 - Tachycardia, unspecified Status: Resolved Assessment and Plan: Patient presented with tachycardia sustaining in the 110s to 120s * Echocardiogram LVEF 60-65 * Started on carvedilol 6.25 b.i.d. Improved SR 78 today Plan Code status: Full code per patient DVT prophylaxis: Eliquis Stress ulcer prophylaxis: NA PT/OT notes: PT/OT pending Disposition: Patient continues admission to he medical unit for PT/ OT evaluation after orthopedic recommendation of nonweightbearing status to right lower extremity will need SNF and follow up with his [facility] surgical team as well as with his oncologist. Time Spent With Patient Time with patient: 15 - 25 minutes Subjective Date/time seen: 12/01/24 09:43 Interval history: Patient is a 54 year old admitted to the medical unit for further evaluation of bilateral lower extremity swelling right greater than left with some concern for cellulitis. Patient recently treated for shingles has multiple open wounds reported patient has extreme itching. Patient also stated he had fallen within the last couple weeks on to the right knee which he had had a previous re placement to. 12/01/2024: Patient still with BLE extremity intermittent pain. Patient seen by Ortho yesterday plans for no weight-bearing right lower extremity. Patient denied any chest pain shortness. Updated patient patient's sister regarding findings and recommendations for follow-up outpatient regarding pathological fractures well as thyroid mass Review of Systems Review of Systems: 12 systems were reviewed with pertinent positives and negatives per HPI. Except as documented in the HPI, all other systems were reviewed and are negative. All systems reviewed & are unremarkable except as noted in HPI and below Exam Narrative: Weight 113.4 kg BMI 34.9 Const: General: comfortable and no acute distress Other: Obese, no acute distress, appears older than stated age HENMT: Mouth: Yes moist mucous membranes Other: Mucous membranes are dry, no oral pharyngeal erythema, crowded posterior oropharynx Eyes: General: appearance normal, both eyes and all related structures Other: Pupils are equal and reactive, no scleral icterus, positive conjunctival pallor Neck: Neck: supple and no JVD Other: No JVD, large neck circumference Resp: Effort & Inspection: normal respiratory effort Other: Clear to auscultation bilaterally, no increased work of breathing Cardio: Rate: tachycardic Rhythm: regular rhythm Other: Tachycardic, her regular rhythm, 2+ bilateral radial and pedal pulses GI: Auscultation: normal bowel sounds Other: Distended, nontender, normoactive bowel sounds, soft Skin: General skin exam: wounds noted (Multiple open wounds BUE, Neck, chest, and RT ear) Wounds: wounds noted (Multiple open wounds BUE, Neck, chest, and RT ear) Other: No pallor, non jaundice, shallow ulcerations to the right anterior chest and upper arm no surrounding erythema, shallow ulcerations to the posterior right knee and going around the knee she from the 12 o'clock position to the 6 o'clock position along the medial aspect, no associated erythema or increased warmth, old scar to medial knee consistent with prior with history of total knee arthroplasty in the past Neuro: Speech: normal speech Other: Alert oriented x3, speech is clear, no facial asymmetry, no localizing neurologic deficits noted during the course of casual conversation Extrem: General: edema (R>L ) bilateral Other: 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 with well-healed scar, will alert scar over the right knee at site of prior knee arthroplasty, 2-3 + pitting edema right lower extremity up through the thigh, 1+ pitting edema left lower extremity Psych: Mental Status: mental status grossly normal Affect: normal affect Other: Anxious, restless Objective Data Vital Signs Vital Signs: Vital Signs - 24 hr 11/30/24 14:00 11/30/24 20:00 11/30/24 21:36 Temperature 98.2 F Pulse Rate 82 77 Respiratory Rate 18 Blood Pressure 112/54 L Pulse Oximetry 95 Oxygen Delivery Room Air 11/30/24 22:12 12/01/24 06:23 12/01/24 08:50 Temperature 98.3 F 98.3 F Pulse Rate 76 75 78 Respiratory Rate 14 14 Blood Pressure 124/56 L 117/57 L Pulse Oximetry 96 93 Oxygen Delivery Intake/Output Intake/Output: Intake & Output 11/28/24 11/29/24 11/30/24 12/01/24 23:59 23:59 23:59 23:59 Intake Total 1622 2160 640 Output Total 7910 7255 2582 Balance 391 -9443 -041 Meds/Results Medications: Active Medications Generic Name Dose Route Start Last Admin Trade Name Freq PRN Reason Stop Dose Admin Acetaminophen 650 mg 11/28/24 18:36 Acetaminophen 325 Mg Tablet PO Q4H PRN Mild Pain (1-3) or Fever Amlodipine Besylate 10 mg 11/29/24 09:00 12/01/24 08:50 Amlodipine Besylate 10 Mg Tablet PO 10 mg DAILY CHRISTINE Administration Apixaban 5 mg 11/28/24 21:45 12/01/24 08:50 Apixaban 5 Mg Tablet PO 5 mg Q12HR CHRISTINE Administration Baclofen 20 mg 11/28/24 22:00 12/01/24 06:22 Baclofen 10 Mg Tablet PO 20 mg Q8H CHRISTINE Administration Carvedilol 6.25 mg 11/29/24 13:00 12/01/24 08:50 Carvedilol 6.25 Mg Tablet PO 6.25 mg Q12HR CHRISTINE Administration Clonazepam 0.5 mg 11/28/24 21:34 Clonazepam (*Crx) 0.5 Mg Tablet PO Q12H PRN anxiety Diphenhydramine HCl 50 mg 11/29/24 12:53 Diphenhydramine Hcl Cap 25 Mg Capsule PO Q6H PRN Itching Docusate Sodium 100 mg 11/29/24 09:00 12/01/24 08:50 Docusate Sodium 100 Mg Capsule PO 100 mg BID CHRISTINE Administration Duloxetine HCl 30 mg 11/29/24 09:00 12/01/24 08:50 Duloxetine Hcl 30 Mg Capsule.Dr PO 30 mg DAILY CHRISTINE Administration Ferrous Sulfate 325 mg 11/29/24 09:00 12/01/24 08:50 Ferrous Sulfate [address] PO 325 mg BID CHRISTINE Administration Cefazolin Sodium 1 gm/ Sodium 50 mls @ 100 mls/hr 11/28/24 22:00 12/01/24 06:52 Chloride IVPB Infused Q8H CHRISTINE Infusion Lisinopril 40 mg 11/29/24 09:00 12/01/24 08:49 Lisinopril 20 Mg Tablet PO 40 mg DAILY CHRISTINE Administration Morphine Sulfate 4 mg 11/28/24 18:36 11/30/24 21:33 Morphine Sulfate (*Crx) 4 Mg/Ml Inj IV PUSH 4 mg Q2H PRN Administration Pain Rated 7-10 Oxycodone HCl 5 mg 11/28/24 21:34 12/01/24 08:50 Oxycodone Hcl (*Crx) 5 Mg Tab Ir PO 5 mg Q6H PRN Administration pain (scale score 7-10) Perflutren Lipid Microsphere 0 ml 11/28/24 21:39 Perflutren Lipid Microspheres 1.5 Ml Vial Diluted To 10 Ml Total Volume IV PUSH 12/01/24 21:39 ONCE PRN adequate visualization Protocol Pregabalin 200 mg 11/28/24 22:00 12/01/24 06:22 Pregabalin (*Crx) 50 Mg Capsule PO 200 mg Q8H CHRISTINE Administration Tramadol HCl 50 mg 11/28/24 21:50 12/01/24 06:22 Tramadol Hcl (*Crx) 50 Mg Tablet PO 50 mg Q6HR CHRISTINE Administration Vitamin D 50 mcg 11/29/24 09:00 12/01/24 08:49 Cholecalciferol (Vitamin D3) 25 Mcg (1,000 Units) Tablet PO 50 mcg DAILY CHRISTINE Administration Radiology Results: ITS Impressions Venous Doppler Study 11/28/24 13:42 IMPRESSION: 1: No lower extremity deep venous thrombosis. Chest CTA 11/28/24 16:53 IMPRESSION: No definite CT evidence of large central acute pulmonary embolus. Study otherwise nondiagnostic with respect to evaluation of the pulmonary arteries despite repeat attempts. Mild cardiomegaly and small pericardial effusion. Cholelithiasis without inflammatory changes. 6.1 cm right inferior thyroid mass, extending into the superior mediastinum, increased in size since 2023. 1.3 cm left thyroid nodule, stable since 2023. Multiple sclerotic bone lesions concerning for metastatic disease, with interval progression since 2023. Knee CT 11/29/24 16:46 IMPRESSION: 1. Developing callus formation about a mildly displaced and mildly angulated subacute distal metaphyseal fracture of the right femur with associated fracture of the underlying intramedullary shon from prior fixation. 2. Gradient of increasing density within a small effusion at the suprapatellar pouch of the right knee most likely related to secondary hemarthrosis. Cannot exclude septic arthritis prostate mild sulcal there is no evident aggressive appearing osteolysis to elevate suspicion. 3. Right total knee arthroplasty which appears to remain well seated with no periprosthetic lucency to suggest loosening or infection. Femur X-Ray 11/30/24 11:43 IMPRESSION: 1. Right femoral intramedullary shon fixation with fracture of the distal aspect of the shon with associated subacute appearing mildly displaced and angulated fracture at the distal right femoral metaphysis. See separate CT report from one day prior for further detail. Labs Labs: Laboratory Results - last 24 hr 12/01/24 04:24 WBC 6.9 RBC 3.14 L Hgb 8.3 L Hct 27.5 L MCV 87.6 MCH 26.4 MCHC 30.2 L RDW 17.1 H Plt Count 384 H MPV 10.4 Sodium 136 L Potassium 4.3 Chloride 101 Carbon Dioxide 30 Anion Gap 5 BUN 4 L Creatinine 0.74 Estim Creat Clear Calc 125 Estimated GFR > 60 Glucose 118 H Calcium 8.5 Magnesium 2.5 H Total Bilirubin 0.2 AST 27 ALT 19 Alkaline Phosphatase 90 Total Protein 6.8 Albumin 3.4 L Quality VTE Prophylaxis VTE prophylaxis: pharmacologic ordered -Patient's previous records reviewed on admission -ER notes reviewed in detail on admission -discussed all findings and current treatment plan with patient/Family/POA -Consultations reviewed for recommendations -Patient's disposition for safe discharge discussed with case monitor Dictation performed by [employer] direct speech recognition software, therefore rn ambulatory variants and typographical errors may occur. Hospitalist MIPS Advance Care Plan I have confirmed that the patient's Advanced Care Plan is present, code status is documented, or surrogate decision maker is listed in patient medical record.: Yes Medication Reconciliation I have utilized all available resources to obtain, update and review the patients current medications (includes all prescriptions, OTC, herbals, cannabis, and nutritional supplements).: Yes The patient is not eligible for med reconciliation; the patient is in a emergent medical situation where delaying treatment would jeopardize the patients health.: No
[2024-12-01 11:02] VITALS: O2SAT 96
[2024-12-01 13:59] VITALS: BP 128/55; PULSE 79; RESP 18; O2SAT 98
[2024-12-01] MEDS: MORPHINE SULFATE (*CRX) 4 MG/ML INJ IV PUSH ×2 (19:05→23:05)
[2024-12-01 20:26] VITALS: BP 137/59; PULSE 79; RESP 20; TEMP 36.7; O2SAT 97
[2024-12-01 22:29] VITALS: PULSE 79
[2024-12-02] MEDS: traMADol HCL (*CRX) 50 MG TABLET PO ×5 (00:46→23:39)
[2024-12-02] MEDS: oxyCODONE HCL (*CRX) 5 MG TAB IR PO ×2 (00:51→08:08)
[2024-12-02 04:39] LABS: Hematocrit 28.7 % (42.0-52.0); Hemoglobin 8.6 g/dL (14.0-18.0); Mean Corpuscular HGB Conc 30.0 g/dl (32-36); Mean Corpuscular Hemoglobin 26.8 pg (26-34); Mean Corpuscular Volume 89.4 fl (80-100); Platelet Count Result 412 k/mm3 (150-375); Red Blood Count 3.21 M/mm3 (4.6-6.20); White Blood Count 6.8 K/mm3 (4.5-10.0)
[2024-12-02 04:43] VITALS: BP 131/63; PULSE 88; RESP 20; TEMP 36.7; O2SAT 97
[2024-12-02] MEDS: MORPHINE SULFATE (*CRX) 4 MG/ML INJ IV PUSH ×2 (04:50→12:43)
[2024-12-02 05:03] LABS: Alanine Aminotransferase 15 U/L (6-50); Albumin Level 3.6 g/dL (3.5-5.1); Alkaline Phosphatase 94 U/L (38-126); Anion Gap 6 mmol/L (4-12); Aspartate Amino Transferase 26 U/L (17-59); Bilirubin,Total 0.2 mg/dL (0.2-1.3); Blood Urea Nitrogen 5 mg/dL (9-20); Calcium 8.6 mg/dL (8.4-10.2); Carbon Dioxide 28 mmol/L (22-30); Chloride 102 mmol/L (98-107); Estimated CRCL calculation 141 ml/min; Estimated Glomerular Filt Rate > 60; Glucose 110 mg/dL (65-110); Magnesium 2.4 mg/dL (1.6-2.3); Potassium 4.3 mmol/L (3.4-5.0); Sodium 136 mmol/L (137-145); Total Protein 6.9 g/dL (6.3-8.2)
[2024-12-02] MEDS: ceFAZolin 1 GM in SODIUM CHLORIDE 0.9% IV 50 ML 100 ML IVPB (06:25)
[2024-12-02] MEDS: BACLOFEN 10 MG TABLET 20 MG PO ×3 (06:28→20:52)
[2024-12-02] MEDS: PREGABALIN (*CRX) 50 MG CAPSULE 200 MG PO ×3 (06:28→20:52)
[2024-12-02 08:08] VITALS: PULSE 88
[2024-12-02] MEDS: APIXABAN 5 MG TABLET PO ×2 (08:08→20:52)
[2024-12-02] MEDS: FERROUS SULFATE 325 MG TABLET DR PO ×2 (08:08→17:12)
[2024-12-02] MEDS: CHOLECALCIFEROL (VITAMIN D3) 25 MCG (1,000 UNITS) TABLET 50 MCG PO (08:09)
[2024-12-02] MEDS: DOCUSATE SODIUM 100 MG CAPSULE PO ×2 (08:09→17:12)
--- NOTE | 2024-12-02 09:21 | P.PNIM_ITS ---
Progress Note: A&P Assessment and Plan (1) Pathological fracture, right femur, subsequent encounter for fracture with delayed healing: Code(s): M84.451G - Pathological fracture, right femur, subsequent encounter for fracture with delayed healing Status: Acute Assessment and Plan: * ortho consulted reviewed and evaluated CT scans further recommendations * non weight-bearing * will need to follow-up outpatient with his surgical team at [facility] from previous knee replacement * PT/OT eval for possible SNF placement * pain management (2) Localized swelling of both lower legs: Code(s): R22.43 - Localized swelling, mass and lump, lower limb, bilateral Status: Acute Assessment and Plan: Patient with bilateral lower extremity swelling right greater than the left venous Dopplers negative for DVT. Bilateral with to touch in [id number] pain plan to treat for possible cellulitis. Patient also reports he his right knee week or to earlier * CT right knee pending evaluate to ensure there is no infection has multiple open wounds to his upper extremity and torso in to evaluate make sure he does not a septic joint infection after fall with hardware in place. * IV Ancef Blood cultures NGTD Q48 hours, normal WBC and lower extremity swelling likely due to fracture and lymphadenopathy, cultures for wounds no growth transition to oral Doxycycline and Augmentin x 7 more days * This could be secondary to his malignancy and myopathy * CRP elevated as expected Procal WNL * CT Knee showing: subacute distal metaphyseal fracture of the right femur with associated fracture of the underlying intramedullary shon from prior fixation. * consulted ortho for review and recommendations nonweightbearing we will need to follow up with her surgical team at [facility] requesting records to schedule outpatient follow-up (3) Cellulitis: Qualifiers: Laterality: right Site of cellulitis: extremity Site of cellulitis of extremity: lower extremity Qualified Code(s): L03.115 - Cellulitis of right lower limb Code(s): L03.90 - Cellulitis, unspecified Status: Acute Assessment and Plan: SEE ABOVE (4) Metastatic malignant neoplasm to prostate: Code(s): C79.82 - Secondary malignant neoplasm of genital organs Status: Acute Assessment and Plan: Patient with history metastatic prostate cancer has completed his radiation therapy in continues IV chemotherapy to skip his last chemotherapy due to shingles infection and open wounds * Continue patient's home pain medication adjusted to we have formulated tramadol Q 6 * Continue his Lyrica for nerve pain * Continue patient's baclofen * CTA showin.1 cm right inferior thyroid mass, extending into the superior mediastinum * Follows with oncology Dr. 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 * Wound care consulted * D/C IV Ancef blood cultures NGTD/wound no growth transition to doxycycline and Augmentin x 7 more days * Benadryl as needed Pruritus (7) Hypertension: Code(s): I10 - Essential (primary) hypertension Status: Acute Assessment and Plan: * Continued amlodipine and lisinopril * Started low-dose carvedilol due to sustained tachycardia (8) Tachycardia: Code(s): R00.0 - Tachycardia, unspecified Status: Resolved Assessment and Plan: Patient presented with tachycardia sustaining in the 110s to 120s * Echocardiogram LVEF 60-65 * Started on carvedilol 6.25 b.i.d. Improved SR 78 today Plan Code status: Full code per patient DVT prophylaxis: Eliquis Stress ulcer prophylaxis: NA PT/OT notes: PT/OT pending Disposition: Patient continues admission to he medical unit for PT/ OT evaluation after orthopedic recommendation of nonweightbearing status to right lower extremity will need SNF and follow up with his [facility] surgical team as well as with his oncologist. Time Spent With Patient Time with patient: 15 - 25 minutes Subjective Date/time seen: 12/02/24 09:21 Interval history: Patient is a 54 year old admitted to the medical unit for further evaluation of bilateral lower extremity swelling right greater than left with some concern for cellulitis. Patient recently treated for shingles has multiple open wounds reported patient has extreme itching. Patient also stated he had fallen within the last couple weeks on to the right knee which he had had a previous replacement to. 12/02/2024: Patient still with moderate to severe RLE pain and bone pain. Denies any SOB, CP, N/V. Attempted to reach out to Dr. Paredes to update and request records from [facility] working on SNF. Review of Systems Review of Systems: 12 systems were reviewed with pertinent positives and negatives per HPI. Except as documented in the HPI, all other systems were reviewed and are negative. All systems reviewed & are unremarkable except as noted in HPI and below Exam Narrative: Weight 113.4 kg BMI 34.9 Const: General: comfortable and no acute distress Other: Obese, no acute distress, appears older than stated age HENMT: Mouth: Yes moist mucous membranes Other: Mucous membranes are dry, no oral pharyngeal erythema, crowded posterior oropharynx Eyes: General: appearance normal, both eyes and all related structures Other: Pupils are equal and reactive, no scleral icterus, positive conjunctival pallor Neck: Neck: supple and no JVD Other: No JVD, large neck circumference Resp: Effort & Inspection: normal respiratory effort Other: Clear to auscultation bilaterally, no increased work of breathing Cardio: Rate: tachycardic Rhythm: regular rhythm Other: Tachycardic, her regular rhythm, 2+ bilateral radial and pedal pulses GI: Auscultation: normal bowel sounds Other: Distended, nontender, normoactive bowel sounds, soft Skin: General skin exam: wounds noted (Multiple open wounds BUE, Neck, chest, and RT ear) Wounds: wounds noted (Multiple open wounds BUE, Neck, chest, and RT ear) Other: No pallor, non jaundice, shallow ulcerations to the right anterior chest and upper arm no surrounding erythema, shallow ulcerations to the posterior right knee and going around the knee she from the 12 o'clock position to the 6 o'clock position along the medial aspect, no associated erythema or increased warmth, old scar to medial knee consistent with prior with history of total knee arthroplasty in the past Neuro: Speech: normal speech Other: Alert oriented x3, speech is clear, no facial asymmetry, no localizing neurologic deficits noted during the course of casual conversation Extrem: General: edema (R>L ) bilateral Other: 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 with well-healed scar, will alert scar over the right knee at site of prior knee arthroplasty, 2-3 + pitting edema right lower extremity up through the thigh, 1+ pitting edema left lower extremity Psych: Mental Status: mental status grossly normal Affect: normal affect Other: Anxious, restless Objective Data Vital Signs Vital Signs: Vital Signs - 24 hr 12/01/24 10:59 12/01/24 11:02 12/01/24 13:59 Temperature Pulse Rate 79 Respiratory Rate 18 Blood Pressure 128/55 L Pulse Oximetry 96 98 Oxygen Delivery Room Air Room Air 12/01/24 20:00 12/01/24 20:26 12/01/24 22:29 Temperature 98.0 F Pulse Rate 79 79 Respiratory Rate 20 Blood Pressure 137/59 L Pulse Oximetry 97 Oxygen Delivery Room Air 12/02/24 04:43 12/02/24 08:08 12/02/24 08:10 Temperature 98.1 F Pulse Rate 88 88 Respiratory Rate 20 Blood Pressure 131/63 Pulse Oximetry 97 Oxygen Delivery Room Air Intake/Output Intake/Output: Intake & Output 11/29/24 11/30/24 12/01/24 12/02/24 23:59 23:59 23:59 23:59 Intake Total 1622 2160 1700 780 Output Total 1350 3335 1750 600 Balance 226 -2115 -94 180 Meds/Results Medications: Active Medications Generic Name Dose Route Start Last Admin Trade Name Freq PRN Reason Stop Dose Admin Acetaminophen 650 mg 11/28/24 18:36 Acetaminophen 325 Mg Tablet PO Q4H PRN Mild Pain (1-3) or Fever Amlodipine Besylate 10 mg 11/29/24 09:00 12/02/24 08:09 Amlodipine Besylate 10 Mg Tablet PO 10 mg DAILY CHRISTINE Administration Apixaban 5 mg 11/28/24 21:45 12/02/24 08:08 Apixaban 5 Mg Tablet PO 5 mg Q12HR CHRISTINE Administration Baclofen 20 mg 11/28/24 22:00 12/02/24 06:28 Baclofen 10 Mg Tablet PO 20 mg Q8H CHRISTINE Administration Carvedilol 6.25 mg 11/29/24 13:00 12/02/24 08:08 Carvedilol 6.25 Mg Tablet PO 6.25 mg Q12HR CHRISTINE Administration Clonazepam 0.5 mg 11/28/24 21:34 Clonazepam (*Crx) 0.5 Mg Tablet PO Q12H PRN anxiety Diphenhydramine HCl 50 mg 11/29/24 12:53 Diphenhydramine Hcl Cap 25 Mg Capsule PO Q6H PRN Itching Docusate Sodium 100 mg 11/29/24 09:00 12/02/24 08:09 Docusate Sodium 100 Mg Capsule PO 100 mg BID CHRISTINE Administration Duloxetine HCl 30 mg 11/29/24 09:00 12/02/24 08:08 Duloxetine Hcl 30 Mg Capsule.Dr PO 30 mg DAILY CHRISTINE Administration Ferrous Sulfate 325 mg 11/29/24 09:00 12/02/24 08:08 Ferrous Sulfate [address] PO 325 mg BID CHRISTINE Administration Cefazolin Sodium 1 gm/ Sodium 50 mls @ 100 mls/hr 11/28/24 22:00 12/02/24 07:02 Chloride IVPB Infused Q8H CHRISTINE Infusion Lisinopril 40 mg 11/29/24 09:00 12/02/24 08:09 Lisinopril 20 Mg Tablet PO 40 mg DAILY CHRISTINE Administration Morphine Sulfate 4 mg 11/28/24 18:36 12/02/24 04:50 Morphine Sulfate (*Crx) 4 Mg/Ml Inj IV PUSH 4 mg Q2H PRN Administration Pain Rated 7-10 Oxycodone HCl 5 mg 11/28/24 21:34 12/02/24 08:08 Oxycodone Hcl (*Crx) 5 Mg Tab Ir PO 5 mg Q6H PRN Administration pain (scale score 7-10) Pregabalin 200 mg 11/28/24 22:00 12/02/24 06:28 Pregabalin (*Crx) 50 Mg Capsule PO 200 mg Q8H CHRISTINE Administration Tramadol HCl 50 mg 11/28/24 21:50 12/02/24 06:28 Tramadol Hcl (*Crx) 50 Mg Tablet PO 50 mg Q6HR CHRISTINE Administration Vitamin D 50 mcg 11/29/24 09:00 12/02/24 08:09 Cholecalciferol (Vitamin D3) 25 Mcg (1,000 Units) Tablet PO 50 mcg DAILY CHRISTINE Administration Radiology Results: ITS Impressions Venous Doppler Study 11/28/24 13:42 IMPRESSION: 1: No lower extremity deep venous thrombosis. Chest CTA 11/28/24 16:53 IMPRESSION: No definite CT evidence of large central acute pulmonary embolus. Study otherwise nondiagnostic with respect to evaluation of the pulmonary arteries despite repeat attempts. Mild cardiomegaly and small pericardial effusion. Cholelithiasis without inflammatory changes. 6.1 cm right inferior thyroid mass, extending into the superior mediastinum, increased in size since 2023. 1.3 cm left thyroid nodule, stable since 2023. Multiple sclerotic bone lesions concerning for metastatic disease, with interval progression since 2023. Knee CT 11/29/24 16:46 IMPRESSION: 1. Developing callus formation about a mildly displaced and mildly angulated subacute distal metaphyseal fracture of the right femur with associated fracture of the underlying intramedullary shon from prior fixation. 2. Gradient of increasing density within a small effusion at the suprapatellar pouch of the right knee most likely related to secondary hemarthrosis. Cannot exclude septic arthritis prostate mild sulcal there is no evident aggressive appearing osteolysis to elevate suspicion. 3. Right total knee arthroplasty which appears to remain well seated with no periprosthetic lucency to suggest loosening or infection. Femur X-Ray 11/30/24 11:43 IMPRESSION: 1. Right femoral intramedullary shon fixation with fracture of the distal aspect of the shon with associated subacute appearing mildly displaced and angulated fracture at the distal right femoral metaphysis. See separate CT report from one day prior for further detail. Labs Labs: Laboratory Results - last 24 hr 08/18/25 04:20 WBC 6.8 RBC 3.21 L Hgb 8.6 L Hct 28.7 L MCV 89.4 MCH 26.8 MCHC 30.0 L RDW 16.8 H Plt Count 412 H MPV 10.0 Sodium 136 L Potassium 4.3 Chloride 102 Carbon Dioxide 28 Anion Gap 6 BUN 5 L Creatinine 0.65 L Estim Creat Clear Calc 141 Estimated GFR > 60 Glucose 110 Calcium 8.6 Magnesium 2.4 H Total Bilirubin 0.2 AST 26 ALT 15 Alkaline Phosphatase 94 Total Protein 6.9 Albumin 3.6 Quality VTE Prophylaxis VTE prophylaxis: pharmacologic ordered -Patient's previous records reviewed on admission -ER notes reviewed in detail on admission -discussed all findings and current treatment plan with patient/Family/POA -Consultations reviewed for recommendations -Patient's disposition for safe discharge discussed with case therapist Dictation performed by [employer] direct speech recognition software, therefore director of placement variants and typographical errors may occur. Hospitalist MIPS Advance Care Plan I have confirmed that the patient's Advanced Care Plan is present, code status is documented, or surrogate decision maker is listed in patient medical record.: Yes Medication Reconciliation I have utilized all available resources to obtain, update and review the patients current medications (includes all prescriptions, OTC, herbals, cannabis, and nutritional supplements).: Yes The patient is not eligible for med reconciliation; the patient is in a emergent medical situation where delaying treatment would jeopardize the patients health.: No
[2024-12-02] MEDS: DOXYCYCLINE HYCLATE 100 MG TABLET PO ×2 (12:41→20:52)
[2024-12-02] MEDS: ACETAMINOPHEN 325 MG TABLET 650 MG PO (12:41)
[2024-12-02 13:48] VITALS: BP 134/66; PULSE 75; RESP 18; TEMP 36.6; O2SAT 98
[2024-12-02] MEDS: oxyCODONE HCL (*CRX) 5 MG TAB IR 10 MG PO ×2 (15:12→23:39)
[2024-12-02] MEDS: DICLOFENAC SODIUM 1% 100 GM GEL (*BKC) 1 APPLIC TOPICAL ×2 (17:13→20:55)
[2024-12-02 20:07] VITALS: BP 114/60; PULSE 65; RESP 20; TEMP 36.4; O2SAT 97
[2024-12-02 20:52] VITALS: PULSE 86; RESP 20; O2SAT 97
[2024-12-02 20:53] VITALS: PULSE 86
[2024-12-03 04:53] VITALS: BP 127/62; PULSE 68; RESP 20; TEMP 36.5; O2SAT 99
[2024-12-03 05:13] LABS: Hematocrit 28.0 % (42.0-52.0); Hemoglobin 8.5 g/dL (14.0-18.0); Mean Corpuscular HGB Conc 30.4 g/dl (32-36); Mean Corpuscular Hemoglobin 26.4 pg (26-34); Mean Corpuscular Volume 87.0 fl (80-100); Platelet Count Result 443 k/mm3 (150-375); Red Blood Count 3.22 M/mm3 (4.6-6.20); White Blood Count 9.1 K/mm3 (4.5-10.0)
[2024-12-03] MEDS: BACLOFEN 10 MG TABLET 20 MG PO ×2 (05:50→14:28)
[2024-12-03] MEDS: PREGABALIN (*CRX) 50 MG CAPSULE 200 MG PO ×2 (05:50→14:28)
[2024-12-03] MEDS: traMADol HCL (*CRX) 50 MG TABLET PO ×2 (05:50→12:36)
[2024-12-03] MEDS: FERROUS SULFATE 325 MG TABLET DR PO (08:21)
[2024-12-03] MEDS: ACETAMINOPHEN 325 MG TABLET 650 MG PO (08:21)
[2024-12-03] MEDS: oxyCODONE HCL (*CRX) 5 MG TAB IR 10 MG PO ×2 (08:21→14:28)
[2024-12-03] MEDS: DOCUSATE SODIUM 100 MG CAPSULE PO (08:21)
[2024-12-03 08:22] VITALS: PULSE 88
[2024-12-03] MEDS: CHOLECALCIFEROL (VITAMIN D3) 25 MCG (1,000 UNITS) TABLET 50 MCG PO (08:22)
[2024-12-03] MEDS: APIXABAN 5 MG TABLET PO (08:22)
[2024-12-03] MEDS: DICLOFENAC SODIUM 1% 100 GM GEL (*BKC) 1 APPLIC TOPICAL ×2 (08:23→12:37)
[2024-12-03 08:34] LABS: Alanine Aminotransferase 15 U/L (6-50); Albumin Level 3.5 g/dL (3.5-5.1); Alkaline Phosphatase 95 U/L (38-126); Anion Gap 4 mmol/L (4-12); Aspartate Amino Transferase 20 U/L (17-59); Bilirubin,Total 0.2 mg/dL (0.2-1.3); Blood Urea Nitrogen 12 mg/dL (9-20); Calcium 9.4 mg/dL (8.4-10.2); Carbon Dioxide 29 mmol/L (22-30); Chloride 105 mmol/L (98-107); Estimated CRCL calculation 149 ml/min; Estimated Glomerular Filt Rate > 60; Glucose 125 mg/dL (65-110); Magnesium 2.2 mg/dL (1.6-2.3); Potassium 4.5 mmol/L (3.4-5.0); Sodium 138 mmol/L (137-145); Total Protein 7.1 g/dL (6.3-8.2)
[2024-12-03] MEDS: DOXYCYCLINE HYCLATE 100 MG TABLET PO (12:36)
[2024-12-03] MEDS: clonazePAM (*CRX) 0.5 MG TABLET PO (12:37)
--- NOTE | 2024-12-03 13:58 | P.DS_ITS ---
DS: Admitting Diagnosis Discharge Date 12/03/2024 Admitting Diagnosis BLE swelling R>L DS: Discharge Diagnosis Discharge Diagnosis (1) Pathological fracture, right femur, subsequent encounter for fracture with delayed healing: Code(s): M84.451G - Pathological fracture, right femur, subsequent encounter for fracture with delayed healing Status: Acute (2) Localized swelling of both lower legs: Code(s): R22.43 - Localized swelling, mass and lump, lower limb, bilateral Status: Acute (3) Cellulitis: Qualifiers: Laterality: right Site of cellulitis: extremity Site of cellulitis of extremity: lower extremity Qualified Code(s): L03.115 - Cellulitis of right lower limb Code(s): L03.90 - Cellulitis, unspecified Status: Acute (4) Metastatic malignant neoplasm to prostate: Code(s): C79.82 - Secondary malignant neoplasm of genital organs Status: Acute (5) Anemia: Qualifiers: Anemia type: unspecified type Qualified Code(s): D64.9 - Anemia, unspecified Code(s): D64.9 - Anemia, unspecified Status: Acute (6) Wounds, multiple open, shoulder/upper arm: Code(s): S41.009A - Unspecified open wound of unspecified shoulder, initial encounter; S41.109A - Unspecified open wound of unspecified upper arm, initial encounter Status: Acute (7) Hypertension: Code(s): I10 - Essential (primary) hypertension Status: Acute (8) Tachycardia: Code(s): R00.0 - Tachycardia, unspecified Status: Resolved DS: Summary Hospital Course Reason for hospitalization: BLE selling R>L Hospital Course: Admission Patient was a 54-year-old male with a past medical history of stage IV prostate cancer, essential hypertension, spinal stenosis due to metastatic disease with chronic pain who presented to the ER with bilateral lower extremity swelling for 3 days. Source of information is obtained from patient report although patient is alert orient x4 he is not the best historian in subsequently information was supplemented by review of past medical records and ER physician report as well as information obtained from patient's sister with the help of nursing staff. 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 The patient reports that 3 days ago is bilateral lower extremity started to swell right greater than left. The pain in his right lower extremity extended from the right lower extremity up through the thigh and into his buttock. The pain was so severe that he was apnea drag is leg behind him. He describes having Army crawl to the bathroom. He had a venous Doppler performed in the ER which was negative for DVT. Patient denies any increased shortness of breath, nausea or vomiting. He does have some chronic constipation due to his chronic pain medications. He denies a known history of obstructive sleep apnea. He states he does not know if he snores. He denies having any fevers or chills. He reports that a couple of weeks ago he developed shingles to his right shoulder and chest and in bilateral ear canals. He was treated with antiviral therapy at that time. He states that he fell a few weeks ago and had surgery to his left knee but it is unclear when he had the surgery as the scar appears extremely well healed and seems much older. He reports that he has had some areas of rash to his leg that he thought was also due to shingles. His areas of shingles on his chest an arm appear to be healing well and are dry. It looks like it patient has removed the scabs from the area of. He has a few scattered ulcerations to his area surrounding his knee and below his knee but no associated erythema or increased warmth. He denies any known injury to the leg for recently. He denies any chest pain, shortness breast or palpitations. He reports that he started on chemotherapy for prostate cancer in April but is only received 3 of the 5 doses of chemotherapy due to infections. He reports that he has been having brown stools without hematochezia or melena. He denies hematuria. Hospital Course: Patient was admitted to the medical unit for further evaluation and treatment of his lower extremity swelling in unsteady gait with inability to walk. Patient with bilateral lower extremity swelling right greater than the left venous Dopplers negative for DVT. Bilateral with to touch in [id number] pain plan to treat for possible cellulitis. Patient also reports he his right knee week or to earlier.CT right knee was ordered to evaluate to ensure there is no infection has multiple open wounds to his upper extremity and torso in to evaluate make sure he does not a septic joint infection after fall with hardware in place. continued IV Ancef pending cultures which remained with no growth and normal WBC and lower extremity swelling likely due to fracture and lymphadenopathy. CT knee showed nonunion of right distal femur fracture/subacute distal metaphyseal fracture of the right femur with associated fracture of the underlying intramedullary shon from prior fixation and Orthopedics was consulted which time they recommended complete nonweightbearing and to follow-up with his orthopedic surgeon outpatient who performed his previous knee replacement but likely pathological fracture due to his metastatic cancer. Patient with history metastatic prostate cancer has completed his radiation therapy in continues IV chemotherapy to skip his last chemotherapy due to shingles infection and open wounds. patient was initially started on his home pain medication regimen tramadol q.6 and Lyrica as well as baclofen but continued to have severe bone pain which time increase his Oxy IR to 10 mg and added Decadron 8 mg daily. Was an incidental finding when we did a CTA chest that showed a 6.1 cm right inferior thyroid mass extending into the superior mediastinum I did contact patient's oncologist Dr. Paredes regarding new findings he reported patient can follow-up with him at his office at his next chemo treatment. patient did have a PT OT evaluation and initially plans were to discharge to acute rehab versus SNF however they stated he would not be able to receive his chemotherapy and patient requested then to go home with home health he wanted to continue his cancer treatment. Patient with overall improvement to lower extremity swelling and pain especially after the initiation of dexamethasone. Patient was discharged home with home health plans to follow-up with his orthopedic surgeon and oncologist. Status at Discharge Functional status at discharge: uses cane/walker Overall status at discharge: other (RLE non-weight bearing) Time Spent with Patient Time attestation: Total time spent providing and/or coordinating discharge services: Time spent: Greater than 30 minutes Exam Narrative: Weight 113.4 kg BMI 34.9 Const: General: comfortable and no acute distress Other: Obese, no acute distress, appears older than stated age HENMT: Mouth: Yes moist mucous membranes Other: Mucous membranes are dry, no oral pharyngeal erythema, crowded posterior oropharynx Eyes: General: appearance normal, both eyes and all related structures Other: Pupils are equal and reactive, no scleral icterus, positive conjunctival pallor Neck: Neck: supple and no JVD Other: No JVD, large neck circumference Resp: Effort & Inspection: normal respiratory effort Other: Clear to auscultation bilaterally, no increased work of breathing Cardio: Rate: tachycardic Rhythm: regular rhythm Other: Tachycardic, her regular rhythm, 2+ bilateral radial and pedal pulses GI: Auscultation: normal bowel sounds Other: Distended, nontender, normoactive bowel sounds, soft Skin: General skin exam: wounds noted (Multiple open wounds BUE, Neck, chest, and RT ear) Wounds: wounds noted (Multiple open wounds BUE, Neck, chest, and RT ear) Other: No pallor, non jaundice, shallow ulcerations to the right anterior chest and upper arm no surrounding erythema, shallow ulcerations to the posterior right knee and going around the knee she from the 12 o'clock position to the 6 o'clock position along the medial aspect, no associated erythema or increased warmth, old scar to medial knee consistent with prior with history of total knee arthroplasty in the past Neuro: Speech: normal speech Other: Alert oriented x3, speech is clear, no facial asymmetry, no localizing neurologic deficits noted during the course of casual conversation Extrem: General: edema (R>L ) bilateral Other: 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 with well-healed scar, will alert scar over the right knee at site of prior knee arthroplasty, 2-3 + pitting edema right lower extremity up through the thigh, 1+ pitting edema left lower extremity Psych: Mental Status: mental status grossly normal Affect: normal affect Other: Anxious, restless DS: Data Data Completed and Pending Labs on day of discharge: Labs from last 24 hours 12/03/24 12/03/24 07:22 04:20 WBC 9.1 RBC 3.22 L Hgb 8.5 L Hct 28.0 L MCV 87.0 MCH 26.4 MCHC 30.4 L RDW 16.5 H Plt Count 443 H MPV 10.4 Sodium 138 Potassium 4.5 Chloride 105 Carbon Dioxide 29 Anion Gap 4 BUN 12 D Creatinine 0.61 L Estim Creat Clear Calc 149 Estimated GFR > 60 Glucose 125 H Calcium 9.4 Magnesium 2.2 Total Bilirubin 0.2 AST 20 ALT 15 Alkaline Phosphatase 95 Total Protein 7.1 Albumin 3.5 Preliminary micro results at discharge 11/29/24 17:55 Aerobic Culture - Preliminary Neck 11/28/24 23:09 Blood Culture - Preliminary Blood 11/28/24 23:09 Blood Culture - Preliminary Blood Imaging Radiologist's impression: Radiology Results: ITS Impressions Venous Doppler Study 11/28/24 13:42 IMPRESSION: 1: No lower extremity deep venous thrombosis. Chest CTA 11/28/24 16:53 IMPRESSION: No definite CT evidence of large central acute pulmonary embolus. Study otherwise nondiagnostic with respect to evaluation of the pulmonary arteries despite repeat attempts. Mild cardiomegaly and small pericardial effusion. Cholelithiasis without inflammatory changes. 6.1 cm right inferior thyroid mass, extending into the superior mediastinum, increased in size since 2023. 1.3 cm left thyroid nodule, stable since 2023. Multiple sclerotic bone lesions concerning for metastatic disease, with interval progression since 2023. Knee CT 11/29/24 16:46 IMPRESSION: 1. Developing callus formation about a mildly displaced and mildly angulated subacute distal metaphyseal fracture of the right femur with associated fracture of the underlying intramedullary shon from prior fixation. 2. Gradient of increasing density within a small effusion at the suprapatellar pouch of the right knee most likely related to secondary hemarthrosis. Cannot exclude septic arthritis prostate mild sulcal there is no evident aggressive appearing osteolysis to elevate suspicion. 3. Right total knee arthroplasty which appears to remain well seated with no periprosthetic lucency to suggest loosening or infection. Femur X-Ray 11/30/24 11:43 IMPRESSION: 1. Right femoral intramedullary shon fixation with fracture of the distal aspect of the shon with associated subacute appearing mildly displaced and angulated fracture at the distal right femoral metaphysis. See separate CT report from one day prior for further detail. Discharge Plan Discharge Attending physician on discharge: Citlaly Hendrickson Consulting providers: Chacho Rodriguez; Gabby Soto; Piero Walker; Maico Chang; Jessica,Costa Dominguez; Rashad Angel Discharging Clinician: Jing Chen Anticipated Discharge Date/Time: 12/03/24 13:35 Patient Disposition: Home with Home Health Service Activity: follow weight bearing status and other - see discharge instructions Diet: heart healthy Discharge Instructions: Per Care Coordination: [facility] ([phone]) will call to set up initial visit. Orthopedic Recommendations: left Knee pathological fractures Dr Chacho Rodriguez [phone] * Non-weight bearing right lower extremity. * Follow up appointment to be made with original orthopedic surgical service: Alli Armenta: [phone] [address] [facility] [address] [place] [address] 1). Metastatic Prostate cancer with new thyroid mass * Follow-up with Dr. Paredes as scheduled on 12/18/2024 * I have prescribed a daily steroid to help with bone pain * PT/OT home health has been established * continue pain medication as needed How can you care for yourself at home? ? Keep track of any new symptoms or changes in your symptoms. ? Rest until you feel better. ? Be safe with medicines. Take your medicines exactly as prescribed. Call your doctor if you think you are having a problem with your medicine. ? Do not drive after taking a prescription pain medicine. ? Ensure to follow-up with primary care physician as indicated and provide updated medication list provided to you at discharge. When should you call for help? Call 911 anytime you think you may need emergency care. For example, call if: ? You passed out (lost consciousness). Call your doctor now or seek immediate medical care if: ? You have new symptoms like fever, difficulty breathing, Chest pain, vomiting, or rash. ? You have new or different pain. ? You are confused and are having trouble thinking clearly. ? Your symptoms are getting worse. Watch closely for changes in your health, and be sure to contact your doctor if: ? You do not get better as expected. Patient Instructions: Antibiotic Form, Apixaban (By mouth), Prostate Cancer (DC), Thyroid Nodules (DC), Bone Metastasis (DC) Patient Language: Indonesian Stand Alone Forms: General Discharge Information Follow-up/Referrals: PHYSICIAN NOT ON STAFF,NONSTAFF [Primary Care Provider] Referral Note: Follow-up with orthopedics as indicated in discharge instructions Discharge Medications: New amoxicillin-pot clavulanate 875-125 mg tablet 1 tablet PO Q12H Qty: 11 0RF dexamethasone 4 mg tablet 8 mg PO DAILY Qty: 60 0RF carvedilol [Coreg] 6.25 mg Tablet 6.25 mg PO Q12HR Qty: 60 0RF Eliquis 5 mg Tablet 5 mg PO Q12HR Qty: 60 0RF diclofenac sodium [Voltaren Arthritis Pain] 1 % gel 4 g topical QID Qty: 150 0RF Rx Instructions: apply to single knee, ankle, foot; for foot includes sole/toes/top of foot ferrous sulfate 325 mg (65 mg iron) Tablet,Delayed Release (Dr/Ec) 325 mg PO BID Qty: 60 0RF doxycycline hyclate 100 mg Tablet 100 mg PO BID@1300,2100 Qty: 11 0RF naloxone [Narcan] 4 mg/actuation spray,non-aerosol 4 mg intranasal Q2M PRN (Reason: opioid overdose) Qty: 2 0RF Rx Instructions: spray 1 dose into ONE nostril; alternate nostrils w each dose until help arrives Continued tramadol 200 mg tablet extended release 24 hr 200 mg PO Q24H clonazepam 0.5 mg tablet 0.5 mg PO Q12H PRN (Reason: anxiety) lisinopril 40 mg tablet 40 mg PO DAILY cholecalciferol (vitamin D3) 50 mcg (2,000 unit) capsule 50 mcg PO DAILY pregabalin 200 mg capsule 200 mg PO Q8H duloxetine 30 mg capsule,delayed release(DR/EC) 30 mg PO DAILY baclofen 20 mg tablet 20 mg PO Q8H docusate sodium 100 mg capsule 100 mg PO BID oxycodone 5 mg tablet 5 mg PO Q12H PRN (Reason: pain (scale score 7-10)) Qty: 30 0RF amlodipine 10 mg tablet 10 mg PO DAILY Discontinued Eliquis DVT-PE Treat 30D Start 5 mg (74 tabs) tablets,dose pack 5 mg PO Q12H No Action oxycodone 5 mg tablet 5 mg PO Q12H PRN (Reason: pain (scale score 7-10)) Date of admission: 11/29/24 07:46 Primary Care Provider: PHYSICIAN NOT ON STAFF,NONSTAFF Admitting Provider: Maurilio Long Attending physician on admission: Jing Chen Condition: Stable Quality VTE Prophylaxis VTE prophylaxis: pharmacologic ordered -Patient's previous records reviewed on admission -ER notes reviewed in detail on admission -discussed all findings and current treatment plan with patient/Family/POA -Consultations reviewed for recommendations -Patient's disposition for safe discharge discussed with electrician sound Dictation performed by [employer] direct speech recognition software, therefore control and recovery combat rescue variants and typographical errors may occur. Hospitalist MIPS Heart Failure (Exclusion) Patient has history of Heart Transplant or Left Ventricular Assistive Device?: No IF YES, STOP HERE Heart Failure (Qualifier) Patient has current or prior documentation of LVEF less than or equal to 40%, or mod/servere depressed LVSF?: No IF NO, STOP HERE
== END 2024-12-03 14:45 | disposition home health service (06) | DRG 603 ==
LOC: ANHED 19:08 → ANH3MEDSUR 19:21 → ANH2MED 19:55
PROVIDERS: Internal Medicine; Admitting Provider General Practice; Emergency Provider Student in an Organized Health Care Education/Training Program; Visit Provider Nurse Practitioner Family
DX: L03.115 Cellulitis of right lower limb (principal); M84.451A Pathological fracture, right femur, initial encounter for fracture; C79.9 Secondary malignant neoplasm of unspecified site; E87.1 Hypo-osmolality and hyponatremia; F11.20 Opioid dependence, uncomplicated; T84.114A Breakdown (mechanical) of internal fixation device of right femur, initial encounter; L03.116 Cellulitis of left lower limb; R59.1 Generalized enlarged lymph nodes; C61 Malignant neoplasm of prostate; R00.0 Tachycardia, unspecified; D50.9 Iron deficiency anemia, unspecified; D63.0 Anemia in neoplastic disease; S41.101A Unspecified open wound of right upper arm, initial encounter; S41.102A Unspecified open wound of left upper arm, initial encounter; M48.00 Spinal stenosis, site unspecified; G89.29 Other chronic pain; K59.00 Constipation, unspecified; G62.9 Polyneuropathy, unspecified; W19.XXXA Unspecified fall, initial encounter; F41.8 Other specified anxiety disorders; L29.9 Pruritus, unspecified; F17.210 Nicotine dependence, cigarettes, uncomplicated; E66.9 Obesity, unspecified; Z68.34 Body mass index [BMI] 34.0-34.9, adult; Z96.651 Presence of right artificial knee joint
CPT/HCPCS: 36415; 71275; 73552; 73700; 80048; 80053; 80076; 82607; 82728; 82746; 83540; 83550; 83605; 83735; 83880; 84145; 84443; 85025; 85027; 85610; 85730; 86140; 87040; 87070; 87075; 87641; 93306; 93971; 96365; 96375; 96376; 97110; 97161; 97166; 97530; 97535; 99212; 99285; A9270; G0378; G0463; J0690; J1100; J1200; J2270; Q9967